=== PATIENT | female | born 1990 | race Caucasian/White ===

== ENCOUNTER → 2018-11-02 16:09 | Outpatient (CLI) | payer MEDICAID, SELFPAY ==
[2017-08-19 22:07] VITALS: BMI 33.6
[2018-11-08 10:35] LABS: HPV APTIMA, High Risk Negative (Negative)
== END ==
PROVIDERS: Visit Provider Obstetrics & Gynecology
DX: Z12.4 Encounter for screening for malignant neoplasm of cervix (principal)
CPT/HCPCS: 88175; G0145

== ENCOUNTER 2019-05-04 12:35 | Emergency (ER) | payer MEDICAID, SELFPAY ==
[2019-05-04 12:36] VITALS: BP 156/92; PULSE 104; RESP 17; TEMP 36.2; O2SAT 96; BMI 35.4
--- NOTE | 2019-05-04 13:01 | CT_ITS ---
STUDY: CT ABDOMEN AND PELVIS WITH CONTRAST REASON FOR EXAM: Female, 28 years old. Abdominal pain RADIATION DOSAGE (If Supplied By Facility): CTDIvol = ( 14.54 ) mGy, DLP = ( 951.73 ) mGycm TECHNIQUE: Transaxial images were obtained from the dome of the diaphragm to the symphysis pubis with oral contrast. 100 IV/Oral Isovue 300 was administered. Sagittal and coronal images were reconstructed. Individualized dose optimization techniques were used for this CT. COMPARISON: None. FINDINGS: The visualized lung bases are unremarkable. The visualized portions of the heart are within normal limits. Normal liver. Normal gallbladder and extrahepatic biliary system. Normal spleen. Normal pancreas. Normal bilateral adrenal glands. Normal right kidney. Normal left kidney. Normal visualized stomach. Normal small intestine. Normal colon. The appendix is visualized and appears normal. Normal abdominal aorta. Normal inferior vena cava. Normal retroperitoneum. Normal urinary bladder. There is a small umbilical hernia containing fat. Mild levoscoliosis of the thoracic lumbar spine. CT/Abdomen/Pelvis WITH Contrast IMPRESSION: Normal enhanced CT of the abdomen and pelvis. Electronically Signed: Mario Quintanilla MD at 15:22 EDT Tel , Service support ,
[2019-05-04 13:14] LABS: Bacteria 0 SEEN /hpf (None Seen); Mucous, Urine 0 SEEN /hpf (<or=2+); Red Blood Cells-Urine 0 SEEN /hpf (0-5)
[2019-05-04 13:15] LABS: Absolute Lymphocyte Count 3.85 X10^3/uL (0.83-4.51); Absolute Neutrophil Count 5.2 X10^3/uL (2.0-7.7); Basophil# 0.06 X10^3/uL; Basophil% 0.6 % (0-1); Eosinophil# 0.17 X10^3/uL; Eosinophils% 1.7 % (0-5); Hematocrit 44.4 % (37-47); Hemoglobin 14.7 g/dL (12.0-15.0); Lymphocyte # 3.85 X10^3/ul (4.0); Mean Corp Hgb Conc 33.1 g/dL (32-36); Mean Corpuscular Hgb 27.3 pg (27.0-32.0); Mean Corpuscular Volume 82.5 fL (81-99); Monocyte# 0.84 X10^3/uL; Monocyte% 8.3 % (0-10); NRBC Flagged by Analyzer 0 % (0-5); Neutrophil # 5.18 X10^3/uL (2.7-7.7); Neutrophil % 51.2 % (47-70); Platelet Count 258 K/mm3 (150-450); RBC Distribution Width CV 13.1 % (11.6-14.6); RBC Distribution Width SD 39.4 fl (35.1-43.9); Red Blood Count 5.38 M/mm3 (4.2-5.4); White Blood Count 10.1 K/mm3 (4.4-11.0)
[2019-05-04 13:16] LABS: Color, Urine Yellow (Yellow); Glucose, Dipstick Normal (Normal); Ketone-Dipstick Negative (Negative); Leukocyte Esterase-Dipstick 25 /ul (Negative); Nitrite-Dipstick Negative (Negative); Occult Blood-Urine Negative /ul (Negative); Protein-Dipstick 15 mg/dl (Negative); Specific Gravity, Urine 1.015 (1.002-1.030); Urine Bilirubin Dipstick Negative (Negative); Urine Clarity Clear (Clear); Urine Urobilinogen 1 mg/dl (Normal)
[2019-05-04 13:18] LABS: Internal QC Validated? YES +Cl - CLEAR BKGD; Pregnancy, Urine Negative Negative
[2019-05-04] MEDS: 0.9% Normal Saline 1,000 ML 125 ML IV (13:18)
[2019-05-04] MEDS: Ondansetron 4 MG/2 ML Vial IV (13:18)
[2019-05-04 13:22] LABS: Squamous Epithelial Cells - UA 0-5 SEEN /hpf (5-10); White Blood Cells 0-5 SEEN /hpf (0-5)
[2019-05-04 13:30] LABS: AST(SGOT) 21 U/L (15-37); Alanine Aminotransfer ALT/SGPT 37 U/L (13-56); Alkaline Phosphatase 69 U/L (45-117); Anion Gap 4 (5-15); BUN 13 mg/dL (7-18); BUN/Creat Ratio 17.5 RATIO (10-20); Bilirubin, Direct 0.12 mg/dL (0.00-0.30); Calcium,Total 8.8 mg/dL (8.5-10.1); Chloride 109 mmol/L (98-107); Creatinine, Serum 0.74 mg/dL (0.55-1.02); EST Glomerular Filtration Rate 100 mL/min (>60); Est Glom Filt Rate - Afr Amer 121 mL/min (>60); Globulin 3.4 g/dL (2.2-4.2); Glucose 139 mg/dL (74-106); Lipase 128 U/L (73-393); Potassium 3.9 mmol/L (3.5-5.1); Protein, Total 7.4 g/dL (6.4-8.2); Sodium Level 140 mmol/L (136-145)
--- NOTE | 2019-05-04 13:39 | ED.VISSUMM ---
- ER Visit Summary Date of Service: 05/04/19 Chief Complaint: Abdominal pain History of Present Illness: The patient is a 28 F who states for the past several days she has had intermittent periumbilical pain. Today it is more suprapubic right lower quadrant in nature and constant. She is crying states it is very painful. Is worse with movement. She was able to eat eggs waffle this morning. However she does note some nausea. No fevers. No urinary symptoms. No vaginal discharge. Unknown last menstrual. States that she has never had regular periods. Physical Examination: Afebrile vital signs stable Gen: Well-nourished well-developed Head: Normocephalic atraumatic Eyes: Perrl EOMI ENT: TMs clear no rhinorrhea moist mucous membranes Neck: Supple no lymphadenopathy no JVD nontender CVS: Regular rate rhythm no murmurs normal S1-S2 Respiratory: No distress clear to auscultation bilaterally chest nontender Abdomen: Soft tender to palpation in the right lower quadrant suprapubic region nondistended normal bowel sounds no masses Back: Nontender Extremity: Nontender no edema Skin: Normal color no rash Neuro: alert orientated ?3 CN II-XII intact normal strength sensation reflexes gait cerebellar Psych: She does crying Test Results: White count 10.1. CMP and lipase normal. Urinalysis normal. CT abdomen pelvis was obtained Emergency Department Course and Treatment: Patient refused morphine. She states that she has been here 3 hours and she cannot leave her family in a bind and needs to order picker her children. We will not have the results of the CT back to therefore I will have her sign out AGAINST MEDICAL ADVICE. She is advised to return if symptoms continue. At the time of leaving AMA she no longer has pain. Patient CT adults returned and was negative. Impression: 1. Abdominal pain This note was generated with Departing dictation software. It may contain incorrect words, spelling, and punctuation that were not noted in review of the chart prior to signing Capacity - Capacity Assessment Tool Can the patient make a choice & communicate that choice?: Yes Can the patient understand benefits, risks and alternatives?: Yes Can the patient make a logical, rational choice?: Yes Is the choice the patient makes consistent w/ their values?: Yes Is there an impending, emergent risk to the patient?: No Does the patient have an Advance Directive?: No Is there a Surrogate Available?: No i.e. HCPOA: No i.e. close relative (spouse, child, parent, sibling)?: No ED Disposition - Plan for ED Patient: Disposition: Against Medical Advice Instructions: ABDOMINAL PAIN, Unknown Cause, (Female) Referrals: Taina Clayton MD [STAFF PHYSICIAN] - (if symptoms continue ) Additional Instructions: If Symptoms worsen please department.
[2019-05-04 15:11] VITALS: BP 122/77; PULSE 76; RESP 16; O2SAT 97
--- NOTE | 2019-05-04 15:29 | ED.RN ---
spoke with MD and then called patient to inform of (-) CT.
== END 2019-05-04 15:21 | disposition left against medical advice (07) ==
PROVIDERS: Emergency Provider Emergency Medicine
DX: R10.33 Periumbilical pain (principal); R11.0 Nausea
CPT/HCPCS: 74177; 80048; 80076; 81001; 81025; 83690; 85025; 96361; 96374; 96375; 99285; Q9967; J2405

== ENCOUNTER 2019-10-27 22:00 | Emergency (ER) | payer MEDICAID, SELFPAY ==
[2019-10-27 22:00] VITALS: BP 133/75; PULSE 120; RESP 20; TEMP 37.2; O2SAT 120; BMI 34.3
--- NOTE | 2019-10-27 22:02 | RAD_ITS ---
HISTORY: FALL [place], LATERAL SWELLING AND PAIN COMPARISON: None FINDINGS: # of images incl. paperwork: 3 XR Ankle Min 3 Views : No fracture or osseous abnormality. The ankle mortise is intact. Soft tissue swelling is is present laterally. An ankle effusion is present.. RAD/Ankle min 3 Views IMPRESSION: Lateral soft tissue swelling with ankle effusion to be Right ankle. No perceived acute fracture at 2338 Reported and signed by: Jignesh Mcdaniel MD Electronically Signed: Jignesh Mcdaniel MD at 23:37 EST Tel , Service support ,
[2019-10-27 23:38] VITALS: RESP 16
--- NOTE | 2019-10-28 00:01 | ED.VIS.GEN ---
History of Present Illness Chief Complaint: Lower Extremity Injury Detail of Chief Complaint: Right ankle injury Informant: Patient Onset: Today Current Severity: Moderate Maximum Severity: Moderate Narrative: Patient presents for [facility] [place] after rolling her and injuring her right ankle. She denies any other injury. She had difficulty with weightbearing. She has not taken anything for pain. - Past Medical History (1) Depression Status: Chronic Past Medical History - Allergies and Home Meds Allergies/Adverse Reactions: Allergies bees Allergy (Uncoded 05/04/19 12:36) Swelling white chocolate Allergy (Uncoded 05/04/19 12:36) Hives Primary Care Physician: Jacquie Palomares DO [STAFF PHYSICIAN] - As Needed Prior records reviewed: Yes Smoking Status: Current every day smoker Review of Systems General: Denies: Chills, Fever Eyes: Denies: Visual changes - bilaterally ENT: Denies: Bilateral ear pain Cardiovascular: Denies: Chest pain Respiratory: Denies: Dyspnea, Cough Gastrointestinal: Denies: Abdominal pain, Nausea, Vomiting, Diarrhea Genitourinary: Denies: Dysuria Musculoskeletal: Reports: Swelling, Extremity Pain Skin: Denies: Rash Neurological: Denies: Headache, Parasthesia Allergy: Denies: Uticaria Physical Exam Vital Signs/Narrative: Vital Signs Temp Pulse Resp BP Pulse Ox 10/27/19 23:38 16 10/27/19 22:00 99.0 F 120 H 20 H 133/75 H 120 Inital Vital Signs reviewed: Yes General: Well nourished, Well developed Head: Normocephalic ENT: Moist mucous membranes Neck: Supple Cardiovascular: Regular rate, Regular rhythm Respiratory: No distress, CTA bilaterally Abdomen: Soft, Nontender Extremities: - - Tenderness palpation of the lateral malleolus with mild edema. No tender over the midfoot. Strong distal pulses with good cap refill. No tenderness of the proximal fibula or knee. Skin: Normal color Neurological: Alert, Oriented x3 Psychological: Normal affect Diagnostic/Tx/Re-eval Impressions Ankle X-Ray 10/27/19 22:02 IMPRESSION: Lateral soft tissue swelling with ankle effusion to be Right ankle. No perceived acute fracture at 2338 Reported and signed by: Jignesh Mcdaniel MD Electronically Signed: Jignesh Mcdaniel MD at 23:37 EST Tel , Service support , 10/27/19 22:02 Ankle min 3 Views [RAD] Stat - Medical Decision Making X-ray results discussed with the patient. She is given naproxen as well as ankle stirrup splint and crutches. She is referred to orthopedics if not improving. ED Disposition - Plan for ED Patient: Disposition: Home or Assisted Living Diagnosis: Ankle sprain Instructions: Sprain, Ankle, with X-Ray Prescriptions: Naproxen [Naprosyn] 500 mg PO BID PRN #20 tab Prescription Printed Referrals: Jacquie Palomares DO [STAFF PHYSICIAN] - As Needed
[2019-10-28 00:43] VITALS: RESP 16
[2019-10-28] MEDS: Naproxen 500 MG Tablet PO (00:43)
== END 2019-10-28 00:44 | disposition home or self-care (01) ==
PROVIDERS: Emergency Provider Emergency Medicine
DX: S93.401A Sprain of unspecified ligament of right ankle, initial encounter (principal); X58.XXXA Exposure to other specified factors, initial encounter; Y93.44 Activity, trampolining; Y92.838 Other recreation area as the place of occurrence of the external cause; Y99.9 Unspecified external cause status; F17.200 Nicotine dependence, unspecified, uncomplicated
CPT/HCPCS: 73610; 99284

== ENCOUNTER → 2019-11-05 13:30 | Outpatient (CLI) | payer MEDICAID, SELFPAY ==
[2019-11-05 13:21] VITALS: BMI 34.3
--- NOTE | 2019-11-05 13:30 | RAD_ITS ---
STUDY: X-RAY - RIGHT FOOT CLINICAL: Foot pain. TECHNIQUE: 3 view(s) of the foot. COMPARISON: Radiographs of the right ankle 10/27/2019. FINDINGS: Normal talus, calcaneus, and tarsal bones. Normal visualized subtalar, talonavicular, calcaneocuboid, tarsal and tarsometatarsal articulations. Normal metatarsi. Normal metatarsophalangeal joint of the great toe. Normal tibial and fibular sesamoid bones. Normal interphalangeal joint of the great toe. Normal phalanges of the great toe. Normal second through fifth metatarsophalangeal joints. Normal interphalangeal joints and phalanges of the lesser toes. The soft tissue structures are unremarkable. RAD/Foot min 3 Views IMPRESSION: Normal x-ray examination of the right foot. Electronically Signed: Riley Hale MD at 15:04 EST Tel , Service support ,
== END ==
PROVIDERS: Referring Provider Physician Assistant; Visit Provider Physician Assistant
DX: S99.911A Unspecified injury of right ankle, initial encounter (principal); X58.XXXA Exposure to other specified factors, initial encounter; Y93.9 Activity, unspecified; Y92.9 Unspecified place or not applicable; Y99.9 Unspecified external cause status
CPT/HCPCS: 73630

== ENCOUNTER → 2019-11-28 15:35 | Outpatient (CLI) | payer MEDICAID, SELFPAY ==
[2019-11-05 13:21] VITALS: BMI 34.3
--- NOTE | 2019-11-28 15:36 | MRI_ITS ---
STUDY: MRI RIGHT ANKLE WITHOUT CONTRAST REASON FOR EXAM: Female, 29 years old. rt ankle sprain of tibiofibular ligament -- injury 1 month ago, pain medial and lateral ankle since TECHNIQUE: Standardized fat and water weighted pulse sequences were obtained in all 3 orthogonal planes. COMPARISON: Right foot x-ray dated November 05, 2019. FINDINGS: Mild to moderate subcutaneous edema is present around the foot but most prominent on the lateral side. No focal fluid collections are present. A small ankle joint effusion is present. Mild patchy marrow edema is present in the medial malleolus and the far medial side of the talus as well as in the deltoid ligament. The deltoid ligament is not torn or retracted. The anterior talofibular ligament is completely torn. Mild sprain edema is also present in the syndesmosis. No widening or disruption is present. Normal posterior tibialis tendon. Normal flexor digitorum longus tendon. Normal flexor hallucis longus tendon. Normal peroneus longus and brevis tendons. Normal tibialis anterior tendon. Normal extensor hallucis longus tendon. Normal extensor digitorum longus tendons. Normal Achilles tendon and teno-osseous insertion. Normal plantar fascia. Normal plantar calcaneal tubercles. Normal intrinsic muscles of the rearfoot. Normal subtalar ligaments and sinus tarsi. Normal plantar calcaneonavicular (spring) ligament. Normal tibiotalar articulation. Normal talar dome. Normal subtalar articulations. Normal talonavicular articulation. Normal calcaneocuboid articulation. Normal navicular-cuneiform articulations. MRI/Lower Ext Joint Only (Routine) IMPRESSION: 1. Mild bony contusions of the medial malleolus and medial cortical region of the talus. 2. Sprain injury of the deltoid ligamentous complex. 3. Mild sprain injury of the syndesmosis 4. Complete tear of the anterior talofibular ligament 5. Mild to moderate subcutaneous edema 6. Small ankle joint effusion. Electronically Signed: Zurdo Mcdonnell MD at 18:33 EDT , Service support ,
== END ==
PROVIDERS: Referring Provider Physician Assistant; Visit Provider Physician Assistant
DX: S93.431A Sprain of tibiofibular ligament of right ankle, initial encounter (principal)
CPT/HCPCS: 73721

== ENCOUNTER 2019-12-03 15:10 | Outpatient (RCR) | payer MEDICAID, SELFPAY ==
[2019-11-05 13:21] VITALS: BMI 34.3
--- NOTE | 2019-12-04 08:30 | HP.PTEVAL ---
Patient's Visit Information ARTUR OWEN is a 29 year old F referred to Physical Therapy by Josué Orozco DO with a diagnosis of RIGHT ANKLE SPRAIN ATFL/HIGH ANKLE SPRAIN. Date of Evaluation: 12/03/19 Physical Therapist: Anuj Elias, PT, Cert MDT, OCS - Visit Plan Frequency: 2x /Week Duration: 6 Weeks Plan: PT INTERVENTIONS VASO,MODALTIES (US/EST/CP) ANKLE ROM ,STRENGTHENING ANKLE STABILIZERS,PROPRIOCEPTION PROGRAM ABLE - Subjective Subjective: This 29 y/o female presents to physical therapy with right ankle sprain -ATFL/high ankle sprain. Patient injuried right ankle 10/27/19 at [employer]. Patient has severe pain and edema.Patient went to ER [facility] at [facility] x-rays - fracture, air cast with crutches NWB RLE , Patient had MRI showed complete tear of ATLF right ankle . Dr River Orozco placed patient in CAM with crutches until 1 1/2 ago ,but conts with CAM boot. Patient conts to have pain and and edema worse by end of day. C/O parathesia/tingling. Patient ankle sprain impairs ADL'S ,houseworks tasks and taking care of kids. Patient has limitaions with walking,standing and stairs. Patient condition affects QOL. SOCIAL: 2 children. 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 EDEMA: METATARSEL EAD 24.5 CM,59.0 CM. GAIT: ambulates with antalgic gait with cam boot. PROPRIOCETION: absent. PALAPTION: tender ATLT,calcaneal ligamnet ,talocural ligament. AROM: -20 degrees from 0 ,inversion 5 degrees ,plantarflexion 35 degrres,eversion 0 degrees. MMT: ankle anteriortibials 3/5,peroneus/posterior tibials/G-S 2/5. SPECIAL TEST: + with ankle anterior drawer,inversion - Goals Goal 1:: Patient to be I with HEP. Goal Time Frame: 4-6 Weeks Goal 2:: Patient to improve ankle ROM WFL to improve gait Goal Time Frame: 4-6 Weeks Goal 3:: Patient increae strength ankle stabilizers to 4/5 except G-S 4-/5 to impove function with gait. Goal Time Frame: 4-6 Weeks Goal 4:: Patient to normilize gait Goal Time Frame: 4-6 Weeks Goal 5:: Patient to improve proprioception symmtrical right compared to left for gait. Goal Time Frame: 4-6 Weeks Goal 6:: Patient to improve LFES score by 10-15 points to improve function. Goal Time Frame: 4-6 Weeks - Rehabilitation Potential Physical Therapy Diagnosis: This patient sprained right ankle with complete tear of ATLF along with high ankle sprain with pain ,edema,poor ROM ,uses CAM boot ,poor strength and proprioception impairs gait and ADL's thus benifit from skilled PT Rehabilitation Potential: Good - Anticipated Interventions Thank you for the opportunity to evaluate your patient. For Medicare and Medicare HMO plans, please review the plan of care and approve it. It will need to be FAXED BACK to us at [phone] for Medicare purposes. For Medicare only, by signing this I certify the plan of care. Please let me know if there are questions or concerns regarding this plan of care. Physician Signature: Date:
--- NOTE | 2020-05-28 09:05 | HP.PT.NRP ---
ARTUR OWEN was seen in my office for initial evaluation on 12/03/19. The following Plan of Care was established for this patient: Initial Frequency: 2x /Week Initial Duration: 6 Weeks This patient was last seen in our office . Pertinent comments regarding their Physical therapy will appear below: Patient seen for PT for high ankle sprain for Intial PT eval for HEP At this point I will be discontinuing this patient from physical therapy. I would be happy to see this patient again in the future if found appropriate by the physician. Thank you! Anuj Elias, PT, Cert MDT, OCS
== END 2019-12-03 19:00 | disposition home or self-care (01) ==
LOC: PT 15:10
PROVIDERS: Referring Provider Orthopaedic Surgery; Visit Provider Orthopaedic Surgery
DX: S93.491D Sprain of other ligament of right ankle, subsequent encounter (principal)
CPT/HCPCS: 97014; 97110; 97162; G0283

== ENCOUNTER 2020-04-27 12:43 | Emergency (ER) | payer MEDICAID, SELFPAY ==
[2019-11-05 13:21] VITALS: BMI 34.3
[2020-04-27 12:44] VITALS: BP 133/90; PULSE 85; RESP 14; TEMP 36.7; O2SAT 97; BMI 35.1
--- NOTE | 2020-04-27 12:56 | ED.DCSUM_ITS ---
History of Present Illness Informant: Patient Onset: Yesterday Context: Gradual Onset Timing: Continuous Quality: aching Location: tonsils Current Severity: Severe Maximum Severity: Severe Worsened by: Eating and drinking Relieved by: Nothing Associated Symptoms: Fever Narrative: 29-year-old female presents to the emergency department with a sore throat and a fever that she started having the symptoms yesterday. Her was seen here a few days ago diagnosed with strep throat. She denies cough, headache, neck pain, lightheadedness, dizziness, dental pain, difficulty breathing or swallowing, rash, chest pain or shortness of breath. No contacts with anyone h aving a positive test for coronavirus. Prior similar symptoms: No Recent Illness/Hospitalization: No <Jim Wang - Last Filed: 04/27/20 12:56> <Aj Morgan - Last Filed: 04/27/20 13:14> Chief Complaint: Sore Throat Past Medical History Prior records reviewed: Yes Past Medical History: None Surgical History: no surgical history Lives: With Family Smoking Status: Current every day smoker Alcohol: Occasional Drugs: None <Jim Wang - Last Filed: 04/27/20 12:56> <Aj Morgan - Last Filed: 04/27/20 13:14> - Allergies and Home Meds Allergies/Adverse Reactions: Allergies bees Allergy (Uncoded 04/27/20 12:46) Swelling white chocolate Allergy (Uncoded 04/27/20 12:46) Hives Primary Care Physician: Davey Monte MD [STAFF PHYSICIAN] - Review of Systems All systems negative except as indicated General: Reports: Chills, Fever. Denies: Sweats Eyes: Denies: Visual changes - bilaterally, Diplopia ENT: Reports: Sore throat. Denies: Rhinorrhea Cardiovascular: Denies: Chest pain, Palpitations Respiratory: Denies: Dyspnea, Cough, Dyspnea on exertion Gastrointestinal: Denies: Abdominal pain, Nausea, Vomiting, Diarrhea, Melena, Hematochezia Genitourinary: Denies: Dysuria, Hematuria, Frequency Musculoskeletal: Denies: Myalgias, Arthralgias, Neck pain, Back pain, Swelling, Extremity Pain Skin: Denies: Rash, Wounds Neurological: Denies: Headache, Weakness, Numbness <Jim Wang - Last Filed: 04/27/20 12:56> Physical Exam Vital Signs/Narrative: Vital Signs Temp Pulse Resp BP Pulse Ox 04/27/20 12:44 98.0 F 85 14 133/90 H 97 Inital Vital Signs reviewed: Yes General: Well nourished, Well developed, No Acute Distress Head: Normocephalic, Atraumatic Eyes: Perrl, EOMI ENT: Moist mucous membranes, No rhinorrhea, - - Patient has 2+ tonsillar swelling symmetrical with tonsillar exudate. Uvula is midline. Voice is normal. Neck: Supple, Nontender, - - Tender anterior cervical lymphadenopathy. No meningismus Cardiovascular: Regular rate, Regular rhythm, No murmurs Respiratory: No distress, CTA bilaterally, Chest nontender Abdomen: Soft, Nontender, Nondistended, Normal bowel sounds Back: Nontender, Normal Inspection Extremities: Nontender, No edema Skin: Normal color, No rash. Negative for: Rash Neurological: Alert, Oriented x3, Cranial nerves II-XII grossly intact, Normal Strength, Normal Sensation Psychological: Normal affect, Normal Mood <Jim Wang - Last Filed: 04/27/20 12:56> Vital Signs/Narrative: Vital Signs Temp Pulse Resp BP Pulse Ox 04/27/20 12:44 98.0 F 85 14 133/90 H 97 <Aj Morgan - Last Filed: 04/27/20 13:14> Diagnostic/Tx/Re-eval - Medical Decision Making Patient had a fever today prior to taking Tylenol. She has 4/4 centor.. In addition, her had a positive test a few days ago for strep. I will treat her for strep with amoxicillin. I will prescribe her 10 days worth. She will use Motrin and Tylenol at home for pain and fever. She was given 1 dose of Decadron in the emergency department. 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 Patient presents with a sore throat. Her recently tested positive for streptococcal pharyngitis. The patient complains of fever. She does have tonsillar swelling with exudates bilaterally. She does have tender anterior cervical lymphadenopathy. She does not have trismus or sublingual edema. Patient prescribed amoxicillin. She was also given a dose of Decadron here. The patient was discharged. <Aj Morgan - Last Filed: 04/27/20 13:14> ED Disposition <Jim Wang - Last Filed: 04/27/20 12:56> <Aj Morgan - Last Filed: 04/27/20 13:14> - Plan for ED Patient: Disposition: Home or Assisted Living Diagnosis: Acute streptococcal pharyngitis Instructions: ED Strep Pharyngitis Poss Referrals: Davey Monte MD [STAFF PHYSICIAN] -
[2020-04-27] MEDS: dexAMETHasone 10 MG/ML Vial PO.IVFORM (13:00)
== END 2020-04-27 13:21 | disposition home or self-care (01) ==
LOC: ED 13:20
PROVIDERS: Emergency Provider Physician Assistant Medical
DX: J02.0 Streptococcal pharyngitis (principal)
CPT/HCPCS: 99283

== ENCOUNTER 2021-04-24 23:42 | Emergency (ER) | payer MEDICAID, SELFPAY ==
[2021-04-24 23:43] VITALS: BP 144/84; PULSE 81; RESP 16; TEMP 36.6; O2SAT 94; BMI 37.2
--- NOTE | 2021-04-25 00:30 | EKG12_ITS ---
Test Reason : CP Blood Pressure : / mmHG Vent. Rate : 067 BPM Atrial Rate : 067 BPM P-R Int : 180 ms QRS Dur : 096 ms QT Int : 410 ms P-R-T Axes : 032 071 070 degrees QTc Int : 433 ms Normal sinus rhythm Normal ECG Confirmed by YARA MINER, PAT ([id number]), subeditor FRANC ANAND ([id number]) on 04/27/2021 1:38:05 PM Referred By: SUMEET Confirmed By:ANDRÉS LIVINGSTON MD
[2021-04-25] MEDS: Mag Hydrox/Al Hydrox/Simeth 30 ML UDC PO (00:47)
--- NOTE | 2021-04-25 00:47 | RAD_ITS ---
STUDY: X-RAY CHEST REASON FOR EXAM: Female, 30 years old. chest pain TECHNIQUE: Single AP portable view of the chest. COMPARISON: None. FINDINGS: The lungs are clear and expanded. There is no demonstrated pleural abnormality. Normal size heart. Normal mediastinum and sami. Normal visualized pulmonary arteries. Normal visualized aortic arch and descending thoracic aorta. Normal visualized thoracic spine. Normal visualized ribs, clavicles, and shoulders. There is no demonstrated abnormality of the visualized soft tissue structures of the upper abdomen. RAD/Chest 1 View (Portable) IMPRESSION: Normal x-ray examination of the chest. Electronically Signed: Chas Carter DO at 1:33 EDT Tel , Service support ,
[2021-04-25 00:57] LABS: Absolute Lymphocyte Count 4.62 X10^3/uL (0.83-4.51); Absolute Neutrophil Count 4.5 X10^3/uL (2.0-7.7); Basophil# 0.04 X10^3/uL; Basophil% 0.4 % (0-1); Eosinophil# 0.19 X10^3/uL; Eosinophils% 1.8 % (0-5); Hematocrit 40.9 % (37-47); Hemoglobin 13.6 g/dL (12.0-15.0); Lymphocyte # 4.62 X10^3/ul (0.83-4.51); Lymphocyte % 44.8 % (19-41); Mean Corp Hgb Conc 33.3 g/dL (32-36); Mean Corpuscular Hgb 27.9 pg (27.0-32.0); Mean Platelet Vol. 10.4 fl (6.2-12.0); Monocyte# 0.93 X10^3/uL; NRBC Flagged by Analyzer 0 % (0-5); Neutrophil # 4.51 X10^3/uL (2.7-7.7); Neutrophil % 43.7 % (47-70); Platelet Count 275 K/mm3 (150-450); RBC Distribution Width SD 39.5 fl (35.1-43.9); Red Blood Count 4.87 M/mm3 (4.2-5.4); White Blood Count 10.3 K/mm3 (4.4-11.0)
--- NOTE | 2021-04-25 01:35 | EDS_ITS ---
HPI History of Present Illness Chief Complaint: Chest Pain Informant: patient Onset/Context/Timing Onset: Today and Hours (5-6) Activity at onset: gradual and activity on onset (driving) Timing: Continuous Quality: Positive for Heaviness and Sharp Location: Substernal (w/o radiation) Current Severity: Moderate Maximum Severity: Moderate Worsened By: - (lying supine); Not Worsened By Breathing Relieved By: - (sitting up) Associated Symptoms: Positive for Nausea and Acid Reflux (maybe); Negative for Vomiting, Diaphoresis, Dyspnea, Cough, Fever, Lightheadedness and Palpitations Narrative Narrative: Patient presents with nonpleuritic central chest discomfort more lower in the retrosternal area just after eating a double hamburger combo meal from [employer], started after that while she was driving to a show. Chest discomfort was there the entire time, so she came to the emergency department later since it was persistent especially when she lied down with her daughter at home. CVD Risk Factors: Positive for Smoking; Negative for Hypertension, Diabetes, Hypercholesterolemia and Family History 1' </=55 PE Risk Factors: Negative for Recent Travel/Surgery, Recent Immobilization, Prior DVT or PE, Cancer and OCP + Smoking + >/=35 PFSH PFSH Medical History Depression Home Medications NK 04/27/20 [History Last Taken Unknown] Allergy/AdvReac Type Severity Reaction Status Date / Time bees Allergy Swelling Uncoded 04/24/21 23:45 white chocolate Allergy Hives Uncoded 04/24/21 23:45 Social History Smoking Status: Current every day smoker tobacco type: cigarettes ROS ROS ED Constitutional Constitutional ED: Denies chills or fever(s) Eyes Eyes: Denies change in vision or diplopia ENT ENT ED: Denies rhinorrhea or sore throat Cardiovascular Cardiovascular: Reports chest pain; Denies flutter in chest, palpitations, pedal edema, pounding heartbeat, racing heartbeat or radiating jaw, neck or arm pain Respiratory/Chest Respiratory/Chest: Denies cough, dyspnea or hemoptysis Gastrointestinal Gastrointestinal: Reports nausea; Denies abdominal pain, diarrhea or vomiting Genitourinary Genitourinary ED: Denies dysuria or hematuria Musculoskeletal Musculoskeletal: Denies back pain, extremity pain or neck pain Integumentary Denies abscess or rash Neurologic Neurologic: Denies headache(s), paresthesias or weakness Psychiatric Psychiatric: Reports anxiety and other Details: Patient states she has had some increased anxiety lately since her daughter went back to school and she is not exactly sure why but without chest discomfort until tonight. ; Denies suicidal thoughts EXAM Physical Exam Const Vital Signs: 04/24/21 23:43 04/25/21 00:09 04/25/21 02:17 Temperature 97.9 F Temperature Source Temporal Pulse Rate 81 68 Respiratory Rate 16 16 Respiratory Effort Short of Breath Blood Pressure 144/84 H 115/82 H Blood Pressure Mean 104 93 Pulse Ox 94 93 Oxygen Delivery Method Room Air Room Air Positive well nourished and well developed General Appearance ED: well developed and NAD HEENT Reports moist mucous membranes normocephalic and atraumatic Eyes PERRL and EOMs intact bilaterally Neck full ROM and supple Resp normal respiratory effort and clear to auscultation bilaterally Cardio regular rate, regular rhythm and no murmurs Rate: Negative for tachycardic GI non-tender and non-distended Auscultation: normoactive bowel sounds Palpation: soft Back/Spine no CVA tenderness General Back: other FROM Extremity normal to inspection and no calf tenderness General Extremety ED: Negative for edema, pulses abnormal or tenderness General Extremity: Negative for edema or pulses abnormal Neuro oriented x3, CN's II-XII intact bilaterally and no sensory deficits noted Sensorium / Orientation: awake and alert Motor Exam: strength 5/5 throughout Skin no rashes or lesions noted and no wounds Heart Score History: Slightly/Non-Suspicious ECG: Normal Age: </= 45 years Risk Factors: 1 or 2 Risk Factors Troponin: </= Normal Limit Score: 1 MDM MDM MDM Narrative Medical decision making narrative: Patient's work-up is negative, her PERC score is 0 so no further work-up is needed in order to rule out pulmonary embolus here. I suspect this is esophageal in etiology, given the history. She was given a GI cocktail and did note improvement. She is reassured and advised to follow-up if symptoms persist throughout the weekend, advised to take daily twice daily Pepcid or once daily omeprazole if she still has symptoms tomorrow u ntil they are gone at least. She is comfortable with that plan and we discussed reasons to return. Lab Data Attestation: I reviewed the patient's lab results. Labs: Laboratory Results - last 24 hr 04/25/21 04/25/21 00:50 00:50 WBC 10.3 RBC 4.87 Hgb 13.6 Hct 40.9 MCV 84.0 MCH 27.9 MCHC 33.3 RDW Std Deviation 39.5 RDW Coeff of Jatinder 13.0 Plt Count 275 MPV 10.4 Immature Gran % (Auto) 0.300 Neut % (Auto) 43.7 L Lymph % (Auto) 44.8 H [place] % (Auto) 9.0 Eos % (Auto) 1.8 Baso % (Auto) 0.4 Absolute Neuts (auto) 4.5 Absolute Lymphs (auto) 4.62 H Nucleated RBC % 0 Sodium TNP Potassium TNP Chloride TNP Carbon Dioxide 26.0 BUN 11 Creatinine 0.68 Estim Creat Clear Calc 101.89 Est GFR (MDRD) Af Amer 132 Est GFR (MDRD) Non-Af 109 BUN/Creatinine Ratio 16.2 Glucose 128 H Calcium 8.9 Troponin I High Sens 5 Radiography Chest X-Ray - ED: 1 View, Read by ED Physician, Normal and No Acute Disease Diagnostic Testing: Radiology Impression Chest X-Ray 04/25/21 00:47 IMPRESSION: Normal x-ray examination of the chest. Electronically Signed: Chas Carter DO at 1:33 EDT Tel , Service support , EKG Initial EKG: Attestation: I personally reviewed and interpreted this EKG as follows: Interpretation: Sinus Rhythm and No Acute Injury Pattern Comments: normal EKG Discharge Plan Triage Chief Complaint: Chest Pain ED Provider: Daniel De Los Santos Dx/Rx/DC Orders Clinical Impression: Chest pain, unspecified Instructions: ED Chest Pain, Noncardiac Prescriptions: No Action NK RF: 0 Primary Care Provider: Care Physician,No Primary Referrals: Care Physician,No Primary [Primary Care Provider] - Activity Restrictions/Additional Instructions: If you still have symptoms tomorrow take Pepcid 40 mg once a day, or 20 mg twice a day, or omeprazole 40 mg once a day until the symptoms go away. Disposition Disposition: Home, Self Care
[2021-04-25 02:17] VITALS: BP 115/82; PULSE 68; RESP 16; O2SAT 93
[2021-04-25] MEDS: Pantoprazole Sodium 40 MG Tablet PO (02:18)
[2021-04-25 03:18] LABS: BUN 11 mg/dL (7-18); BUN/Creat Ratio 16.2 RATIO (10-20); Calcium,Total 8.9 mg/dL (8.5-10.1); Creatinine, Serum 0.68 mg/dL (0.55-1.02); EST Glomerular Filtration Rate 109 mL/min (>60); Est Glom Filt Rate - Afr Amer 132 mL/min (>60); Estimated Creatinine Clearance 101.89 ml/min; Glucose 128 mg/dL (74-106); Troponin-I HS 5 pg/mL (3.0-54.0)
[2021-04-25 03:30] VITALS: BP 128/79; PULSE 60; RESP 17; O2SAT 95
[2021-04-25 04:28] LABS: Anion Gap 7 (5-15); Chloride 109 mmol/L (98-107); Potassium 3.7 mmol/L (3.5-5.1); Sodium Level 142 mmol/L (136-145)
== END 2021-04-25 03:30 | disposition home or self-care (01) ==
PROVIDERS: Emergency Provider Emergency Medicine
DX: R07.89 Other chest pain (principal); K21.9 Gastro-esophageal reflux disease without esophagitis; F17.210 Nicotine dependence, cigarettes, uncomplicated
CPT/HCPCS: 71045; 80048; 84484; 85025; 93005; 99284; A4216

== ENCOUNTER 2022-07-31 04:33 | Emergency (ER) | payer MEDICAID, SELFPAY ==
[2022-07-31 04:34] VITALS: BP 136/88; PULSE 81; RESP 16; TEMP 35.8; O2SAT 98; BMI 36.1
[2022-07-31] MEDS: 0.9% Normal Saline 1,000 ML 999 ML IV (05:00)
--- NOTE | 2022-07-31 05:07 | CT_ITS ---
EXAM: CT HEAD WITHOUT INTRAVENOUS CONTRAST CLINICAL INDICATION: headache TECHNIQUE: Multiple axial images were obtained of the head without intravenous contrast. This CT exam was performed using one or more of the following dose reduction techniques: automated exposure control, adjustment of the mA and/or kV according to patient size, and/or use of iterative reconstruction technique. This report was created using [employer] report generation technology. RADIATION DOSE: CTDIvol = 44.99 mGy, DLP = 812.98 mGy-cm. COMPARISON: None. FINDINGS: BRAIN AND EXTRA-AXIAL SPACES: Unremarkable. No intra- or extra-axial hemorrhage. No evidence of acute infarct. No intracranial mass or mass effect. There is preservation of the kumar/white matter interface. Posterior fossa structures are unremarkable. Ventricles are appropriate for age. No hydrocephalus. Basal cisterns are patent. BONES/JOINTS: Unremarkable. No discrete lytic or blastic abnormalities. SINUSES: Extensive mucosal thickening right frontal, right ethmoid, and bilateral maxillary sinuses. MASTOID AIR CELLS: Unremarkable. Clear. ORBITS: Visualized globes, extraocular muscles, optic nerves and retrobulbar fat appear unremarkable. CT/Brain/Head without Contrast IMPRESSION: 1. No acute intracranial abnormality. 2. Extensive mucosal thickening right frontal, right ethmoid, and bilateral maxillary sinuses. Electronically Signed: Luis Eduardo Lindsey MD at 5:40 EST ,
[2022-07-31] MEDS: DiphenhydrAMINE 50 MG/ML Syringe IV (05:22)
[2022-07-31] MEDS: dexAMETHasone 10 MG/ML Vial IV (05:22)
[2022-07-31] MEDS: Ketorolac 30 MG/ML Syringe IV (05:24)
[2022-07-31] MEDS: Metoclopramide 10 MG/2 ML Vial IV (05:24)
--- NOTE | 2022-07-31 05:31 | EX.ED.DYSGE1 ---
HPI History of Present Illness Chief Complaint: Headache Narrative Narrative: Patient is a 31-year-old female with past medical history of depression. She states that approximately 2 to 3 days ago she began with a generalized headache. She states the headache came on slowly and then began to increase over the course of hours. She states she took [id number] medication but despite this the headache has persisted and worsened. She states it is sensitive to light and loud noises. She denies any fevers or chills but does report mild nasal congestion and sinus pain/pressure. She denies any trauma prior to the headache beginning. She states that she does not normally have headaches and this headache is not resolving with [id number] medications with seems to be worsening over time she is concerned and therefore presents for evaluation [facility] Medical History Depression Home Medications amoxicillin 875 mg-potassium clavulanate 125 mg tablet 1 tab PO BID 7 days #14 tabs 07/31/22 [Rx Last Taken Unknown] prednisone 20 mg tablet 40 mg PO DAILY 7 days #14 tabs 07/31/22 [Rx Last Taken Unknown] Allergy/AdvReac Type Severity Reaction Status Date / Time bee venom protein (honey bee) Allergy Swelling Verified 07/31/22 04:36 chocolate flavor Allergy Hives Verified 07/31/22 04:36 Social History Smoking Status: Current every day smoker tobacco type: cigarettes ROS ROS ED Constitutional Constitutional ED: Denies chills or fever(s) Eyes Eyes: Reports other Details: Positive photophobia ENT ENT ED: Reports rhinorrhea; Denies sore throat Cardiovascular Cardiovascular: Denies chest pain Respiratory/Chest Respiratory/Chest: Denies cough or dyspnea Gastrointestinal Gastrointestinal: Reports nausea; Denies abdominal pain, diarrhea or vomiting Genitourinary Genitourinary ED: Denies dysuria Musculoskeletal Musculoskeletal: Denies myalgias or neck pain Integumentary Denies rash Neurologic Neurologic: Reports headache(s) Hematologic/Lymphatic Hematologic/Lymphatic: Denies easy bleeding or easy bruising EXAM Physical Exam Const Vital Signs: 07/31/22 04:34 Temperature 96.5 F L Temperature Source Temporal Pulse Rate 81 Respiratory Rate 16 Blood Pressure 136/88 H Blood Pressure Mean 104 Pulse Ox 98 Oxygen Delivery Method Room Air Positive well nourished and well developed General Appearance ED: well developed HEENT Reports moist mucous membranes HEENT Narrative: Nasal mucosa is hyperemic and boggy there are enlarged inferior nasal turbinates noted. Patient does have pain on palpation of the maxillary, frontal, and ethmoid sinuses mainly on the right Eyes PERRL and EOMs intact bilaterally Neck supple Neck Narrative: No meningeal signs noted Resp normal respiratory effort and clear to auscultation bilaterally Cardio regular rate and regular rhythm GI normal to inspection, nondistended, normoactive bowel sounds, non-tender, non-distended and no masses Auscultation: normoactive bowel sounds Palpation: soft Extremity normal to inspection Neuro oriented x3 and CN's II-XII intact bilaterally Neuro Narrative: Cranial nerves II through XII are grossly intact there are no focal neurologic deficits. No pronator drift no dysmetria no truncal ataxia. NIH stroke scale score of 0. Sensorium / Orientation: alert Psych mental status grossly normal Skin no rashes or lesions noted MDM MDM MDM Narrative Medical decision making narrative: Patient presented to the ER with stable vitals and a normal neurologic exam. She reported headache came on gradually increased over the course of hours. With this she also had mild congestion and pain over top the sinuses concerning for sinus headache or viral syndrome. However as she states she does not typically have headaches like this I elected to perform a head CT. Head CT revealed inflammation along the maxillary ethmoid and frontal sinuses mainly on the right which is where her symptoms are located. Her COVID and influenza swabs are negative. At this time there is concern that the headache is secondary to bacterial sinusitis so she will be placed on Augmentin. However after treatment with Decadron Toradol Benadryl and Reglan she does have improvement of symptoms and her neuro exam remains normal. Therefore at this time as there are no signs of acute stroke she does not have meningeal signs and there are no signs of pneumocephalus from possible invasive sinusitis she can be given medication and discharged home Radiography Diagnostic Testing: Clinical Impression(s) from Imaging Studies Brain CT 07/31/22 05:07 IMPRESSION: 1. No acute intracranial abnormality. 2. Extensive mucosal thickening right frontal, right ethmoid, and bilateral maxillary sinuses. Electronically Signed: Luis Eduardo Lindsey MD at 5:40 EST , Discharge Plan Triage Chief Complaint: Headache ED Provider: Guru Franco Dx/Rx/DC Orders Clinical Impression: Sinusitis, Cephalgia Instructions: ED Sinus Headache, ED Sinusitis (Antibiotic Treatment) Prescriptions: New amoxicillin-pot clavulanate 875-125 mg tablet 1 tab PO BID 7 Days Qty: 14 0RF prednisone 20 mg tablet 40 mg PO DAILY 7 Days Qty: 14 0RF Primary Care Provider: Care Physician,No Primary Referrals: Amrita Rob DO [Med Staff - Correctional Officer] - Care Physician,No Primary [Primary Care Provider] - Activity Restrictions/Additional Instructions: Your CT scan today does not show any type of tumor mass bleed or abscess. It does show thickening and inflammation of the sinuses around your eye/forehead region. I feel your headache is secondary to this inflammation and thickening. Be placed on steroids to help reduce inflammation as well as antibiotics to cover for bacterial infection. He can continue with Tylenol Motrin as needed and please return to the ER should you have any further concerns Disposition Disposition: Home, Self Care
[2022-07-31] MEDS: Amox/Clavulanate 875 MG Tablet PO (06:06)
== END 2022-07-31 06:11 | disposition home or self-care (01) ==
PROVIDERS: Emergency Provider Emergency Medicine; Visit Provider Emergency Medicine
DX: J32.9 Chronic sinusitis, unspecified (principal); R51.9 Headache, unspecified; F17.210 Nicotine dependence, cigarettes, uncomplicated
CPT/HCPCS: 70450; 87428; 96361; 96374; 96375; 99282; J7030; A4216

== ENCOUNTER 2023-01-02 20:37 | Emergency (ER) | payer MEDICAID, SELFPAY ==
[2023-01-02 20:39] VITALS: BP 132/107; PULSE 81; RESP 18; TEMP 36.6; O2SAT 97; BMI 36.6
[2023-01-02 21:06] LABS: Bacteria 0 SEEN /hpf (None Seen); Mucous, Urine 0 SEEN /hpf (<or=2+); Red Blood Cells-Urine 0 SEEN /hpf (0-5); White Blood Cells 0 SEEN /hpf (0-5)
[2023-01-02 21:13] LABS: Absolute Lymphocyte Count 5.58 X10^3/uL (0.83-4.51); Absolute Neutrophil Count 9.6 X10^3/uL (2.0-7.7); Basophil# 0.08 X10^3/uL; Basophil% 0.5 % (0-1); Eosinophil# 0.11 X10^3/uL; Eosinophils% 0.7 % (0-5); Hematocrit 46.2 % (37-47); Hemoglobin 15.4 g/dL (12.0-15.0); Lymphocyte # 5.58 X10^3/ul (0.83-4.51); Lymphocyte % 33.4 % (19-41); Mean Corp Hgb Conc 33.3 g/dL (32-36); Mean Corpuscular Hgb 27.9 pg (27.0-32.0); Mean Corpuscular Volume 83.7 fL (81-99); Mean Platelet Vol. 9.5 fl (6.2-12.0); Monocyte# 1.28 X10^3/uL; Monocyte% 7.7 % (0-10); NRBC Flagged by Analyzer 0 % (0-5); Neutrophil # 9.59 X10^3/uL (2.7-7.7); Neutrophil % 57.3 % (47-70); POSITIVE DIFFERENTIAL YES; Platelet Count 321 K/mm3 (150-450); RBC Distribution Width CV 13.1 % (11.6-14.6); RBC Distribution Width SD 39.9 fl (35.1-43.9); Red Blood Count 5.52 M/mm3 (4.2-5.4); White Blood Count 16.7 K/mm3 (4.4-11.0)
[2023-01-02 21:15] LABS: Differential Indicated SCAN CRITERIA MET
[2023-01-02 21:33] LABS: Color, Urine Yellow (Yellow); Glucose, Dipstick Normal (Normal); Ketone-Dipstick Negative (Negative); Leukocyte Esterase-Dipstick Negative /ul (Negative); Nitrite-Dipstick Negative (Negative); Occult Blood-Urine Negative /ul (Negative); Protein-Dipstick Negative (Negative); Specific Gravity, Urine 1.005 (1.002-1.030); Urine Bilirubin Dipstick Negative (Negative); Urine Clarity Sl. Cloudy (Clear); Urine Urobilinogen Normal (Normal)
--- NOTE | 2023-01-02 21:37 | US_ITS ---
STUDY: FIRST TRIMESTER OBSTETRICAL ULTRASOUND REASON FOR EXAM: Female, 32 years old early , pelvic pain LMP: 09/29/2022 TECHNIQUE: Transvaginal TECHNICAL QUALITY: Adequate. PRIOR ULTRASOUND: None. FINDINGS: There is visualization of a single gestational sac in a normal intrauterine position. The mean sac diameter (MSD) measures 3 mm, indicating an estimated gestational age (EGA) of 5 weeks, 0 days. The gestational sac shape is within normal limits. There is no demonstrated yolk sac.. The placenta is non-visualized. There is no demonstrated embryo ( pole).. The estimated gestation age (EGA) by LMP is 13 weeks, 4 days. The estimated date of delivery (SERA) by LMP is 07/06/2023. The estimated gestation age (EGA) by US is 5 weeks, 0 days. The estimated date of delivery (SERA) by US is 09/04/2023. The uterus measures 9.4 x 6.3 x 4.5 cm. There is no demonstrated uterine fibroid. The cervix is closed. The right ovary measures 3.5 x 2.5 x 2.2 cm. There is no right ovarian cyst. There is no visualized right adnexal mass or complex lesion. The left ovary measures 4.8 x 3.4 x 2.4 cm. There is no left ovarian cyst. There is no visualized left adnexal mass or complex lesion. There is no fluid in the cul de sac. US/Transvaginal w/Preg US IMPRESSION: Intrauterine gestational sac of 5 weeks 0 days as described above. Electronically Signed: Mario Quintanilla MD at 23:17 EDT ,
[2023-01-02 21:38] LABS: Internal QC Validated? YES +Cl - CLEAR BKGD
[2023-01-02 21:42] LABS: Anion Gap 5 (5-15); BUN 9 mg/dL (7-18); BUN/Creat Ratio 12.4 RATIO (10-20); Calcium,Total 9.1 mg/dL (8.5-10.1); Chloride 109 mmol/L (98-107); Creatinine, Serum 0.73 mg/dL (0.55-1.02); Differential Comment SCANNED; EST Glomerular Filtration Rate 100 mL/min (>60); Est Glom Filt Rate - Afr Amer 121 mL/min (>60); Estimated Creatinine Clearance 93.22 ml/min; Glucose 97 mg/dL (74-106); Potassium 3.6 mmol/L (3.5-5.1); Sodium Level 137 mmol/L (136-145)
[2023-01-02 21:43] LABS: Squamous Epithelial Cells - UA 0-5 SEEN /hpf (5-10)
[2023-01-02 21:44] LABS: Amorphous Sediment 1+ PHOS; Pregnancy, Urine Positive Negative
--- NOTE | 2023-01-02 21:52 | EDS_ITS ---
HPI <BISI Sesay - Last Filed: 01/02/23 22:10> History of Present Illness Chief Complaint: Abd Pain Narrative Narrative: Patient is a 32-year-old female with no significant medical history who currently does not see a physician who presents to the emergency department with concern of a positive test. Patient is a 2 para 2. Patient and her do not use any control. They have not had any pregnancies or concern for in the last 7 years. Patient states that over the last 3 days she has been having lower abdominal pain, frequent urination, took a home test and was positive. Patient's last menstrual cycle was September 2022, she states that she is always been irregular and single multiple months without a menstrual cycle. Her cycles are usually 7 days and heavy. Patient denies any nausea or vomiting. Denies any back pain, fever or chills. PFSH <BISI Sesay - Last Filed: 01/02/23 22:10> PFSH Medical History Depression Home Medications amoxicillin 875 mg-potassium clavulanate 125 mg tablet 1 tab PO BID 7 days #14 tabs 07/31/22 [Rx Last Taken Unknown] prednisone 20 mg tablet 40 mg PO DAILY 7 days #14 tabs 07/31/22 [Rx Last Taken Unknown] vit,calcium no.40-iron fum 27 mg iron-folate no.1 1 mg tablet (PNV- Select) 1 tab PO DAILY #30 tabs 01/03/23 [Rx Last Taken Unknown] Allergy/AdvReac Type Severity Reaction Status Date / Time bee venom protein (honey bee) Allergy Swelling Verified 01/02/23 20:42 chocolate flavor Allergy Hives Verified 01/02/23 20:42 Social History Smoking Status: Current every day smoker tobacco type: cigarettes ROS <BISI Sesay - Last Filed: 01/02/23 22:10> ROS ED ROS Narrative Constitutional: Negative for fever, chills, weight loss, weakness Eyes: Negative for vision loss, vision change, double vision ENT: Negative for any sore throat, ear pain, congestion Cardiovascular: Negative for any chest pain, tightness, palpitations Respiratory: Negative for any cough, sputum production, hemoptysis, dyspnea, dyspnea on exertion, orthopnea Gastrointestinal: Negative for any nausea, vomiting, diarrhea, constipation, blood in stool, blood in vomit. Positive for lower abdominal pain : Negative for any dysuria, retention, blood in urine. Positive for urinary frequency Muscle skeletal: Negative for any muscle joint pain, stiffness, myalgias, arthralgias, neck pain, back pain Neurological: Negative for any headache, syncope, numbness or tingling, dizziness Skin: Negative for any rashes, lumps, itching, abrasions, lacerations Psychiatric: Negative for any depression, anxiety, stress, suicidal ideation, homicidal ideation Hematologic: Negative for any easy bruising, excessive bruising, easy bleeding Allergies: Negative for any eczema, hives, rash EXAM <BISI Sesay - Last Filed: 01/02/23 22:10> Physical Exam Narrative Exam Narrative: Vital signs reviewed. Patient does appear to be anxious, patient is tearful on examination. Patient states that she is scared secondary to her age, she is also not wanting another . HEET: Head normocephalic atraumatic, TMs clear bilaterally. Posterior pharynx is clear, moist mucous membranes. Nares clear bilaterally. Neck: Supple with no lymphadenopathy or tenderness. No signs of meningismus, negative jolt sign. Cardiac: Regular rate and rhythm no murmurs gallops or rubs, equal peripheral pulses bilaterally. Respiratory: Lungs clear to auscultation bilaterally. No chest tenderness. Abdomen: Soft, nontender, nondistended. No abdominal bruit or pulsatile masses. No hepatosplenomegaly Extremities: No peripheral edema, no signs of gross trauma or deformity. Active full range of motion of all extremities. Neuro: Cranial nerves II through XII intact, no focal neurological deficits. Skin: Clean dry and intact with no rash, purpura, petechiae, vesicles or pustules. Backs/flank: No CVA tenderness, no midline spinal tenderness, no deformity. Psych: Normal mood and affect. No SI, HI or acute psychosis. Const Vital Signs: 01/02/23 20:39 Temperature 97.9 F Temperature Source Temporal Pulse Rate 81 Respiratory Rate 18 Blood Pressure 132/107 H Blood Pressure Mean 115 Pulse Ox 97 Oxygen Delivery Method Room Air <Dr. Daniel De Los Santos MD - Last Filed: 01/03/23 00:15> Physical Exam Const Vital Signs: 01/02/23 20:39 Temperature 97.9 F Temperature Source Temporal Pulse Rate 81 Respiratory Rate 18 Blood Pressure 132/107 H Blood Pressure Mean 115 Pulse Ox 97 Oxygen Delivery Method Room Air MDM <Davey BISI Goldman - Last Filed: 01/02/23 22:10> [facility] Lab Data Attestation: I reviewed the patient's lab results. Labs: Laboratory Results - last 24 hr 01/02/23 01/02/23 01/02/23 21:00 21:07 21:07 WBC 16.7 H RBC 5.52 H Hgb 15.4 H Hct 46.2 MCV 83.7 MCH 27.9 MCHC 33.3 RDW Std Deviation 39.9 RDW Coeff of Jatinder 13.1 Plt Count 321 MPV 9.5 Immature Gran % (Auto) 0.400 Neut % (Auto) 57.3 Lymph % (Auto) 33.4 [place] % (Auto) 7.7 Eos % (Auto) 0.7 Baso % (Auto) 0.5 Absolute Neuts (auto) 9.6 H Absolute Lymphs (auto) 5.58 H Nucleated RBC % 0 Differential Comment SCANNED Sodium 137 Potassium 3.6 Chloride 109 H Carbon Dioxide 23.0 Anion Gap 5 BUN 9 Creatinine 0.73 Estim Creat Clear Calc 93.22 Est GFR (MDRD) Af Amer 121 Est GFR (MDRD) Non-Af 100 BUN/Creatinine Ratio 12.4 Glucose 97 Calcium 9.1 HCG, Quant Urine Color Yellow Urine Clarity Sl. Cloudy Urine pH 7.0 Ur Specific [place] 1.005 Urine Protein Negative Urine Glucose (UA) Normal Urine Ketones Negative Urine Occult Blood Negative Urine Nitrite Negative Urine Bilirubin Negative Urine Urobilinogen Normal Ur Leukocyte Esterase Negative Urine RBC 0 SEEN Urine WBC 0 SEEN Ur Squamous Epith Cells 0-5 SEEN Amorphous Sediment 1+ PHOS Urine Bacteria 0 SEEN Urine Mucus 0 SEEN Urine Test Positive H 01/02/23 21:07 WBC RBC Hgb Hct MCV MCH MCHC RDW Std Deviation RDW Coeff of Jatinder Plt Count MPV Immature Gran % (Auto) Neut % (Auto) Lymph % (Auto) [place] % (Auto) Eos % (Auto) Baso % (Auto) Absolute Neuts (auto) Absolute Lymphs (auto) Nucleated RBC % Differential Comment Sodium Potassium Chloride Carbon Dioxide Anion Gap BUN Creatinine Estim Creat Clear Calc Est GFR (MDRD) Af Amer Est GFR (MDRD) Non-Af BUN/Creatinine Ratio Glucose Calcium HCG, Quant 402 H Urine Color Urine Clarity Urine pH Ur Specific [place] Urine Protein Urine Glucose (UA) Urine Ketones Urine Occult Blood Urine Nitrite Urine Bilirubin Urine Urobilinogen Ur Leukocyte Esterase Urine RBC Urine WBC Ur Squamous Epith Cells Amorphous Sediment Urine Bacteria Urine Mucus Urine Test Radiography Diagnostic Testing: Clinical Impression(s) from Imaging Studies Obstetrics Ultrasound 01/02/23 21:37 IMPRESSION: Intrauterine gestational sac of 5 weeks 0 days as described above. Electronically Signed: Mario Quintanilla MD at 23:17 EDT , Treatment and Re-Evaluation :: Patient appears well, patient appears nontoxic, vital signs are stable.Patient presents to the emergency department for concerns of as well as abdominal pain. Patient's physical examination was grossly unremarkable. Patient had minimal pain on tenderness. Patient is mostly anxious. Patient did receive laboratory values, patient's CBC showed a leukocytosis with a blood count of 16.7, elevated H&H with a hemoglobin 5.52 and a hemoglobin of 15.4. Patient did have elevated white blood counts from [id number]. Patient's chemistries were unremarkable. Patient urinalysis negative for infection, and was positive for . We did attempt a bedside ultrasound however not muc h was seen. Patient's hCG quantitative was 402. The patient will still receive a transvaginal ultrasound to rule out any ectopic , other abnormality. <Dr. Daniel De Los Santos MD - Last Filed: 01/03/23 00:15> [facility] Lab Data Labs: Laboratory Results - last 24 hr 01/02/23 01/02/23 01/02/23 21:00 21:07 21:07 WBC 16.7 H RBC 5.52 H Hgb 15.4 H Hct 46.2 MCV 83.7 MCH 27.9 MCHC 33.3 RDW Std Deviation 39.9 RDW Coeff of Jatinder 13.1 Plt Count 321 MPV 9.5 Immature Gran % (Auto) 0.400 Neut % (Auto) 57.3 Lymph % (Auto) 33.4 [place] % (Auto) 7.7 Eos % (Auto) 0.7 Baso % (Auto) 0.5 Absolute Neuts (auto) 9.6 H Absolute Lymphs (auto) 5.58 H Nucleated RBC % 0 Differential Comment SCANNED Sodium 137 Potassium 3.6 Chloride 109 H Carbon Dioxide 23.0 Anion Gap 5 BUN 9 Creatinine 0.73 Estim Creat Clear Calc 93.22 Est GFR (MDRD) Af Amer 121 Est GFR (MDRD) Non-Af 100 BUN/Creatinine Ratio 12.4 Glucose 97 Calcium 9.1 HCG, Quant Urine Color Yellow Urine Clarity Sl. Cloudy Urine pH 7.0 Ur Specific [place] 1.005 Urine Protein Negative Urine Glucose (UA) Normal Urine Ketones Negative Urine Occult Blood Negative Urine Nitrite Negative Urine Bilirubin Negative Urine Urobilinogen Normal Ur Leukocyte Esterase Negative Urine RBC 0 SEEN Urine WBC 0 SEEN Ur Squamous Epith Cells 0-5 SEEN Amorphous Sediment 1+ PHOS Urine Bacteria 0 SEEN Urine Mucus 0 SEEN Urine Test Positive H 01/02/23 21:07 WBC RBC Hgb Hct MCV MCH MCHC RDW Std Deviation RDW Coeff of Jatinder Plt Count MPV Immature Gran % (Auto) Neut % (Auto) Lymph % (Auto) [place] % (Auto) Eos % (Auto) Baso % (Auto) Absolute Neuts (auto) Absolute Lymphs (auto) Nucleated RBC % Differential Comment Sodium Potassium Chloride Carbon Dioxide Anion Gap BUN Creatinine Estim Creat Clear Calc Est GFR (MDRD) Af Amer Est GFR (MDRD) Non-Af BUN/Creatinine Ratio Glucose Calcium HCG, Quant 402 H Urine Color Urine Clarity Urine pH Ur Specific [place] Urine Protein Urine Glucose (UA) Urine Ketones Urine Occult Blood Urine Nitrite Urine Bilirubin Urine Urobilinogen Ur Leukocyte Esterase Urine RBC Urine WBC Ur Squamous Epith Cells Amorphous Sediment Urine Bacteria Urine Mucus Urine Test Radiography Diagnostic Testing: Clinical Impression(s) from Imaging Studies Obstetrics Ultrasound 01/02/23 21:37 IMPRESSION: Intrauterine gestational sac of 5 weeks 0 days as described above. Electronically Signed: Mario Quintanilla MD at 23:17 EDT , Treatment and Re-Evaluation Comments:: Seen and evaluated independently and in conjunction with nurse practitioner. Agree with notes above unless documented otherwise. Irregular menstruation, last normal menstrual cycle was in September, positive home test x2. Pain in her pelvis nonlateralizing no bleeding. On exam, abdomen mildly tender suprapubic, no urinary symptoms, no guarding or rebound, no palpable enlarged organs. Quant is low, we obtained a stat emergent transvaginal ultrasound, it shows a gestational sac in the uterus consistent with 5-week 0-day , I reviewed the images and the radiologist's interpretation which I agree with. Patient reassured, consistent with early and the lack of an ectopic . Close outpatient follow-up advised with the ammunition and explosives handler on-call since patient does not have 1. Discharge Plan Triage Chief Complaint: Abd Pain ED Midlevel Provider: Davey Goldman ED Provider: Daniel De Los Santos Dx/Rx/DC Orders Clinical Impression: Early stage of , Pelvic pain affecting in first trimester, antepartum Instructions: ED Abdominal Pain, Early Prescriptions: New PNV-Select 27-1 mg tablet 1 tab PO DAILY Qty: 30 0RF Rx Instructions: or equivalent generic PNV No Action amoxicillin-pot clavulanate 875-125 mg tablet 1 tab PO BID 7 Days Qty: 14 0RF prednisone 20 mg tablet 40 mg PO DAILY 7 Days Qty: 14 0RF Primary Care Provider: Care Physician,No Primary Referrals: Haven Cross MD [Med Staff - Active Staff] - 5-7 Days Care Physician,No Primary [Primary Care Provider] - Disposition Disposition: Home, Self Care
[2023-01-02 22:07] LABS: hCG Titer Quant., Serum 402 mIU/mL (1-3)
[2023-01-03 00:16] VITALS: BP 128/74; PULSE 62; RESP 15; O2SAT 98
== END 2023-01-03 00:18 | disposition home or self-care (01) ==
PROVIDERS: Nurse Practitioner; Emergency Provider Emergency Medicine; Referring Provider Emergency Medicine; Visit Provider Emergency Medicine
DX: O26.891 Other specified pregnancy related conditions, first trimester (principal); R35.0 Frequency of micturition; R10.30 Lower abdominal pain, unspecified; O99.331 Smoking (tobacco) complicating pregnancy, first trimester; F17.210 Nicotine dependence, cigarettes, uncomplicated; Z3A.01 Less than 8 weeks gestation of pregnancy
CPT/HCPCS: 76817; 80048; 81001; 81025; 84702; 85025; 99282

== ENCOUNTER 2023-08-25 11:14 | Outpatient (CLI) | payer MEDICAID, SELFPAY ==
[2023-08-25 11:22] VITALS: BP 143/77; PULSE 85
[2023-08-25 11:49] VITALS: BMI 39.7
[2023-08-25 12:39] VITALS: BP 114/68; PULSE 85
--- NOTE | 2023-08-25 20:24 | OB.TRI.HP_ITS ---
HPI - General HPI Narrative ARTUR OWEN, is a 32 F G at 37.5 weeks who presents to triage with contractions since yesterday. Denies any loss of fluid or vaginal bleeding. Positive movement. Maternal Data Information SERA Calculator Estimated Delivery Date Method Current WG Current Estimate 09/10/23 Manual 37w 5d PFSH PFS Medical History Depression Home Medications vit,calcium no.40-iron fum 27 mg iron-folate no.1 1 mg tablet (PNV- Select) 1 tab PO DAILY #30 tabs 01/03/23 [Rx Last Taken 08/25/23] ferrous sulfate 325 mg (65 mg iron) tablet (Feosol) 325 mg PO QODAY anemia 08/25/23 [History Last Taken 08/24/23] Allergy/AdvReac Type Severity Reaction Status Date / Time bee venom protein (honey bee) Allergy Swelling Verified 01/02/23 20:42 chocolate flavor Allergy Hives Verified 01/02/23 20:42 Social History Smoking Status: Current every day smoker tobacco type: cigarettes History Elective abortions Hx Para 1 Spontaneous abortions Hx # Term Pregnancies Ectopic pregnancies Hx # Pregnancies Multiple births # of living children ROS Eyes Eyes: Denies blurry vision Cardiovascular Cardiovascular: Reports none; Denies chest pain at rest, chest pain with activity or dizziness Respiratory/Chest Respiratory/Chest: Denies cough or dyspnea Gastrointestinal Gastrointestinal: Reports none and other; Denies diarrhea or vomiting Genitourinary Genitourinary: Denies dysuria Musculoskeletal Musculoskeletal: Reports none Integumentary Integumentary: Reports none; Denies rash Neurologic Neurologic: Denies dizziness, headache(s) or other visual disturbances Psychiatric Psychiatric: Reports none Physical Exam Const alert and no apparent distress General Appearance: cooperative Orientation / Consciousness: awake Exam Limitations: no limitations HEENT normocephalic Eyes General Eye: normal appearance of both eyes Neck full ROM Chest inspection of chest normal Resp normal respiratory effort and normal air movement Effort and Inspection: symmetric chest movement Auscultation: clear to auscultation bilaterally Cardio regular rate GI soft to palpation, non-tender and non-distended Inspection: and other Back/Spine normal ROM Extremity full ROM, normal capillary refill and no calf tenderness Skin no rashes or lesions noted Neuro oriented x3 and CN's II-XII intact bilaterally Psych mental status grossly normal NST FHR Rate Baby A Baseline: 130 Variability:: Moderate Accelerations:: None Decelerations:: None NST Reactive:: Yes FHR Category:: Category I Uterine Activity:: Irregular Assessment & Plan (1) 37 weeks gestation of : (2) Obesity affecting : (3) Uterine contractions: PLAN: Plan CE /-4- unchanged NST reactive. Cat. 1 tracing Patient desires unmedicated labor and delivery Requesting discharge home Follow up in office
== END 2023-08-25 13:05 | disposition home or self-care (01) ==
LOC: WPOUT 11:16 → WP 11:17
PROVIDERS: Referring Provider Advanced Practice Midwife; Visit Provider Advanced Practice Midwife
DX: O62.2 Other uterine inertia (principal); O99.213 Obesity complicating pregnancy, third trimester; Z3A.37 37 weeks gestation of pregnancy
CPT/HCPCS: 59025; 59050; 99221; G0378

== ENCOUNTER 2023-08-31 18:10 | Inpatient (IN) | payer MEDICAID, SELFPAY ==
[2023-08-31] VITALS (24 sets, daily range): BP systolic 122–159; BP diastolic 58–89; PULSE 62–79; TEMP 36.6–37.1; O2SAT 91–99; BMI 39.8
[2023-08-31] MEDS: Lactated Ringers 1,000 ML 100 ML IV (16:00)
[2023-08-31] MEDS: Acetaminophen 500 MG Tablet 1000 MG PO (16:29)
[2023-08-31 16:34] LABS: AST(SGOT) 14 U/L (15-37); Alanine Aminotransfer ALT/SGPT 15 U/L (13-56); EST Glomerular Filtration Rate 105 mL/min (>60); Est Glom Filt Rate - Afr Amer 127 mL/min (>60); Uric Acid 4.8 mg/dL (2.6-6.0)
[2023-08-31 16:35] LABS: Protein, Urine (Random) 29.3 mg/dL (<11.9); Protein:Creat Ratio 266 mg/g CRE (0-200)
--- NOTE | 2023-08-31 17:14 | OB.TRI.HP_ITS ---
HPI - General HPI Narrative ARTUR OWEN, is a 32 F who presents Maternal Data Information SERA Calculator Estimated Delivery Date Method Current WG Current Estimate 09/10/23 Manual 38w 4d PFSH PFSH Medical History Depression Home Medications vit,calcium no.40-iron fum 27 mg iron-folate no.1 1 mg tablet (PNV- Select) 1 tab PO DAILY #30 tabs 01/03/23 [Rx Last Taken 08/25/23] ferrous sulfate 325 mg (65 mg iron) tablet (Feosol) 325 mg PO QODAY anemia 08/25/23 [History Last Taken 08/24/23] Allergy/AdvReac Type Severity Reaction Status Date / Time bee venom protein (honey bee) Allergy Swelling Verified 01/02/23 20:42 chocolate flavor Allergy Hives Verified 01/02/23 20:42 Social History Smoking Status: Current every day smoker tobacco type: cigarettes History Elective abortions Hx Para 1 Spontaneous abortions Hx # Term Pregnancies Ectopic pregnancies Hx # Pregnancies Multiple births # of living children
--- NOTE | 2023-08-31 18:32 | HP.PCM.OB_ITS ---
HPI - General General Date of Admission: 08/31/23 HPI Narrative ARTUR OWEN, is a 32 F at 38.4 weeks gestation who presents with increased blood pressures and headache today in while in office. Maternal Data Information SERA Calculator Estimated Delivery Date Method Current WG Current Estimate 09/10/23 Manual 38w 4d PFSH PFS Medical History Depression Home Medications vit,calcium no.40-iron fum 27 mg iron-folate no.1 1 mg tablet (PNV- Select) 1 tab PO DAILY #30 tabs 01/03/23 [Rx Last Taken 08/25/23] ferrous sulfate 325 mg (65 mg iron) tablet (Feosol) 325 mg PO QODAY anemia 08/25/23 [History Last Taken 08/24/23] Allergy/AdvReac Type Severity Reaction Status Date / Time bee venom protein (honey bee) Allergy Swelling Verified 01/02/23 20:42 chocolate flavor Allergy Hives Verified 01/02/23 20:42 Social History Smoking Status: Current every day smoker tobacco type: cigarettes History Elective abortions Hx Para 1 Spontaneous abortions Hx # Term Pregnancies Ectopic pregnancies Hx # Pregnancies Multiple births # of living children ROS Eyes Eyes: Denies blurry vision, change in vision or spots in vision ENT HEENT: Denies dizziness or headache(s) Cardiovascular Cardiovascular: Denies abdominal pain, chest pain or dyspnea Respiratory/Chest Respiratory/Chest: Denies cough, dyspnea, shortness of breath at rest or shortness of breath with exertion Gastrointestinal Gastrointestinal: Denies abdominal pain, diarrhea or vomiting Genitourinary Genitourinary: Denies change in urinary stream, difficulty urinating or dysuria Musculoskeletal Musculoskeletal: Reports none Integumentary Integumentary: Denies rash Neurologic Neurologic: Reports dizziness and headache(s); Denies memory loss or weakness Psychiatric Psychiatric: Reports none Vital Signs Vital Signs Vital Signs: 08/31/23 15:58 08/31/23 15:58 08/31/23 16:05 Pulse Rate 72 74 Blood Pressure 122/70 H BP Systolic 122 BP Diastolic 70 Pulse Ox 08/31/23 16:05 08/31/23 16:15 08/31/23 16:15 Pulse Rate 65 Blood Pressure 127/75 H BP Systolic 127 BP Diastolic 75 Pulse Ox 91 08/31/23 16:29 08/31/23 16:29 08/31/23 16:52 Pulse Rate 68 Blood Pressure 144/73 H 137/80 H BP Systolic 144 137 BP Diastolic 73 80 Pulse Ox 08/31/23 16:52 08/31/23 17:06 08/31/23 17:06 Pulse Rate 77 71 Blood Pressure 135/81 H BP Systolic 135 BP Diastolic 81 Pulse Ox 08/31/23 17:24 08/31/23 17:24 08/31/23 17:37 Pulse Rate 62 Blood Pressure 143/73 H 153/77 H BP Systolic 143 153 BP Diastolic 73 77 Pulse Ox 08/31/23 17:37 08/31/23 17:53 08/31/23 17:53 Pulse Rate 66 73 Blood Pressure 138/80 H BP Systolic 138 BP Diastolic 80 Pulse Ox 08/31/23 18:06 08/31/23 18:06 08/31/23 18:25 Pulse Rate 71 Blood Pressure 127/73 H 145/83 H BP Systolic 127 145 BP Diastolic 73 83 Pulse Ox 08/31/23 18:25 Pulse Rate 71 Blood Pressure BP Systolic BP Diastolic Pulse Ox Physical Exam Const alert, oriented x3 and no apparent distress General Appearance: cooperative Orientation / Consciousness: awake Exam Limitations: no limitations HEENT normocephalic Head and Scalp: normal to inspection Eyes General Eye: normal appearance of both eyes Neck full ROM and no lymphadenopathy Lymph Lymphatic: no lymphadenopathy noted Chest inspection of chest normal Resp normal respiratory effort, normal air movement and clear to auscultation bilaterally Effort and Inspection: able to speak in complete sentences and symmetric chest movement Cardio regular rate and regular rhythm GI normal to inspection, nondistended, normoactive bowel sounds Manual OB Exam: presentation cephalic Back/Spine normal ROM Extremity full ROM and no calf tenderness Skin no rashes or lesions noted General Skin Exam: no breakdown Neuro oriented x3 and CN's II-XII intact bilaterally Psych mental status grossly normal and thought process normal Labs Labs Labs: Blood Type B POSITIVE Antibody Screen NEGATIVE Hct 32.7 % (37-47) L Hgb 11.0 g/dL (12.0-15.0) L Obstetrics Ultrasound Rubella IgG Antibody 22.2 IU/mL Hep Bs Antigen Negative (Negative) Glucose 1 Hr 50 gm 119 mg/dL (70-140) Group B Strep DNA POSITIVE (Negative) H Rhogam given: No GBS negative Assessment & Plan (1) Obesity affecting : (2) Headache in : (3) Gestational hypertension: (4) 38 weeks gestation of : (5) LGA (large for gestational age) fetus: PLAN: Plan Blood pressures ranging from 130-150/ 80's meets criteria for GHTN EFW 97%, TANNA 13 GBS negative Admit to labor and delivery PIH labs - normal- p/c ratio 266 Start HTN protocol Start IV and run fluids per orders CE 1.5/60/-2 in office Anticipate placement of gates bulb Dr. Beaulieu notified of admission and plan of care- collaborating physician
[2023-08-31 20:26] LABS: Absolute Lymphocyte Count 3.16 X10^3/uL (0.83-4.51); Absolute Neutrophil Count 14.2 X10^3/uL (2.0-7.7); Basophil# 0.06 X10^3/uL; Basophil% 0.3 % (0-1); Eosinophil# 0.06 X10^3/uL; Eosinophils% 0.3 % (0-5); Hematocrit 32.2 % (37-47); Hemoglobin 11.2 g/dL (12.0-15.0); Lymphocyte # 3.16 X10^3/ul (0.83-4.51); Lymphocyte % 16.5 % (19-41); Mean Corp Hgb Conc 34.8 g/dL (32-36); Mean Corpuscular Hgb 29.2 pg (27.0-32.0); Mean Corpuscular Volume 83.9 fL (81-99); Mean Platelet Vol. 10.7 fl (6.2-12.0); Monocyte# 1.48 X10^3/uL; Monocyte% 7.7 % (0-10); NRBC Flagged by Analyzer 0 % (0-5); Neutrophil % 74.1 % (47-70); Platelet Count 342 K/mm3 (150-450); RBC Distribution Width CV 14.6 % (11.6-14.6); RBC Distribution Width SD 44.6 fl (35.1-43.9); Red Blood Count 3.84 M/mm3 (4.2-5.4); White Blood Count 19.2 K/mm3 (4.4-11.0)
[2023-08-31 20:40] LABS: Syphilis Antibodies Non-reactive
[2023-08-31] MEDS: 0.9% Normal Saline Single 100 ML IV.SOLN. INTRA-UTER (21:05)
--- NOTE | 2023-08-31 21:12 | PCM.PN.CNM ---
Subjective Subjective Patient seen at bedside. Denies any pain. Feeling occasional contractions. Objective Data Objective Data Vital Signs: Vital Signs Temp Pulse BP Pulse Ox 97.9 F 78 127/76 H 93 08/31/23 15:55 08/31/23 20:11 08/31/23 20:11 08/31/23 20:11 Weight: 225 lb Body Mass Index (BMI) 39.8 Lab / Micro Data 08/31/23 16:00 08/31/23 16:00 Labs: Laboratory Results - last 24 hr 08/31/23 16:00: WBC Cancelled 08/31/23 16:00: WBC 19.2 H, Corrected WBC Cancelled, RBC Cancelled 08/31/23 16:00: RBC 3.84 L, Hgb Cancelled 08/31/23 16:00: Hgb 11.2 L, Hct Cancelled 08/31/23 16:00: Hct 32.2 L, MCV Cancelled 08/31/23 16:00: MCV 83.9, MCH Cancelled 08/31/23 16:00: MCH 29.2, MCHC Cancelled 08/31/23 16:00: MCHC 34.8, RDW Std Deviation Cancelled 08/31/23 16:00: RDW Std Deviation 44.6 H, RDW Coeff of Jatinder Cancelled 08/31/23 16:00: RDW Coeff of Jatinder 14.6, Plt Count Cancelled 08/31/23 16:00: Plt Count 342, MPV Cancelled 08/31/23 16:00: MPV 10.7, Immature Gran % (Auto) 1.100 H, Neut % (Auto) 74.1 H, Lymph % (Auto) 16.5 L, [place] % (Auto) 7.7, Eos % (Auto) 0.3, Baso % (Auto) 0.3, Absolute Neuts (auto) 14.2 H, Absolute Lymphs (auto) 3.16, Nucleated RBC % 0, Diff Path Review Cancelled, Creatinine 0.70, Est GFR (MDRD) Af Amer 127, Est GFR (MDRD) Non-Af 105, Uric Acid 4.8, AST 14 L, ALT 15, U Random Total Protein 29.3 H, Urine Creatinine 110.00, Protein/Creatinin Ratio 266 H 08/31/23 19:50: Syphilis Total Ab Non-reactive, Blood Type B POSITIVE, Antibody Screen NEGATIVE Assessment & Plan (1) LGA (large for gestational age) fetus: (2) 38 weeks gestation of : (3) Gestational hypertension: (4) Headache in : (5) Obesity affecting : PLAN: Plan CE- 1.5/60/-2 Deluna bulb placed without difficulty and filled with 30 cc N/S Cytotec 25 mcg po x 1 dose now- reevaluate in 4 hours GBS is negative NST reactive Pain medication if indicated Dr. Beaulieu on unit and updated on plan of care
[2023-08-31] MEDS: miSOPROStol 25 MCG TABLET PO (21:27)
[2023-09-01] VITALS (66 sets, daily range): BP systolic 102–135; BP diastolic 58–78; PULSE 54–100; RESP 16; TEMP 35.8–37.4; O2SAT 93–100
[2023-09-01] MEDS: Lactated Ringers 1,000 ML 50 ML IV (02:33)
[2023-09-01] MEDS: Oxytocin 15 Units/NS 250ml 15 UNITS/250 ML IV.SOLN 2 UNITS IV (03:01)
[2023-09-01] MEDS: LACTATED RINGERS 500 ML 999 ML IV (04:56)
--- NOTE | 2023-09-01 07:05 | PCM.PN.CNM ---
Subjective Subjective Patient seen at bedside. Comfortable with epidural. Difficulty tracing FHT due to maternal size and position. Objective Data Objective Data Vital Signs: Vital Signs Temp Pulse BP Pulse Ox 97.8 F 70 113/65 97 09/01/23 05:04 09/01/23 06:14 09/01/23 06:14 09/01/23 06:12 Weight: 225 lb Body Mass Index (BMI) 39.8 Intake & Output: Intake and Output for Last 24 Hours 08/30/23 08/31/23 09/01/23 23:59 23:59 23:59 Intake Total 400 / 400 626.64 / 626.64 Output Total 1050 / 1050 Balance 400 / 400 -423.36 / -423.36 Lab / Micro Data 08/31/23 16:00 08/31/23 16:00 Labs: Laboratory Results - last 24 hr 08/31/23 16:00: WBC Cancelled 08/31/23 16:00: WBC 19.2 H, Corrected WBC Cancelled, RBC Cancelled 08/31/23 16:00: RBC 3.84 L, Hgb Cancelled 08/31/23 16:00: Hgb 11.2 L, Hct Cancelled 08/31/23 16:00: Hct 32.2 L, MCV Cancelled 08/31/23 16:00: MCV 83.9, MCH Cancelled 08/31/23 16:00: MCH 29.2, MCHC Cancelled 08/31/23 16:00: MCHC 34.8, RDW Std Deviation Cancelled 08/31/23 16:00: RDW Std Deviation 44.6 H, RDW Coeff of Jatinder Cancelled 08/31/23 16:00: RDW Coeff of Jatinder 14.6, Plt Count Cancelled 08/31/23 16:00: Plt Count 342, MPV Cancelled 08/31/23 16:00: MPV 10.7, Immature Gran % (Auto) 1.100 H, Neut % (Auto) 74.1 H, Lymph % (Auto) 16.5 L, [place] % (Auto) 7.7, Eos % (Auto) 0.3, Baso % (Auto) 0.3, Absolute Neuts (auto) 14.2 H, Absolute Lymphs (auto) 3.16, Nucleated RBC % 0, Diff Path Review Cancelled, Creatinine 0.70, Est GFR (MDRD) Af Amer 127, Est GFR (MDRD) Non-Af 105, Uric Acid 4.8, AST 14 L, ALT 15, U Random Total Protein 29.3 H, Urine Creatinine 110.00, Protein/Creatinin Ratio 266 H 08/31/23 19:50: Syphilis Total Ab Non-reactive, Blood Type B POSITIVE, Antibody Screen NEGATIVE Assessment & Plan (1) 38 weeks gestation of : (2) Gestational hypertension: (3) Obesity affecting : (4) Rubella non-immune status, antepartum: (5) LGA (large for gestational age) fetus: (6) Meconium in amniotic fluid: PLAN: Plan Deluna bulb out Cat. 1 tracing/ NST reactive Pitocin IV at 4 mu/min- continue to increase per policy CE /-2 AROM for light meconium fluid IUPC and FSE placed due to difficulty tracing Anticipate
[2023-09-01] MEDS: Lactated Ringers 1,000 ML 200 ML IV ×2 (07:30→12:29)
[2023-09-01] MEDS: fentaNYL-bupivacaine (epidural) 100 ML BAG EPIDURAL (10:26)
--- NOTE | 2023-09-01 12:44 | EX.PCM.OBRPT ---
Assessment & Plan (1) (spontaneous vaginal delivery): (2) Rubella non-immune status, antepartum: (3) Care and examination of lactating mother: Maternal Data Information SERA Calculator Estimated Delivery Date Method Current WG Current Estimate 09/10/23 Manual 38w 5d Vaginal Delivery Maternal Presentation Maternal Presentation: Medically Indicated Induction Maternal Presentation: for induction of labor for gestational hypertension Type of Induction: Pitocin, Deulna Bulb and Amniotomy Medical Reason for Induction: Gestational Hypertension Operative Information Date of Procedure: 09/01/23 Pre-Operative Diagnosis: Term gestation, induction of labor Post-Operative Diagnosis: , live female Surgery / Procedure Performed: Spontaneous Vaginal Delivery Type of Anesthesia: Epidural Estimated Blood Loss: 150 Time of Delivery: 12:33 Findings Description of Procedure: Patient progressed to complete dilation. With maternal effort, head delivered over intact perineum followed immediately by anterior shoulder and remainder of infant. Vigorous female placed on maternal abdomen and was attended to by nursing staff. Pitocin IV started for active management of the third stage of labor. 3 vessel cord clamped and cut by FOB after delay. Placenta delivered spontaneously and intact. Vagina and perineum intact. Vaginal sweep completed by me. Hemostasis obtained. EBL 150 cc. APGARS 8/9. Patient and bonding well at this time. Dr. Coon on unit and notified of delivery. Presentation: Vertex Amniotic Membrane Rupture Type: Artificial Time of Membrane Rupture: 37 Amniotic Fluid Description: Lightly stained meconium Placental Delivery Description: Spontaneous Placenta Disposition: [facility] Cord Vessel Description: 3 Vessels Cord Entanglement: None Infant A Gender: Female (1 minute): 8 (5 minute): 9 Delayed Cord Clamping: Yes Post Vaginal Delivery Medications Given After Delivery: IV Pitocin Episiotomy Description: None Laceration: None Complication Complications: None
[2023-09-01] MEDS: Oxytocin 15 Units/NS 250ml 15 UNITS/250 ML IV.SOLN 83 UNITS IV (13:04)
--- NOTE | 2023-09-01 17:28 | NURSING ---
1720 pt desires to go out and smoke- reviewed no smoking policy and offered cessation info and or nicotine patch- pt refused- pt signed against medical advice paper and went out on her own
[2023-09-02] VITALS: BP 123/58; PULSE 78; RESP 15; TEMP 36.6; O2SAT 97
[2023-09-02] MEDS: Acetaminophen 500 MG Tablet 1000 MG PO (00:34)
[2023-09-02] MEDS: Naproxen 500 MG Tablet PO (03:32)
[2023-09-02 03:36] VITALS: BP 129/71; PULSE 69; RESP 15; TEMP 36.4; O2SAT 96
--- NOTE | 2023-09-02 07:22 | PCM.PN.OB ---
Subjective Subjective Patient doing well this morning. Ambulating and voiding without difficulty. Lochia is normal. She is tolerating a regular diet without nausea or vomiting. No chest pain, shortness of breath, headaches. She desires discharge today. Objective Data Objective Data Vital Signs: Vital Signs Temp Pulse Resp BP Pulse Ox O2 Del Method 97.6 F L 69 15 129/71 H 96 Room Air 09/02/23 03:36 09/02/23 03:36 09/02/23 03:36 09/02/23 03:36 09/02/23 03:36 09/02/23 03:36 Oxygen Delivery Method Room Air Weight: 225 lb Body Mass Index (BMI) 39.8 Intake & Output: Intake and Output for Last 24 Hours 08/31/23 09/01/23 09/02/23 23:59 23:59 23:59 Intake Total 400 / 400 2977.50 / 2977.50 Output Total 2800 / 2800 Balance 400 / 400 177.50 / 177.50 Lab / Micro Data 08/31/23 16:00 08/31/23 16:00 Physical Exam Const no apparent distress Constitutional Narrative: Resting General Appearance: comfortable GI soft to palpation, non-tender and non-distended Extremity no calf tenderness Assessment & Plan (1) Vaginal delivery: PLAN: PPD#1 s/p . Doing well and desires discharge. Meeting milestones for discharge. (2) Gestational hypertension: PLAN: No symptoms of pre e and BP's normal.
--- NOTE | 2023-09-02 08:20 | DCINST_ITS ---
Discharge Instructions Diet Discharge Diet: No restrictions Activity Discharge Activity: May Drive and May Shower May resume sexual activity in: 6 weeks (nothing in the vagina and no soaking in water for 6 weeks) Ice area for (Minutes): 15 Weight Bearing Status: Weight bearing as tolerated Lifting Restrictions: nothing heavier than baby Dressing / Incision Call your doctor if you observe: Fever of 101 or Higher, Coldness, Increased Pain, Numbness or Tingling, Change in Color, Inability to urinate, Inability to have a bowel movement, Using more than 1 pad per hour, Shortness of breath, Dizziness, Fainting spells, Swelling in the ankles, Chest pain, Increased palpitations (irregular heartbeat), Calf discomfort and Uncontrolled pain Follow Up Care Please Follow Up With: Suri Schilling CNM When: 1 week for early and blood pressure check 6 weeks for exam Test Results: Test results from this visit will be discussed in further detail at your follow- up appointment, if applicable. Discharge Plan Admission Admit Date/Time: 08/31/23 18:10 Primary Reason for Your Visit: delivery Attending Provider: Suri Schilling Primary Care Provider: Care Physician,No Primary Instructions Patient Instructions: After a Vaginal Discharge Orders/Prescriptions Prescriptions: Continued PNV-Select 27-1 mg tablet 1 tab PO DAILY Qty: 30 0RF Rx Instructions: or equivalent generic PNV Discontinued ferrous sulfate [Feosol] 325 mg (65 mg iron) tablet 325 mg PO QODAY magnesium 200 mg tablet 200 mg PO DAILY PRN (Reason: cramps) Referrals / Follow Up: Care Physician,No Primary [Primary Care Provider] - Disposition Disposition (needs filled in before D/C Order can be placed): Home, Self Care
[2023-09-02 08:30] VITALS: BP 128/58; PULSE 85; RESP 20; TEMP 36.9; O2SAT 98
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
[2023-09-02 14:50] VITALS: BP 139/70; PULSE 68; RESP 16; TEMP 36.8; O2SAT 100
== END 2023-09-02 15:05 | disposition home or self-care (01) | DRG 560 ==
LOC: WPOUT 18:18 → WP 18:18
PROVIDERS: Admitting Provider Advanced Practice Midwife; Referring Provider Advanced Practice Midwife; Visit Provider Advanced Practice Midwife
DX: O13.4 Gestational [pregnancy-induced] hypertension without significant proteinuria, complicating childbirth (principal); Z37.0 Single live birth; F17.210 Nicotine dependence, cigarettes, uncomplicated; O99.214 Obesity complicating childbirth; O77.0 Labor and delivery complicated by meconium in amniotic fluid; O99.334 Smoking (tobacco) complicating childbirth; O36.63X0 Maternal care for excessive fetal growth, third trimester, not applicable or unspecified; Z3A.38 38 weeks gestation of pregnancy
CPT/HCPCS: 59025; 59050; 82565; 82570; 84156; 84450; 84460; 84550; 85025; 86780; 86850; 86900; 86901; 99221; J7120; G0378

== ENCOUNTER 2025-08-25 08:20 | Observation (INO) | payer OTHER, SELFPAY ==
[2025-08-25] VITALS (13 sets, daily range): BP systolic 106–146; BP diastolic 66–83; PULSE 73–92; RESP 15–18; TEMP 36.4–36.9; O2SAT 94–100; BMI 37.0
--- NOTE | 2025-08-25 08:36 | CT_ITS ---
PROCEDURE: ABDOMEN/PELVIS W IV CONT ONLY 08/25/2025 REASON FOR EXAM: ABDOMINAL PAIN, HERNIA TECHNIQUE: Procedure Code: [id number] Modality: CT Procedure: ABDOMEN/PELVIS W IV CONT ONLY Coronal and Sagittal reconstruction series were provided. CONTRAST: Isovue 370 VOLUME: 96 mL One or more dose reduction techniques were used (e.g., Automated exposure control, adjustment of the mA and/or kV according to patient size, use of iterative reconstruction technique. RADIATION DOSE SUMMARY: DLP: 1063.27 MGycm COMPARISON: CT abdomen/pelvis 05/04/2019 FINDINGS: Lower chest: Lung bases are clear. Liver: Top-normal in size. Hepatic steatosis. No enhancing lesion. Gallbladder and biliary ducts: Unremarkable gallbladder. Normal caliber intrahepatic and common bile ducts. Pancreas:Unremarkable. No ductal dilatation or mass. No peripancreatic fluid. Spleen: Unremarkable. Adrenal glands: Unremarkable. Kidneys and ureters: Normal renal size, morphology, and enhancement. No nephroureterolithiasis, hydronephrosis, or renal mass. Urinary bladder: Unremarkable. GI: Unremarkable stomach and duodenum. Normal caliber small bowel and large bowel.There are a few scattered colonic diverticuli. Appendix: Unremarkable. Retrocecal orientation of the appendix with the tip at a subhepatic position. Peritoneum: No ascites. Small fat containing umbilical hernia where there is fat stranding. Compared to CT of the abdomen 05/04/2019, slight interval increase in size of the hernia. No evidence of fluid collection. Lymph nodes: No lymphadenopathy. Vasculature: Portal, splenic, and superior mesenteric veins are patent. No abdominal aortic aneurysm. Reproductive organs: Uterus present. An intrauterine device extends to the uterine fundus and is appropriately positioned within the endometrial cavity. No adnexal mass. Musculoskeletal and soft tissues: No aggressive osseous lesions. Unremarkable soft tissues. CT/Abdomen/Pelvis W IV Cont ONLY IMPRESSION: 1. Small fat containing umbilical hernia with associated acute inflammatory pedro luis nges. 2. Hepatic steatosis. 3. Additional findings as discussed in the body of the report. Reading Location: [facility]
--- NOTE | 2025-08-25 08:37 | EDS_ITS ---
HPI History of Present Illness Chief Complaint: Abd Pain Narrative Narrative: Chief complaint and HPI: 34-year-old female with past medical history of depression, anxiety, HTN presents for evaluation periumbilical abdominal pain. Onset of symptoms yesterday and gradually worsening. Describes it as crampy. Associated symptom is bloating and nausea. Denies any fever, chills, shortness of breath, chest pain, constipation, diarrhea, dysuria. Patient states she was told previously that she has a hernia from one of her previous pregnancies however she does not know where it is located or if it currently still exists. Review of systems: See HPI Medications: As listed on the chart Allergies: As listed on the chart PFSH: Per chart Vital signs: As listed on the chart. Reviewed. Physical exam: Gen: A&O x3, anxious Head: Normocephalic, atraumatic Eyes: No sclera icterus, conjunctiva clear ENT: Moist mucous membranes CV: RRR, no murmurs Resp: Lungs CTA BL, no w/r/c GI: Abd soft, non-distended, small umbilical hernia without any overlying skin changes but tender to palpation, no rebound or rigidity Musc: Full ROM, no deformity Skin: Warm, dry Psych: Cooperative, appropriate mood and affect PFSH PFSH Medical History (Updated 08/25/25 @ 11:[address] Linh Ness MD) Former smoker Hypertension (spontaneous vaginal delivery) Obesity Smoker Bicornate uterus Anemia Rubella non-immune status, antepartum LGA (large for gestational age) fetus Gestational hypertension Obesity affecting Depression Home Medications ?Medication ?Instructions ?Recorded ?Last Taken ?Type vit,calcium no.40-iron 1 tab PO DAILY vitamin #30 tabs 01/03/23 08/25/23 Rx fum 27 mg iron-folate no.1 1 mg tablet (PNV-Select) Allergy/AdvReac Type Severity Reaction Status Date / Time bee venom protein (honey bee) Allergy Swelling Verified 08/25/25 08:24 chocolate flavor Allergy Hives Verified 08/25/25 08:24 Social History Smoking Status: Light Smoker (<10/day) EXAM Physical Exam Const Vital Signs: 08/25/25 08:22 08/25/25 10:21 Temperature 98.1 F Temperature Source Oral Pulse Rate 81 77 Respiratory Rate 15 18 Blood Pressure 146/83 H 144/80 H Blood Pressure Mean 104 101 Pulse Ox 99 99 Oxygen Delivery Method Room Air Room Air MDM MDM MDM Narrative Medical decision making narrative: 34-year-old female with past medical history of depression, anxiety, HTN presents for evaluation periumbilical abdominal pain. Onset of symptoms yesterday and gradually worsening. Describes it as crampy. Associated symptom is bloating and nausea. On presentation, patient has a tender umbilical hernia. Will attempt to reduce. There is no overlying skin changes. Differential diagnosis includes but is not limited to incarcerated hernia, strangulated hernia, obstruction, electrolyte abnormality, dehydration, UTI, other intra- abdominal pathology. NS bolus, Zofran, morphine ordered for symptoms. Patient requesting Ativan for anxiety this was ordered. Will apply ice and attempt reduction. I was able to partially reduce the patient's umbilical hernia however it was not completely reducible. No obvious bowel appreciated. CBC with mild leukocytosis of 13. Patient has hemoconcentration of 15.5. CMP unremarkable. Lactic acid unremarkable. UA negative for UTI. Urine negative. CT of the abdomen pelvis shows a small fat-containing umbilical hernia with associated acute inflammatory changes. Hepatic steatosis. I did try to reattempt reduction however was unsuccessful. General surgery consulted. I spoke with Dr. Ness. She will see the patient when she is done with surgery. General surgery came and evaluated the patient. She cannot reduce the hernia as well. Patient will warrant surgery. Patient will remain in the emergency department until transfer to the OR. Patient was updated on the results of her and understand the plan. Impression: 1. Incarcerated umbilical hernia Lab Data Labs: Laboratory Results - last 24 hr 08/25/25 08/25/25 08/25/25 08:30 08:40 08:50 WBC 13.0 H RBC 5.67 H Hgb 15.5 H Hct 46.5 MCV 82.0 MCH 27.3 MCHC 33.3 RDW Std Deviation 38.6 RDW Coeff of Jatinder 13.1 Plt Count 292 MPV 9.5 Immature Gran % (Auto) 0.300 Neut % (Auto) 60.7 Lymph % (Auto) 27.9 [place] % (Auto) 8.8 Eos % (Auto) 1.6 Baso % (Auto) 0.7 Absolute Neuts (auto) 7.9 H Absolute Lymphs (auto) 3.63 Nucleated RBC % 0 Sodium 140 Potassium 4.1 Chloride 104 Carbon Dioxide 22.2 Anion Gap 13 BUN 13 Creatinine 0.77 Estim Creat Clear Calc 114.85 Est GFR (MDRD) Non-Af 105 BUN/Creatinine Ratio 17.2 Glucose 127 H Lactic Acid 1.2 Calcium 8.9 Total Bilirubin 0.43 AST 18 ALT 24 Alkaline Phosphatase 60 Total Protein 7.0 Albumin 4.5 Globulin 2.5 Albumin/Globulin Ratio 1.8 Lipase 38 Urine Color Yellow Urine Clarity Sl. Cloudy Urine pH 7.0 Ur Specific [place] 1.015 Urine Protein 30 H Urine Glucose (UA) Normal Urine Ketones Negative Urine Occult Blood Negative Urine Nitrite Negative Urine Bilirubin Negative Urine Urobilinogen Normal Ur Leukocyte Esterase Negative Urine RBC 0 SEEN Urine WBC 0 SEEN Ur Squamous Epith Cells 10-25 SEEN Amorphous Sediment 1+ Urine Bacteria 2+ Urine Mucus 0 SEEN Urine Test Negative Radiography Diagnostic Testing: Clinical Impression(s) from Imaging Studies Abdomen/Pelvis CT 08/25/25 08:36 IMPRESSION: 1. Small fat containing umbilical hernia with associated acute inflammatory changes. 2. Hepatic steatosis. 3. Additional findings as discussed in the body of the report. Reading Location: [facility] Discharge Plan Triage Chief Complaint: Abd Pain ED Provider: Pierre Franco Dx/Rx/DC Orders Prescriptions: No Action PNV-Select 27-1 mg tablet 1 tab PO DAILY Qty: 30 0RF Rx Instructions: or equivalent generic PNV Primary Care Provider: Care Physician,No Primary Referrals: Care Physician,No Primary [Primary Care Provider, Medical] Print Language: Barb[place]
[2025-08-25 08:45] LABS: Mucous, Urine 0 SEEN /hpf (<or=2+); Red Blood Cells-Urine 0 SEEN /hpf (0-5)
[2025-08-25] MEDS: 0.9% Normal Saline (1000mL) 1,000 ML 999 ML IV (08:51)
[2025-08-25 08:53] LABS: Color, Urine Yellow (Yellow); Glucose, Dipstick Normal (Normal); Ketone-Dipstick Negative (Negative); Leukocyte Esterase-Dipstick Negative /ul (Negative); Nitrite-Dipstick Negative (Negative); Occult Blood-Urine Negative /ul (Negative); Protein-Dipstick 30 mg/dl (Negative); Specific Gravity, Urine 1.015 (1.002-1.030); Urine Bilirubin Dipstick Negative (Negative)
[2025-08-25 09:02] LABS: Hematocrit 46.5 % (37-47); Hemoglobin 15.5 g/dL (12.0-15.0); Immature Granulocytes Count 0.040 X10^3/uL (0.0-0.0); Mean Corp Hgb Conc 33.3 g/dL (32-36); Mean Corpuscular Volume 82.0 fL (81-99); Mean Platelet Vol. 9.5 fl (6.2-12.0); NRBC Flagged by Analyzer 0 % (0-5); Platelet Count 292 K/mm3 (150-450); RBC Distribution Width CV 13.1 % (11.6-14.6); RBC Distribution Width SD 38.6 fl (35.1-43.9); Red Blood Count 5.67 M/mm3 (4.2-5.4); White Blood Count 13.0 K/mm3 (4.4-11.0)
[2025-08-25 09:20] LABS: Squamous Epithelial Cells - UA 10-25 SEEN /hpf (5-10)
--- OUTSIDE RECORDS SUMMARY | 2025-08-25 09:21 | XMS RPT_ITS | CCD ---
Author Organization [facility] CliniSyla Care Team Providers Care Bin Packer Name Role Phone RIDER, ANUPAM Patton Unavailable Unavailable DISTEL, PEPE M Unavailable Unavailable Distel, Pepe Unavailable Unavailable Distel, Pepe Unavailable Unavailable Unavailable Primary Care Provider Unavailabl e Plotts, Suri Attending Unavailable Plotts, Suri Referring Unavailable Care Physician, No Primary Primary Care Unava ilable Plotts, Suri Admitting Unavailable Plotts, Suri Attending Unavailable Plotts, Suri Referring Unavailable Care Physician, No Primary Primary Care Unava ilable Daniel De Los Santos Attending Unavailable Mehnaz Nieto Referring Unavailable Care Physician, No Primary Primary Care Unava ilable Care Physician, No Primary Primary Care Unava ilable Care Physician, No Primary Referring Unava ilable Fortune EDUCATIONAL ADVISOR, Gi Attending Unavailable Fortune EDUCATIONAL ADVISOR, Gi Attending Unavailable Care Physician, No Primary Primary Care Unava ilable Care Physician, No Primary Referring Unava ilable PLOTTS, SURI Referring Unavailable PLOTTS, SURI Referring Unavailable PLOTTS, SURI Referring Unavailable PLOTTS, SURI Attending Unavailable PLOTTS, SURI Referring Unavailable PLOTTS, SURI Attending Unavailable PLOTTS, SURI Referring Unavailable PLOTTS, SURI Attending Unavailable PLOTTS, SURI Referring Unavailable PLOTTS, SURI Attending Unavailable PLOTTS, SURI Attending Unavailable PLOTTS, SURI Attending Unavailable PLOTTS, SURI Attending Unavailable PLOTTS, SURI Referring Unavailable PLOTTS, SURI Attending Unavailable PLOTTS, SURI Referring Unavailable PLOTTS, SURI Referring Unavailable PLOTTS, SUIR Attending Unavailable PLOTTS, SURI Referring Unavailable PLOTTS, SURI Attending Unavailable PLOTTS, SURI Referring Unavailable PLOTTS, SURI Referring Unavailable PLOTTS, SURI Attending Unavailable PLOTTS, SURI Referring Unavailable PLOTTS, SURI Referring Unavailable PLOTTS, SURI Referring Unavailable PLOTTS, SURI Attending Unavailable PLOTTS, SURI Attending Unavailable PLOTTS, SURI Referring Unavailable PLOTTS, SURI Attending Unavailable PLOTTSSURI Attending Unavailable PLOTTS, SURI Attending Unavailable PLOTTS, SURI Referring Unavailable PLOTTS, SURI Attending Unavailable Allergies Allergy Classification Reported Allergen(s) Allergy Type Date of Onset Reaction(s) Facility (4 sources) Chocolate; Translations: [chocolate flavor] Allergy to substance 2 Hives [facility] (3 sources) bee venom protein (honey bee) Allergy to substance 2 Swelling [facility] (20 sources) Bees; Translations: [BEES] Allergy to substance 2 Swelling [facility] Work Phone: (17 sources) white chocolate [Other] Propensity to adverse reactions 2 Shortness of Breath [facility] Work Phone: (1 source) bee venom protein (honey bee) Drug allergy (disorder) 3 [facility] (4 sources) Chocolate; Translations: [CHOCOLATE] Food Allergy 3 Shortness of Breath [facility] (1 source) OTHER; Translations: [OTHER] Propensity to adverse reactions (disorder) 2 [facility] Rep[facility] Medications Current Medications Medication Drug Class(es) Dates Sig (Normalized) Sig (Original) levonorgestrel 0.232147 mg/hr intrauterine system (3 sources) Progestin, Progestin-containi ng Intrauterine Device Start: 11-18-2023 End: 11-16-2031 levonorgestrel (MIRENA) 21 mcg/24 hours (8 yrs) 52 mg IUD 1 Each by INTRAUTERINE route as directed. 1 Each 0 11/18/2023 11/16/2031 Active 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: 1 Each by INTRAUTERI NE route as directed. ,Calc.40-Iro n-Folate 1 (Pnv-Select) 27-1 mg tablet (2 sources) Start: 01-03-2023 ,Calc.40-Ir on-Folate 1 (Pnv-Select) 27-1 mg tablet Active 1 TABLET PO DAILY January 02, 2023 11:00pm or equivalent generic PNV Start: 01-03-2023 ,Calc. 21-Bbgh-Laxncp 1 (Pnv-Select) 27-1 mg tablet Active 1 TABLET PO DAILY January 03, 2023 12:00am or equivalent generic PNV Completed/Discontinued Medications Medication Drug Class(es) Dates Sig (Normalized) Sig (Original) amoxicillin 875 mg / clavulanate 125 mg oral tablet (3 sources) Penicillin-class Antibacterial Start: 07-31-2022 End: 08-25-2023 take 1 tablet by mouth twice daily Amoxicillin-Pot Clavulanate Discontinued 1 TABLET PO TWICE A DAY 14 July 31, 2022 12:00am August 25, 2023 11:51am cholecalciferol, vitamin D3, (VITAMIN D3 ORAL) (3 sources) cholecalciferol, vitamin D3, (VITAMIN D3 ORAL) Take by mouth. 0 Active 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: Take by mouth. 168 hr ethinyl estradiol 0.94790 mg/hr / norelgestromin 0.10467 mg/hr transdermal system (1 source) Progestin, Estrogen Start: 03-19-2013 End: 02-02-2023 apply 1 dose transdermal route every week Ethinyl Estradiol-Norelges trom (ORTHO EVRA) 150-20 mcg/24 hr Apply 1 Patch as directed once each week. 3 Patch 11 03/19/2013 02/02/2023 Discontinued (Course of therapy completed) 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: Apply 1 Patch as dir ected once each week. ferrous sulfate 325 mg oral tablet (1 source) Start: 08-25-2023 End: 09-02-2023 take 1 tablet by mouth every other day Ferrous Sulfate (Feosol) 325 mg (65 mg iron) tablet Discontinued 325 MG PO EVERY OTHER DAY August 25, 2023 12:00am September 02, 2023 8:19am Magnesium (1 source) Start: 08-31-2023 End: 09-02-2023 take 200 mg by mouth once daily Magnesium Discontinued 200 MG PO DAILY August 31, 2023 12:00am September 02, 2023 8:19am ondansetron 4 mg oral tablet (20 sources) Serotonin-3 Receptor Antagonist Start: 02-02-2023 take 1 tablet by mouth every eight hours as needed ondansetron (ZOFRAN) 4 mg tablet Take 1 tablet by mouth every 8 hours as needed for nausea/vomiting. 60 tablet 0 02/02/2023 Active 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: Take 1 tablet by lucas th every 8 hours as needed for nausea/vomiting. pantoprazole 20 mg delayed release oral tablet (17 sources) Proton Pump Inhibitor Start: 03-02-2023 take 1 tablet by mouth once daily pantoprazole DR (PROTONIX) 20 mg tablet Take 1 tablet by mouth once daily. 30 tablet 2 03/02/2023 Active 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: Take 1 tablet by lucas th once daily. PNV no.95/ferrous fum/folic ac ( MULTIVITAMINS ORAL) (20 sources) PNV no.95/ferrou s fum/folic ac ( MULTIVITAMINS ORAL) Take by mouth. 0 Active 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: Take by mouth. predniSONE 20 mg oral tablet (3 sources) Start: 07-31-2022 End: 08-25-2023 take 40 mg by mouth once daily Prednisone Discontinued 40 MG PO DAILY 14 July 31, 2022 12:00am August 25, 2023 11:51am Vit,Bhrr45-Xfgd-Xybc c (Prenatabs Fa ) 1 TABLET tablet (3 sources) Start: 06-15-2014 End: 08-05-2014 take 1 tablet by mouth once daily Vit,Wbon19-Ykot-Xu lic (Prenatabs Fa ) 1 TABLET tablet Discontinued 1 TABLET PO DAILY June 15, 2014 12:00am August 05, 2014 3:34am Start: 06-15-2014 End: 08-05-2014 take 1 tablet by mouth once daily Vit,Yaig37-Pmzv-Dgfjd (Prenatab s Fa ) 1 TABLET tablet Discontinued 1 TABLET PO DAILY June 14, 2014 11:00pm August 05, 2014 2:34am pyridoxine HCl, vitamin B6, (VITAMIN B-6 ORAL) (20 sources) pyridoxine HCl, vitamin B6, (VITAMIN B-6 ORAL) Take by mouth. 0 Active 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: Take by mouth. Problems Active Problems Problem Classification Problem Date Documented Date Episodic/Chronic Contraceptive and procreative management (2 sources) Intrauterine contraceptive device in situ; Translations: [Encounter for routine checking of intrauterine contraceptive device] Onset: 12-21-2023 12-21-2023 Episodic Early or threatened labor (2 sources) Uterine contractions present; Translations: [False labor, unspecified] 08-25-2023 Episodic distress and abnormal forces of labor (1 source) Other uterine inertia; Translations: [Other uterine inertia] Onset: 08-26-2023 Episodic Headache; including migraine (4 sources) Headache; Translations: [Headache] 08-08-2022 Episodic Headache; including migraine (1 source) Headache; including migraine; Translations: [ headache in third trimester] Onset: 08-31-2023 Hypertension complicating ; childbirth and the puerperium (2 sources) -induced hypertension; Translations: [Gestational [-induced] hypertension without significant proteinuria, unspecified trimester] 08-31-2023 Episodic Mood disorders (3 sources) Depressive disorder; Translations: [Depression] 04-25-2021 Chronic Nonspecific chest pain (3 sources) Chest pain; Translations: [Chest pain, unspecified] 04-25-2021 Episodic Other complications of (20 sources) Obesity; Translations: [Obesity complicating , unspecified trimester] Onset: 01-27-2023 Chronic Other complications of (9 sources) Maternal obesity complicating , childbirth and the puerperium, antepartum; Translations: [Obesity complicating , second trimester] Onset: 01-27-2023 04-29-2023 Chronic Other complications of (13 sources) Anemia in mother complicating , childbirth AND/OR puerperium; Translations: [Anemia complicating , second trimester] Onset: 06-22-2023 06-22-2023 Chronic Other complications of (3 sources) Obesity complicating , unspecified trimester; Translations: [Obesity complicating , childbirth, or the puerperium, unspecified as to episode of care or not applicable] Onset: 08-12-2023 08-25-2023 Chronic Other complications of (1 source) Obesity complicating , third trimester; Translations: [Obesity affecting in third trimester, unspecified obesity type] Onset: 08-11-2023 Chronic Other complications of (1 source) Anemia complicating , third trimester; Translations: [Anemia complicating , third trimester] Onset: 08-03-2023 Chronic Other complications of (2 sources) Pain in female pelvis; Translations: [Other specified related conditions, first trimester] 01-03-2023 Episodic Other complications of (1 source) Other specified related conditions, unspecified trimester; Translations: [Other specified complications of , unspecified as to episode of care or not applicable] 09-02-2023 Episodic Other complications of (1 source) Supervision of other high risk pregnancies, unspecified trimester; Translations: [Other specified complications of , antepartum condition or complication] 09-02-2023 Episodic Other conditions (1 source) Amniotic fluid -meconium stain ; Translations: [Meconium staining] 09-01-2023 Episodic Other conditions (1 source) Meconium staining; Translations: [Meconium staining] 09-02-2023 Episodic Other screening for suspected conditions (not mental disorders or infectious disease) (5 sources) Patient encounter status; Translations: [Encounter for screening for nuchal translucency] Episodic Other upper respiratory infections (3 sources) Sinusitis; Translations: [Chronic sinusitis, unspecified] 08-08-2022 Chronic Other upper respiratory infections (3 sources) Streptococcal sore throat; Translations: [Streptococcal pharyngitis] 04-28-2020 Episodic Residual codes; unclassified (1 source) Gestation period, 8 weeks; Translations: [8 weeks gestation of ] Episodic Residual codes; unclassified (2 sources) Gestation period, 12 weeks; Translations: [12 weeks gestation of ] Episodic Residual codes; unclassified (1 source) Gestation period, 17 weeks; Translations: [17 weeks gestation of ] 04-06-2023 Episodic Residual codes; unclassified (2 sources) Gestation period, 20 weeks; Translations: [20 weeks gestation of ] 04-29-2023 Episodic Residual codes; unclassified (1 source) Gestation period, 26 weeks; Translations: [26 weeks gestation of ] 06-06-2023 Episodic Residual codes; unclassified (2 sources) Gestation period, 28 weeks; Translations: [28 weeks gestation of ] 06-22-2023 Episodic Residual codes; unclassified (1 source) Gestation period, 30 weeks; Translations: [30 weeks gestation of ] 07-06-2023 Episodic Residual codes; unclassified (1 source) Gestation period, 32 weeks; Translations: [32 weeks gestation of ] 07-20-2023 Episodic Residual codes; unclassified (2 sources) Gestation period, 35 weeks; Translations: [35 weeks gestation of ] 08-11-2023 Episodic Residual codes; unclassified (2 sources) Gestation period, 37 weeks; Translations: [37 weeks gestation of ] 08-24-2023 Episodic Residual codes; unclassified (1 source) Gestation period, 38 weeks; Translations: [38 weeks gestation of ] 08-31-2023 Episodic Residual codes; unclassified (1 source) 37 weeks gestation of ; Translations: [ state, incidental] 08-25-2023 Episodic Sprains and strains (3 sources) Sprain of ankle; Translations: [Sprain of unspecified ligament of unspecified ankle, initial encounter] 10-29-2019 Episodic Unclassified (2 sources) Large for gestation age fetus; Translations: [Large for gestational age fetus] 08-31-2023 Past or Other Problems Problem Classification Problem Date Documented Da te Episodic/Chronic Abdominal pain (1 source) Unspecified abdominal pain; Translations: [Unspecified abdominal pain] Onset: 01-06-2023 Episodic Diabetes mellitus without complication (11 sources) Increased glucose level; Translations: [Other abnormal glucose] Onset: 06-22-2023 06-22-2023 Episodic Other complications of (20 sources) Maternal tobacco use; Translations: [Smoking (tobacco) complicating , unspecified trimester] Onset: 01-27-2023 Episodic Other complications of (20 sources) Nausea and vomiting; Translations: [Vomiting of , unspecified] Onset: 02-02-2023 Episodic Other complications of (20 sources) Pain in pelvis; Translations: [Other specified related conditions, first trimester] Onset: 01-27-2023 01-27-2023 Episodic Other complications of (20 sources) Congenital uterine anomaly; Translations: [Maternal care for unspecified congenital malformation of uterus, unspecified trimester] Onset: 01-27-2023 01-27-2023 Episodic Other complications of (16 sources) Rubella non-immune; Translations: [Supervision of other high risk pregnancies, unspecified trimester] Onset: 03-04-2023 03-04-2023 Episodic Other complications of (16 sources) Uterine size for dates discrepancy; Translations: [Uterine size-date discrepancy, third trimester] Onset: 06-06-2023 06-06-2023 Episodic Other complications of (8 sources) High risk ; Translations: [Supervision of high risk , unspecified, unspecified trimester] Onset: 08-11-2023 08-11-2023 Episodic Other complications of (1 source) Uterine size-date discrepancy, third trimester; Translations: [Uterine size-date discrepancy, third trimester] Onset: 08-17-2023 Episodic Other complications of (1 source) Supervision of high risk , unspecified, third trimester; Translations: [Supervision of high risk in third trimester] Onset: 08-31-2023 Episodic Other complications of (1 source) Other specified related conditions, third trimester; Translations: [ headache in third trimester] Onset: 08-31-2023 Episodic Other complications of (1 source) Smoking (tobacco) complicating , unspecified trimester; Translations: [Tobacco smoking affecting , antepartum] Onset: 01-27-2023 Episodic Other complications of (1 source) Supervision of high risk , unspecified, unspecified trimester; Translations: [Supervision of high risk , antepartum] Onset: 08-11-2023 Episodic Other female genital disorders (20 sources) History of abnormal cervical Papanicolaou smear ; Translations: [Personal history of other diseases of the female genital tract] Onset: 01-27-2023 01-27-2023 Episodic Other and delivery including normal (20 sources) Early stage of ; Translations: [Encounter for supervision of normal , unspecified, unspecified trimester] Onset: 02-02-2023 01-03-2023 Episodic Residual codes; unclassified (2 sources) 38 weeks gestation of ; Translations: [ state, incidental] Onset: 08-31-2023 09-02-2023 Episodic Residual codes; unclassified (1 source) 17 weeks gestation of ; Translations: [17 weeks gestation of ] Onset: 08-12-2023 Episodic Residual codes; unclassified (1 source) 35 weeks gestation of ; Translations: [35 weeks gestation of ] Onset: 08-11-2023 Episodic Residual codes; unclassified (1 source) 32 weeks gestation of ; Translations: [32 weeks gestation of ] Onset: 08-03-2023 Episodic Residual codes; unclassified (1 source) 26 weeks gestation of ; Translations: [26 weeks gestation of ] Onset: 06-22-2023 Episodic Residual codes; unclassified (1 source) 12 weeks gestation of ; Translations: [12 weeks gestation of ] Onset: 04-29-2023 Episodic Screening and history of mental health and substance abuse codes (20 sources) H/O: depression; Translations: [Personal history of other mental and behavioral disorders] Onset: 01-27-2023 Episodic Results Test Name Value Interpretation Reference Range Facil ity CNOVon 12-21-2023 CNOV Office Visit (OBGYWM) ---- VENECIA HART I ([id number]) 1990 F [facility] Date Time Provider Department 12/21/23 10:45 AM SURI FORREST OBNATHAN During your visit today, we recorded the following information about you: Blood pressure Last Period 128/76 11/18/23 Suri Forrest APRN.CNM 12/21/2023 11:34 AM Signed Venecia Ceasar Hart presents today for IUD check. She had a Mirena placed on 11/18/2023. She has had heavy bleeding/ now spotting since placement. REVIEW OF SYSTEMS: PAIN ASSESSMENT: Negative for pain, history of chronic pain, or current treatment for a chronic pain condition. 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 IUD strings visible. UTERUS: normal size and non-tender ADNEXA: negative for tenderness or masses IMPRESSION/PLAN: IUD correctly positioned. Patient counseled regarding monthly string check. Follow up for annual exam or sooner if needed. Suri Plotts, CIRCUS HAND.CNM Allergies As of Date: 12/21/2023 Noted Allergy Reaction BEES 03/02/2012 7 - Swelling CHOCOLATE 08/31/2023 12 - Shortness of Breath Comments: White chocolate Date Reviewed: 12/21/2023 Reviewed by: Jonas Andrews MA - Fully Assessed Reason for Visit: IUD follow up [Other] Primary Visit Diagnosis:Surveilla nce of previously prescribed intrauterine contraceptive device [Z30.431] Prescriptions as of 12/21/2023 - levonorgestrel (MIRENA) 21 mcg/24 hours (8 yrs) 52 mg IUD 1 Each by INTRAUTERINE route as directed. - cholecalciferol, vitamin D3, (VITAMIN D3 ORAL) Take by mouth. - pantoprazole DR (PROTONIX) 20 mg tablet Take 1 tablet by mouth once daily. - pyridoxine HCl, vitamin B6, (VITAMIN B-6 ORAL) Take by mouth. - ondansetron (ZOFRAN) 4 mg tablet Take 1 tablet by mouth every 8 hours as needed for nausea/vomiting. - PNV no.95/ferrous fum/folic ac ( MULTIVITAMINS ORAL) Take by mouth. 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 Follow-up and Disposition History for Encounter Date Provider Department Center 12/21/2023 [id number] FORREST Encounter Status:Closed by SURI FORREST on 12/21/23 Normal [facility] CNOVon 11-18-2023 CN Office Visit (OBGYWM) ---- VENECIA HART I ([id number]) 1990 F [facility] Date Time Provider Department 11/18/23 10:30 AM SURI FORREST During your visit today, we recorded the following information about you: Blood pressure Weight 120/80 98.6 kg Suri Forrest APRN.CN 11/18/2023 12:02 PM Signed Lubricating Specialist offered: Patient declines. Cuadra presents today for IUD insertion for contraception. Patient's last menstrual period was 11/07/2023 (approximate). GC/chlamydia: Negative on 02/02/2023 test: negative Side effects including irregular bleeding were discussed with the patient. The patient understands that it should be removed in 8 years or sooner if the patient desires a . IUD source: office provided IUD lot #: [id number] Exp date: 09/[address] [facility]: [id number] UNIVERSAL PROTOCOL / SAFETY CHECKLIST Procedure to be Performed: Mirena IUD Insertion Sign In: A Moment of CARE was completed. Personnel directly involved with the procedure wore the appropriate PPE (Personal Protective Equipment). Patient/Surrogate Stated/Verified: PATIENT VERIFIED(optional for EMERGENT procedures): Patient name, Date of , Relevant allergies, and The intended procedure Time Out Communication: Intended patient and procedure match the source documents. Consent documented and matches the intended procedure. Sign Out: SIGN OUT (optional for EMERGENT procedures): No specimen collected. The cervix was prepped with betadine. The uterus sounded to 7 cm and the uterus is Midposition.. Using sterile technique, the Mirena IUD was inserted without difficulty and the string was cut to 2 cm from the external os of the cervix. Patient tolerated procedure well. PLAN: Patient was advised to observe for signs and symptoms of infection including but not limited to fever, malodorous vaginal discharge and/or pain. The patient was told to check the string monthly for accurate placement. Bleeding expectations were reviewed. Follow up after next menses for string check. Suri Forrest APRN.CACHORRO Banda CynthiaCONNIE simmons 11/18/2023 10:27 AM Signed POST IUD INSTRUCTIONS You may have irregular bleeding during the first 3 months of use. You may have mild-severe cramping for the next 48 hours. You may use over the counter medication (Motrin, Tylenol) as needed. Your IUD must be removed or replaced based on the following table: IUD Type Removed or replaced within: Jenny 3 years Kyleena 5 years Mirena 8 years Liletta 8 years Paragard 10 years Call the office for signs/symptoms of infection such as severe cramping, fever, or unusual bleeding. Check for string placement as instructed by your doctor. If you have any additional questions, please contact the office. Referring Provider: SURI FORREST [[id number]] Allergies As of Date: 11/18/2023 Noted Allergy Reaction BEES 03/02/2012 7 - Swelling CHOCOLATE 08/31/2023 12 - Shortness of Breath Comments: White chocolate Date Reviewed: 11/18/2023 Reviewed by: Isabella Baird, Student - Fully Assessed Reason for Visit: Insertion Of IUD [291] Primary Visit Diagnosis:Encounter for IUD insertion [Z30.430] Order(s):INSERT INTRAUTERINE DEVICE [8282200] Order #: [id number] [] levonorgestrel 21 mcg/24 hours (8 yrs) 52 mg 1 Each intrauterine device (MIRENA)Disp: Rfl: levonorgestrel (MIRENA) 21 mcg/24 hours (8 yrs) 52 mg IUD1 Each by INTRAUTERINE route as directed.Disp: 1 EachRfl: 0 UA DIP,URINE HCG (POC) [[id number]] Order #: [id number]. #:[id number] Prescriptions as of 11/18/2023 - levonorgestrel (MIRENA) 21 mcg/24 hours (8 yrs) 52 mg IUD 1 Each by INTRAUTERINE route as directed. - cholecalciferol, vitamin D3, (VITAMIN D3 ORAL) Take by mouth. - pantoprazole DR (PROTONIX) 20 mg tablet Take 1 tablet by mouth once daily. - pyridoxine HCl, vitamin B6, (VITAMIN B-6 ORAL) Take by mouth. - ondansetron (ZOFRAN) 4 mg tablet Take 1 tablet by mouth every 8 hours as needed for nausea/vomiting. - PNV no.95/ferrous fum/folic ac ( MULTIVITAMINS ORAL) Take by mouth. 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 Normal [facility] UA DIP,URINE HCG (POC)on Beta HCG ( test) Ql (U) Negative Negative [facility] Section Chief (POCT) Internal QC OK [facility] MR/BMS.BBJameson 09-08-2023 [facility] [address] [facility] [place] [address] OFFICE VISIT Date of Service: 09/06/23 MR#: [id number] Acct: [id number] Name: VENECIA HART Rep #: [id number] : 1990 Provider: Gi Hopkins NP Age/Sex: 32/F [place] [facility] [place] Status: Signed Intake Vital Signs 09/05/23 08:57 09/08/23 12:52 Height 5 ft 3 in 5 ft 3 in Intake Visit Reasons: assessment Chief Complaint: assessment Allergies bee venom protein (honey bee) Allergy (Verified 08/31/23 20:14) Swelling chocolate flavor Allergy (Verified 08/31/23 20:14) Hives : Yes PFSH PFSH Medical History Anemia Bicornate uterus Depression Obesity Smoker Social History Smoking Status: Light Smoker (<10/day) History Elective abortions Hx Para 2 Spontaneous abortions Hx # Term Pregnancies Ectopic pregnancies Hx # Pregnancies Multiple births # of living children HPI HPI HPI: VENECIA HART, is a 32 F who presents to the office today for assessment. History provided by the patient. ROS ROS Const Constitutional: Denies fever(s) or lethargy : Denies nipple discharge Skin Skin/Breast: Denies breast pain, breast skin changes or nipple discharge Details: difficulty latching baby at breast, only has latched about 2x in last 24 hours for about 5 minutes, has been using hand pump and getting about 2 oz, feeling full, nipple pain has been improving but patient unsure if that is because baby has not been latching well Exam Maternal Assessment Breast Assessment Bilateral Breasts: Full Nipple Assessment Bilateral Nipples: Everted Areolar Tissue Areolar Tissue: Pliable Assessment Baby Feeding History Is your baby latching onto the breast: Yes Number of Breast Feedings in 24 hours: 2 Minutes per breast: First Breast: 5 Supplements Supplement Type:: Expressed milk Frequency: q2-3 hours Amount: 1-2 oz Breast Pumping Type of Breast Pump: Hand Pump Frequency: q2-3 hours Amount: 2 oz Reason for supplements or pumping:: Difficulty latching Goals Breast Feeding Goals: Exclusive Exam Const General: comfortable and no acute distress Orientation: alert and oriented x3 Chest Breast inspection: normal inspection of the breasts Breast palpation: normal palpation of the breasts Other: bilateral nipples reddened Resp Effort Inspection: normal respiratory effort Skin General: no rashes or lesions noted Psych Appearance: grossly normal Mental Status: mental status grossly normal Affect: normal affect Assessment and Plan Assessment and Plan (1) nipple pain: Plan: Improving, latched baby during appointment and latch more comfortable. Fitted for correct flange size for pumping. Follow up PRN. (2) Care and examination of lactating mother: Status: Acute Plan: Latch Score L - Latch Latch: Grasps breast, tongue down, lips flanged, rhymic sucking (2) A - Audible Swallowing Audible Swallowing: Spontaneous intermittent <24 hrs, spontaneous frequent >24 hrs (2) T - Type of Nipple Type of Nipple: Everted (after stimulation) (2) C - Comfort (Breast/Nipple) Comfort (Breast/Nipple): Filling/reddened/sm all blisters/bruises/mi ld/moderate discomfort (1) H - Hold (Positioning) Hold (Positioning): Minimal assist, teach/hold one side and mother does other (1) Total Score Total Score:: 8 Observation Feeding Observed:: Yes Educated on feeding on demand, pumping, feeding plan when baby will and will not latch. Also educated on milk storage. Follow up PRN. Coding Level of Care Code Off vis,est,level 3 Diagnoses nipple pain O92.29 Care and examination of lactating mother Z39.1 09/08/23 1253 Date Gi Hopkins NP EDUCATIONAL ADVISOR-Mary Cosigner Signature: Date (if applicable) CC: Normal [facility] MR/LISETTE.Nabila 09-05-2023 MR/LISETTE.LAURIE [facility] [address] [place] [address] OFFICE VISIT Date of Service: 09/04/23 MR#: [id number] Acct: [id number] Name: VENECIA HART Rep #: [id number] : 1990 Provider: Gi Hopkins NP Age/Sex: 32/F Location[place] [facility] [place] Status: Signed Intake Vital Signs 08/31/23 20:11 09/05/23 08:57 Height 5 ft 3 in 5 ft 3 in Intake Visit Reasons: Assessment Chief Complaint: assessment, nipple pain Allergies bee venom protein (honey bee) Allergy (Verified 08/31/23 20:14) Swelling chocolate flavor Allergy (Verified 08/31/23 20:14) Hives : Yes PFSH PFSH Medical History Anemia Bicornate uterus Depression Obesity Smoker Social History Smoking Status: Light Smoker (<10/day) History Elective abortions Hx Para 2 Spontaneous abortions Hx # Term Pregnancies Ectopic pregnancies Hx # Pregnancies Multiple births # of living children HPI HPI HPI: VENECIA HART, is a 32 F who presents to the office today for assessment. History provided by the patient. ROS ROS Const Constitutional: Denies fever(s) or lethargy : Denies nipple discharge Skin Skin/Breast: Denies breast pain, breast skin changes or nipple discharge Details: q 3 hours, 10-15 minutes to first side and 0-10 minutes to second side, milk starting to come in, very full, having nipple pain with most feeds, sharp and worse with initial latch but then does improve slightly as the feed continues, using natural nipple cream with minimal relief Exam Maternal Assessment Breast Assessment Bilateral Breasts: Full Nipple Assessment Bilateral Nipples: Everted Areolar Tissue Areolar Tissue: Pliable Assessment Baby Feeding History Is your baby latching onto the breast: Yes Number of Breast Feedings in 24 hours: 8 Minutes per breast: First Breast: 10-15 Minutes per breast: Second Breast: 0-10 Supplements Supplement Type:: None Breast Pumping Type of Breast Pump: Hands Free, Haakaa Frequency: has not started pumping Goals Breast Feeding Goals: Exclusive Exam Const General: comfortable and no acute distress Orientation: alert and oriented x3 Chest Breast inspection: normal inspection of the breasts Breast palpation: normal palpation of the breasts (full, no warmth ) Other: bilateral nipples reddened Resp Effort Inspection: normal respiratory effort Skin General: no rashes or lesions noted Psych Appearance: grossly normal Mental Status: mental status grossly normal Affect: normal affect Assessment and Plan Assessment and Plan (1) nipple pain: Plan: Assisted patient to get deeper latch to prevent further nipple breakdown. Recommended breast shells, continue nipple cream and can use colostrum on nipples. If worsening can send in combination nipple cream. Follow up on 1 or sooner as needed. (2) Care and examination of lactating mother: Status: Acute Plan: Latch Score L - Latch Latch: Grasps breast, tongue down, lips flanged, rhymic sucking (2) A - Audible Swallowing Audible Swallowing: Spontaneous intermittent <24 hrs, spontaneous frequent >24 hrs (2) T - Type of Nipple Type of Nipple: Everted (after stimulation) (2) C - Comfort (Breast/Nipple) Comfort (Breast/Nipple): Filling/reddened/sm all blisters/bruises/mi ld/moderate discomfort (1) H - Hold (Positioning) Hold (Positioning): Minimal assist, teach/hold one side and mother does other (1) Total Score Total Score:: 8 Observation Feeding Observed:: Yes Educated on feeding on demand, offering both sides with each feed, haakaa use, pumping, engorgement and milk storage. Follow up on 1 or sooner as needed. Coding Level of Care Code Off vis,new,level 3 Diagnoses nipple pain O92.29 Care and examination of lactating mother Z39.1 09/05/23 0859 Date Gi Hopkins NP EDUCATIONAL ADVISOR-Mary Whittingtonigner Signature: Date (if applicable) CC: Normal [facility] Discharge Instructionon 08-06 Discharge Instruction [facility] Medical Records Department [address] [place] [address] Instructions for Home/Discharge Instructions 09/02/23 0820 MR#: [id number] Acct: [id number] Name: VENECIA HART Rep #: [id number] : 1990 32 From: Sabrina Coon DO PCP: Care Physician,Darlin Primary Status:DIS IN Discharge Instructions Diet Discharge Diet: No restrictions Activity Discharge Activity: May Drive and May Shower May resume sexual activity in: 6 weeks (nothing in the vagina and no soaking in water for 6 weeks) Ice area for (Minutes): 15 Weight Bearing Status: Weight bearing as tolerated Lifting Restrictions: nothing heavier than baby Dressing / Incision Call your doctor if you observe: Fever of 101 or Higher, Coldness, Increased Pain, Numbness or Tingling, Change in Color, Inability to urinate, Inability to have a bowel movement, Using more than 1 pad per hour, Shortness of breath, Dizziness, Fainting spells, Swelling in the ankles, Chest pain, Increased palpitations (irregular heartbeat), Calf discomfort and Uncontrolled pain Follow Up Care Please Follow Up With: Suri Forrest CNM When: 1 week for early and blood pressure check 6 weeks for exam Test Results: Test results from this visit will be discussed in further detail at your follow-up appointment, if applicable. Discharge Plan Admission Admit Date/Time: 08/31/23 18:10 Primary Reason for Your Visit: delivery Attending Provider: Suri Forrest Primary Care Provider: Care Physician,No Primary Instructions Patient Instructions: After a Vaginal Discharge Orders/Prescription s Prescriptions: Continued PNV-Select 27-1 mg tablet 1 tab PO DAILY Qty: 30 0RF Rx Instructions: or equivalent generic PNV Discontinued ferrous sulfate [Feosol] 325 mg (65 mg iron) tablet 325 mg PO QODAY magnesium 200 mg tablet 200 mg PO DAILY PRN (Reason: cramps) Referrals / Follow Up: Care Physician,No Primary [Primary Care Provider] - Disposition Disposition (needs filled in before D/C Order can be placed): Home, Self Care 09/02/23 0821 Sabrina Coon DO CC: No Primary Care Physician Signed ADDENDUM by Dr. Sabrina Coon DO on 10/24/23 at 2140 The time spent on discharging the patient was less than 30 minutes. 10/24/23 2140 Sabrina Coon DO cc: No Primary Care Physician * Signed Normal [facility] Operative Reporton 3 Operative Report [facility] Medical Records Department [address] [place] [address] Operative Report 09/01/23 1244 MR#: [id number] Acct: [id number] Name: VENECIA HART Rep #: [id number] : 1990 32 From: Suri Forrest CNM PCP: Care Physician,No Primary Status:ADM IN Location: [place] [address] Assessment Plan (1) (spontaneous vaginal delivery): (2) Rubella non-immune status, antepartum: (3) Care and examination of lactating mother: Maternal Data Information SERA Calculator Estimated Delivery Date Method Current WG Current Estimate 09/10/23 Manual 38w 5d Vaginal Delivery Maternal Presentation Maternal Presentation: Medically Indicated Induction Maternal Presentation: for induction of labor for gestational hypertension Type of Induction: Pitocin, Gates Bulb and Amniotomy Medical Reason for Induction: Gestational Hypertension Operative Information Date of Procedure: 09/01/23 Pre-Operative Diagnosis: Term gestation, induction of labor Post-Operative Diagnosis: , live female infant Surgery / Procedure Performed: Spontaneous Vaginal Delivery Type of Anesthesia: Epidural Estimated Blood Loss: 150 Time of Delivery: 12:33 Findings Description of Procedure: Patient progressed to complete dilation. With maternal effort, head delivered over intact perineum followed immediately by anterior shoulder and remainder of infant. Vigorous female placed on maternal abdomen and was attended to by nursing staff. Pitocin IV started for active management of the third stage of labor. 3 vessel cord clamped and cut by FOB after delay. Placenta delivered spontaneously and intact. Vagina and perineum intact. Vaginal sweep completed by me. Hemostasis obtained. EBL 150 cc. APGARS 8/9. Patient and infant bonding well at this time. Dr. Coon on unit and notified of delivery. Presentation: Vertex Amniotic Membrane Rupture Type: Artificial Time of Membrane Rupture: 0637 Amniotic Fluid Description: Lightly stained meconium Placental Delivery Description: Spontaneous Placenta Disposition: [facility] Cord Vessel Description: 3 Vessels Cord Entanglement: None A Gender: Female (1 minute): 8 (5 minute): 9 Delayed Cord Clamping: Yes Post Vaginal Delivery Medications Given After Delivery: IV Pitocin Episiotomy Description: None Laceration: None Complication Complications: None 09/01/23 1252 Cosigner Signature (if applicable): CC: CACHORRO Forrest; No Primary Care Physician Signed Normal [facility] AST(SGOT)on 08-31-2023 AST [Catalytic activity/Vol] 14 U/L Low 15-37 [facility] 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: Performed By: #### L 100.0500, L501.1105, L501.1400, L501.4100, L501.4405, L501.0900 #### [facility] [address] [place], [address] Absolute lymphocyte countOrd ered By: Suri Forrest on 08-31-2023 Lymphocytes Auto (Unsp spec) [#/Vol] 3.16 10*3/uL 0.83-4.51 [facility] Alanine Aminotransferas (SGP T)Ordered By: Suri Forrest on 08-31-2023 ALT [Catalytic activity/Vol] 15 U/L Normal 13-56 [facility] 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: Performed By: #### L 100.0500, L501.1105, L501.1400, L501.4100, L501.4405, L501.0900 #### [facility] [address] [place], [address] Automated blood hematocrit ( percentage)Ordered By: Suri Forrest on 08-31-2023 Hematocrit (Bld) [Volume fraction] 32.2 % Low 37-47 [facility] 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: Performed By: #### L 100.0100, L500.2500 #### [facility] [address] [place], [address] Basophil percentageOrdered B y: Suri Forrest on 08-31-2023 Basophils/100 WBC (Bld) 0.3 % Normal 0-1 [facility] 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: Performed By: #### L 100.0100, L500.2500 #### [facility] [address] [place], [address] Eosinophils/100 WBC (Bld) 0.3 % Normal 0-5 [facility] 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: Performed By: #### L 100.0100, L500.2500 #### [facility] [address] [place], [address] Neutrophils/100 WBC (Bld) 74.1 % High 47-70 [facility] 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: Performed By: #### L 100.0100, L500.2500 #### [facility] [address] [place], [address] WBC (Bld) [#/Vol] 19.2 10*3/uL High 4.4-11.0 [facility] 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: Performed By: #### L 100.0100, L500.2500 #### [facility] [address] [place], [address] Neutrophils (Bld) [#/Vol] 14.2 10*3/uL 2.0-7.7 [facility] Blood erythrocytes count (nu mber/volume)Ordered By: Suri Forrest on 08-31-2023 RBC (Bld) [#/Vol] 3.84 10*6/uL Low 4.2-5.4 [facility] 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: Performed By: #### L 100.0100, L500.2500 #### [facility] [address] [place], [address] Blood hemoglobin measurement (mass/volume)Ordered By: Suri Forrest on 08-31-2023 Hemoglobin (Bld) [Mass/Vol] 11.2 g/dL Low 12.0-15.0 [facility] 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: Performed By: #### L 100.0100, L500.2500 #### [facility] [address] [place], [address] Blood lymphocytes/100 leukoc ytesOrdered By: Suri Forrest on 08-31-2023 Lymphocytes/100 WBC (Bld) 16.5 % Low 19-41 [facility] 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: Performed By: #### L 100.0100, L500.2500 #### [facility] [address] [place], [address] Blood monocytes/100 leukocyt esOrdered By: Suri Forrest on 08-31-2023 Monocytes/100 WBC (Bld) 7.7 % Normal 0-10 [facility] 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: Performed By: #### L 100.0100, L500.2500 #### [facility] [address] [place], [address] Blood platelet mean volumeOr dered By: Suri Forrest on 08-31-2023 Platelet mean volume (Bld) [Entitic vol] 10.7 fL Normal 6.2-12.0 [facility] 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: Performed By: #### L 100.0100, L500.2500 #### [facility] [address] [place], [address] CBC W/Diff, Automatedon 12-2 Absolute Lymph 3.16 X10 3/uL Normal 0.83-4.51 [facility] 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: Performed By: #### L 100.0100, L500.2500 #### [facility] [address] [place], [address] Absolute Neut 14.2 X10 3/uL High 2.0-7.7 [facility] 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: Performed By: #### L 100.0100, L500.2500 #### [facility] [address] [place], [address] IG% 1.100 High 0.0-0.9 [facility] 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: Result Comment: IG% - Immature Granulocytes (promyelocytes, myelocytes and metamyelocytes) > 1% indicates that a LEFT SHIFT is Present. Performed By: #### L 100.0100, L500.2500 #### [facility] [address] [place], [address] Nucleated RBC (Bld) [#/Vol] 0 10*3/uL Normal 0-5 [facility] 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: Performed By: #### L 100.0100, L500.2500 #### [facility] [address] [place], [address] RDW SD 44.6 fl High 35.1-43.9 [facility] 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: Performed By: #### L 100.0100, L500.2500 #### [facility] [address] [place], [address] CBC W/Diff, AutomatedOrdered By: Suri Forrest on 08-31-2023 Erythrocyte distribution width (RBC) [Ratio] 14.6 % Normal 11.6-14.6 [facility] 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: Performed By: #### L 100.0100, L500.2500 #### [facility] [address] [place], [address] MCH (RBC) [Entitic mass] 29.2 pg Normal 27.0-32.0 [facility] 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: Performed By: #### L 100.0100, L500.2500 #### [facility] [address] [place], [address] CBC-Complete Blood Cnt No Di ffon 08-31-2023 Erythrocyte distribution width (RBC) [Ratio] 14.8 % High 11.6-14.6 [facility] 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: Result Comment: CBCD ORDERED INSTEAD Performed By: #### L 100.0500, L501.1105, L501.1400, L501.4100, L501.4405, L501.0900 #### [facility] [address] [place], [address] Hematocrit (Bld) [Volume fraction] 32.7 % Low 37-47 [facility] 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: Result Comment: CBCD ORDERED INSTEAD Performed By: #### L 100.0500, L501.1105, L501.1400, L501.4100, L501.4405, L501.0900 #### [facility] [address] [place], [address] Hemoglobin (Bld) [Mass/Vol] 11.0 g/dL Low 12.0-15.0 [facility] 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: Result Comment: CBCD ORDERED INSTEAD Performed By: #### L 100.0500, L501.1105, L501.1400, L501.4100, L501.4405, L501.0900 #### [facility] [address] [place], [address] MCH (RBC) [Entitic mass] 28.4 pg Normal 27.0-32.0 [facility] 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: Result Comment: CBCD ORDERED INSTEAD Performed By: #### L 100.0500, L501.1105, L501.1400, L501.4100, L501.4405, L501.0900 #### [facility] [address] [place], [address] MCHC (RBC) [Mass/Vol] 33.6 g/dL Normal 32-36 [facility] 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: Result Comment: CBCD ORDERED INSTEAD Performed By: #### L 100.0500, L501.1105, L501.1400, L501.4100, L501.4405, L501.0900 #### [facility] [address] [place], [address] MCV (RBC) [Entitic vol] 84.3 fL Normal 81-99 [facility] 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: Result Comment: CBCD ORDERED INSTEAD Performed By: #### L 100.0500, L501.1105, L501.1400, L501.4100, L501.4405, L501.0900 #### [facility] [address] [place], [address] Platelet mean volume (Bld) [Entitic vol] 10.1 fL Normal 6.2-12.0 [facility] 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: Result Comment: CBCD ORDERED INSTEAD Performed By: #### L 100.0500, L501.1105, L501.1400, L501.4100, L501.4405, L501.0900 #### [facility] [address] [place], [address] Platelets (Bld) [#/Vol] 337 10*3/uL Normal 150-450 [facility] 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: Result Comment: CBCD ORDERED INSTEAD Performed By: #### L 100.0500, L501.1105, L501.1400, L501.4100, L501.4405, L501.0900 #### [facility] [address] [place], [address] RBC (Bld) [#/Vol] 3.88 10*6/uL Low 4.2-5.4 [facility] 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: Result Comment: CBCD ORDERED INSTEAD Performed By: #### L 100.0500, L501.1105, L501.1400, L501.4100, L501.4405, L501.0900 #### [facility] [address] [place], [address] RDW SD 45.1 fl High 35.1-43.9 [facility] 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: Result Comment: CBCD ORDERED INSTEAD Performed By: #### L 100.0500, L501.1105, L501.1400, L501.4100, L501.4405, L501.0900 #### [facility] [address] [place], [address] WBC (Bld) [#/Vol] 19.1 10*3/uL High 4.4-11.0 [facility] 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: Result Comment: CBCD ORDERED INSTEAD Performed By: #### L 100.0500, L501.1105, L501.1400, L501.4100, L501.4405, L501.0900 #### [facility] [address] [place], [address] Determination of erythrocyte mean corpuscular volume (MCV)Ordered By: Suri Forrest on 08-31-2023 MCV (RBC) [Entitic vol] 83.9 fL Normal 81-99 [facility] 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: Performed By: #### L 100.0100, L500.2500 #### [facility] [address] [place], [address] H AND P Exam - OB/GYNon 08-06 H&P Exam - [employer] [facility] Medical Records Department [address] [place] [address] H P Exam - [employer] 08/31/23 1832 MR#: [id number] Acct: [id number] Name: VENECIA HART Rep #: [id number] : 1990 32 From: Suri Forrest CNM PCP: Care Physician,No Primary Status:ADM IN Location: [place] [id number] HPI - General General Date of Admission: 08/31/23 HPI Narrative VENECIA HART, is a 32 F at 38.4 weeks gestation who presents with increased blood pressures and headache today in while in office. Maternal Data Information SERA Calculator Estimated Delivery Date Method Current WG Current Estimate 09/10/23 Manual 38w 4d PFSH PFS Medical History Depression Home Medications vit,calcium no.40-iron fum 27 mg iron-folate no.1 1 mg tablet (PNV-Select) 1 tab PO DAILY #30 tabs 01/03/23 [Rx Last Taken 08/25/23] ferrous sulfate 325 mg (65 mg iron) tablet (Feosol) 325 mg PO QODAY anemia 08/25/23 [History Last Taken 08/24/23] Allergy/AdvReac Type Severity Reaction Status Date / Time bee venom protein (honey bee) Allergy Swelling Verified 01/02/23 20:42 chocolate flavor Allergy Hives Verified 01/02/23 20:42 Social History Smoking Status: Current every day smoker tobacco type: cigarettes History Elective abortions Hx Para 1 Spontaneous abortions Hx # Term Pregnancies Ectopic pregnancies Hx # Pregnancies Multiple births # of living children ROS Eyes Eyes: Denies blurry vision, change in vision or spots in vision ENT HEENT: Denies dizziness or headache(s) Cardiovascular Cardiovascular: Denies abdominal pain, chest pain or dyspnea Respiratory/Chest Respiratory/Chest: Denies cough, dyspnea, shortness of breath at rest or shortness of breath with exertion Gastrointestinal Gastrointestinal: Denies abdominal pain, diarrhea or vomiting Genitourinary Genitourinary: Denies change in urinary stream, difficulty urinating or dysuria Musculoskeletal Musculoskeletal: Reports none Integumentary Integumentary: Denies rash Neurologic Neurologic: Reports dizziness and headache(s); Denies memory loss or weakness Psychiatric Psychiatric: Reports none Vital Signs Vital Signs Vital Signs: 08/31/23 15:58 08/31/23 15:58 08/31/23 16:05 Pulse Rate 72 74 Blood Pressure 122/70 H BP Systolic 122 BP Diastolic 70 Pulse Ox 08/31/23 16:05 08/31/23 16:15 08/31/23 16:15 Pulse Rate 65 Blood Pressure 127/75 H BP Systolic 127 BP Diastolic 75 Pulse Ox 91 08/31/23 16:29 08/31/23 16:29 08/31/23 16:52 Pulse Rate 68 Blood Pressure 144/73 H 137/80 H BP Systolic 144 137 BP Diastolic 73 80 Pulse Ox 08/31/23 16:52 08/31/23 17:06 08/31/23 17:06 Pulse Rate 77 71 Blood Pressure 135/81 H BP Systolic 135 BP Diastolic 81 Pulse Ox 08/31/23 17:24 08/31/23 17:24 08/31/23 17:37 Pulse Rate 62 Blood Pressure 143/73 H 153/77 H BP Systolic 143 153 BP Diastolic 73 77 Pulse Ox 08/31/23 17:37 08/31/23 17:53 08/31/23 17:53 Pulse Rate 66 73 Blood Pressure 138/80 H BP Systolic 138 BP Diastolic 80 Pulse Ox 08/31/23 18:06 08/31/23 18:06 08/31/23 18:25 Pulse Rate 71 Blood Pressure 127/73 H 145/83 H BP Systolic 127 145 BP Diastolic 73 83 Pulse Ox 08/31/23 18:25 Pulse Rate 71 Blood Pressure BP Systolic BP Diastolic Pulse Ox Physical Exam Const alert, oriented x3 and no apparent distress General Appearance: cooperative Orientation / Consciousness: awake Exam Limitations: no limitations HEENT normocephalic Head and Scalp: normal to inspection Eyes General Eye: normal appearance of both eyes Neck full ROM and no lymphadenopathy Lymph Lymphatic: no lymphadenopathy noted Chest inspection of chest normal Resp normal respiratory effort, normal air movement and clear to auscultation bilaterally Effort and Inspection: able to speak in complete sentences and symmetric chest movement Cardio regular rate and regular rhythm GI normal to inspection, nondistended, normoactive bowel sounds Manual OB Exam: presentation cephalic Back/Spine normal ROM Extremity full ROM and no calf tenderness Skin no rashes or lesions noted General Skin Exam: no breakdown Neuro oriented x3 and CN's II-XII intact bilaterally Psych mental status grossly normal and thought process normal Labs Labs Labs: Blood Type B POSITIVE Antibody Screen NEGATIVE Hct 32.7 % (37-47) L Hgb 11.0 g/dL (12.0-15.0) L Obstetrics Ultrasound Rubella IgG Ant (more content not included)... Normal [facility] L509.8000on 08-31-2023 Syphilis Abs Non-Reactive Normal [facility] 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: Performed By: #### L 100.0100, L500.2500 #### [facility] [address] [place], [address] Laboratory - Hematology and Cell countsOrdered By: Suri Forrest on 08-31-2023 Erythrocyte distribution width (RBC) [Entitic vol] 44.6 fL 35.1-43.9 [facility] Immature granulocytes/100 WBC (Bld) 1.100 % 0.0-0.9 [facility] 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: IG% - Immature Granu locytes (promyelocytes, myelocytes and metamyelocytes) > 1% indicates that a LEFT SHIFT is Present. Nucleated RBC/100 WBC (Bld) [Ratio] 0 % 0-5 [facility] MCHC [Mass/volume] by Automa danyelle countOrdered By: Suri Forrest on 08-31-2023 MCHC (RBC) [Mass/Vol] 34.8 g/dL Normal 32-36 [facility] 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: Performed By: #### L 100.0100, L500.2500 #### [facility] [address] [place], [address] No Panel InformationOrdered By: Suri Forrest on 08-31-2023 Estimated GFR (MDRD) Amer 127 mL/min >60 [facility] 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: GFR Calc Estimated GFR (MDRD) Non-Af Amer 105 mL/min >60 [facility] 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: Non- GFR Calc Platelets bldOrdered By: Jl Forrest on 08-31-2023 Platelets (Bld) [#/Vol] 342 10*3/uL Normal 150-450 [facility] 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: Performed By: #### L 100.0100, L500.2500 #### [facility] [address] [place], [address] Protein+Creatinine Ratio,Uri neon 08-31-2023 PROT:CRE RATIO 266 mg/g CRE High 0-200 [facility] 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: Performed By: #### L 100.0500, L501.1105, L501.1400, L501.4100, L501.4405, L501.0900 #### [facility] [address] [place], [address] UR CREAT 110.00 mg/dL Normal NO RANGE EST. [facility] 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: Performed By: #### L 100.0500, L501.1105, L501.1400, L501.4100, L501.4405, L501.0900 #### [facility] [address] [place], [address] Serum Creatinine AND GFRon 1 11-01-2022 EST GFR - AA 127 mL/min Normal >60 [facility] 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: Result Comment: Afri can Swedish GFR Calc Performed By: #### L 100.0500, L501.1105, L501.1400, L501.4100, L501.4405, L501.0900 #### [facility] [address] [place], [place], [address] (736) GFR/1.73 sq M.predicted among non-blacks MDRD (S/P/Bld) [Vol rate/Area] 105 mL/min/{1.73_m2} Normal >60 [facility] 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: Result Comment: Non- GFR Calc Performed By: #### L 100.0500, L501.1105, L501.1400, L501.4100, L501.4405, L501.0900 #### [facility] [address] [place], [address] (728) Serum Treponema species anti body detectionOrdered By: Suri Forrest on 08-31-2023 Treponema sp Ab Ql (S) Non-Reactive [facility] Serum or plasma creatinine m easurement (mass/volume)Ordered By: Suri Forrest on 08-31-2023 Creatinine [Mass/Vol] 0.70 mg/dL Normal 0.55-1.02 [facility] 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: The validity of the calculated GFR & GFRAA in patients over 70 years has not been determined. Clinical correlation is essential. Result Comment: The validity of the calculated GFR GFRAA in patients over 70 years has not been determined. Clinical correlation is essential. Performed By: #### L 100.0500, L501.1105, L501.1400, L501.4100, L501.4405, L501.0900 #### [facility] [address] [place], [address] (508) Serum or plasma uric acid me asurement (mass/volume)Ordered By: Suri Forrest on 08-31-2023 Urate [Mass/Vol] 4.8 mg/dL 2.6-6.0 [facility] 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: The drugs N-Acetylcy steine and Metamizole may falsely depress this assay. Thin prep Papanicolaou smear with manual screeningOrdered By: Suri Forrest on 08-31-2023 Thin prep Papanicolaou smear with manual screening 14 U/L 15-37 [facility] Type AND Screenon 08-31-2023 ABO and Rh group Nom (Bld) Blood group B Rh(D) positive Normal [facility] 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: Order Comment: Labor Performed By: #### L 100.0100, L500.2500 #### [facility] [address] [place], [address] Uric Acidon 08-31-2023 URIC 4.8 mg/dL Normal 2.6-6.0 [facility] 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: Result Comment: The drugs N-Acetylcysteine and Metamizole may falsely depress this assay. Performed By: #### L 100.0500, L501.1105, L501.1400, L501.4100, L501.4405, L501.0900 #### [facility] [address] [place], [address] Urine creatinine measurement (mass/volume)Ordered By: Suri Forrest on 08-31-2023 Creatinine (U) [Mass/Vol] 110.00 mg/dL NO RANGE EST. [facility] Urine protein measurement (m ass/volume)Ordered By: Suri Forrest on 08-31-2023 Protein (U) [Mass/Vol] 29.3 mg/dL High <11.9 [facility] 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: Performed By: #### L 100.0500, L501.1105, L501.1400, L501.4100, L501.4405, L501.0900 #### [facility] [address] [place], [address] Urine protein/creatinine mas s ratioOrdered By: Suri Forrest on 08-31-2023 Protein/Creatinine (U) [Mass ratio] 266 mg/g CRE 0-200 [facility] OB Triage Physician Noteon 1 10-26-2022 OB Triage Physician Note [facility] Medical Records Department [address] [place] [address] OB Triage Physician Note 08/25/232023 MR#: [id number] Acct: [id number] Name: VENECIA HART Rep #: [id number] : 1990 32 From: Suri Forrest CNM PCP: Care Physician,No Primary Status:DEP CLI Y Location: [facility] HPI - General HPI Narrative VENECIA HART, is a 32 F G at 37.5 weeks who presents to triage with contractions since yesterday. Denies any loss of fluid or vaginal bleeding. Positive movement. Maternal Data Information SERA Calculator Estimated Delivery Date Method Current WG Current Estimate 09/10/23 Manual 37w 5d PFSH PFSH Medical History Depression Home Medications vit,calcium no.40-iron fum 27 mg iron-folate no.1 1 mg tablet (PNV-Select) 1 tab PO DAILY #30 tabs 01/03/23 [Rx Last Taken 08/25/23] ferrous sulfate 325 mg (65 mg iron) tablet (Feosol) 325 mg PO QODAY anemia 08/25/23 [History Last Taken 08/24/23] Allergy/AdvReac Type Severity Reaction Status Date / Time bee venom protein (honey bee) Allergy Swelling Verified 01/02/23 20:42 chocolate flavor Allergy Hives Verified 01/02/23 20:42 Social History Smoking Status: Current every day smoker tobacco type: cigarettes History Elective abortions Hx Para 1 Spontaneous abortions Hx # Term Pregnancies Ectopic pregnancies Hx # Pregnancies Multiple births # of living children ROS Eyes Eyes: Denies blurry vision Cardiovascular Cardiovascular: Reports none; Denies chest pain at rest, chest pain with activity or dizziness Respiratory/Chest Respiratory/Chest: Denies cough or dyspnea Gastrointestinal Gastrointestinal: Reports none and other; Denies diarrhea or vomiting Genitourinary Genitourinary: Denies dysuria Musculoskeletal Musculoskeletal: Reports none Integumentary Integumentary: Reports none; Denies rash Neurologic Neurologic: Denies dizziness, headache(s) or other visual disturbances Psychiatric Psychiatric: Reports none Physical Exam Const alert and no apparent distress General Appearance: cooperative Orientation / Consciousness: awake Exam Limitations: no limitations HEENT normocephalic Eyes General Eye: normal appearance of both eyes Neck full ROM Chest inspection of chest normal Resp normal respiratory effort and normal air movement Effort and Inspection: symmetric chest movement Auscultation: clear to auscultation bilaterally Cardio regular rate GI soft to palpation, non-tender and non-distended Inspection: and other Back/Spine normal ROM Extremity full ROM, normal capillary refill and no calf tenderness Skin no rashes or lesions noted Neuro oriented x3 and CN's II-XII intact bilaterally Psych mental status grossly normal NST FHR Rate Baby A Baseline: 130 Variability:: Moderate Accelerations:: None Decelerations:: None NST Reactive:: Yes FHR Category:: Category I Uterine Activity:: Irregular Assessment Plan (1) 37 weeks gestation of : (2) Obesity affecting : (3) Uterine contractions: PLAN: Plan CE /4- unchanged NST reactive. Cat. 1 tracing Patient desires unmedicated labor and delivery Requesting discharge home Follow up in office 08/25/232034 Date Suri Forrest CNM Cosigner Signature (if applicable): Date __ CC: CACHORRO Forrest; No Primary Care Physician Signed Normal [facility] URINE OB DIP B/Oon Glucose Ql (U) Negative Neg mg/dL [facility] Protein.monoclonal (U) [Mass/Vol] Negative Neg mg/dL [facility] OBSTETRIC ULTRASOUND WHIon 1 10-13-2022 [facility] ROUTINE, GROUP B ST REP PCRon 08-11-2023 ROUTINE, GROUP B STREP PCR GROUP B STREP PCR: Negative for Group B Streptococcus by PCR. Normal [facility] 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: Performed By: #### G BPCR ####[facility] [id number] [place] [address] [place] URINE OB DIP B/Oon 3 Glucose Ql (U) Negative Neg mg/dL [facility] Protein.monoclonal (U) [Mass/Vol] Negative Neg mg/dL [facility] CBC W Auto Differential pane l (Bld)on 08-03-2023 Basophils (Bld) [#/Vol] 0.00 10*3/uL Normal <0.11 [facility] 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: Order Comment: Speci men Type: BLOOD SPECIMEN Ordering Facility: [facility] Address: [address] [place] [address] Performed By: #### 2 276-4, 02991-1 #### [facility] CLIA [id number] [address] [place] [address] [place] Basophils/100 WBC (Bld) 0.0 % Normal [facility] 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: Order Comment: Speci men Type: BLOOD SPECIMEN Ordering Facility: [facility] Address: [address] [place] [address] Performed By: #### 2 276-4, 17340-3 #### [facility] CLIA [id number] [address] [place] [address] [place] Differential cell count method Nom (Bld) Manual Normal [facility] 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: Order Comment: Speci men Type: BLOOD SPECIMEN Ordering Facility: [facility] Address: [address] [place] [address] Performed By: #### 2 276-4, 86565-5 #### [facility] CLIA [id number] [address] [place] [address] [place] Eosinophils (Bld) [#/Vol] 0.20 10*3/uL Normal <0.46 [facility] 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: Order Comment: Speci men Type: BLOOD SPECIMEN Ordering Facility: [facility] Address: [address] [place] [address] Performed By: #### 2 276-4, 83834-1 #### [facility] CLIA [id number] [address] [id number] [address] [place] Eosinophils/100 WBC (Bld) 1.0 % Normal [facility] 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: Order Comment: Speci men Type: BLOOD SPECIMEN Ordering Facility: [facility] Address: [address] [place] [address] Performed By: #### 2 276-4, 86233-8 #### [facility] CLIA [id number] [address] [place] [address] [place] Lymphocytes (Bld) [#/Vol] 1.59 10*3/uL Normal 1.00-4.00 [facility] 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: Order Comment: Speci men Type: BLOOD SPECIMEN Ordering Facility: [facility] Address: [address] [place] [address] Performed By: #### 2 276-4, 12765-5 #### [facility] CLIA [id number] [address] [place] [address] [place] Lymphocytes/100 WBC (Bld) 8.0 % Normal [facility] 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: Order Comment: Speci men Type: BLOOD SPECIMEN Ordering Facility: [facility] Address: [address] [place] [address] Performed By: #### 2 276-4, 30887-8 #### [facility] CLIA [id number] [address] [place] [address] [place] Monocytes (Bld) [#/Vol] 1.39 10*3/uL High <0.87 [facility] 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: Order Comment: Speci men Type: BLOOD SPECIMEN Ordering Facility: [facility] Address: [address] [place] [address] Performed By: #### 2 276-4, 81237-4 #### [facility] CLIA [id number] [address] [place] [address] [place] Monocytes/100 WBC (Bld) 7.0 % Normal [facility] 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: Order Comment: Speci men Type: BLOOD SPECIMEN Ordering Facility: [facility] Address: [address] [place] [address] Performed By: #### 2 276-4, 04155-2 #### [facility] CLIA [id number] [address] [place] [address] [place] MYELO% 2.0 % Normal [facility] 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: Order Comment: Speci men Type: BLOOD SPECIMEN Ordering Facility: [facility] Address: [address] [place] [address] Performed By: #### 2 276-4, 70370-3 #### [facility] CLIA [id number] [address] [place] [address] [place] Neutrophils (Bld) [#/Vol] 16.29 10*3/uL High 1.45-7.50 [facility] 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: Order Comment: Speci men Type: BLOOD SPECIMEN Ordering Facility: [facility] Address: [address] [place] [address] Performed By: #### 2 276-4, 21295-0 #### [facility] CLIA [id number] [address] [place] [address] [place] Neutrophils/100 WBC (Bld) 82.0 % Normal [facility] 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: Order Comment: Speci men Type: BLOOD SPECIMEN Ordering Facility: [facility] Address: [address] [place] [address] Performed By: #### 2 276-4, 31723-1 #### [facility] CLIA [id number] [address] [place] [address] [place] Nucleated RBC (Bld) [#/Vol] 10*3/uL Normal <0.01 [facility] 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: Order Comment: Speci men Type: BLOOD SPECIMEN Ordering Facility: [facility] Address: [address] [place] [address] Performed By: #### 2 276-4, 66546-7 #### [facility] CLIA [id number] [address] [place] [address] [place] Nucleated RBC/100 WBC (Bld) [Ratio] 0.0 /100 WBC Normal [facility] 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: Order Comment: Speci men Type: BLOOD SPECIMEN Ordering Facility: [facility] Address: [address] [place] [address] Performed By: #### 2 276-4, 88870-8 #### [facility] CLIA [id number] [address] [place] [address] [place] Platelets Estimate (Bld) [#/Vol] Adequate Normal [facility] 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: Order Comment: Speci men Type: BLOOD SPECIMEN Ordering Facility: [facility] Address: [address] [place] [address] Performed By: #### 2 276-4, 70397-1 #### [facility] CLIA [id number] [address] [place] [address] [place] RED CELL MORPH Reviewed: unremarkable Normal [facility] 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: Order Comment: Speci men Type: BLOOD SPECIMEN Ordering Facility: [facility] Address: [address] [place] [address] Performed By: #### 2 276-4, 52777-9 #### [facility] CLIA [id number] [facility] [place] [address] [place] WBC Left Shift Ql (Bld) Present [facility] 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: Order Comment: Speci men Type: BLOOD SPECIMEN Ordering Facility: [facility] Address: [address] [place] [address] Performed By: #### 2 276-4, 59642-1 #### [facility] CLIA [id number] [address] [place] [address] [place] CBC panel Auto (Bld)on 08-03 Erythrocyte distribution width (RBC) [Ratio] 14.2 % Normal 11.5-15.0 [facility] 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: Order Comment: Speci men Type: BLOOD SPECIMEN Ordering Facility: [facility] Address: [address] [place] [address] Performed By: #### 2 276-4, 94866-0 #### [facility] CLIA [id number] [address] [place] [address] [place] Hematocrit (Bld) [Volume fraction] 33.6 % Low 36.0-46.0 [facility] 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: Order Comment: Speci men Type: BLOOD SPECIMEN Ordering Facility: [facility] Address: [address] [place] [address] Performed By: #### 2 276-4, 37982-0 #### [facility] CLIA [id number] [address] [place] [address] [place] Hemoglobin (Bld) [Mass/Vol] 11.3 g/dL Low 11.5-15.5 [facility] 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: Order Comment: Speci men Type: BLOOD SPECIMEN Ordering Facility: [facility] Address: [address] [place] [address] Performed By: #### 2 276-4, 40344-4 #### [facility] CLIA [id number] [address] [place] [address] [place] MCH (RBC) [Entitic mass] 27.8 pg Normal 26.0-34.0 [facility] 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: Order Comment: Speci men Type: BLOOD SPECIMEN Ordering Facility: [facility] Address: [address] [place] [address] Performed By: #### 2 276-4, 43829-8 #### [facility] CLIA [id number] [address] [place] [address] [place] MCHC (RBC) [Mass/Vol] 33.6 g/dL Normal 30.5-36.0 [facility] 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: Order Comment: Speci men Type: BLOOD SPECIMEN Ordering Facility: [facility] Address: [address] [place] [address] Performed By: #### 2 276-4, 41354-7 #### [facility] CLIA [id number] [address] [place] [address] [place] MCV (RBC) [Entitic vol] 82.8 fL Normal 80.0-100.0 [facility] 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: Order Comment: Speci men Type: BLOOD SPECIMEN Ordering Facility: [facility] Address: [address] [place] [address] Performed By: #### 2 276-4, 72120-9 #### [facility] CLIA [id number] [address] [place] [address] [place] Platelet mean volume (Bld) [Entitic vol] 9.9 fL Normal 9.0-12.7 [facility] 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: Order Comment: Speci men Type: BLOOD SPECIMEN Ordering Facility: [facility] Address: [address] [place] [address] Performed By: #### 2 276-4, 53435-2 #### [facility] CLIA [id number] [address] [place] [address] [place] Platelets (Bld) [#/Vol] 304 10*3/uL Normal 150-400 [facility] 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: Order Comment: Speci men Type: BLOOD SPECIMEN Ordering Facility: [facility] Address: [address] [place] [address] Performed By: #### 2 276-4, 63989-6 #### [facility] CLIA [id number] [address] [place] [address] [place] RBC (Bld) [#/Vol] 4.06 10*6/uL Normal 3.90-5.20 [facility] 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: Order Comment: Speci men Type: BLOOD SPECIMEN Ordering Facility: [facility] Address: [address] [place] [address] Performed By: #### 2 276-4, 42169-7 #### [facility] CLIA [id number] [address] [address] [place] WBC (Bld) [#/Vol] 19.87 10*3/uL High 3.70-11.00 [facility] 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: Order Comment: Speci men Type: BLOOD SPECIMEN Ordering Facility: [facility] Address: [address] [place] [address] Performed By: #### 2 276-4, 43485-7 #### [facility] CLIA [id number] [address] [place] [address] [place] [facility] Ferritin [Mass/Vol] 49.9 ng/mL Normal 14.7-205.1 [facility] 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: Order Comment: Speci men Type: BLOOD SPECIMEN Ordering Facility: [facility] Address: [address] [place] [address] Performed By: #### 2 276-4, 86419-8 #### [facility] CLIA [id number] [address] [place] [address] [place] Iron and Iron binding capaci panel 08-03-2023 Iron [Mass/Vol] 74 ug/dL Normal 41-186 [facility] 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: Order Comment: Speci men Type: BLOOD SPECIMEN Ordering Facility: [facility] Address: [address] [place] [address] Performed By: #### 2 276-4, 28548-8 #### [facility] CLIA [id number] [address] [place] [address] [place] Iron binding capacity [Mass/Vol] 469 ug/dL High 232-386 [facility] 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: Order Comment: Speci men Type: BLOOD SPECIMEN Ordering Facility: [facility] Address: [address] [place] [address] Performed By: #### 2 276-4, 40866-5 #### [facility] CLIA [id number] [address] [place] [address] [place] Iron/TIBC [Molar ratio] 15.8 % Normal 15.0-57.0 [facility] 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: Order Comment: Speci men Type: BLOOD SPECIMEN Ordering Facility: [facility] Address: [address] [place] [address] Performed By: #### 2 276-4, 33826-7 #### [facility] CLIA [id number] [address] [place] [address] [place] CBC W Auto Differential pane l (Bld)on 07-20-2023 Basophils (Bld) [#/Vol] 0.00 10*3/uL Normal <0.11 [facility] 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: Order Comment: Speci men Type: BLOOD SPECIMEN Ordering Facility: [facility] Address: [address] [place] [address] Performed By: #### 5 7021-8 #### [facility] CLIA [id number] [address] [place] [address] [place] [facility] CLIA [id number] [address] [place] [address] [place] Basophils/100 WBC (Bld) 0.0 % Normal [facility] 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: Order Comment: Speci men Type: BLOOD SPECIMEN Ordering Facility: [facility] Address: [address] [place] [address] Performed By: #### 5 7021-8 #### [facility] CLIA [id number] [address] [place] [address] [place] [facility] CLIA [id number] [facility] [address] [place] Differential cell count method Nom (Bld) Manual Normal [facility] 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: Order Comment: Speci men Type: BLOOD SPECIMEN Ordering Facility: [facility] Address: [address] [place] [address] Performed By: #### 5 7021-8 #### [facility] CLIA [id number] [address] [place], [place] [address] [place] [address] LABORATORY CLIA [id number] [address] [place] [address] [place] Eosinophils (Bld) [#/Vol] 0.23 10*3/uL Normal <0.46 [facility] 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: Order Comment: Speci men Type: BLOOD SPECIMEN Ordering Facility: [facility] Address: [address] [place] [address] Performed By: #### 5 7021-8 #### [facility] CLIA [id number] [address] [facility] CLIA [id number] [address] [place] [address] [place] Eosinophils/100 WBC (Bld) 1.0 % Normal [facility] 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: Order Comment: Speci men Type: BLOOD SPECIMEN Ordering Facility: [facility] Address: [address] [place] [address] Performed By: #### 5 7021-8 #### [facility] CLIA [id number] [address] [facility] CLIA [id number] [address] [place] [address] [place] Lymphocytes (Bld) [#/Vol] 3.22 10*3/uL Normal 1.00-4.00 [facility] 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: Order Comment: Speci men Type: BLOOD SPECIMEN Ordering Facility: [facility] Address: [address] [place] [address] Performed By: #### 5 7021-8 #### [facility] CLIA [id number] [address] OF [facility] CLIA [id number] [address] [place] [address] [place] Lymphocytes/100 WBC (Bld) 14.0 % Normal [facility] 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: Order Comment: Speci men Type: BLOOD SPECIMEN Ordering Facility: [facility] Address: [address] [place] [address] Performed By: #### 5 7021-8 #### [facility] CLIA [id number] [address] [facility] CLIA [id number] [facility] [place] [address] [place] Monocytes (Bld) [#/Vol] 1.38 10*3/uL High <0.87 [facility] [facility] 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: Order Comment: Speci men Type: BLOOD SPECIMEN Ordering Facility: [facility] Address: [address] [place] [address] Performed By: #### 5 7021-8 #### [facility] CLIA [id number] [address] [place] [address] LABORATORY CLIA [id number] [address] [place] [address] [place] Monocytes/100 WBC (Bld) 6.0 % Normal [facility] 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: Order Comment: Speci men Type: BLOOD SPECIMEN Ordering Facility: [facility] Address: [address] [place] [address] Performed By: #### 5 7021-8 #### [facility] CLIA [id number] [address] [place] [address] LABORATORY CLIA [id number] [address] [place] [address] [place] MYELO% 1.0 % Normal [facility] 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: Order Comment: Speci men Type: BLOOD SPECIMEN Ordering Facility: [facility] Address: [address] [place] [address] Performed By: #### 5 7021-8 #### [facility] CLIA [id number] [address] LABORATORY CLIA [id number] [address] [place] [address] [place] Neutrophils (Bld) [#/Vol] 17.92 10*3/uL High 1.45-7.50 [facility] 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: Order Comment: Speci men Type: BLOOD SPECIMEN Ordering Facility: [facility] Address: [address] [place] [address] Performed By: #### 5 7021-8 #### [facility] CLIA [id number] [address] LABORATORY CLIA [id number] [address] [place] [address] [place] Neutrophils/100 WBC (Bld) 78.0 % Normal [facility] 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: Order Comment: Speci men Type: BLOOD SPECIMEN Ordering Facility: [facility] Address: [address] [place] [address] Performed By: #### 5 7021-8 #### [facility] CLIA [id number] [address] [place] [address] OF [facility] LABORATORY CLIA [id number] [address] [place] [address] [place] Nucleated RBC (Bld) [#/Vol] 10*3/uL Normal <0.01 [facility] 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: Order Comment: Speci men Type: BLOOD SPECIMEN Ordering Facility: [facility] Address: [address] [place] [address] Performed By: #### 5 7021-8 #### [facility] CLIA [id number] [address] [place] [address] LABORATORY CLIA [id number] [address] [place] [address] [place] Nucleated RBC/100 WBC (Bld) [Ratio] 0.0 /100 WBC Normal [facility] 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: Order Comment: Speci men Type: BLOOD SPECIMEN Ordering Facility: [facility] Address: [address] [place] [address] Performed By: #### 5 7021-8 #### [facility] CLIA [id number] [address] LABORATORY CLIA [id number] [address] [place] [address] [place] Platelets Estimate (Bld) [#/Vol] Adequate Normal [facility] 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: Order Comment: Speci men Type: BLOOD SPECIMEN Ordering Facility: [facility] Address: [address] [place] [address] Performed By: #### 5 7021-8 #### [facility] CLIA [id number] [address] [place] [address] LABORATORY CLIA [id number] [address] [place] [address] STATES [facility] RED CELL MORPH Reviewed: unremarkable Normal [facility] 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: Order Comment: Speci men Type: BLOOD SPECIMEN Ordering Facility: [facility] Address: [address] [place] [address] Performed By: #### 5 7021-8 #### [facility] CLIA [id number] [address] LABORATORY CLIA [id number] [address] [place] [address] [place] WBC Left Shift Ql (Bld) Present [facility] 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: Order Comment: Speci men Type: BLOOD SPECIMEN Ordering Facility: [facility] Address: [address] [place] [address] Performed By: #### 5 7021-8 #### [facility] CLIA [id number] [address] [place] [address] [place] [facility] LABORATORY CLIA [id number] [address] [place] [address] [place] CBC panel Auto (Bld)on 07-20 Erythrocyte distribution width (RBC) [Ratio] 14.2 % Normal 11.5-15.0 [facility] 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: Order Comment: Speci men Type: BLOOD SPECIMEN Ordering Facility: [facility] Address: [address] [place] [address] Performed By: #### 2 276-4, 23771-0 #### [facility] CLIA [id number] [address] [place] [address] [place] Hematocrit (Bld) [Volume fraction] 31.2 % Low 36.0-46.0 [facility] 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: Order Comment: Speci men Type: BLOOD SPECIMEN Ordering Facility: [facility] Address: [address] [place] [address] Performed By: #### 2 276-4, 98849-4 #### [facility] CLIA [id number] [address] [place] [address] [place] Hemoglobin (Bld) [Mass/Vol] 10.5 g/dL Low 11.5-15.5 [facility] 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: Order Comment: Speci men Type: BLOOD SPECIMEN Ordering Facility: [facility] Address: [address] [place] [address] Performed By: #### 2 276-4, 62825-3 #### [facility] CLIA [id number] [address] [place] [address] [place] MCH (RBC) [Entitic mass] 28.1 pg Normal 26.0-34.0 [facility] 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: Order Comment: Speci men Type: BLOOD SPECIMEN Ordering Facility: [facility] Address: [address] [place] [address] Performed By: #### 2 276-4, 31980-6 #### [facility] CLIA [id number] [address] [place] [address] [place] MCHC (RBC) [Mass/Vol] 33.7 g/dL Normal 30.5-36.0 [facility] 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: Order Comment: Speci men Type: BLOOD SPECIMEN Ordering Facility: [facility] Address: [address] [place] [address] Performed By: #### 2 276-4, 05677-3 #### [facility] CLIA [id number] [address] [place] [address] [place] MCV (RBC) [Entitic vol] 83.4 fL Normal 80.0-100.0 [facility] 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: Order Comment: Speci men Type: BLOOD SPECIMEN Ordering Facility: [facility] Address: [address] [place] [address] Performed By: #### 2 276-4, 85500-3 #### [facility] CLIA [id number] [address] [place] [address] [place] Platelet mean volume (Bld) [Entitic vol] 9.4 fL Normal 9.0-12.7 [facility] 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: Order Comment: Speci men Type: BLOOD SPECIMEN Ordering Facility: [facility] Address: [address] [place] [address] Performed By: #### 2 276-4, 30338-6 #### [facility] CLIA [id number] [address] [place] [address] [place] Platelets (Bld) [#/Vol] 294 10*3/uL Normal 150-400 [facility] 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: Order Comment: Speci men Type: BLOOD SPECIMEN Ordering Facility: [facility] Address: [address] [place] [address] Performed By: #### 2 276-4, 36662-7 #### [facility] CLIA [id number] [address] [place] [address] [place] RBC (Bld) [#/Vol] 3.74 10*6/uL Low 3.90-5.20 [facility] 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: Order Comment: Speci men Type: BLOOD SPECIMEN Ordering Facility: [facility] Address: [address] [place] [address] Performed By: #### 2 276-4, 00043-6 #### [facility] CLIA [id number] [address] [place] [address] [place] WBC (Bld) [#/Vol] 22.97 10*3/uL High 3.70-11.00 [facility] 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: Order Comment: Speci men Type: BLOOD SPECIMEN Ordering Facility: [facility] Address: [address] [place] [address] Performed By: #### 2 276-4, 70430-9 #### [facility] CLIA [id number] [address] [place] [address] [place] URINE OB DIP B/Oon 3 Glucose Ql (U) Negative Neg mg/dL [facility] Protein.monoclonal (U) [Mass/Vol] Negative Neg mg/dL [facility] URINE OB DIP B/Oon 3 Glucose Ql (U) Negative Neg mg/dL [facility] Protein.monoclonal (U) [Mass/Vol] Negative Neg mg/dL [facility] CNPNon 06-28-2023 CNPN Telephone ([id number]) ---- VENECIA HART I ([id number]) 1990 F UPA Date Time 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 - pyridoxine HCl, vitamin B6, (VITAMIN B-6 ORAL) Take by mouth. - ondansetron (ZOFRAN) 4 mg tablet Take 1 tablet by mouth every 8 hours as needed for nausea/vomiting. - PNV no.95/ferrous fum/folic ac ( MULTIVITAMINS ORAL) Take by mouth. 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 History of depression [Z86.59] 01/27/2023 Obesity during [O99.210] 01/27/2023 Tobacco smoking affecting , antepartum*01/28/20 History of abnormal cervical Pap smear [Z87.42] 01/27/2023 Nausea and vomiting during [O21.9] 02/02/2023 Rubella non-immune status, antepartum [O09.899,* 3 Uterine size-date discrepancy, third trimester *06/06/2023 Anemia complicating , second trimester* 3 Elevated glucose [R73.09] 06/22/2023 Encounter Status:Closed by MEHNAZ MURGUIA on 06/28/23 Normal [facility] GLUCOSE GEST, 1 HOURon 06-28 Glucose 1 Hr post Unsp challenge [Mass/Vol] 173 mg/dL Normal 74-179 [facility] 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: Order Comment: Speci men Type: BLOOD SPECIMEN Ordering Facility: [facility] Address: [address], [place] [address] Result Comment: [facility] Congress of Obstetricians and Gynecologists (Ramon/Dianne) guidelines state gestational diabetes mellitus is present when 2 or more of the plasma glucose concentrations meet or exceed the following levels: fastin mg/dl, 1 hr: 180 mg/dl, 2 hr: 155 mg/dl, and 3 hr: 140 mg/dl. Performed By: Jaylyn### 2 276-4, 44696-1 #### [facility] CLIA [id number] [address] [facility] [id number] [address] [place] GLUCOSE GEST, 2 HOURon 06-28 Glucose 2 Hr post Unsp challenge [Mass/Vol] 164 mg/dL High 74-154 [facility] 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: Order Comment: Guero guido Type: BLOOD SPECIMENOrdering Facility: [facility] Address: [address] [place] [address] Result Comment: [facility] Congress of Obstetricians and Gynecologists (Ramon/Dianne) guidelines state gestational diabetes mellitus is present when 2 or more of the plasma glucose concentrations meet or exceed the following levels: fastin mg/dl, 1 hr: 180 mg/dl, 2 hr: 155 mg/dl, and 3 hr: 140 mg/dl. Performed By: #### G TGST2 ####[facility] [id number] [place] [address] [place] GLUCOSE GEST, 3 HOURon 06-28 Glucose 3 Hr post Unsp challenge [Mass/Vol] 103 mg/dL Normal 74-139 [facility] 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: Order Comment: Guero gudio Type: BLOOD SPECIMEN Ordering Facility: [facility] Address: [address] [place] [address] Result Comment: [facility] Congress of Obstetricians and Gynecologists (Navarro/Axelan) guidelines state gestational diabetes mellitus is present when 2 or more of the plasma glucose concentrations meet or exceed the following levels: fastin mg/dl, 1 hr: 180 mg/dl, 2 hr: 155 mg/dl, and 3 hr: 140 mg/dl. Performed By: #### 5 7021-8 #### [facility] CLIA [id number] [address] [place] [address] [place] [facility] LABORATORY CLIA [id number] [address] [place] [address] [place] GLUCOSE GEST, FASTINGon 06-06 Glucose post fast [Mass/Vol] 85 mg/dL Normal 74-94 [facility] 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: Order Comment: Speci men Type: BLOOD SPECIMEN Ordering Facility: [facility] Address: [place] [address] Result Comment: [facility] Congress of Obstetricians and Gynecologists (Ramon/Dianne) guidelines state gestational diabetes mellitus is present when 2 or more of the plasma glucose concentrations meet or exceed the following levels: fastin mg/dl, 1 hr: 180 mg/dl, 2 hr: 155 mg/dl, and 3 hr: 140 mg/dl. Performed By: #### 5 7021-8 #### [facility] CLIA [id number] [address] [place] [address] LABORATORY CLIA [id number] [address] [place] [address] CBC W Auto Differential pane l (Bld)on 06-22-2023 Basophils (Bld) [#/Vol] 0.00 10*3/uL Normal <0.11 [facility] 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: Order Comment: Speci men Type: BLOOD SPECIMEN Ordering Facility: [facility] Address: [place] [address] Performed By: #### 5 7021-8 #### [facility] CLIA [id number] [address] [place] [address] LABORATORY CLIA [id number] [address] [place] [address] Basophils/100 WBC (Bld) 0.0 % Normal [facility] 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: Order Comment: Speci men Type: BLOOD SPECIMEN Ordering Facility: [facility] Address: [place] [address] Performed By: #### 5 7021-8 #### [facility] CLIA [id number] [address] [place] [address] LABORATORY CLIA [id number] [address] OF [place] Differential cell count method Nom (Bld) Manual Normal [facility] 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: Order Comment: Speci men Type: BLOOD SPECIMEN Ordering Facility: [facility] Address: [address] [place] [address] Performed By: #### 5 7021-8 #### [facility] CLIA [id number] [address] LABORATORY CLIA [id number] [facility] [place] [address] [place] Eosinophils (Bld) [#/Vol] 0.00 10*3/uL Normal <0.46 [facility] 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: Order Comment: Speci men Type: BLOOD SPECIMEN Ordering Facility: [facility] Address: [address] [place] [address] Performed By: #### 5 7021-8 #### [facility] CLIA [id number] [address] [place] [address] LABORATORY CLIA [id number] [address] [place] [address] [place] Eosinophils/100 WBC (Bld) 0.0 % Normal [facility] 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: Order Comment: Speci men Type: BLOOD SPECIMEN Ordering Facility: [facility] Address: [address] [place] [address] Performed By: #### 5 7021-8 #### [facility] CLIA [id number] [address] [place] [address] LABORATORY CLIA [id number] [address] [place] [address] [place] Erythrocyte distribution width (RBC) [Ratio] 13.6 % Normal 11.5-15.0 [facility] 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: Order Comment: Speci men Type: BLOOD SPECIMEN Ordering Facility: [facility] Address: [address] [place] [address] Performed By: #### 5 7021-8 #### [facility] CLIA [id number] [address] LABORATORY CLIA [id number] [address] [place] [address] [place] Hematocrit (Bld) [Volume fraction] 30.2 % Low 36.0-46.0 [facility] 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: Order Comment: Speci men Type: BLOOD SPECIMEN Ordering Facility: [facility] Address: [address] [place] [address] Performed By: #### 5 7021-8 #### [facility] CLIA [id number] [address] [place] [address] LABORATORY CLIA [id number] [address] [place] [address] [place] Hemoglobin (Bld) [Mass/Vol] 10.4 g/dL Low 11.5-15.5 [facility] 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: Order Comment: Speci men Type: BLOOD SPECIMEN Ordering Facility: [facility] Address: [address] [place] [address] Performed By: #### 5 7021-8 #### [facility] CLIA [id number] [address] [place] [address] LABORATORY CLIA [id number] [address] [place] [address] [place] Lymphocytes (Bld) [#/Vol] 4.30 10*3/uL High 1.00-4.00 [facility] 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: Order Comment: Speci men Type: BLOOD SPECIMEN Ordering Facility: [facility] Address: [address] [place] [address] Performed By: #### 5 7021-8 #### [facility] CLIA [id number] [address] [place] [address] LABORATORY CLIA [id number] [address] [place] [address] [place] Lymphocytes/100 WBC (Bld) 21.0 % Normal [facility] 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: Order Comment: Speci men Type: BLOOD SPECIMEN Ordering Facility: [facility] Address: [place] [address] Performed By: #### 5 7021-8 #### [facility] CLIA [id number] [address] LABORATORY CLIA [id number] [address] [place] [address] MCH (RBC) [Entitic mass] 28.3 pg Normal 26.0-34.0 [facility] 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: Order Comment: Speci men Type: BLOOD SPECIMEN Ordering Facility: [facility] Address: [address] [place] [address] Performed By: #### 5 7021-8 #### [facility] CLIA [id number] [address] [place] [address] LABORATORY CLIA [id number] [address] [place] [address] MCHC (RBC) [Mass/Vol] 34.4 g/dL Normal 30.5-36.0 [facility] 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: Order Comment: Speci men Type: BLOOD SPECIMEN Ordering Facility: [facility] Address: [place] [address] Performed By: #### 5 7021-8 #### [facility] CLIA [id number] [address] [place] [address] LABORATORY CLIA [id number] [address] [place] [address] MCV (RBC) [Entitic vol] 82.1 fL Normal 80.0-100.0 [facility] 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: Order Comment: Speci men Type: BLOOD SPECIMEN Ordering Facility: [facility] Address: [address] [place] [address] Performed By: #### 5 7021-8 #### [facility] CLIA [id number] [address] LABORATORY CLIA [id number] [address] [place] [address] [place] Metamyelocytes/100 WBC (Bld) 1.0 % Normal [facility] 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: Order Comment: Speci men Type: BLOOD SPECIMEN Ordering Facility: [facility] Address: [address] [place] [address] Performed By: #### 5 7021-8 #### [facility] CLIA [id number] [address] LABORATORY CLIA [id number] [address] [place] [address] [place] Monocytes (Bld) [#/Vol] 0.82 10*3/uL Normal <0.87 [facility] 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: Order Comment: Speci men Type: BLOOD SPECIMEN Ordering Facility: [facility] Address: [address] [place] [address] Performed By: #### 5 7021-8 #### [facility] CLIA [id number] [address] LABORATORY CLIA [id number] [address] [place] [address] [facility] OF [place] Monocytes/100 WBC (Bld) 4.0 % Normal [facility] 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: Order Comment: Speci men Type: BLOOD SPECIMEN Ordering Facility: [facility] Address: [address] [place] [address] Performed By: #### 5 7021-8 #### [facility] CLIA [id number] [address] OF [facility] LABORATORY CLIA [id number] [address] [place] [address] [place] Neutrophils (Bld) [#/Vol] 15.14 10*3/uL High 1.45-7.50 [facility] 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: Order Comment: Speci men Type: BLOOD SPECIMEN Ordering Facility: [facility] Address: [address] [place] [address] Performed By: #### 5 7021-8 #### [facility] CLIA [id number] [address] LABORATORY CLIA [id number] [address] [place] [address] [facility] OF [place] Neutrophils/100 WBC (Bld) 74.0 % Normal [facility] 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: Order Comment: Speci men Type: BLOOD SPECIMEN Ordering Facility: [facility] Address: [address] [place] [address] Performed By: #### 5 7021-8 #### [facility] CLIA [id number] [address] [place] [address] LABORATORY CLIA [id number] [address] [place] [address] STATES OF [place] Nucleated RBC (Bld) [#/Vol] 10*3/uL Normal <0.01 [facility] 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: Order Comment: Speci men Type: BLOOD SPECIMEN Ordering Facility: [facility] Address: [address] [place] [address] Performed By: #### 5 7021-8 #### [facility] CLIA [id number] [address] [place] [address] LABORATORY CLIA [id number] [address] [place] [address] OF [place] Nucleated RBC/100 WBC (Bld) [Ratio] 0.0 /100 WBC Normal [facility] 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: Order Comment: Speci men Type: BLOOD SPECIMEN Ordering Facility: [facility] Address: [address] [place] [address] Performed By: #### 5 7021-8 #### [facility] CLIA [id number] [address] [place] [address] [place] [facility] CLIA [id number] [address] [place] [address] [place] Platelet mean volume (Bld) [Entitic vol] 9.5 fL Normal 9.0-12.7 [facility] 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: Order Comment: Speci men Type: BLOOD SPECIMEN Ordering Facility: [facility] Address: [address] [place] [address] Performed By: #### 5 7021-8 #### [facility] CLIA [id number] [address] OF [facility] CLIA [id number] [address] [place] [address] [place] Platelets (Bld) [#/Vol] 245 10*3/uL Normal 150-400 [facility] 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: Order Comment: Speci men Type: BLOOD SPECIMEN Ordering Facility: [facility] Address: [address] [place] [address] Performed By: #### 5 7021-8 #### [facility] CLIA [id number] [address] [place] [address] OF [facility] CLIA [id number] [address] [place] [address] [place] Platelets Estimate (Bld) [#/Vol] Adequate Normal [facility] 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: Order Comment: Speci men Type: BLOOD SPECIMEN Ordering Facility: [facility] Address: [address] [place] [address] Performed By: #### 5 7021-8 #### [facility] CLIA [id number] [address] [place] [address] [place] [facility] CLIA [id number] [address] [place] [address] [place] RBC (Bld) [#/Vol] 3.68 10*6/uL Low 3.90-5.20 [facility] 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: Order Comment: Speci men Type: BLOOD SPECIMEN Ordering Facility: [facility] Address: [address] [place] [address] Performed By: #### 5 7021-8 #### [facility] CLIA [id number] [address] LABORATORY CLIA [id number] [address] [place] [address] [place] CELL MORPH Reviewed: unremarkable Normal [facility] 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: Order Comment: Speci men Type: BLOOD SPECIMEN Ordering Facility: [facility] Address: [address] [place] [address] Performed By: #### 5 7021-8 #### [facility] CLIA [id number] [address] [place] [address] LABORATORY CLIA [id number] [address] [place] [address] [place] WBC (Bld) [#/Vol] 20.46 10*3/uL High 3.70-11.00 [facility] 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: Order Comment: Speci men Type: BLOOD SPECIMEN Ordering Facility: [facility] Address: [address] [place] [address] Performed By: #### 5 7021-8 #### [facility] CLIA [id number] [address] [place] [address] LABORATORY CLIA [id number] [address] [place] [address] [facility] GEST GLUC SCREEN, 1-HR, 50 G M, NON-FASTINGon 06-22-2023 Glucose [Mass/Vol] 159 mg/dL High 74-134 [facility] 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: Order Comment: Speci men Type: BLOOD SPECIMEN Ordering Facility: [facility] Address: [address] [place] [address] Result Comment: [facility] [employer] (Ramon/Dianne) guidelines state a gestational diabetes mellitus positive screen is made, in women not previously diagnosed with overt diabetes, when the 1 hr plasma glucose level is equal to or above 140 mg/dL. The [facility] [employer] [facility] recommends a 135 mg/dL cutoff. Performed By: #### 5 7021-8 #### [facility] CLIA [id number] [address] LABORATORY CLIA [id number] [facility] [address] [place] [facility] OBSTETRIC ULTRASOUND WHIon 1 [facility] Reagin and Treponema pallidu m IgG and IgM [Interp]on 06-22-2023 T. pallidum IgG+IgM IA Ql (S) Non-Reactive Normal Nonreactive [facility] 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: Order Comment: Speci men Type: BLOOD SPECIMEN Ordering Facility: [facility] Address: [address] [place] [address] Performed By: #### 5 7021-8 #### [facility] CLIA [id number] [address] [place] [address] LABORATORY CLIA [id number] [address] [place] [address] Reagin+T pallidum IgG+IgM Se rPl-Impon 06-22-2023 Reagin and Treponema pallidum IgG and IgM [Interp] Cannot exclude recent Treponemal infection if specimen collected within 7-10 days after appearance of suspect lesions or 2-3 weeks after an exposure. Clinical correlation is required. Normal [facility] 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: Order Comment: Speci men Type: BLOOD SPECIMEN Ordering Facility: [facility] Address: [address] [place] [address] Performed By: #### 5 7021-8 #### [facility] CLIA [id number] [address] [place] [id number] [place] [address] LABORATORY CLIA [id number] [address] [place] [address] [place] URINE OB DIP B/Oon 3 Glucose Ql (U) Negative Neg mg/dL [facility] Protein.monoclonal (U) [Mass/Vol] Negative Neg mg/dL [facility] URINE OB DIP B/Oon 3 Glucose Ql (U) Negative Neg mg/dL [facility] Protein.monoclonal (U) [Mass/Vol] Negative Neg mg/dL [facility] OBSTETRIC ULTRASOUND WHIon 0 04-29-2023 [facility] SEQUENTIAL SCRN SCND TRIMEST Alex 04-29-2023 AFP [MoM] 1.08 MoM Normal [facility] 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: Order Comment: Speci men Type: BLOOD SPECIMEN Ordering Facility: [facility] Address: [address] [place] [address] Result Comment: 72.0 3 ng/mL Performed By: #### 5 7021-8 #### [facility] CLIA [id number] [address] LABORATORY CLIA [id number] [address] [place] [address] COMMENT, SEQ SCREEN SECOND TRIMESTER See comments below Normal [facility] 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: Order Comment: Speci lata Type: BLOOD SPECIMEN Ordering Facility: [facility] Address: [address] [place] [address] Result Comment: INTE RPRETATION Screening result : Screen negative Risk of Down syndrome :1 in 1,100 [Risk cut-off 1 in 270] Risk of trisomy 18 : Less than 1 in 20,000 [Risk cut-off 1 in 100] Risk of trisomy 13 : 1 in 7,800 [Risk cut-off 1 in 100] Risk of NTD : 1 in 4,000 Comment : Down risk due to maternal age alone is 1 in 690 COMMENT FROM [facility] SHARON-A (RUO) is used per the rocket engine mechanic's instructions. Its performance characteristics were determined by [facility]'s lab per CLIA requirements. This test has not been approved by FDA Please check patient information and call for any corrections and risk recalculations A screen negative result does not exclude the possibility of Down syndrome, trisomy 18, trisomy 13 or a neural tube defect because screening does not detect all affected pregnancies Performed By: #### 5 7021-8 #### [facility] CLIA [id number] [address] LABORATORY CLIA [id number] [facility] [address] DATE 2ND SAMPLE RECEIVED 05/02/23 Normal [facility] 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: Order Comment: Speci men Type: BLOOD SPECIMEN Ordering Facility: [facility] Address: [address] [place] [address] Performed By: #### 5 7021-8 #### [facility] CLIA [id number] [address] [place] [address] LABORATORY CLIA [id number] [address] [place] [address] DATE OF COLLECTION #1 03/02/23 Normal [facility] 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: Order Comment: Speci men Type: BLOOD SPECIMEN Ordering Facility: [facility] Address: [address] [place] [address] Performed By: #### 5 7021-8 #### [facility] CLIA [id number] [address] [place] [address] LABORATORY CLIA [id number] [address] [place] [address] DATE OF COLLECTION #2 04/29/23 Normal [facility] 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: Order Comment: Speci men Type: BLOOD SPECIMEN Ordering Facility: [facility] Address: [address] [place] [address] Performed By: #### 5 7021-8 #### [facility] CLIA [id number] [address] LABORATORY CLIA [id number] [address] OF [place] DATE RECEIVED 03/03/23 Normal [facility] 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: Order Comment: Speci men Type: BLOOD SPECIMEN Ordering Facility: [facility] Address: [address] [id number] Performed By: #### 5 7021-8 #### [facility] CLIA [id number] [address] LABORATORY CLIA [id number] [address] OF [facility] E3.unconjugated [MoM] 0.73 MoM Normal [facility] 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: Order Comment: Speci men Type: BLOOD SPECIMEN Ordering Facility: [facility] Address: [address] [place] [address] Result Comment: 1.94 ng/mL Performed By: #### 5 7021-8 #### [facility] CLIA [id number] [address] LABORATORY CLIA [id number] [address] [place] [address] SERA 09/05/23 Normal [facility] 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: Order Comment: Speci men Type: BLOOD SPECIMEN Ordering Facility: [facility] Address: [address] [place] [id number] Performed By: #### 5 7021-8 #### [facility] CLIA [id number] [address] LABORATORY CLIA [id number] [address] [place] [address] GESTATION AT DATE OF 1ST SAMPLE 13 weeks 2 days (by CRL scan) Normal [facility] 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: Order Comment: Speci men Type: BLOOD SPECIMEN Ordering Facility: [facility] Address: [address] [place] [address] Performed By: #### 5 7021-8 #### [facility] CLIA [id number] [address] LABORATORY CLIA [id number] [address] [place] [address] GESTATION AT DATE OF 2ND SAMPLE 21 weeks 4 days (by CRL scan) Normal [facility] 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: Order Comment: Speci men Type: BLOOD SPECIMEN Ordering Facility: [facility] Address: [address] [place] [address] Performed By: #### 5 7021-8 #### [facility] CLIA [id number] [address] [place] [address] LABORATORY CLIA [id number] [address] [place] [address] HCG [MoM] 0.64 MoM Normal [facility] 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: Order Comment: Speci men Type: BLOOD SPECIMEN Ordering Facility: [facility] Address: [address] [place] [address] Result Comment: 47.6 0 IU/mL Performed By: #### 5 7021-8 #### [facility] CLIA [id number] [address] [place] [address] LABORATORY CLIA [id number] [address] [place] [address] [place] Inhibin A [MoM] 1.79 {M.o.M} Normal [facility] 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: Order Comment: Speci men Type: BLOOD SPECIMEN Ordering Facility: [facility] Address: [address] [place] [address] Result Comment: 314. 5 pg/mL Performed By: #### 5 7021-8 #### [facility] CLIA [id number] [address] LABORATORY CLIA [id number] [address] [place] [address] [place] INSULIN DEPENDENT DIABETES None Normal [facility] 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: Order Comment: Speci men Type: BLOOD SPECIMEN Ordering Facility: [facility] Address: [place] [id number] Performed By: #### 5 7021-8 #### [facility] CLIA [id number] [address] LABORATORY CLIA [id number] [address] IVF No Normal [facility] 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: Order Comment: Speci men Type: BLOOD SPECIMEN Ordering Facility: [facility] Address: [place] [address] Performed By: #### 5 7021-8 #### [facility] CLIA [id number] [address] LABORATORY CLIA [id number] [address] [place] [address] MATERNAL AGE AT SERA 32 years Normal [facility] 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: Order Comment: Speci men Type: BLOOD SPECIMEN Ordering Facility: [facility] Address: [place] [address] Performed By: #### 5 7021-8 #### [facility] CLIA [id number] [address] LABORATORY CLIA [id number] [address] [place] [address] NUCHAL MEASUREMENT 2.00 mm Normal [facility] 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: Order Comment: Speci men Type: BLOOD SPECIMEN Ordering Facility: [facility] Address: [place] [address] Performed By: #### 5 7021-8 #### [facility] CLIA [id number] [address] LABORATORY CLIA [id number] [address] NUCHAL MEASUREMENT MOM 1.16 MoM Normal [facility] 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: Order Comment: Speci men Type: BLOOD SPECIMEN Ordering Facility: [facility] Address: [address] [place] [address] Performed By: #### 5 7021-8 #### [facility] CLIA [id number] [address] LABORATORY CLIA [id number] [address] PATIENT'S WEIGHT DAY OF COLLECTION 212 lb. Normal [facility] 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: Order Comment: Speci men Type: BLOOD SPECIMEN Ordering Facility: [facility] Address: [address] [place] [address] Performed By: #### 5 7021-8 #### [facility] CLIA [id number] [address] LABORATORY CLIA [id number] [address] [place] [address] [place] associated plasma protein A [MoM] 1.34 MoM Normal [facility] 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: Order Comment: Speci men Type: BLOOD SPECIMEN Ordering Facility: [facility] Address: [address] [place] [address] Result Comment: 1018 .9 ng/mL Performed By: #### 5 7021-8 #### [facility] CLIA [id number] [address] LABORATORY CLIA [id number] [address] [place] [address] [place] PREVIOUS DOWN None Normal [facility] 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: Order Comment: Speci men Type: BLOOD SPECIMEN Ordering Facility: [facility] Address: [address] [place] [address] Performed By: #### 5 7021-8 #### [facility] CLIA [id number] [address] [place] [id number] [facility] LABORATORY CLIA [id number] [address] [place] [address] [place] PREVIOUS NTD None Normal [facility] 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: Order Comment: Speci men Type: BLOOD SPECIMEN Ordering Facility: [facility] Address: [address] [place] [address] Performed By: #### 5 7021-8 #### [facility] CLIA [id number] [address] OF [facility] LABORATORY CLIA [id number] [facility] [place] [address] [place] SAMPLE #1 [id number] Normal [facility] 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: Order Comment: Speci men Type: BLOOD SPECIMEN Ordering Facility: [facility] Address: [address] [place] [address] Performed By: #### 5 7021-8 #### [facility] CLIA [id number] [address] [place] [address] [place] [facility] LABORATORY CLIA [id number] [address] [place] [address] [place] SAMPLE #2 [id number] Normal [facility] 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: Order Comment: Speci men Type: BLOOD SPECIMEN Ordering Facility: [facility] Address: [address] [id number] Performed By: #### 5 7021-8 #### [facility] CLIA [id number] [address] [place] [address] [place] [facility] LABORATORY CLIA [id number] [address] [place] [address] [place] SCAN MEASURE 70.5 mm on 03/02/23 Normal [facility] 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: Order Comment: Speci men Type: BLOOD SPECIMEN Ordering Facility: [facility] Address: [address] [place] [address] Performed By: #### 5 7021-8 #### [facility] CLIA [id number] [address] LABORATORY CLIA [id number] [address] [place] [address] SEQ2 SCR RISK NTD 1 Normal [facility] 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: Order Comment: Speci men Type: BLOOD SPECIMEN Ordering Facility: [facility] Address: [address] [place] [address] Performed By: #### 5 7021-8 #### [facility] CLIA [id number] [address] LABORATORY CLIA [id number] [address] [place] [address] SEQ2 SCRN RISK TRISOMY 13 1 Normal [facility] 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: Order Comment: Speci men Type: BLOOD SPECIMEN Ordering Facility: [facility] Address: [address] [place] [address] Performed By: #### 5 7021-8 #### [facility] CLIA [id number] [address] [place] [address] LABORATORY CLIA [id number] [address] [place] [address] SEQUENTIAL 2 INTERPRETATION Negative Normal Screen Negative [facility] 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: Order Comment: Speci men Type: BLOOD SPECIMEN Ordering Facility: [facility] Address: [address] [place] [address] Performed By: #### 5 7021-8 #### [facility] CLIA [id number] [address] [place] [address] LABORATORY CLIA [id number] [address] [place] [address] STAFF REVIEW (MATERNAL SCREENS) Reviewed by Brent Srivastava MD, Ph.D ([id number]) Normal [facility] 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: Order Comment: Speci men Type: BLOOD SPECIMEN Ordering Facility: [facility] Address: [address] [place] [address] Performed By: #### 5 7021-8 #### [facility] CLIA [id number] [address] LABORATORY CLIA [id number] [address] Trisomy 18 risk Based on maternal age Qn (fetus) Normal [facility] 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: Order Comment: Speci men Type: BLOOD SPECIMEN Ordering Facility: [facility] Address: [address] [place] [address] Result Comment: Not Reported Performed By: #### 5 7021-8 #### [facility] CLIA [id number] [address] LABORATORY CLIA [id number] [address] [place] [address] Trisomy 18 risk Qn (fetus) <1 Normal [facility] 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: Order Comment: Speci men Type: BLOOD SPECIMEN Ordering Facility: [facility] Address: [address] [place] [address] Performed By: #### 5 7021-8 #### [facility] CLIA [id number] [address] LABORATORY CLIA [id number] [address] [place] [address] Trisomy 21 risk Based on maternal age Qn (fetus) 1 Normal [facility] 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: Order Comment: Speci men Type: BLOOD SPECIMEN Ordering Facility: [facility] Address: [address] [place] [address] Performed By: #### 5 7021-8 #### [facility] CLIA [id number] [address] LABORATORY CLIA [id number] [address] Trisomy 21 risk Qn (fetus) 1 Normal [facility] 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: Order Comment: Speci men Type: BLOOD SPECIMEN Ordering Facility: [facility] Address: [place] [address] Performed By: #### 5 7021-8 #### [facility] CLIA [id number] [address] LABORATORY CLIA [id number] [address] URINE OB DIP B/Oon 3 Glucose Ql (U) Negative Neg mg/dL [facility] Protein.monoclonal (U) [Mass/Vol] Negative Neg mg/dL [facility] CNPNon 04-26-2023 CNPN Telephone (SPMOBA) ---- VENECIA HART I ([id number]) 1990 F UPA Date Time Provider Department 04/26/23 IZA MOHAN During your visit today, we recorded the following information about you: Iza Mohan RN 04/26/2023 11:01 AM Signed 2nd risk assessment form submitted 04/26/23. 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 - pyridoxine HCl, vitamin B6, (VITAMIN B-6 ORAL) Take by mouth. - ondansetron (ZOFRAN) 4 mg tablet Take 1 tablet by mouth every 8 hours as needed for nausea/vomiting. - PNV no.95/ferrous fum/folic ac ( MULTIVITAMINS ORAL) Take by mouth. 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]01/27/2023 History of depression [Z86.59] 01/27/2023 Obesity during [O99.210] 01/27/2023 Tobacco smoking affecting , antepartum*01/28/20 History of abnormal cervical Pap smear [Z87.42] 01/27/2023 Nausea and vomiting during [O21.9] 02/02/2023 Rubella non-immune status, antepartum [O09.899,* 3 Encounter Status:Closed by IZA MOHAN on 04/26/23 Normal [facility] URINE OB DIP B/Oon 3 Glucose Ql (U) Negative Neg mg/dL [facility] Protein.monoclonal (U) [Mass/Vol] Negative Neg mg/dL [facility] CBC panel Auto (Bld)on 03-02 Erythrocyte distribution width (RBC) [Ratio] 13.4 % Normal 11.5-15.0 [facility] 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: Order Comment: Speci men Type: BLOOD SPECIMEN Ordering Facility: [facility] Address: [address] [place] [address] Performed By: #### 5 7021-8 #### [facility] CLIA [id number] [address] LABORATORY CLIA [id number] [facility] [address] Hematocrit (Bld) [Volume fraction] 40.8 % Normal 36.0-46.0 [facility] 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: Order Comment: Speci men Type: BLOOD SPECIMEN Ordering Facility: [facility] Address: [address] [place] [address] Performed By: #### 5 7021-8 #### [facility] CLIA [id number] [address] LABORATORY CLIA [id number] [facility] [address] [place] Hemoglobin (Bld) [Mass/Vol] 14.1 g/dL Normal 11.5-15.5 [facility] 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: Order Comment: Speci men Type: BLOOD SPECIMEN Ordering Facility: [facility] Address: [address] [place] [address] Performed By: #### 5 7021-8 #### [facility] CLIA [id number] [address] [place] [address] LABORATORY CLIA [id number] [address] [place] [address] [place] MCH (RBC) [Entitic mass] 27.8 pg Normal 26.0-34.0 [facility] 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: Order Comment: Speci men Type: BLOOD SPECIMEN Ordering Facility: [facility] Address: [address] [place] [address] Performed By: #### 5 7021-8 #### [facility] CLIA [id number] [address] [place] [address] LABORATORY CLIA [id number] [address] [place] [address] [place] MCHC (RBC) [Mass/Vol] 34.6 g/dL Normal 30.5-36.0 [facility] 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: Order Comment: Speci men Type: BLOOD SPECIMEN Ordering Facility: [facility] Address: [address] [place] [address] Performed By: #### 5 7021-8 #### [facility] CLIA [id number] [address] [place] [address] LABORATORY CLIA [id number] [address] OF [place] MCV (RBC) [Entitic vol] 80.5 fL Normal 80.0-100.0 [facility] 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: Order Comment: Speci men Type: BLOOD SPECIMEN Ordering Facility: [facility] Address: [address] [place] [address] Performed By: #### 5 7021-8 #### [facility] CLIA [id number] [address] LABORATORY CLIA [id number] [address] OF [place] Nucleated RBC (Bld) [#/Vol] 10*3/uL Normal <0.01 [facility] 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: Order Comment: Speci men Type: BLOOD SPECIMEN Ordering Facility: [facility] Address: [place] [address] Performed By: #### 5 7021-8 #### [facility] CLIA [id number] [address] LABORATORY CLIA [id number] [address] [place] [address] [place] Platelet mean volume (Bld) [Entitic vol] 9.4 fL Normal 9.0-12.7 [facility] 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: Order Comment: Speci men Type: BLOOD SPECIMEN Ordering Facility: [facility] Address: [place] [address] Performed By: #### 5 7021-8 #### [facility] CLIA [id number] [address] LABORATORY CLIA [id number] [address] [place] [address] [place] Platelets (Bld) [#/Vol] 253 10*3/uL Normal 150-400 [facility] 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: Order Comment: Speci men Type: BLOOD SPECIMEN Ordering Facility: [facility] Address: [address] [place] [address] Performed By: #### 5 7021-8 #### [facility] CLIA [id number] [address] LABORATORY CLIA [id number] [address] [place] [address] [place] RBC (Bld) [#/Vol] 5.07 10*6/uL Normal 3.90-5.20 [facility] 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: Order Comment: Speci men Type: BLOOD SPECIMEN Ordering Facility: [facility] Address: [address] [place] [address] Performed By: #### 5 7021-8 #### [facility] CLIA [id number] [address] [place] [address] LABORATORY CLIA [id number] [address] [place] [address] [place] WBC (Bld) [#/Vol] 15.42 10*3/uL High 3.70-11.00 [facility] 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: Order Comment: Speci men Type: BLOOD SPECIMEN Ordering Facility: [facility] Address: [address] [place] [address] Performed By: #### 5 7021-8 #### [facility] CLIA [id number] [address] [place] [address] LABORATORY CLIA [id number] [address] [place] [address] [facility] OF [place] HBV surface Ag Ser Qlon - HBV surface Ag Ql (S) Negative Normal Negative [facility] 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: Order Comment: Speci men Type: BLOOD SPECIMENOrdering Facility: [facility] Address: [address] [id number] Performed By: #### 7 3752-8, 89874-7, 5195-3 ####[facility] [id number] [address] [place] HCV Ab Ser Qlon 03-02-2023 HCV Ab Ql (S) Negative Normal Negative [facility] 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: Order Comment: Speci men Type: BLOOD SPECIMEN Ordering Facility: [facility] Address: [address] [place] [address] Result Comment: The result suggests no evidence of active infection with Hepatitis C virus. Should recent infection be suspected, repeat testing may be considered 4-6 weeks after this draw. Performed By: #### 2 276-4, 33046-5 #### [facility] CLIA [id number] [address] [place] [address] [place] HIV 1+2 Ab IA Qlon 3 HIV 1 and 2 Ab IA.rapid Nom Normal [facility] 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: Order Comment: Speci men Type: BLOOD SPECIMENOrdering Facility: [facility] Address: [address] [place] [address] Result Comment: Test not indicated. Performed By: #### 7 3752-8, 44569-9, 5195-3 ####[facility] [id number] [place] [address] [place] HIV 1+2 Ab+HIV1 p24 Ag IA Ql Non-Reactive Normal Nonreactive [facility] 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: Order Comment: Speci men Type: BLOOD SPECIMENOrdering Facility: [facility] Address: [address] [place] [address] Performed By: #### 7 3752-8, 11013-6, 5195-3 ####[facility] [id number] [place] [address] [place] HIVINT Normal [facility] 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: Order Comment: Speci men Type: BLOOD SPECIMENOrdering Facility: [facility] Address: [address] [place] [address] Result Comment: No e vidence of HIV-1 or HIV-2 infection. Should recent infection be suspected, repeat testing may be considered 2-3 weeks after this draw. [place] Rev. Code 3701.243(E): This information has been disclosed to you from confidential records protected from disclosure by state law. ???You shall make no further disclosure of this information without the specific, written, and informed release of the individual to whom it pertains or as otherwise permitted by state law. A general authorization for the release of medical or other information is not sufficient for the purpose of the release of HIV test results or diagnoses. Performed By: #### 7 3752-8, 13481-7, 5195-3 ####[facility] LABCLIA [id number] [address] [facility] HbA1c (Bld)on 03-02-2023 Average glucose Estimated from glycated hemoglobin (Bld) [Mass/Vol] 108 mg/dL Normal [facility] 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: Order Comment: Guero guido Type: BLOOD SPECIMEN Ordering Facility: [facility] Address: [address] [place] [address] Result Comment: eAG: (Estimated average glucose) is a calculated value from HgbA1c and is school admissions representative of the average blood glucose level in the last 2-3 month period. Performed By: #### 5 7021-8 #### [facility] CLIA [id number] [address] [place] [address] LABORATORY CLIA [id number] [address] [place] [address] HbA1c (Bld) [Mass fraction] 5.4 % Normal 4.3-5.6 [facility] 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: Order Comment: Guero guido Type: BLOOD SPECIMEN Ordering Facility: [facility] Address: [address] [place] [address] Result Comment: Amer ican Diabetes Association guidelines indicate that patients with HgbA1c in the range 5.7-6.4% are at increased risk for development of diabetes, and intervention by lifestyle modification may be beneficial. HgbA1c greater or equal to 6.5% is considered diagnostic of diabetes. Performed By: #### 5 7021-8 #### [facility] CLIA [id number] [address] LABORATORY CLIA [id number] [facility] [address] NUCHAL TRANSLUCENCY WHIon [facility] RUBELLA IGG ABon 03-02-2023 RUBELLA IGG AB, QUAL Equivocal Abnormal Positive [facility] 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: Order Comment: Speci men Type: BLOOD SPECIMEN Ordering Facility: [facility] Address: [address] [place] [address] Result Comment: Mandeep ot exclude non-specific reactivity or recent or past exposure to Rubella virus including vaccination. Equivocal result may also be seen due to waning immunity to Rubella virus or presence of passively-transferred antibodies. Please correlate with patient's history. Performed By: #### 5 7021-8 #### [facility] CLIA [id number] [address] LABORATORY CLIA [id number] [address] [place] [address] G[place]INI Reagin and Treponema pallidu m IgG and IgM [Interp]on 03-02-2023 SYPHILIS INTERPRETATION Cannot exclude recent Treponemal infection if specimen collected within 7-10 days after appearance of suspect lesions or 2-3 weeks after an exposure. Clinical correlation is required. Normal [facility] 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: Order Comment: Speci [facility] Type: BLOOD SPECIMENOrdering Facility: [facility] Address: [address] [place] [address] Performed By: #### 7 3752-8, 11784-7, 5194-3 ####[facility]CLIA [id number] [address] [facility] T. pallidum IgG+IgM IA Ql (S) Non-Reactive Normal Nonreactive [facility] 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: Order Comment: Speci men Type: BLOOD SPECIMENOrdering Facility: [facility] Address: [address] [place] [address] Performed By: #### 7 3752-8, 87552-1, 5194-3 ####[facility] LABCLIA [id number] [place] [address] [place] SEQUENTIAL SCRN WILY Johnson 03-02-2023 DATE OF COLLECTION #1 03/02/23 Normal [facility] 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: Order Comment: Speci men Type: BLOOD SPECIMENOrdering Facility: [facility] Address: [address] [place] [address] Performed By: #### S EQL1 ####[facility] LABCLIA [id number] [place] [address] [place] DATE RECEIVED 03/03/23 Normal [facility] 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: Order Comment: Speci men Type: BLOOD SPECIMENOrdering Facility: [facility] Address: [address] [place] [address] Performed By: #### S EQL1 ####[facility] LABCLIA [id number] [address] STATES OF [place] SERA 09/05/23 Normal [facility] Comment on above: Order Comment: Speci men Type: BLOOD SPECIMENOrdering Facility: [facility] Address: [address] [place], [place] [address] Performed By: #### S EQL1 ####[facility] LABCLIA [id number] [place] [address] [place] GESTATION AT DATE OF SAMPLE 13 weeks 2 days (by CRL scan) Normal [facility] Comment on above: Order Comment: Speci men Type: BLOOD SPECIMENOrdering Facility: [facility] Address: [address] Performed By: #### S EQL1 ####[facility] LABIA [id number] [address] STATES OF [place] HCG [MoM] 0.63 MoM Normal [facility] Comment on above: Order Comment: Speci men Type: BLOOD SPECIMENOrdering Facility: [facility] Address: [address] Result Comment: 47.6 0 IU/mL Performed By: #### S EQL1 ####[facility] LABCLIA [id number] [place] [address] [place] INSULIN DEPENDENT DIABETES None Normal [facility] Comment on above: Order Comment: Speci men Type: BLOOD SPECIMENOrdering Facility: [facility] Address: [address] [address] Performed By: #### S EQL1 ####[facility] LABCLIA [id number] [place] [address] [place] IVF No Normal [facility] Comment on above: Order Comment: Speci men Type: BLOOD SPECIMENOrdering Facility: [facility] Address: [address] [place] [address] Performed By: #### S EQL1 ####[facility] LABCLIA [id number] [place] [address] [place] [age]A 32.8 [age] Normal [facility] Comment on above: Order Comment: Speci men Type: BLOOD SPECIMENOrdering Facility: [facility] Address: [address] [place] [address] Performed By: #### S EQL1 ####[facility] LABCLIA [id number] [place] [address] [place] NUCHAL MEASUREMENT 2.00 mm Normal [facility] Comment on above: Order Comment: Speci men Type: BLOOD SPECIMENOrdering Facility: [facility] Address: [address] [address] Performed By: #### S EQL1 ####[facility] LABCLIA [id number] [place] [address] [place] NUCHAL MEASUREMENT MOM 1.16 MoM Normal [facility] Comment on above: Order Comment: Speci men Type: BLOOD SPECIMENOrdering Facility: [facility] Address: [address] [place] [address] Performed By: #### S EQL1 ####[facility] [id number] [address] STATES [place] OPTIMAL DRAW DATES FOR SAMPLE 2 03/21/2023 to 04/04/2023 Normal [facility] Comment on above: Order Comment: Speci men Type: BLOOD SPECIMENOrdering Facility: [facility] Address: [address] [place] [address] Performed By: #### S EQL1 ####[facility] [id number] [address] OF [place] PATIENT'S WEIGHT DAY OF COLLECTION 207 lb. Normal [facility] Comment on above: Order Comment: Speci men Type: BLOOD SPECIMENOrdering Facility: [facility] Address: [address] [place] [address] Performed By: #### S EQL1 ####[facility] [id number] [address] STATES OF [place] associated plasma protein A [MoM] 1.31 MoM Normal [facility] Comment on above: Order Comment: Speci men Type: BLOOD SPECIMENOrdering Facility: [facility] Address: [address] [place] [address] Result Comment: 1018 .9 ng/mL This test uses a reagent or kit labeled by the rocket engine mechanic as research use only. Its performance characteristics were determined by [facility] in a manner consistent with CLIA requirements. This test has not been cleared or approved by the U.S. Food and Drug Administration. Performed By: #### S EQL1 ####[facility] LABIA [id number] [place] [address] [place] PREVIOUS DOWN None Normal [facility] Comment on above: Order Comment: Speci men Type: BLOOD SPECIMENOrdering Facility: [facility] Address: [address] [place] [address] Performed By: #### S EQL1 ####[facility] LABCLIA [id number] [place] [address] [place] PREVIOUS NTD None Normal [facility] Comment on above: Order Comment: Speci men Type: BLOOD SPECIMENOrdering Facility: [facility] Address: [address] [place] [address] Performed By: #### S EQL1 ####[facility]CLIA [id number] [address] STATES [place] SAMPLE #1 [id number] Normal [facility] Comment on above: Order Comment: Speci men Type: BLOOD SPECIMENOrdering Facility: [facility] Address: [address] [place] [address] Performed By: #### S EQL1 ####[facility] LABCLIA [id number] [address] OF [place] SCAN MEASURE 70.5 mm on 03/02/23 Normal [facility] Comment on above: Order Comment: Speci men Type: BLOOD SPECIMENOrdering Facility: [facility] Address: [address] [place] [address] Performed By: #### S EQL1 ####[facility]CLIA [id number] [address] STATES OF [place] SEQ1 SCR RSK TRSMY 13 Normal [facility] Comment on above: Order Comment: Speci men Type: BLOOD SPECIMENOrdering Facility: [facility] Address: [address] [place] [address] Result Comment: Not Reported Performed By: #### S EQL1 ####[facility] LABCLIA [id number] [address] STATES [place] SEQUENTIAL 1 INTERPRETATION Final result pending second trimester sample Normal Screen Negative, Final result pending second trimester sample [facility] Comment on above: Order Comment: Speci men Type: BLOOD SPECIMENOrdering Facility: [facility] Address: [address] Performed By: #### S EQL1 ####[facility] LABCLIA [id number] [address] [facility] STAFF REVIEW (MATERNAL SCREENS) Reviewed by Lou Morin PhD Normal [facility] Comment on above: Order Comment: Speci men Type: BLOOD SPECIMENOrdering Facility: [facility] Address: [address] Performed By: #### S EQL1 ####[facility] LABCLIA [id number] [address] Trisomy 18 risk Based on maternal age Qn (fetus) 1 Normal [facility] Comment on above: Order Comment: Speci men Type: BLOOD SPECIMENOrdering Facility: [facility] Address: [address] [place], [place] [address] Performed By: #### S EQL1 ####[facility] LABCLIA [id number] [address] Trisomy 18 risk Qn (fetus) <1 Normal [facility] Comment on above: Order Comment: Speci men Type: BLOOD SPECIMENOrdering Facility: [facility] Address: [address] [place], [place] [address] Performed By: #### S EQL1 ####[facility] LABCLIA [id number] [address] Trisomy 21 risk Based on maternal age Qn (fetus) 1 Normal [facility] Comment on above: Order Comment: Speci men Type: BLOOD SPECIMENOrdering Facility: [facility] Address: [address] [place], [place] [address] Performed By: #### S EQL1 ####[facility] LABCLIA [id number] [address] OF [place] Trisomy 21 risk Qn (fetus) <1 Normal [facility] Comment on above: Order Comment: Speci men Type: BLOOD SPECIMENOrdering Facility: [facility] Address: [address] [place] [address] Performed By: #### S EQL1 ####[facility]CLIA [id number] [address] TYPE + SCREEN PRENATALon HISTORICAL AB SCR STATUS Negative Normal [facility] Comment on above: Order Comment: Speci men Type: BLOOD SPECIMENOrdering Facility: [facility] Address: [address] [place] [address] Performed By: #### T SPN ####[facility] [id number] [address] TYPE AND SCREEN EXPIRATION 03/05/2023 23:59 Normal [facility] Comment on above: Order Comment: Speci men Type: BLOOD SPECIMENOrdering Facility: [facility] Address: [address] [place] [address] Performed By: #### T SPN ####[facility]ANKCLIA [id number] [address] CNPNon 02-07-2023 CNPN Telephone (OBGYF2) ---- VENECIA HART I ([id number]) 1990 F UPA Date Time Provider Department 02/07/23 SURI FORRESTF2 During your visit today, we recorded the following information about you: Asad Barnard RN 02/07/2023 3:03 PM Signed Initial risk assessment form submitted 02/07/2023 Asad Barnard RN Allergies As of Date: 02/07/2023 Noted Allergy Reaction BEES 03/02/2012 7 - Swelling white chocolate [Other] 03/02/2012 12 - Shortness of Breath Date Reviewed: 02/02/2023 Reviewed by: Cynthia Banda MA - Fully Assessed 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 - ondansetron (ZOFRAN) 4 mg tablet Take 1 tablet by mouth every 8 hours as needed for nausea/vomiting. - PNV no.95/ferrous fum/folic ac ( MULTIVITAMINS ORAL) Take by mouth. 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/27/2023 History of depression [Z86.59] 01/27/2023 Obesity during [O99.210] 01/27/2023 Tobacco smoking affecting , antepartum*01/28/20 History of abnormal cervical Pap smear [Z87.42] 01/27/2023 Nausea and vomiting during [O21.9] 02/02/2023 Encounter Status:Closed by ASAD BARNARD on 02/07/23 Normal [facility] Bacteria Ur Culton 3 Bacteria identified Cx Nom (U) ORGANISM ID: 1 50,000-<100,000 CFU/ml Normal urogenital edgar Normal [facility] Comment on above: Performed By: #### 6 30-4 ####[facility] LABCLIA [id number] [place] [address] [place] C. trachomatis+N. gonorrhoea e DNA GO+probe Ql (Unsp spec)on 02-02-2023 C. trachomatis DNA GO+probe Ql (Unsp spec) Negative Normal Negative for Chlamydia trachomatis by amplificaton [facility] Comment on above: Order Comment: Speci men Type: BLOOD SPECIMEN [facility] Address: [address] [place] [address] Performed By: #### 2 276-4, 23737-6 #### [facility] CLIA [id number] [address] [place] [address] [place] N. gonorrhoeae DNA GO+probe Ql (Unsp spec) Negative Normal Negative for Neisseria gonorrhoeae by amplification [facility] Comment on above: Order Comment: Speci men Type: BLOOD SPECIMEN [facility] Address: [address] [place] [address] Performed By: #### 2 276-4, 91511-3 #### [facility] CLIA [id number] [address] [place] [address] [place] HPV W/GENOTYPE THIN PREPon 0 02-02-2023 HPV 16 Ag Ql (Unsp spec) Negative Normal Negative for HPV DNA high risk type 16 by PCR [facility] Comment on above: Order Comment: Speci men Type: BLOOD SPECIMEN [facility] Address: [address] [place] [address] Performed By: #### 2 276-4, 36410-3 #### [facility] CLIA [id number] [address] [place] [address] [place] HPV 18 Ag Ql (Unsp spec) Negative Normal Negative for HPV DNA high risk type 18 by PCR [facility] Comment on above: Order Comment: Speci men Type: BLOOD SPECIMEN [facility] Address: [address] [place] [address] Performed By: #### 2 276-4, 67741-1 #### [facility] CLIA [id number] [address] [place] [address] [place] HPV 31+33+35+39+45+51+52+56 +58+59+66+68 DNA GO+probe Ql (Cvx) Negative for HPV DNA high risk types: 31,33,35,39,45,51,5 2,56,58,59,66,68 by PCR. Normal Negative for HPV DNA high risk types: 31,33,35,39,45, 51,52,56,58,59, 66,68 by PCR. [facility] Comment on above: Order Comment: Speci men Type: BLOOD SPECIMEN [facility] Address: [address] [place] [address] Performed By: #### 2 276-4, 78119-7 #### [facility] CLIA [id number] [facility] [id number] [id number] [place] PAP TESTon 02-02-2023 CASE REPORT Normal [facility] Comment on above: Order Comment: Speci men Type: BLOOD SPECIMEN [facility] Address: [address] [place] [address] Result Comment: Gyne cologic Cytology Report Case: [id number] Authorizing Provider: Suri Forrest APRN.CNM Collected: 02/02/2023 01:52 PM Ordering Location: OB/Gynecology Received: 02/02/2023 04:54 PM First Screen: Donna Johns, [place], ASCP Rescreen: Lidia Garcia, ILIA, ASCP Specimen: Pap Test, ThinPrep, Cervix Performed By: #### 5 7021-8 #### [facility] CLIA [id number] [address] [place] [address] STATES OF [facility]ORY CLIA [id number] [address] [place] [address] STATES OF [facility] CLINICAL HISTORY, CYTOLOGY, STRAW HAT 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 [address] STATES OF [place] CYTOLOGY INTERPRETATION PAP Normal [facility] Comment on above: Order Comment: Speci men Type: BLOOD SPECIMEN [facility] Address: [address] [place] [address] Result Comment: Nega tive for Intraepithelial lesion or malignancy. Performed By: #### 5 7021-8 #### [facility] CLIA [id number] [address] LABORATORY CLIA [id number] [facility] [address] FINAL DIAGNOSIS A - Cervix Normal [facility] Comment on above: Order Comment: Speci men Type: BLOOD SPECIMEN [facility] Address: [address] [place] [address] Result Comment: Sati sfactory for interpretation Negative for Intraepithelial lesion or malignancy. Fungal organisms morphologically consistent with Lisa species Performed By: #### 5 7021-8 #### [facility] CLIA [id number] [address] [place] [address] LABORATORY CLIA [id number] [address] [place] [address] FINAL PERFORMING LAB Normal [facility] Comment on above: Order Comment: Speci men Type: BLOOD SPECIMEN [facility] Address: [address] [place] [address] Result Comment: Tech nical component, institution librarian screening performed at [facility], [address] [id number] CLIA# [id number] Diagnostic interpretation performed at [facility], [address] [address] CLIA# [id number] Chief Of Service: Yvon Kern M.D. Performed By: #### 5 7021-8 #### [facility] CLIA [id number] [address] [facility] LABORATORY CLIA [id number] [facility] [place] [address] [place] HPV REFLEX Auto HPV Normal [facility] Comment on above: Order Comment: Speci men Type: BLOOD SPECIMEN [facility] Address: [address] [place] [address] Performed By: #### 5 7021-8 #### [facility] CLIA [id number] [address] [place] [address] [place] LABORATORY CLIA [id number] [facility] [address] STATES OF [place] LMP 09/29/2022 Normal [facility] Comment on above: Order Comment: Speci men Type: BLOOD SPECIMEN [facility] Address: [address] [place] [address] Performed By: #### 5 7021-8 #### [facility] CLIA [id number] [address] [place] [address] LABORATORY CLIA [id number] [address] [place] [address] [place] PAP DISCLAIMER COMMENT The Pap Smear is a screening test for cervical cancer. False negative results occur with all screening tests, emphasizing the need for rescreening at recommended intervals, and clinical correlation. Normal [facility] Comment on above: Order Comment: Speci men Type: BLOOD SPECIMEN [facility] Address: [address] [place] [address] Performed By: #### 5 7021-8 #### [facility] CLIA [id number] [address] [place] [address] LABORATORY CLIA [id number] [address] [place] [address] [place] PAP AIR VALVE MECHANIC COMMENT This specimen has been analyzed by the ThinPrep Imaging System, an automated imaging and review system, which assists the laboratory in evaluating cells on ThinPrep Pap tests. Following automated imaging, selected brice from every slide are reviewed by a institution librarian. Normal [facility] Comment on above: Order Comment: Speci men Type: BLOOD SPECIMEN Order[facility] Facility[facility] Address: [place] [address] Performed By: #### 5 7021-8 #### [facility] CLIA [id number] [id number] [place] [address] LABORATORY CLIA [id number] [address] CNNURSEon 01-27-2023 CNNURSE Nurse Visit (OBGYWM) ---- VENECIA HART I ([id number]) 1990 F UPA Date Time Provider Department 01/27/23 9:00 AM NURSE [facility] OBGYWM During your visit today, we recorded the following information about you: Last Period 09/29/22 Fabrizio Campoverde RN 01/27/2023 3:02 PM Signed # 1 - Date: [birth year], Sex: Female, Weight: 7 lb 7.2 oz (3.379 kg), GA: 38w4d, Delivery: Vaginal, Spontaneous, Apgar1: None, Apgar5: None, Living: Living, Comments: AROM, episiotomy # 2 - Date: 08/07/15, Sex: Female, Weight: 7 lb 13 oz (3.544 kg), GA: 39w5d, Delivery: Vaginal, Spontaneous, Apgar1: None, Apgar5: None, Living: Living, Comments: 1st degree ML lac repaired # 3 - Date: None, Sex: None, Weight: None, GA: None, Delivery: None, Apgar1: None, Apgar5: None, Living: None, Comments: None Fabrizio Campoverde RN 01/27/2023 3:02 PM Signed DIST[facility] VISIT This Team Access Model visit is a phone encounter. It required patient-provider interaction for the medical decision making as documented below. I have communicated my name and active licensure. The patient's identity and physical location were verified at the time of this visit. Patient was seen at [facility] ER on January 02, 2023 for pelvic pain. She states the symptoms have resolved. She states she found out she was while at the emergency room. During her ED visit she had an ultrasound that revealed an intrauterine at 5 weeks. This is not consistent with her EDC by LMP but patient states she has irregular menses. 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 She has been off medication for a month. She states she was using the call marijuana for treatment but discontinued that about a month ago. She has not taking any prescribed medication for her her symptoms since age 18. She denies any history of depression. Discussed increased risks of depression during and and importance of reporting the development or worsening of symptoms should they occur. Patient denies any suicidal thoughts since age 18. Patient is obese. We will plan on early hemoglobin A1c.Pt smokes 2 cigarettes a day down from 1 and half packs a day. Discussed risks of smoking during . Advised pt to quit. Information on [place] tobacco quit line and [facility] smoking cessation program given to patient. Patient states she had an abnormal Pap in the past and had a procedure to burn it off. Will need to obtain more information at new OB visit.Fabrizio Campoverde RN Allergies As of Date: 01/27/2023 Noted Allergy Reaction BEES 03/02/2012 7 - Swelling white chocolate [Other] 03/02/2012 12 - Shortness of Breath Date Reviewed: 01/27/2023 Reviewed by: Fabrizio Campoverde RN - Fully Assessed Reason for Visit: Care [86] Primary Visit Diagnosis:Supervisi on of high risk , antepartum [O09.90] Other Visit Diagnoses:Pelvic pain in , antepartum, first trimester [O26.891, R10.2] History of depression [Z86.59] Obesity during [O99.210] Tobacco smoking affecting , antepartum [O99.330] History of abnormal cervical Pap smear [Z87.42] Prescriptions as of 01/27/2023 - PNV no.95/ferrous fum/folic ac ( MULTIVITAMINS ORAL) Take by mouth. - Ethinyl Estradiol-Norelgest rom (ORTHO EVRA) 150-20 mcg/24 hr Apply 1 Patch as directed once each week. 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 Follow-up and Disposition History for Encounter Date Provider Department Center 01/27/2023 [id number] PNOB [facility] OLIVIA [facility] Encounter Status:Closed by FABRIZIO CAMPOVERDE RN on 01/27/23 Normal [facility] hCG Titer Quant., Serumon HCG QUANT. 402 mIU/mL High 1-3 [facility] Comment on above: Result Comment: hCG levels with Gestational Age Gestational Age hCG mIU/mL (IU/L) 0.2 - 1 week 5 - 50 1-2 weeks 50 - 500 2-3 weeks 100 - 5000 3-4 weeks 500 - 38114 4-5 weeks 1000 - 05518 5-6 weeks 29224 - 100,000 6-8 weeks 79009 - 200,000 2-3 months 61330 - 100,000 Performed By: #### L 700.8000 #### [facility] [place] [address] [place], [address] Absolute lymphocyte countOrd ered By: Davey Goldman on 01-02-2023 Lymphocytes Auto (Unsp spec) [#/Vol] 5.58 10*3/uL 0.83-4.51 [facility] Amorphous sediment detection in urine sediment by light microscopyOrdered By: Davey Goldman on 01-02-2023 Amorphous sediment LM Ql (Urine sed) 1+ PHOS [facility] Basic Metabolic Profile (BMP )on 01-02-2023 BUN/CRE 12.4 RATIO Normal 10-20 [facility] Comment on above: Performed By: #### L 100.0100, L500.2500 #### [facility] [address] [place], [address] CA,Total 9.1 mg/dL Normal 8.5-10.1 [facility] Comment on above: Performed By: #### L 100.0100, L500.2500 #### [facility] [address] [place], [address] Chloride [Moles/Vol] 109 mmol/L High 98-107 [facility] Comment on above: Performed By: #### L 100.0100, L500.2500 #### [facility] [address] [place], [address] CO2 [Moles/Vol] 23.0 mmol/L Normal 21.0-32.0 [facility] Comment on above: Performed By: #### L 100.0100, L500.2500 #### [facility] [address] [place], [address] Creatinine [Mass/Vol] 0.73 mg/dL Normal 0.55-1.02 [facility] Comment on above: Result Comment: The validity of the calculated GFR GFRAA in patients over 70 years has not been determined. Clinical correlation is essential. Performed By: #### L 100.0100, L500.2500 #### [facility] [address] [place], [address] ECRCL 93.22 ml/min Normal [facility] Comment on above: Performed By: #### L 100.0100, L500.2500 #### [facility] [address] [place], [address] EST GFR - AA 121 mL/min Normal >60 [facility] Comment on above: Result Comment: Afri can Swedish GFR Calc Performed By: #### L 100.0100, L500.2500 #### [facility] [address] [place], [address] GAP 5 Normal 5-15 [facility] Comment on above: Performed By: #### L 100.0100, L500.2500 #### [facility] [address] [place], [address] GFR/1.73 sq M.predicted among non-blacks MDRD (S/P/Bld) [Vol rate/Area] 100 mL/min/{1.73_m2} Normal >60 [facility] Comment on above: Result Comment: Non- GFR Calc Performed By: #### L 100.0100, L500.2500 #### [facility] [address] [place], [address] Glucose [Mass/Vol] 97 mg/dL Normal 74-106 [facility] Comment on above: Performed By: #### L 100.0100, L500.2500 #### [facility] [address] [place], [address] Potassium [Moles/Vol] 3.6 mmol/L Normal 3.5-5.1 [facility] Comment on above: Performed By: #### L 100.0100, L500.2500 #### [facility] [address] [place], [address] Sodium [Moles/Vol] 137 mmol/L Normal 136-145 [facility] Comment on above: Performed By: #### L 100.0100, L500.2500 #### [facility] [address] [place], [address] Urea nitrogen [Mass/Vol] 9 mg/dL Normal 7-18 [facility] Comment on above: Performed By: #### L 100.0100, L500.2500 #### [facility] [address] [place], [address] Basophil percentageOrdered B y: Davey Goldman on 01-02-2023 Basophils/100 WBC (Bld) 0.5 % 0-1 [facility] Chloride [Moles/Vol] 109 mmol/L 98-107 [facility] Eosinophils/100 WBC (Bld) 0.7 % 0-5 [facility] Glucose [Mass/Vol] 97 mg/dL 74-106 [facility] Neutrophils (Bld) [#/Vol] 9.6 10*3/uL 2.0-7.7 [facility] Neutrophils/100 WBC (Bld) 57.3 % 47-70 [facility] Potassium [Moles/Vol] 3.6 mmol/L 3.5-5.1 [facility] Sodium [Moles/Vol] 137 mmol/L 136-145 [facility] WBC (Bld) [#/Vol] 16.7 10*3/uL 4.4-11.0 [facility] Basophil percentage 0 SEEN /hpf 0-5 [facility] Bilirubin Test strip Ql (U)O rdered By: Davey Goldman on 01-02-2023 Bilirubin Ql (U) Negative Negative [facility] Blood erythrocytes count (nu mber/volume)Ordered By: Davey Goldman on 01-02-2023 RBC (Bld) [#/Vol] 5.52 10*6/uL 4.2-5.4 [facility] Blood hemoglobin measurement (mass/volume)Ordered By: Davey Goldman on 01-02-2023 Hemoglobin (Bld) [Mass/Vol] 15.4 g/dL 12.0-15.0 [facility] Blood lymphocytes/100 leukoc ytesOrdered By: Davey Goldman on 01-02-2023 Lymphocytes/100 WBC (Bld) 33.4 % 19-41 [facility] Blood manual differential co mment interpretation (narrative result)Ordered By: Davey Goldamn on 01-02-2023 Manual differential comment Max (Bld) [Interp] SCANNED [facility] Blood monocytes/100 leukocyt esOrdered By: Davey Goldman on 01-02-2023 Monocytes/100 WBC (Bld) 7.7 % 0-10 [facility] Blood platelet mean volumeOr dered By: Davey Goldman on 01-02-2023 Platelet mean volume (Bld) [Entitic vol] 9.5 fL 6.2-12.0 [facility] CBC W/Diff, Automatedon 12-06 SMEAR COMMENT SCANNED Normal [facility] Comment on above: Performed By: #### L 100.0100, L500.2500 #### [facility] [address] [place], [address] Determination of erythrocyte mean corpuscular volume (MCV)Ordered By: Davey Goldman on 01-02-2023 MCV (RBC) [Entitic vol] 83.7 fL 81-99 [facility] Emergency Department Summary on 01-02-2023 Emergency Department Summary [facility] Medical Records Department [address] [place] [address] Emergency Department Summary 01/02/23 MR#: [id number] Acct: [id number] Name: VENECIA HART Rep #: [id number] : 1990 32 From: Davey Goldman EDUCATIONAL ADVISOR-C PCP: Care Physician,No Primary Status:REG ER Location: ED HPI History of Present Illness Chief Complaint: Abd Pain Narrative Narrative: Patient is a 32-year-old female with no significant medical history who currently does not see a physician who presents to the emergency department with concern of a positive test. Patient is a 2 para 2. Patient and her do not use any control. They have not had any pregnancies or concern for in the last 7 years. Patient states that over the last 3 days she has been having lower abdominal pain, frequent urination, took a home test and was positive. Patient's last menstrual cycle was September 2022, she states that she is always been irregular and single multiple months without a menstrual cycle. Her cycles are usually 7 days and heavy. Patient denies any nausea or vomiting. Denies any back pain, fever or chills. [facility] Medical History Depression Home Medications amoxicillin 875 mg-potassium clavulanate 125 mg tablet 1 tab PO BID 7 days #14 tabs 07/31/22 [Rx Last Taken Unknown] prednisone 20 mg tablet 40 mg PO DAILY 7 days #14 tabs 07/31/22 [Rx Last Taken Unknown] vit,calcium no.40-iron fum 27 mg iron-folate no.1 1 mg tablet (PNV-Select) 1 tab PO DAILY #30 tabs 01/03/23 [Rx Last Taken Unknown] Allergy/AdvReac Type Severity Reaction Status Date / Time bee venom protein (honey bee) Allergy Swelling Verified 01/02/23 20:42 chocolate flavor Allergy Hives Verified 01/02/23 20:42 Social History Smoking Status: Current every day smoker tobacco type: cigarettes ROS ROS ED ROS Narrative Constitutional: Negative for fever, chills, weight loss, weakness Eyes: Negative for vision loss, vision change, double vision ENT: Negative for any sore throat, ear pain, congestion Cardiovascular: Negative for any chest pain, tightness, palpitations Respiratory: Negative for any cough, sputum production, hemoptysis, dyspnea, dyspnea on exertion, orthopnea Gastrointestinal: Negative for any nausea, vomiting, diarrhea, constipation, blood in stool, blood in vomit. Positive for lower abdominal pain : Negative for any dysuria, retention, blood in urine. Positive for urinary frequency Muscle skeletal: Negative for any muscle joint pain, stiffness, myalgias, arthralgias, neck pain, back pain Neurological: Negative for any headache, syncope, numbness or tingling, dizziness Skin: Negative for any rashes, lumps, itching, abrasions, lacerations Psychiatric: Negative for any depression, anxiety, stress, suicidal ideation, homicidal ideation Hematologic: Negative for any easy bruising, excessive bruising, easy bleeding Allergies: Negative for any eczema, hives, rash EXAM Physical Exam Narrative Exam Narrative: Vital signs reviewed. Patient does appear to be anxious, patient is tearful on examination. Patient states that she is scared secondary to her age, she is also not wanting another . HEET: Head normocephalic atraumatic, TMs clear bilaterally. Posterior pharynx is clear, moist mucous membranes. Nares clear bilaterally. Neck: Supple with no lymphadenopathy or tenderness. No signs of meningismus, negative jolt sign. Cardiac: Regular rate and rhythm no murmurs gallops or rubs, equal peripheral pulses bilaterally. Respiratory: Lungs clear to auscultation bilaterally. No chest tenderness. Abdomen: Soft, nontender, nondistended. No abdominal bruit or pulsatile masses. No hepatosplenomegaly Extremities: No peripheral edema, no signs of gross trauma or deformity. Active full range of motion of all extremities. Neuro: Cranial nerves II through XII intact, no focal neurological deficits. Skin: Clean dry and intact with no rash, purpura, petechiae, vesicles or pustules. Backs/flank: No CVA tenderness, no midline spinal tenderness, no deformity. Psych: Normal mood and affect. No SI, HI or acute psychosis. Const Vital Signs: 01/02/23 20:39 Temperature 97.9 F Temperature Source Temporal Pulse Rate 81 Respiratory Rate 18 Blood Pressure 132/107 H Blood Pressure Mean 115 Pulse Ox 97 Oxygen Delivery Method Room Air Physical Exam Const Vital Signs: 01/02/23 20:39 Temperature 97.9 F Temperature Source Temporal Pulse Rate 81 Respiratory Rate 18 Blood Pressure 132/107 H Blood Pressure Mean 115 Pulse Ox 97 Oxygen Delivery Method Room Air MDM MDM Lab Data Attest (more content not included)... Normal [facility] Hematocrit Auto (Bld) [Volum e fraction]Ordered By: Davey Goldman on 01-02-2023 Hematocrit (Bld) [Volume fraction] 46.2 % 37-47 [facility] Ketones Test strip Ql (U)Ord ered By: Davey Goldman on 01-02-2023 Ketones Ql (U) Negative Negative [facility] - Chemistry and C hemistry - challengeOrdered By: Davey Goldman on 01-02-2023 CO2 [Moles/Vol] 23.0 mmol/L 21.0-32.0 [facility] Urea nitrogen/Creatinine [Mass ratio] 12.4 mg/mg 10- [facility] HCG ( test) Ql (U) Negative [facility] Comment on above: CRITICAL VALUE VERIF IED. CALLED TO TREY HOOPER RN ED01/02/232143 Luis Eduardo Elaine.RESULTS READ BACK BY SAME . TEST is *POSITIVE* Laboratory - Hematology and Cell countsOrdered By: Davey Goldman on 01-02-2023 Erythrocyte distribution width (RBC) [Entitic vol] 39.9 fL 35.1-43.9 [facility] Erythrocyte distribution width (RBC) [Ratio] 13.1 % 11.6-14.6 [facility] Immature granulocytes/100 WBC (Bld) 0.400 % 0.0-0.9 [facility] Comment on above: IG% - Immature Granu locytes (promyelocytes, myelocytes and metamyelocytes) > 1% indicates that a LEFT SHIFT is Present. MCH (RBC) [Entitic mass] 27.9 pg 27.0-32.0 [facility] Nucleated RBC/100 WBC (Bld) [Ratio] 0 % 0-5 [facility] MCHC Auto (RBC) [Mass/Vol]Or dered By: Davey Goldman on 01-02-2023 MCHC (RBC) [Mass/Vol] 33.3 g/dL 32-36 [facility] Mucus LM Ql (Urine sed)Order ed By: Davey Goldman on 01-02-2023 Mucus Ql (Urine sed) 0 SEEN /hpf [facility] Nitrite Test strip Ql (U)Ord ered By: Davey Goldman on 01-02-2023 Nitrite Ql (U) Negative Negative [facility] No Panel InformationOrdered By: Davey Goldman on 01-02-2023 Estimated Creatinine Clearance Calc 93.22 ml/min [facility] Estimated GFR (MDRD) Amer 121 mL/min >60 [facility] Comment on above: GFR Calc Estimated GFR (MDRD) Non-Af Amer 100 mL/min >60 [facility] Comment on above: Non- GFR Calc Platelets bldOrdered By: Cira Goldman on 01-02-2023 Platelets (Bld) [#/Vol] 321 10*3/uL 150-450 [facility] ,Urineon 01-02-2023 Beta HCG ( test) Ql (U) Positive Abnormal [facility] Comment on above: Order Comment: CLEAN CATCH Result Comment: CRIT ICAL VALUE VERIFIED. CALLED TO TREY HOOPER [employer]ELT HOUSE SUPERVISOR 01/02/232143 Luis Eduardo Elaine. RESULTS READ BACK BY SAME . TEST is *POSITIVE* Performed By: #### L 100.0100, L500.2500 #### [facility] [address] [place], [address] Protein Test strip Ql (U)Ord ered By: Davey Goldman on 01-02-2023 Protein Ql (U) Negative Negative [facility] Serum or plasma calcium ivana urement (mass/volume)Ordered By: Davey Goldman on 01-02-2023 Calcium [Mass/Vol] 9.1 mg/dL 8.5-10.1 [facility] Serum or plasma choriogonado tropin detectionOrdered By: Davey Goldman on 01-02-2023 HCG ( test) Ql 402 mIU/mL <4 [facility] Comment on above: hCG levels with Gest ational AgeGestational Age hCG mIU/mL (IU/L)0.2 - 1 week 5 - 501-2 weeks 50 - 5002-3 weeks 100 - 34569-4 weeks 500 - 424593-5 weeks 1000 - 853769-7 weeks 44199 - 100,0006-8 weeks 03739 - 200,0002-3 months 61421 - 100,000 Serum or plasma creatinine m easurement (mass/volume)Ordered By: Davey Goldman on 01-02-2023 Creatinine [Mass/Vol] 0.73 mg/dL 0.55-1.02 [facility] Comment on above: The validity of the calculated GFR & GFRAA in patients over 70 years has not been determined. Clinical correlation is essential. Serum or plasma urea nitroge n measurement (mass/volume)Ordered By: Davey Goldman on 01-02-2023 Urea nitrogen [Mass/Vol] 9 mg/dL 7-18 [facility] Squamous epithelial cells de tection in urine sediment by light microscopyOrdered By: Davey Goldman on 01-02-2023 Epithelial cells.squamous LM Ql (Urine sed) 0-5 SEEN /hpf 5-10 [facility] Thin prep Papanicolaou smear with manual screeningOrdered By: Davey Goldman on 01-02-2023 Thin prep Papanicolaou smear with manual screening 5 5-15 [facility] Transvaginal w/Preg USon Transvaginal w/Preg US [facility] [address] [place] [address] Transvaginal w/Preg US MR#: [id number] Acct: [id number] Name: VENECIA HART Rep #: [id number] : 1990 F 32 From: Mario Quintanilla MD PCP: Care Physician,No Primary Status: REG ER Study: Transvaginal w/Preg US Date of Exam: 01/02/23 Exam# [id number] Ordering Dr: Daniel De Los Santos MD STUDY: FIRST TRIMESTER OBSTETRICAL ULTRASOUND REASON FOR EXAM: Female, 32 years old early , pelvic pain LMP: 09/29/2022 TECHNIQUE: Transvaginal TECHNICAL QUALITY: Adequate. PRIOR ULTRASOUND: None. FINDINGS: There is visualization of a single gestational sac in a normal intrauterine position. The mean sac diameter (MSD) measures 3 mm, indicating an estimated gestational age (EGA) of 5 weeks, 0 days. The gestational sac shape is within normal limits. There is no demonstrated yolk sac.. The placenta is non-visualized. There is no demonstrated embryo ( pole).. The estimated gestation age (EGA) by LMP is 13 weeks, 4 days. The estimated date of delivery (SERA) by LMP is 07/06/2023. The estimated gestation age (EGA) by US is 5 weeks, 0 days. The estimated date of delivery (SERA) by US is 09/04/2023. The uterus measures 9.4 x 6.3 x 4.5 cm. There is no demonstrated uterine fibroid. The cervix is closed. The right ovary measures 3.5 x 2.5 x 2.2 cm. There is no right ovarian cyst. There is no visualized right adnexal mass or complex lesion. The left ovary measures 4.8 x 3.4 x 2.4 cm. There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 count CBC Lab Routine 32 weeks gestation of Anemia complicating , third trimester Expected: 07/20/2023, Expires: 10/19/2023 [facility] Work Phone: Comment on above: Expected: 07/20/2023 , Expires: 10/19/2023 Start: 07-20-2023 End: 10-19-2023 Ferritin [Mass/volume] in Serum or Plasma FERRITIN BLD Lab Routine 32 weeks gestation of Anemia complicating , third trimester Expected: 07/20/2023, Expires: 10/19/2023 [facility] Work Phone: Comment on above: Expected: 07/20/2023 , Expires: 10/19/2023 Start: 07-20-2023 End: 10-19-2023 Iron and Iron binding capacity panel - Serum or Plasma IRON + TIBC Lab Routine 32 weeks gestation of Anemia complicating , third trimester Expected: 07/20/2023, Expires: 10/19/2023 [facility] Work Phone: Comment on above: Expected: 07/20/2023 , Expires: 10/19/2023 Start: 07-06-2023 End: 10-05-2023 CBC panel - Blood by Automated count CBC Lab Routine Anemia complicating , third trimester Expected: 07/06/2023, Expires: 10/05/2023 [facility] Work Phone: Comment on above: Expected: 07/06/2023 , Expires: 10/05/2023 Start: 06-06-2023 End: 08-06-2023 CBC W Auto Differential panel - Blood CBC + DIFF Lab Routine Encounter for supervision of other normal in second trimester 26 weeks gestation of Expected: 06/06/2023, Expires: 08/06/2023 [facility] Work Phone: Comment on above: Expected: 06/06/2023 , Expires: 08/06/2023 Start: 06-06-2023 End: 08-06-2023 GEST GLUC SCREEN, 1-HR, 50 GM, NON-FASTING GEST GLUC SCREEN, 1-HR, 50 GM, NON-FASTING Lab Routine Encounter for supervision of other normal in second trimester 26 weeks gestation of Expected: 06/06/2023, Expires: 08/06/2023 [facility] Work Phone: Comment on above: Expected: 06/06/2023 , Expires: 08/06/2023 Start: 06-06-2023 End: 08-06-2023 SYPHILIS TOTAL W/REFLEX SYPHILIS TOTAL W/REFLEX Lab Routine Encounter for supervision of other normal in second trimester 26 weeks gestation of Expected: 06/06/2023, Expires: 08/06/2023 [facility] Work Phone: Comment on above: Expected: 06/06/2023 , Expires: 08/06/2023 Start: 05-06-2023 Covid-19 Vaccine () Covid-19 Vaccine () [facility] Start: 05-06-2023 Influenza vaccination [facility] Start: 04-06-2023 End: 04-06-2024 OBSTETRIC ULTRASOUND [facility] OBSTETRIC ULTRASOUND [facility] Anc Imaging Routine 17 weeks gestation of Expected: 04/06/2023, Expires: 04/06/2024 [facility] Work Phone: Comment on above: Expected: 04/06/2023 , Expires: 04/06/2024 Start: 03-16-2023 End: 05-11-2023 SEQUENTIAL SCRN SCND TRIMESTER SEQUENTIAL SCRN SCND TRIMESTER Lab Routine 12 weeks gestation of Expected: 03/16/2023 (Approximate), Expires: 05/11/2023 [facility] Work Phone: Comment on above: Expected: 03/16/2023 (Approximate), Expires: 05/11/2023 Start: 03-02-2023 End: 05-02-2023 SEQUENTIAL SCRN FRST TRIMESTER [facility] Work Phone: Comment on above: Expected: 03/02/2023 , Expires: 05/02/2023 Start: 02-02-2023 End: 04-04-2023 CBC panel - Blood by Automated count CBC Lab Routine Supervision of other normal , antepartum Expected: 02/02/2023, Expires: 04/04/2023 [facility] Work Phone: Comment on above: Expected: 02/02/2023 , Expires: 04/04/2023 Start: 02-02-2023 End: 04-04-2023 Hemoglobin A1c in Blood HGB A1C Lab Routine Supervision of other normal , antepartum Expected: 02/02/2023, Expires: 04/04/2023 [facility] Work Phone: Comment on above: Expected: 02/02/2023 , Expires: 04/04/2023 Start: 02-02-2023 End: 04-04-2023 Hepatitis B virus surface Ag [Presence] in Serum HEP B SURF AG SCRN Lab Routine Supervision of other normal , antepartum Expected: 02/02/2023, Expires: 04/04/2023 [facility] Work Phone: Comment on above: Expected: 02/02/2023 , Expires: 04/04/2023 Start: 02-02-2023 End: 04-04-2023 Hepatitis C virus Ab [Presence] in Serum HEP C AB IA W/CONF SCRN Lab Routine Supervision of other normal , antepartum Expected: 02/02/2023, Expires: 04/04/2023 [facility] Work Phone: Comment on above: Expected: 02/02/2023 , Expires: 04/04/2023 Start: 02-02-2023 End: 04-04-2023 HIV 1+2 Ab [Presence] in Serum or Plasma by Immunoassay HIV 1 2 COMBO(AG/AB),WITH REFLEX TO DIFFERENTIATION Lab Routine Supervision of other normal , antepartum Expected: 02/02/2023, Expires: 04/04/2023 [facility] Work Phone: Comment on above: Expected: 02/02/2023 , Expires: 04/04/2023 Start: 02-02-2023 End: 02-03-2024 NUCHAL TRANSLUCENCY WHI NUCHAL TRANSLUCENCY WHI Anc Imaging Routine Supervision of other normal , antepartum Expected: 02/02/2023, Expires: 02/03/2024 [facility] Work Phone: Comment on above: Expected: 02/02/2023 , Expires: 02/03/2024 Start: 02-02-2023 End: 02-03-2024 OBSTETRIC ULTRASOUND WHI OBSTETRIC ULTRASOUND WHI Anc Imaging Routine Supervision of other normal , antepartum Expected: 02/02/2023, Expires: 02/03/2024 [facility] Work Phone: Comment on above: Expected: 02/02/2023 , Expires: 02/03/2024 Start: 02-02-2023 End: 04-04-2023 RUBELLA IGG AB RUBELLA IGG AB Lab Routine Supervision of other normal , antepartum Expected: 02/02/2023, Expires: 04/04/2023 [facility] Work Phone: Comment on above: Expected: 02/02/2023 , Expires: 04/04/2023 Start: 02-02-2023 End: 04-04-2023 SYPHILIS TOTAL W/REFLEX SYPHILIS TOTAL W/REFLEX Lab Routine Supervision of other normal , antepartum Expected: 02/02/2023, Expires: 04/04/2023 [facility] Work Phone: Comment on above: Expected: 02/02/2023 , Expires: 04/04/2023 Start: 02-02-2023 End: 04-04-2023 TYPE + SCREEN TYPE + SCREEN Blood Bank Routine Supervision of other normal , antepartum Expected: 02/02/2023, Expires: 04/04/2023 [facility] Work Phone: Comment on above: Expected: 02/02/2023 , Expires: 04/04/2023 Start: 2022 HPV TESTING HPV TESTING [facility] Start: 09-05-2022 DEPRESSION ASSESSMENT DEPRESSION ASS ESSMENT [facility] Start: 2013 PAP TESTING PAP TESTING [facility] Start: 2011 Hepatitis B Vaccine (1 of 3 - 19+ 3-dose series) Hepatitis B Vaccine (1 of 3 - 19+ 3-dose series) [facility] Start: 2011 Urine microalbumin profile [facility] Start: 1998 PNEUMOCOCCAL (1 - PCV) PNEUMOCOCCAL (1 - PCV) [facility] Start: 1998 Pneumococcal vaccination [facility] Start: 04-29-1993 COVID-19 VACCINE (#1) COVID-19 VACCI NE (#1) [facility] Start: 1992 HEPATITIS B (1 of 3 - 3-dose series) HEPATITIS B (1 of 3 - 3-dose series) [facility] Start: 1992 Hepatitis B Vaccine (1 of 3 - 3-dose series) Hepatitis B Vaccine (1 of 3 - 3-dose series) [facility] Bacteria identified in Urine by Culture URINE CULTURE Microbiology Routine Supervision of other normal , antepartum 02/02/2023 1:52 PM EDT [facility] Work Phone: Chlamydia trachomatis+Neisseria gonorrhoeae DNA [Presence] in Unspecified specimen by GO with probe detection GC/CHLAMYDIA DNA DET Lab Routine Supervision of other normal , antepartum 02/02/2023 1:52 PM EDT [facility] Work Phone: Insertion intrauteri ne device iud INSERT INTRAUTERINE DEVICE Procedures Routine care and examination Encounter for IUD insertion Ordered: 11/09/2023 [facility] Work Phone: Comment on above: Ordered: 11/09/2023 Insertion intrauteri ne device iud INSERT INTRAUTERINE DEVICE Procedures Routine Encounter for IUD insertion Ordered: 11/18/2023 [facility] Work Phone: Comment on above: Ordered: 11/18/2023 End: 12-03-2023 OBSTETRIC ULTRASOUND WHI OBSTETRIC ULTRASOUND WHI Anc Imaging Routine Uterine size-date discrepancy, third trimester Once per month for 5 Occurrences starting 06/06/2023 until 12/03/2023 [facility] Work Phone: Comment on above: Once per month for 5 Occurrences starting 06/06/2023 until 12/03/2023 PAP TEST PAP TEST Lab Stormy mcdaniel Supervision of other normal , antepartum 02/02/2023 1:52 PM EDT [facility] Work Phone: Patient Education [facility] Work Phone: Patient referral [facility] Work Phone: POC ADJUNCT PHYSICAL EDUCATION INSTRUCTOR ULTRASOUND POC ADJUNCT PHYSICAL EDUCATION INSTRUCTOR ULTRASO UND Anc Imaging Routine Supervision of other normal , antepartum Ordered: 02/02/2023 [facility] Work Phone: Comment on above: Ordered: 02/02/2023 ROUTINE, GR OUP B STREP PCR ROUTINE, GROUP B STREP PCR Microbiology Routine Obesity affecting in third trimester, unspecified obesity type 35 weeks gestation of Ordered: 08/11/2023 [facility] Work Phone: Comment on above: Ordered: 08/11/2023 URINE OB DIP B/O URINE OB DIP B/ O Lab Routine 12 weeks gestation of Ordered: 03/02/2023 [facility] Work Phone: Comment on above: Ordered: 03/02/2023 [facility] Payers Date Payer Category Payer Self-pay [id number] 2022 Medicaid [place] [employer] [employer] [id number] 2022-Present [phone] [place] [address] Medicaid [id number] 2014 Unknown [id number] Unknown Unknown [id number] Unknown [id number] Unknown [id number] Unknown [id number] Unknown [id number] Social History Date Type Detail Facility Start: 07-31-2022 End: 09-01-2023 Tobacco smoking status HIIS Unknown if ever smoked [facility] Start: 04-27-2020 Occasional [place] [facility] Start: 04-27-2020 None [place] [facility] Start: 04-27-2020 With Family [place] [facility] Start: 1990 Sex Assigned At Female W [facility] Start: 12-18-2022 [facility] Start: 03-02-2012 Tobacco smoking status NHIS Smokes tobacco daily [facility] Work Phone: Start: 03-02-2012 Tobacco use and exposure Smokeless tobacco non-user [facility] Work Phone: Start: 02-02-2023 End: 12-21-2023 Alcohol intake Current non-drinker of alcohol (finding) [facility] Start: 01-27-2023 Education 15 [facility] Start: 1990 Sex Assigned At Not on file [facility] Start: 03-02-2023 End: 04-06-2023 History of Social function [facility] Start: 03-02-2023 End: 04-06-2023 Tobacco use panel [facility] National Score (1-100), lower number is lower risk 56 [facility] NEGATED: Highlighted row [facility] Work Phone: Goals Date Patient Goal Desired Activity /State Personal health goal Mental Status Date Assessment Result Facility 07-31-2022 Cognitive function Level Of Cons ciousness Awake;Alert;Appropriate;Follow s Commands [facility] Work Phone: Clinical Notes 01-02-2023 to 12-21-2023 Suri Forrest APRN.CNM - 12/21/2023 10:47 AM EDTPatient InstructionsSuri Forrest APRN.CNM - 11/18/2023 10:26 AM EDTPSuri concepcion APRN.CNM - 11/09/2023 1:20 PM EST Note Date & Type Note Facility 12-21-2023 Note HNO ID: [id number] Author: SURI FORREST APRN.CNM Service: ? Author Type: Racehorse Trainer Type: Progress Notes Filed: 12/21/2023 11:34 Note Text: Venecia Hart presents today for IUD check. She had a Mirena placed on 11/18/2023. She has had heavy bleeding/ now spotting since placement. REVIEW OF SYSTEMS: PAIN ASSESSMENT: Negative for pain, history of chronic pain, or current treatment for a chronic pain condition. 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 IUD strings visible. UTERUS: normal size and non-tender ADNEXA: negative for tenderness or masses IMPRESSION/PLAN: IUD correctly positioned. Patient counseled regarding monthly string check. Follow up for annual exam or sooner if needed. Suri Forrest APRN.CNM [facility] 12-21-2023 History of Presen t illness Narrative Venecia Hart presents today for IUD check. She had a Mirena placed on 11/18/2023. She has had heavy bleeding/ now spotting since placement. REVIEW OF SYSTEMS: PAIN ASSESSMENT: Negative for pain, history of chronic pain, or current treatment for a chronic pain condition. 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 IUD strings visible. UTERUS: normal size and non-tender ADNEXA: negative for tenderness or masses IMPRESSION/PLAN: IUD correctly positioned. Patient counseled regarding monthly string check. Follow up for annual exam or sooner if needed. Suri Forrest APRN.CNM documented in this encounter [facility] 11-18-2023 Note HNO ID: [id number] Author: SURI FORREST APRN.CNM Service: ? Author Type: Racehorse Trainer Type: Progress Notes Filed: 11/18/2023 12:02 Note Text: Lubricating Specialist offered: Patient declines. Venecia presents today for IUD insertion for contraception. Patient's last menstrual period was 11/07/2023 (approximate). GC/chlamydia: Negative on 02/02/2023 test: negative Side effects including irregular bleeding were discussed with the patient. The patient understands that it should be removed in 8 years or sooner if the patient desires a . IUD source: office provided IUD lot #: [id number] Exp date: 09/[address] [facility]: [id number] UNIVERSAL PROTOCOL / SAFETY CHECKLIST Procedure to be Performed: Mirena IUD Insertion Sign In: A Moment of CARE was completed. Personnel directly involved with the procedure wore the appropriate PPE (Personal Protective Equipment). Patient/Surrogate Stated/Verified: PATIENT VERIFIED(optional for EMERGENT procedures): Patient name, Date of , Relevant allergies, and The intended procedure Time Out Communication: Intended patient and procedure match the source documents. Consent documented and matches the intended procedure. Sign Out: SIGN OUT (optional for EMERGENT procedures): No specimen collected. The cervix was prepped with betadine. The uterus sounded to 7 cm and the uterus is Midposition.. Using sterile technique, the Mirena IUD was inserted without difficulty and the string was cut to 2 cm from the external os of the cervix. Patient tolerated procedure well. PLAN: Patient was advised to observe for signs and symptoms of infection including but not limited to fever, malodorous vaginal discharge and/or pain. The patient was told to check the string monthly for accurate placement. Bleeding expectations were reviewed. Follow up after next menses for string check. Suri Forrest APRN.CACHORRO [facility] 11-18-2023 Instructions yCnthia Banda MA - 11/18/2023 10:27 AM EDT POST IUD INSTRUCTIONS You may have irregular bleeding during the first 3 months of use. You may have mild-severe cramping for the next 48 hours. You may use over the counter medication (Motrin, Tylenol) as needed. Your IUD must be removed or replaced based on the following table: IUD Type Removed or replaced within: Jenny 3 years Kyleena 5 years Mirena 8 years Liletta 8 years Paragard 10 years Call the office for signs/symptoms of infection such as severe cramping, fever, or unusual bleeding. Check for string placement as instructed by your doctor. If you have any additional questions, please contact the office. documented in this encounter [facility] 11-18-2023 History of Presen t illness Narrative Lubricating Specialist offered: Patient declines. Venecia presents today for IUD insertion for contraception. Patient's last menstrual period was 11/07/2023 (approximate). GC/chlamydia: Negative on 02/02/2023 test: negative Side effects including irregular bleeding were discussed with the patient. The patient understands that it should be removed in 8 years or sooner if the patient desires a . IUD source: office provided IUD lot #: [id number] Exp date: 09/[address] [facility]: [id number] UNIVERSAL PROTOCOL / SAFETY CHECKLIST Procedure to be Performed: Mirena IUD Insertion Sign In: A Moment of CARE was completed. Personnel directly involved with the procedure wore the appropriate PPE (Personal Protective Equipment). Patient/Surrogate Stated/Verified: PATIENT VERIFIED(optional for EMERGENT procedures): Patient name, Date of , Relevant allergies, and The intended procedure Time Out Communication: Intended patient and procedure match the source documents. Consent documented and matches the intended procedure. Sign Out: SIGN OUT (optional for EMERGENT procedures): No specimen collected. The cervix was prepped with betadine. The uterus sounded to 7 cm and the uterus is Midposition.. Using sterile technique, the Mirena IUD was inserted without difficulty and the string was cut to 2 cm from the external os of the cervix. Patient tolerated procedure well. PLAN: Patient was advised to observe for signs and symptoms of infection including but not limited to fever, malodorous vaginal discharge and/or pain. The patient was told to check the string monthly for accurate placement. Bleeding expectations were reviewed. Follow up after next menses for string check. Suri Forrest APRN.CNM documented in this encounter [facility] 11-09-2023 Note HNO ID: [id number] Author: SURI FORREST APRN.CNM Service: ? Author Type: Racehorse Trainer Type: Progress Notes Filed: 11/09/2023 14:33 Note Text: VISIT Venecia Hart is a 33 year old year old here for visit. Delivery Summary: by FABBY on 09/01/2023 ROS/ Recovery: Feeding: Breast feeding problems: None Menses since delivery: started period 11/07/2023 Menstrual pattern prior to : Irregular periods [place] since delivery: Not resumed Depression: denies symptoms of depression. OB Depression and Anxiety Screening- This Encounter (since 11/08/2023) Over the past 2 weeks have you felt down, depressed, or hopeless? Negative Over the past two weeks, have you felt little interest or pleasure in doing things?? Negative Feeling nervous, anxious or on edge 0-Not at all Not being able to stop or control worrying 0-Not al all Anxiety Pre-Screening Total (If >/= 3 additional questions will be reviewed) 0 Emotional support: Yes Bowel symptoms: Negative for abdominal discomfort, blood in stools or black stools Abdomen: N/A Bladder symptoms: No dysuria, gross hematuria, urinary frequency, urinary urgency, or incontinence Other issues: None Last Pap: 2022 normal HPV: negative PAST MEDICAL HISTORY Diagnosis Date Abnormal Pap smear of cervix Anemia complicating , second trimester 06/22/2023 Bicornuate uterus Depression Diabetes, gestational PAST SURGICAL HISTORY Procedure Laterality Date PAST SURGICAL HISTORY OF left arm FAMILY HISTORY Problem Relation Age of Onset Hypertension Mother Heart Attack Father No Known Problems Sister No Known Problems Sister No Known Problems Brother No Known Problems Brother Hypertension Maternal Grandmother Hypertension Maternal Grandfather Diabetes Maternal Grandfather Hypertension Paternal Grandmother Hypertension Paternal Grandfather Heart Paternal Grandfather No Known Problems Daughter No Known Problems Daughter Social History Tobacco Use Smoking status: Every Day Smokeless tobacco: Never Vaping Use Vaping Use: Never used Substance Use Topics Alcohol use: No Drug use: Not Currently Types: Marijuana PHYSICAL EXAMINATION: BP 120/72 Wt 0 lb (0.0kg) LMP 11/07/2023 GENERAL: pleasant, female in no apparent distress HEENT: Normocephalic and atraumatic NECK: Supple and full range of motion DERMATOLOGY: Normal and without lesions BREAST: soft, non-tender, symmetric, no dominant mass, normal nipple-areolar complex, no lymphadenopathy, and no nipple discharge CHEST: Normal inspiratory effort ABDOMEN: soft, non-tender, and no masses. INCISION: N/A PELVIC: external genitalia normal, normal Bartholin's glands, urethra, Maynard's glands, no vulvar lesions, no cervical lesions, good vaginal support, physiologic discharge present, normal appearing perineal body and perianal region BIMANUAL: uterus normal size, shape and consistency, no adnexal masses, non-tender, no cervical motion tenderness, and perineal muscles intact NEURO: alert and oriented x3,exam grossly non-focal EXTREMITIES: normal ASSESSMENT AND PLAN: 33 year old status post with normal course. Contraception plan: none Follow up: RTC for insertion of IUD- Desires Mirena Order written Suri Forrest APRN.CNM [facility] 11-09-2023 History of Presen t illness Narrative VISIT Venecia Hart is a 33 year old year old here for visit. Delivery Summary: by CP on 09/01/2023 ROS/ Recovery: Feeding: Breast feeding problems: None Menses since delivery: started period 11/07/2023 Menstrual pattern prior to : Irregular periods [place] since delivery: Not resumed Depression: denies symptoms of depression. OB Depression and Anxiety Screening- This Encounter (since 11/08/2023) Over the past 2 weeks have you felt down, depressed, or hopeless? Negative Over the past two weeks, have you felt little interest or pleasure in doing things? Negative Feeling nervous, anxious or on edge 0-Not at all Not being able to stop or control worrying 0-Not al all Anxiety Pre-Screening Total (If >/= 3 additional questions will be reviewed) 0 Emotional support: Yes Bowel symptoms: Negative for abdominal discomfort, blood in stools or black stools Abdomen: N/A Bladder symptoms: No dysuria, gross hematuria, urinary frequency, urinary urgency, or incontinence Other issues: None Last Pap: 2022 normal HPV: negative PAST MEDICAL HISTORY Diagnosis Date Abnormal Pap smear of cervix Anemia complicating , second trimester 06/22/2023 Bicornuate uterus Depression Diabetes, gestational PAST SURGICAL HISTORY Procedure Laterality Date PAST SURGICAL HISTORY OF left arm FAMILY HISTORY Problem Relation Age of Onset Hypertension Mother Heart Attack Father No Known Problems Sister No Known Problems Sister No Known Problems Brother No Known Problems Brother Hypertension Maternal Grandmother Hypertension Maternal Grandfather Diabetes Maternal Grandfather Hypertension Paternal Grandmother Hypertension Paternal Grandfather Heart Paternal Grandfather No Known Problems Daughter No Known Problems Daughter Social History Tobacco Use Smoking status: Every Day Smokeless tobacco: Never Vaping Use Vaping Use: Never used Substance Use Topics Alcohol use: No Drug use: Not Currently Types: Marijuana PHYSICAL EXAMINATION: BP 120/72 Wt 0 lb (0.0kg) LMP 11/07/2023 GENERAL: pleasant, female in no apparent distress HEENT: Normocephalic and atraumatic NECK: Supple and full range of motion DERMATOLOGY: Normal and without lesions BREAST: soft, non-tender, symmetric, no dominant mass, normal nipple-areolar complex, no lymphadenopathy, and no nipple discharge CHEST: Normal inspiratory effort ABDOMEN: soft, non-tender, and no masses. INCISION: N/A PELVIC: external genitalia normal, normal Bartholin's glands, urethra, Maynard's glands, no vulvar lesions, no cervical lesions, good vaginal support, physiologic discharge present, normal appearing perineal body and perianal region BIMANUAL: uterus normal size, shape and consistency, no adnexal masses, non-tender, no cervical motion tenderness, and perineal muscles intact NEURO: alert and oriented x3,exam grossly non-focal EXTREMITIES: normal ASSESSMENT AND PLAN: 33 year old status post with normal course. Contraception plan: none Follow up: RTC for insertion of IUD- Desires Mirena Order written Suri Forrest APRN.CNM documented in this encounter [facility] 09-02-2023 Discharge summary Note Date/Time September 02, 2023 8:21am [facility] Medical Records Department [address] [place] [id number] Instructions for Home/Discharge Instructions 09/02/23 0820 MR#: [id number] Acct: [id number] Name: VENECIA HART Rep #:[id number] : 1990 32 From: Sabrina Coon DO PCP: Care Physician,No Primary Status :ADM IN Discharge Instructions Diet Discharge Diet: No restrictions Activity Discharge Activity: May Drive and May Shower May resume sexual activity in: 6 weeks (nothing in the vagina and no soaking in water for 6 weeks) Ice area for (Minutes): 15 Weight Bearing Status: Weight bearing as tolerated Lifting Restrictions: nothing heavier than baby Dressing / Incision Call your doctor if you observe: Fever of 101 or Higher, Coldness, Increased Pain, Numbness or Tingling, Change in Color, Inability to urinate, Inability to have a bowel movement, Using more than 1 pad per hour, Shortness of breath, Dizziness, Fainting spells, Swelling in the ankles, Chest pain, Increased palpitations (irregular heartbeat), Calf discomfort and Uncontrolled pain Follow Up Care Please Follow Up With: Suri Forrest CNM When: 1 week for early and blood pressure check 6 weeks for exam Test Results: Test results from this visit will be discussed in further detail at your follow-up appointment, if applicable. Discharge Plan Admission Admit Date/Time: 08/31/23 18:10 Primary Reason for Your Visit: delivery Attending Provider: Suri Forrest Primary Care Provider: Care Physician,No Primary Instructions Patient Instructions: After a Vaginal Discharge Orders/Prescriptions Prescriptions: Continued PNV-Select 27-1 mg tablet 1 tab PO DAILY Qty: 30 0RF Rx Instructions: or equivalent generic PNV Discontinued ferrous sulfate [Feosol] 325 mg (65 mg iron) tablet 325 mg PO QODAY magnesium 200 mg tablet 200 mg PO DAILY PRN (Reason: cramps) Referrals / Follow Up: Care Physician,No Primary [Primary Care Provider] - Disposition Disposition (needs filled in before D/C Order can be placed): Home, Self Care 09/02/23820<Electronically signed by Sabrina Coon DO>Sabrina Coon DO CC: No Primary Care Physician ~ Signed [facility] Work Phone: 1(814) 960-317112-29-2023 Progress note Author Sabrina Coon [facility] September 02, 2023 7:24am Note Date/Time September 02, 2023 7:24am [facility] Medical Records Department [address] [place] [address] Progress Note - OBGYN 09/02/23721 MR#: [id number] Acct: [id number] Name: VENECIA HART Rep #:[id number] : 1990 32 From: Sabrina Coon DO PCP: Care Physician,No Primary Status :ADM IN Location: [id number] Subjective Subjective Patient doing well this morning. Ambulating and voiding without difficulty. Lochia is normal. She is tolerating a regular diet without nausea or vomiting. No chest pain, shortness of breath, headaches. She desires discharge today. Objective Data Objective Data Vital Signs: Vital Signs Temp Pulse Resp BP Pulse Ox O2 Del Method 97.6 F L 69 15 129/71 H 96 Room Air 09/02/23 03:36 09/02/23 03:36 09/02/23 03:36 09/02/23 03:36 09/02/23 03:36 09/02/23 03:36 Oxygen Delivery Method Room Air Weight: 225 lb Body Mass Index (BMI) 39.8 Intake & Output: Intake and Output for Last 24 Hours 08/31/23 09/01/23 09/02/23 23:59 23:59 23:59 Intake Total 400 / 400 2977.50 / 2977.50 Output Total 2800 / 2800 Balance 400 / 400 177.50 / 177.50 Lab / Micro Data 08/31/23 16:00 08/31/23 16:00 Physical Exam Const no apparent distress Constitutional Narrative: Resting General Appearance: comfortable GI soft to palpation, non-tender and non-distended Extremity no calf tenderness Assessment & Plan (1) Vaginal delivery: PLAN: PPD#1 s/p . Doing well and desires discharge. Meeting milestones for discharge. (2) Gestational hypertension: PLAN: No symptoms of pre e and BP's normal. 09/02/23723 <Electronically signed by Sabrina Coon DO> Cosigner Signature (if applicable): CC: ~ Signed [facility] Work Phone: 1(215) 427-660212-28-2023 NoteHNO ID: [id number] Author: Mehnaz Yepez RN Service: ? Author Type: Registered Nurse Type: Progress Notes Filed: 09/01/2023 1:22 PM Note Text: Patient delivered via at [facility] on 09/01/23 per Suri Forrest CNM. See OB Outcome note. [facility]12-28-2023 Progress note Author Suri Forrest [facility] September 01, 2023 7:09am Note Date/Time September 01, 2023 7:09am [facility] Medical Records Department [address] [place] [address] Progress Note - OBGYN 09/01/23704 MR#: [id number] Acct: [id number] Name: VENECIA HART Rep #:[id number] : 1990 32 From: Suri Forrest CNM PCP: Care Physician,No Primary Status :ADM IN Location: [place] [address] Subjective Subjective Patient seen at bedside. Comfortable with epidural. Difficulty tracing FHT due to maternal size and position. Objective Data Objective Data Vital Signs: Vital Signs Temp Pulse BP Pulse Ox 97.8 F 70 113/65 97 09/01/23 05:04 09/01/23 06:14 09/01/23 06:14 09/01/23 06:12 Weight: 225 lb Body Mass Index (BMI) 39.8 Intake & Output: Intake and Output for Last 24 Hours 08/30/23 08/31/23 09/01/23 23:59 23:59 23:59 Intake Total 400 / 400 626.64 / 626.64 Output Total 1050 / 1050 Balance 400 / 400 -423.36 / -423.36 Lab / Micro Data 08/31/23 16:00 08/31/23 16:00 Labs: Laboratory Results - last 24 hr 08/31/23 16:00: WBC Cancelled 08/31/23 16:00: WBC 19.2 H, Corrected WBC Cancelled, RBC Cancelled 08/31/23 16:00: RBC 3.84 L, Hgb Cancelled 08/31/23 16:00: Hgb 11.2 L, Hct Cancelled 08/31/23 16:00: Hct 32.2 L, MCV Cancelled 08/31/23 16:00: MCV 83.9, MCH Cancelled 08/31/23 16:00: MCH 29.2, MCHC Cancelled 08/31/23 16:00: MCHC 34.8, RDW Std Deviation Cancelled 08/31/23 16:00: RDW Std Deviation 44.6 H, RDW Coeff of Jatinder Cancelled 08/31/23 16:00: RDW Coeff of Jatinder 14.6, Plt Count Cancelled 08/31/23 16:00: Plt Count 342, MPV Cancelled 08/31/23 16:00: MPV 10.7, Immature Gran % (Auto) 1.100 H, Neut % (Auto) 74.1 H, Lymph % (Auto) 16.5 L, Pine % (Auto) 7.7, Eos % (Auto) 0.3, Baso % (Auto) 0.3, Absolute Neuts (auto) 14.2 H, Absolute Lymphs (auto) 3.16, Nucleated RBC % 0, Diff Path Review Cancelled, Creatinine 0.70, Est GFR (MDRD) Af Amer 127, Est GFR(MDRD) Non-Af 105, Uric Acid 4.8, AST 14 L, ALT 15, U Random Total Protein 29.3 H, Urine Creatinine 110.00, Protein/Creatinin Ratio 266 H 08/31/23 19:50: Syphilis Total Ab Non-reactive, Blood Type B POSITIVE, Antibody Screen NEGATIVE Assessment & Plan (1) 38 weeks gestation of : (2) Gestational hypertension: (3) Obesity affecting : (4) Rubella non-immune status, antepartum: (5) LGA (large for gestational age) fetus: (6) Meconium in amniotic fluid: PLAN: Plan Gates bulb out Cat. 1 tracing/ NST reactive Pitocin IV at 4 mu/min- continue to increase per policy CE /-2 AROM for light meconium fluid IUPC and FSE placed due to difficulty tracing Anticipate 09/01/23 0709 <Electronically signed by Suri Forrest CNM> Cosigner Signature (if applicable): CC: ~ Signed [facility] Work Phone: 1(634) 754-838312-27-2023 Progress note Author Suri Forrest [facility] August 31, 2023 9:15pm Note Date/Time August 31, 2023 9:15pm [facility] Medical Records Department [address] [place], [place] [address] [place] [address] Progress Note - OBGYN 08/31/232111 MR#: [id number] Acct: [id number] Name: VENECIA HART Rep #:[id number] : 1990 32 From: Suri Plotts CNM PCP: Care Physician,No Primary Status :ADM IN Location: [id number] Subjective Subjective Patient seen at bedside. Denies any pain. Feeling occasional contractions. Objective Data Objective Data Vital Signs: Vital Signs Temp Pulse BP Pulse Ox 97.9 F 78 127/76 H 93 08/31/23 15:55 08/31/23 20:11 08/31/23 20:11 08/31/23 20:11 Weight: 225 lb Body Mass Index (BMI) 39.8 Lab / Micro Data 08/31/23 16:00 08/31/23 16:00 Labs: Laboratory Results - last 24 hr 08/31/23 16:00: WBC Cancelled 08/31/23 16:00: WBC 19.2 H, Corrected WBC Cancelled, RBC Cancelled 08/31/23 16:00: RBC 3.84 L, Hgb Cancelled 08/31/23 16:00: Hgb 11.2 L, Hct Cancelled 08/31/23 16:00: Hct 32.2 L, MCV Cancelled 08/31/23 16:00: MCV 83.9, MCH Cancelled 08/31/23 16:00: MCH 29.2, MCHC Cancelled 08/31/23 16:00: MCHC 34.8, RDW Std Deviation Cancelled 08/31/23 16:00: RDW Std Deviation 44.6 H, RDW Coeff of Jatinder Cancelled 08/31/23 16:00: RDW Coeff of Jatinder 14.6, Plt Count Cancelled 08/31/23 16:00: Plt Count 342, MPV Cancelled 08/31/23 16:00: MPV 10.7, Immature Gran % (Auto) 1.100 H, Neut % (Auto) 74.1 H, Lymph % (Auto) 16.5 L, Pine % (Auto) 7.7, Eos % (Auto) 0.3, Baso % (Auto) 0.3, Absolute Neuts (auto) 14.2 H, Absolute Lymphs (auto) 3.16, Nucleated RBC % 0, Diff Path Review Cancelled, Creatinine 0.70, Est GFR (MDRD) Af Amer 127, Est GFR(MDRD) Non-Af 105, Uric Acid 4.8, AST 14 L, ALT 15, U Random Total Protein 29.3 H, Urine Creatinine 110.00, Protein/Creatinin Ratio 266 H 08/31/23 19:50: Syphilis Total Ab Non-reactive, Blood Type B POSITIVE, Antibody Screen NEGATIVE Assessment & Plan (1) LGA (large for gestational age) fetus: (2) 38 weeks gestation of : (3) Gestational hypertension: (4) Headache in : (5) Obesity affecting : PLAN: Plan CE- 1.5/60/-2 Gates bulb placed without difficulty and filled with 30 cc N/S Cytotec 25 mcg po x 1 dose now- reevaluate in 4 hours GBS is negative NST reactive Pain medication if indicated Dr. 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 Maternal Data Information SERA Calculator Estimated Delivery Date Method Current WG Current Estimate 09/10/23 Manual 38w 4d PFSH PFSH Medical History Depression Home Medications vit,calcium no.40-iron fum 27 mg iron-folate no.1 1 mg tablet (PNV- Select) 1 tab PO DAILY #30 tabs 01/03/23 [Rx Last Taken 08/25/23] ferrous sulfate 325 mg (65 mg iron) tablet (Feosol) 325 mg PO QODAY anemia 08/25/23 [History Last Taken 08/24/23] Allergy/AdvReac Type Severity Reaction Status Date / Time bee venom protein (honey bee) Allergy Swelling Verified 01/02/23 20:42 chocolate flavor Allergy Hives Verified 01/02/23 20:42 Social History Smoking Status: Current every day smoker tobacco type: cigarettes History Elective abortions Hx Para 1 Spontaneous abortions Hx # Term Pregnancies Ectopic pregnancies Hx # Pregnancies Multiple births # of living children ROS Eyes Eyes: Denies blurry vision, change in vision or spots in vision ENT HEENT: Denies dizziness or headache(s) Cardiovascular Cardiovascular: Denies abdominal pain, chest pain or dyspnea Respiratory/Chest Respiratory/Chest: Denies cough, dyspnea, shortness of breath at rest or shortness of breath with exertion Gastrointestinal Gastrointestinal: Denies abdominal pain, diarrhea or vomiting Genitourinary Genitourinary: Denies change in urinary stream, difficulty urinating or dysuria Musculoskeletal Musculoskeletal: Reports none Integumentary Integumentary: Denies rash Neurologic Neurologic: Reports dizziness and headache(s); Denies memory loss or weakness Psychiatric Psychiatric: Reports none Vital Signs Vital Signs Vital Signs: 08/31/23 15:58 08/31/23 15:58 08/31/23 16:05 Pulse Rate 72 74 Blood Pressure 122/70 H BP Systolic 122 BP Diastolic 70 Pulse Ox 08/31/23 16:05 08/31/23 16:15 08/31/23 16:15 Pulse Rate 65 Blood Pressure 127/75 H BP Systolic 127 BP Diastolic 75 Pulse Ox 91 08/31/23 16:29 08/31/23 16:29 08/31/23 16:52 Pulse Rate 68 Blood Pressure 144/73 H 137/80 H BP Systolic 144 137 BP Diastolic 73 80 Pulse Ox 08/31/23 16:52 08/31/23 17:06 08/31/23 17:06 Pulse Rate 77 71 Blood Pressure 135/81 H BP Systolic 135 BP Diastolic 81 Pulse Ox 08/31/23 17:24 08/31/23 17:24 08/31/23 17:37 Pulse Rate 62 Blood Pressure 143/73 H 153/77 H BP Systolic 143 153 BP Diastolic 73 77 Pulse Ox 08/31/23 17:37 08/31/23 17:53 08/31/23 17:53 Pulse Rate 66 73 Blood Pressure 138/80 H BP Systolic 138 BP Diastolic 80 Pulse Ox 08/31/23 18:06 08/31/23 18:06 08/31/23 18:25 Pulse Rate 71 Blood Pressure 127/73 H 145/83 H BP Systolic 127 145 BP Diastolic 73 83 Pulse Ox 08/31/23 18:25 Pulse Rate 71 Blood Pressure BP Systolic BP Diastolic Pulse Ox Physical Exam Const alert, oriented x3 and no apparent distress General Appearance: cooperative Orientation / Consciousness: awake Exam Limitations: no limitations HEENT normocephalic Head and Scalp: normal to inspection Eyes General Eye: normal appearance of both eyes Neck full ROM and no lymphadenopathy Lymph Lymphatic: no lymphadenopathy noted Chest inspection of chest normal Resp normal respiratory effort, normal air movement and clear to auscultation bilaterally Effort and Inspection: able to speak in complete sentences and symmetric chest movement Cardio regular rate and regular rhythm GI normal to inspection, nondistended, normoactive bowel sounds Manual OB Exam: presentation cephalic Back/Spine normal ROM Extremity full ROM and no calf tenderness Skin no rashes or lesions noted General Skin Exam: no breakdown Neuro oriented x3 and CN's II-XII intact bilaterally Psych mental status grossly normal and thought process normal Labs Labs Labs: Blood Type B POSITIVE Antibody Screen NEGATIVE Hct 32.7 % (37-47) L Hgb 11.0 g/dL (12.0-15.0) L Obstetrics Ultrasound Rubella IgG Antibody 22.2 IU/mL Hep Bs Antigen Negative (Negative) Glucose 1 Hr 50 gm 119 mg/dL (70-140) Group B Strep DNA POSITIVE (Negative) H Rhogam given: No GBS negative Assessment & Plan (1) Obesity affecting : (2) Headache in : (3) Gestational hypertension: (4) 38 weeks gestation of : (5) LGA (large for gestational age) fetus: PLAN: Plan Blood pressures ranging from 130-150/ 80's meets criteria for GHTN EFW 97%, TANNA 13 GBS negative Admit to labor and delivery PI labs - normal- p/c ratio 266 Start HTN protocol Start IV and run fluids per orders CE 1.5/60/-2 in office Anticipate placement of gates bulb Dr. Beaulieu notified of admission and plan of care- collaborating physician 08/31/23 1844 <Electronically signed by Suri Forrest CNM> Cosigner Signature (if applicable): CC: CACHORRO Forrest; No Primary Care Physician~ Signed [facility] Work Phone: 1(279) 172-979912-20-2023 NoteHNO ID: [id number] Author: Suri Forrest APRN.CNM Service: ? Author Type: Racehorse Trainer Type: Progress Notes Filed: 08/24/2023 12:24 PM Note Text: NST SUMMARY PROVIDER ASSESSMENT AND INTERPRETATION Venecia Hart is a 32 year old female, , who is at 37w4d with an SERA of 09/10/2023, by Ultrasound dating method. Indications for NST: Obesity Baseline: 130 Variability: Moderate Accelerations: Present 15 X 15 Decelerations: None Contractions: TOCO: 1 contraction noted Interpretation: Category I and Reactive SIGNATURE: Suri Forrest APRN.[facility]NPrem[facility] History of Present illness Narrative* Suri Forrest APRN.CNM - 08/24/2023 12:23 PM EST NST SUMMARY PROVIDER ASSESSMENT AND INTERPRETATION Venecia Hart is a 32 year old female, , who is at 37w4d with an SERA of 09/10/2023, by Ultrasound dating method. Indications for NST: Obesity Baseline: 130 Variability: Moderate Accelerations: Present 15 X 15 Decelerations: None Contractions: TOCO: 1 contraction noted Interpretation: Category I and Reactive SIGNATURE: Suri Forrest APRN.CNM documented in [facility]Mer[facility]12-[facility]-2023 Miscellaneous Notes* Quick Notes - Suri Forrest APRN.CNM - 08/24/2023 12:05 PM EST Venecia Hart is a 32 year old female who presents at 37w4d for a routine visit and NST. NST reactive and category 1 tracing. Good movement. Continues to feel like baby has dropped lower. Denies any contractions or cramps. Having increased anxiety over delivery occurring on . Deniesheadache, visual changes, chest pain, shortness of breath, vaginal bleeding, leakage of fluid, or dysuria. Requesting CE with membrane stripping. R/B/A reviewed with patient and verbal consent obtained. Size greater than dates. 21 lbs TWG. CE- 1.5/60/-2 midposition ASSESSMENT/PLAN: 1. 37 weeks gestation of - ICD9: V22.2, ICD10: Z3A.37 (primary diagnosis) 2. Supervision of high risk in third trimester - ICD9: V23.9, ICD10: O09.93 3. Obesity during - ICD9: 649.10, ICD10: O99.210 4. Uterine size-date discrepancy, third trimester - ICD9: 649.63, ICD10: O26.843 S>D EFW 97% at 36 weeks gestation Labor precautions reviewed. RTC in 1 week for DI with NST Desires physiological onset of labor but may desire induction due to EFW. Suri Forrest APRN.CNM documented in this encounterMer[facility]12-20-2023 Instructions* Patient Instructions* Cynthia Banda MA - 08/24/2023 10:24 AM EST SEQUENTIAL SCREENINGS [facility] offers sequential screenings for women who are interested in screenings for chromosomal abnormalities and certain defects during a . The sequential screen combinesultrasound and blood tests to determine the risk of chromosomal abnormalities, including Down's Syndrome (Trisomy 21) and Trisomy 18, as well as open neural tube defects including spina bifida. Ultrasound examination is performed between 11 weeks and 13 weeks gestational age. Blood tests are drawn after the ultrasound and again later in the between 15 and 21 weeks gestational age. Please let your physician know if you are interested in this testing. It will require an appointment withour hyperbaric technician. This is not an ultrasound performed by a physician in our office during a routine visit. SIGNS AND SYMPTOMS OF LABOR 1. Contractions every 10 minutes or more often 2. Clear, pink, or brownish fluid (water) leaking from vagina 3. Feeling that baby is pushing down, pressure 4. Low, dull backache 5. Cramps that feel like a period 6. Cramps with or without diarrhea If you notice any of the above symptoms, contact our office at [phone] and ask to speak with anurse. After hours, you can call doctors registry at [phone] OR call [facility] at [phone] ask to have the doctor security installation sales technician paged. If you consider this an emergency, dial 9-1-0 or go to your nearest emergency department. NEED HELP? Are you dealing with a violent or abusive relationship? Are you a victim of rape or sexual assult? Call [facility] ([place]) 24 hour Crisis Hotline: 948.930.7942 or 559-238-8564. MANUAL Your Guide to a Healthy manual is now on-line. Visit [email or web address] to download your free copy documented in this encounterMercy [facility]12-13-2023 NoteHNO ID: [id number] Author: Shannan Cabrera APRN.CNP Service: ? Author Type: Nurse Practitioner Type: Procedures Filed: 08/17/2023 9:55 AM Note Text: NST SUMMARY PROVIDER ASSESSMENT AND INTERPRETATION Indications for NST: Obesity Baseline: 125 Variability: Moderate Accelerations: Present 15 X 15 Decelerations: None Interpretation: Reactive SIGNATURE: Shannan Cabrera APRN.AUDITOR APPRAISER NST reviewed by Demarcus Forrest [facility]12-07-2023 Miscellaneous Notes* Quick Notes - Suri Forrest APRN.REILLY - 08/11/2023 2:57 PM EST S: Venecia Hart is a 32 year old female who presents at 35.5 weeks gestation for a routine visit.Has growth US scheduled for tomorrow. Positive movement. Occasional contractions. Denies headache, visual changes, chest pain, shortness of breath, vaginal bleeding, leakage of fluid, or dysuria. Continues to feel pelvic pressure. Requesting CE today. O: See flow sheet Gen: No apparent distress Abd: Gravid, non tender TAUS- confirms vertex ASSESSMENT/PLAN: 1. Obesity affecting in third trimester, unspecified obesity type - ICD9: 649.13, ICD10: O99.213 (primary diagnosis) 2. 35 weeks gestation of - ICD9: V22.2, ICD10: Z3A.35 3. Tobacco smoking affecting , antepartum - ICD9: 649.03, ICD10: O99.330 4. Supervision of high risk , antepartum - ICD9: V23.9, ICD10: O09.90 5. Anemia complicating , third trimester - ICD9: 648.23, 285.9, ICD10: O99.013 - Growth US tomorrow - RTO- weekly for NST and DI - GBS today - Title 9 consent signed today - PTL precautions reviewed and when to contract provider - Desires physiological onset of labor- no induction unless excessive growth seen via US Suri Forrest APRN.CNM documented in this encounterMer[facility]12-07-2023 Instructions* Patient Instructions* Jonas Andrews Cma - 08/11/2023 2:22 PM EST SEQUENTIAL SCREENINGS [facility] offers sequential screenings for women who are interested in screenings for chromosomal abnormalities and certain defects during a . The sequential screen combinesultrasound and blood tests to determine the risk of chromosomal abnormalities, including Down's Syndrome (Trisomy 21) and Trisomy 18, as well as open neural tube defects including spina bifida. Ultrasound examination is performed between 11 weeks and 13 weeks gestational age. Blood tests are drawn after the ultrasound and again later in the between 15 and 21 weeks gestational age. Please let your physician know if you are interested in this testing. It will require an appointment withour hyperbaric technician. This is not an ultrasound performed by a physician in our office during a routine visit. SIGNS AND SYMPTOMS OF LABOR 1. Contractions every 10 minutes or more often 2. Clear, pink, or brownish fluid (water) leaking from vagina 3. Feeling that baby is pushing down, pressure 4. Low, dull backache 5. Cramps that feel like a period 6. Cramps with or without diarrhea If you notice any of the above symptoms, contact our office at [phone] and ask to speak with anurse. After hours, you can call doctors registry at [phone] OR call [facility] at [phone] ask to have the doctor security installation sales technician paged. If you consider this an emergency, dial 9-1-1 or go to your nearest emergency department. NEED HELP? Are you dealing with a violent or abusive relationship? Are you a victim of rape or sexual assult? Call [facility] ([place]) 24 hour Crisis Hotline: 853.675.5241 or 160-993-6649. MANUAL Your Guide to a Healthy manual is now on-line. Visit [email or web address] to download your free copy documented in this encounterMer[facility]11-15-2023 Miscellaneous Notes* Quick Notes - Suri Forrest APRN.CNM - 07/20/2023 11:15 AM EST S: Venecia Hart is a 32 year old female who presents at 32.4 weeks for a routine visit. Denies headache, visual changes, chest pain, shortness of breath, vaginal bleeding, leakage of fluid, or dysuria. Feeling well, no complaints. O: See flow sheet Gen: No apparent distress Abd: Gravid, non tender S>D ASSESSMENT/PLAN: 1. 32 weeks gestation of - ICD9: V22.2, ICD10: Z3A.32 (primary diagnosis) 2. Anemia complicating , third trimester - ICD9: 648.23, 285.9, ICD10: O99.013 3. Uterine size discrepancy - EFW 81%, TANNA 13 at 28 weeks- will repeat at 36 weeks gestation P: 1) PTL precautions reviewed and when to call 2) RTO 2 weeks for DI with repeat CBC/Iron studies Suri Forrest APRN.CNM documented in this encounterMer[facility]11-15-2023 Instructions* Patient Instructions* Ita Cook RN - 07/20/2023 10:47 AM EST SEQUENTIAL SCREENINGS [facility] offers sequential screenings for women who are interested in screenings for chromosomal abnormalities and certain defects during a . The sequential screen combinesultrasound and blood tests to determine the risk of chromosomal abnormalities, including Down's Syndrome (Trisomy 21) and Trisomy 18, as well as open neural tube defects including spina bifida. Ultrasound examination is performed between 11 weeks and 13 weeks gestational age. Blood tests are drawn after the ultrasound and again later in the between 15 and 21 weeks gestational age. Please let your physician know if you are interested in this testing. It will require an appointment withour hyperbaric technician. This is not an ultrasound performed by a physician in our office during a routine visit. SIGNS AND SYMPTOMS OF LABOR 1. Contractions every 10 minutes or more often 2. Clear, pink, or brownish fluid (water) leaking from vagina 3. Feeling that baby is pushing down, pressure 4. Low, dull backache 5. Cramps that feel like a period 6. Cramps with or without diarrhea If you notice any of the above symptoms, contact our office at [phone] and ask to speak with anurse. After hours, you can call doctors registry at [phone] OR call [facility] at [phone] ask to have the doctor security installation sales technician paged. If you consider this an emergency, dial 9-1-1 or go to your nearest emergency department. NEED HELP? Are you dealing with a violent or abusive relationship? Are you a victim of rape or sexual assult? Call [facility] ([place]) 24 hour Crisis Hotline: 432.249.6780 or 660-677-9915. MANUAL Your Guide to a Healthy manual is now on-line. Visit [email or web address] to download your free copy documented in this encounterMercy [facility]11-01-2023 Miscellaneous Notes* Quick Notes - Suri Forrest APRN.CNM - 07/06/2023 10:59 AM EDT S: Venecia Hart is a 32 year old female who presents at 30 weeks gestation for a routine visit. Denies headache, visual changes, chest pain, shortness of breath, vaginal bleeding, leakage of fluid,or dysuria. Feeling well, no complaints. Reviewed plan with patient and answered questions. O: See flow sheet Gen: No apparent distress Abd: Gravid, non tender S>D ASSESSMENT/PLAN: 1. Encounter for supervision of normal first in third trimester - ICD9: V22.0, ICD10: Z34.03 (primary diagnosis) 2. 30 weeks gestation of - ICD9: V22.2, ICD10: Z3A.30 3. Obesity during - ICD9: 649.10, ICD10: O99.210 4. Tobacco smoking affecting , antepartum - ICD9: 649.03, ICD10: O99.330 5. Uterine size-date discrepancy, third trimester - ICD9: 649.63, ICD10: O26.843 6. Anemia complicating , third trimester - ICD9: 648.23, 285.9, ICD10: O99.013 - Continue taking oral iron - Repeat CBC next visit - S>D, EFW 81%, TANNA 13 at 28 week growth US - NST to start at 36 weeks - Title 19? Patient may desire tubal ligation if C/S - PTL precautions and kick counts reviewed RTO 2 weeks Suri Forrest APRN.CNM documented in this encounterMer[facility]11-01-2023 Instructions* Patient Instructions* Jonas Andrews Cma - 07/06/2023 10:58 AM EDT SEQUENTIAL SCREENINGS The [facility] offers sequential screenings for women who are interested in screenings for chromosomal abnormalities and certain defects during a . The sequential screen combinesultrasound and blood tests to determine the risk of chromosomal abnormalities, including Down's Syndrome (Trisomy 21) and Trisomy 18, as well as open neural tube defects including spina bifida. Ultrasound examination is performed between 11 weeks and 13 weeks gestational age. Blood tests are drawn after the ultrasound and again later in the between 15 and 21 weeks gestational age. Please let your physician know if you are interested in this testing. It will require an appointment withour hyperbaric technician. This is not an ultrasound performed by a physician in our office during a routine visit. SIGNS AND SYMPTOMS OF LABOR 1. Contractions every 10 minutes or more often 2. Clear, pink, or brownish fluid (water) leaking from vagina 3. Feeling that baby is pushing down, pressure 4. Low, dull backache 5. Cramps that feel like a period 6. Cramps with or without diarrhea If you notice any of the above symptoms, contact our office at [phone] and ask to speak with anurse. After hours, you can call doctors registry at [phone] OR call [facility] at [phone] ask to have the doctor security installation sales technician paged. If you consider this an emergency, dial 9-1-6 or go to your nearest emergency department. NEED HELP? Are you dealing with a violent or abusive relationship? Are you a victim of rape or sexual assult? Call [facility] ([place]) 24 hour Crisis Hotline: 972.162.1387 or 839-326-3865. MANUAL Your Guide to a Healthy manual is now on-line. Visit [email or web address] to download your free copy documented in this encounterMercy [facility]10-18-2023 Miscellaneous Notes* Quick Notes - Suri Forrest APRN.CNM - 06/22/2023 10:02 AM EDT Venecia Hart is a 32 year old female who presents at 28w4d for a routine visit and growth US. Good movement. Denies headache, visual changes, chest pain, shortness of breath, vaginal bleeding, leakage of fluid, or dysuria. Feeling well, no complaints. Size greater than dates. 13 lbs. TWG. ASSESSMENT/PLAN: 1. 28 weeks gestation of - ICD9: V22.2, ICD10: Z3A.28 (primary diagnosis) 2. Encounter for supervision of normal first in third trimester - ICD9: V22.0, ICD10: Z34.03 3. Obesity during - ICD9: 649.10, ICD10: O99.210 4. Tobacco smoking affecting , antepartum - ICD9: 649.03, ICD10: O99.330 5. Uterine size-date discrepancy, third trimester - ICD9: 649.63, ICD10: O26.843 - Growth US today - NST starting at 36 weeks - If has C/S would like tubal ligation- will need title 19 signed - Desires unmedicated , - Declines LARC- consent signed PTL precautions reviewed. RTC in 2 weeks Suri Forrest APRN.CNM documented in this encounterMercy Health [facility]10-18-2023 Instructions* Patient Instructions* Jonas Andrews Cma - 06/22/2023 9:05 AM EDT SEQUENTIAL SCREENINGS The [facility] offers sequential screenings for women who are interested in screenings for chromosomal abnormalities and certain defects during a . The sequential screen combinesultrasound and blood tests to determine the risk of chromosomal abnormalities, including Down's Syndrome (Trisomy 21) and Trisomy 18, as well as open neural tube defects including spina bifida. Ultrasound examination is performed between 11 weeks and 13 weeks gestational age. Blood tests are drawn after the ultrasound and again later in the between 15 and 21 weeks gestational age. Please let your physician know if you are interested in this testing. It will require an appointment withour hyperbaric technician. This is not an ultrasound performed by a physician in our office during a routine visit. SIGNS AND SYMPTOMS OF LABOR 1. Contractions every 10 minutes or more often 2. Clear, pink, or brownish fluid (water) leaking from vagina 3. Feeling that baby is pushing down, pressure 4. Low, dull backache 5. Cramps that feel like a period 6. Cramps with or without diarrhea If you notice any of the above symptoms, contact our office at [phone] and ask to speak with anurse. After hours, you can call [facility] at [phone] OR call [facility] at [phone] ask to have the doctor security installation sales technician paged. If you consider this an emergency, dial 9--3 or go to your nearest emergency department. NEED HELP? Are you dealing with a violent or abusive relationship? Are you a victim of rape or sexual assult? Call [facility] ([place]) 24 hour Crisis Hotline: 810.768.6086 or 374-091-6359. MANUAL Your Guide to a Healthy manual is now on-line. Visit [email or web address] to download your free copy documented in this encounterMercy Health [facility] Hospital10-02-2023 Miscellaneous Notes* Quick Notes - Suri Forrest APRN.CNM - 06/06/2023 11:29 AM EDT S: Venecia Hart is a 32 year old female who presents at 26.2 weeks gestation for a routine visit.She has not been seen in office for 6 weeks. Stated she went on vacation and then didn't realize ithad been that long in between visits. Increased back pain. Pelvic pressure. Discussed wearing support belt. Reports feeling like she is huge. Positive movement. Denies headache, visual changes, chest pain, shortness of breath, vaginal bleeding, leakage of fluid, or dysuria. S>D, Measuring 32-33 weeks- difficult measurement due to panus O: See flow sheet Gen: No apparent distress Abd: Gravid, nontender ASSESSMENT/PLAN: 1. Encounter for supervision of other normal in second trimester - ICD9: V22.1, ICD10: Z34.82 (primary diagnosis) 2. 26 weeks gestation of - ICD9: V22.2, ICD10: Z3A.26 3. Uterine size-date discrepancy, third trimester - ICD9: 649.63, ICD10: O26.843 - S> D - Palpation feels like possible increased fluid - OBSTETRIC ULTRASOUND WHI- Growth US MINAL - Discussed measurements with patient and reasoning for ultrasound- Feels like she is much furtheralong - Anatomy US completed at last visit and was within normal range- was supposed to have follow up anatomy but did not complete - Encouraged keeping regularly scheduled visits - URINE OB DIP B/O - GEST GLUC SCREEN, 1-HR, 50 GM, NON-FASTING - SYPHILIS TOTAL W/REFLEX - CBC + DIFF P: 1) PTL precautions reviewed and when to call 2) RTO 2 weeks or sooner if needed Suri Forrest APRN.CNM documented in this encounterMercy Health [facility] Hospital10-02-2023 Instructions* Patient Instructions* Jonas Andrews Cma - 06/06/2023 11:14 AM EDT SEQUENTIAL SCREENINGS The [facility] offers sequential screenings for women who are interested in screenings for chromosomal abnormalities and certain defects during a . The sequential screen combinesultrasound and blood tests to determine the risk of chromosomal abnormalities, including Down's Syndrome (Trisomy 21) and Trisomy 18, as well as open neural tube defects including spina bifida. Ultrasound examination is performed between 11 weeks and 13 weeks gestational age. Blood tests are drawn after the ultrasound and again later in the between 15 and 21 weeks gestational age. Please let your physician know if you are interested in this testing. It will require an appointment withour hyperbaric technician. This is not an ultrasound performed by a physician in our office during a routine visit. SIGNS AND SYMPTOMS OF LABOR 1. Contractions every 10 minutes or more often 2. Clear, pink, or brownish fluid (water) leaking from vagina 3. Feeling that baby is pushing down, pressure 4. Low, dull backache 5. Cramps that feel like a period 6. Cramps with or without diarrhea If you notice any of the above symptoms, contact our office at [phone] and ask to speak with anurse. After hours, you can call doctors registry at [phone] OR call [facility] at [phone] ask to have the doctor security installation sales technician paged. If you consider this an emergency, dial 9-8 or go to your nearest emergency department. NEED HELP? Are you dealing with a violent or abusive relationship? Are you a victim of rape or sexual assult? Call [facility] ([facility] 24 hour Crisis Hotline: 381.116.6533 or 874-080-5020. MANUAL Your Guide to a Healthy manual is now on-line. Visit [email or web address] to download your free copy documented in this encounterMercy Health [facility]08-25-2023 Miscellaneous Notes* Quick Notes - Suri Forrest APRN.CNM - 04/29/2023 11:24 AM EDT S: Venecia Hart is a 32 year old female who presents at 20.6 weeks gestation for a routine visit.Positive movement. Just completed anatomy US. Denies headache, visual changes, chest pain, shortness of breath, vaginal bleeding, leakage of fluid, or dysuria. Feeling well, no complaints. O: See flow sheet Gen: No apparent distress Abd: Gravid, nontender ASSESSMENT/PLAN: 1. 20 weeks gestation of - ICD9: V22.2, ICD10: Z3A.20 (primary diagnosis) 2. Encounter for supervision of other normal in second trimester - ICD9: V22.1, ICD10: Z34.82 - URINE OB DIP B/O 3. Obesity during - ICD9: 649.10, ICD10: O99.210 P: 1) PTL precautions reviewed and when to call 2) RTO 4 weeks or sooner if needed Suri Forrest APRN.CNM documented in this encounterMercy Health [facility] Hospital08-25-2023 Instructions* Patient Instructions* Jonas Andrews Cma - 04/29/2023 10:29 AM EDT SEQUENTIAL SCREENINGS The [facility] offers sequential screenings for women who are interested in screenings for chromosomal abnormalities and certain defects during a . The sequential screen combinesultrasound and blood tests to determine the risk of chromosomal abnormalities, including Down's Syndrome (Trisomy 21) and Trisomy 18, as well as open neural tube defects including spina bifida. Ultrasound examination is performed between 11 weeks and 13 weeks gestational age. Blood tests are drawn after the ultrasound and again later in the between 15 and 21 weeks gestational age. Please let your physician know if you are interested in this testing. It will require an appointment withour hyperbaric technician. This is not an ultrasound performed by a physician in our office during a routine visit. SIGNS AND SYMPTOMS OF LABOR 1. Contractions every 10 minutes or more often 2. Clear, pink, or brownish fluid (water) leaking from vagina 3. Feeling that baby is pushing down, pressure 4. Low, dull backache 5. Cramps that feel like a period 6. Cramps with or without diarrhea If you notice any of the above symptoms, contact our office at [phone] and ask to speak with anurse. After hours, you can call doctors registry at [phone] OR call [facility] at [phone] ask to have the doctor security installation sales technician paged. If you consider this an emergency, dial 91-2 or go to your nearest emergency department. NEED HELP? Are you dealing with a violent or abusive relationship? Are you a victim of rape or sexual assult? Call [facility] ([place]) 24 hour Crisis Hotline: 416.896.7092 or 813-496-1844. MANUAL Your Guide to a Healthy manual is now on-line. Visit [email or web address] to download your free copy documented in this encounterMercy Health [facility]08-22-2023 Miscellaneous Notes* Telephone Encounter - Iza Mohan RN - 04/26/2023 10:59 AM EDT 2nd risk assessment form submitted 04/26/23. 20w3d today documented in this encounterMercy Health [facility] Hospital08-02-2023 Miscellaneous Notes* Quick Notes - Suri Forrest APRN.CNM - 04/06/2023 1:21 PM EDT S: Venecia Hart is a 32 year old female who presents at 17.4 weeks gestation for a routine visit.Feeling good. Acid reflux resolved. Denies headache, visual changes, chest pain, shortness of breath, vaginal bleeding, leakage of fluid, or dysuria. O: See flow sheet Gen: No apparent distress Abd: Gravid, nontender ASSESSMENT/PLAN: 1. 17 weeks gestation of - ICD9: V22.2, ICD10: Z3A.17 (primary diagnosis) - URINE OB DIP B/O - OBSTETRIC ULTRASOUND WHI 2. Encounter for supervision of other normal in second trimester - ICD9: V22.1, ICD10: Z34.82 3. Obesity during P: 1) PTL precautions reviewed and when to call 2) RTO 4 weeks Suri Forrest APRN.CNM documented in this encounterMercy Health [facility]08-02-2023 Instructions* Patient Instructions* Jonas Andrews Cma - 04/06/2023 1:03 PM EDT SEQUENTIAL SCREENINGS The [facility] offers sequential screenings for women who are interested in screenings for chromosomal abnormalities and certain defects during a . The sequential screen combinesultrasound and blood tests to determine the risk of chromosomal abnormalities, including Down's Syndrome (Trisomy 21) and Trisomy 18, as well as open neural tube defects including spina bifida. Ultrasound examination is performed between 11 weeks and 13 weeks gestational age. Blood tests are drawn after the ultrasound and again later in the between 15 and 21 weeks gestational age. Please let your physician know if you are interested in this testing. It will require an appointment withour hyperbaric technician. This is not an ultrasound performed by a physician in our office during a routine visit. SIGNS AND SYMPTOMS OF LABOR 1. Contractions every 10 minutes or more often 2. Clear, pink, or brownish fluid (water) leaking from vagina 3. Feeling that baby is pushing down, pressure 4. Low, dull backache 5. Cramps that feel like a period 6. Cramps with or without diarrhea If you notice any of the above symptoms, contact our office at [phone] and ask to speak with anurse. After hours, you can call [facility] at [phone] OR call [facility] at [phone] ask to have the doctor security installation sales technician paged. If you consider this an emergency, dial 9--2 or go to your nearest emergency department. NEED HELP? Are you dealing with a violent or abusive relationship? Are you a victim of rape or sexual assult? Call [facility] ([place]) 24 hour Crisis Hotline: 150.337.7606 or 359-223-8162. MANUAL Your Guide to a Healthy manual is now on-line. Visit [email or web address] to download your free copy documented in this encounterMercy Health [facility] Hospital06-28-2023 NoteHNO ID: [id number] Author: Leti Goins Ma Service: ? Author Type: ? Type: Progress Notes Filed: 03/02/2023 12:54 PM Note Text: Patient here for First Trimester Screening. See ultrasound report for details. Options for genetic screening and diagnosis discussed with the patient. Patient opts for first trimester screening and the sequential screening protocol. Limitations of screening tests discussed with the patient. Suri Forrest APRN.[facility]06-28-2023 Miscellaneous Notes* Quick Notes - Suri Forrest APRN.[facility] - 03/02/2023 11:13 AM EDT S: Venecia Hart is a 32 year old female who presents at 12.4 weeks gestation for a routine visit with NT US. Had labs drawn prior to US and didn't know she needed to complete these after US. Interested in sequential screening. Continues to have nausea with emesis daily. Increased acid reflux. Minimal relief with TUMS. Interested in medications. Denies headache, visual changes, chest pain, shortness of breath, vaginal bleeding, leakage of fluid, or dysuria. O: See flow sheet Gen: No apparent distress Abd: Gravid, non tender ASSESSMENT/PLAN: 1. 12 weeks gestation of - ICD9: V22.2, ICD10: Z3A.12 (primary diagnosis) 2. Tobacco smoking affecting , antepartum - ICD9: 649.03, ICD10: O99.330 3. Nausea and vomiting during - ICD9: 643.90, ICD10: O21.9 4. Obesity during - ICD9: 649.10, ICD10: O99.210 P: 1) PTL precautions reviewed and when to call 2) RTO 4 weeks Suri Forrest APRN.CNM documented in this encounterMercy Health [facility] Hospital06-28-2023 History of Present illness Narrative* Leti Goins Ma - 03/02/2023 10:52 AM EDT Patient here for First Trimester Screening. See ultrasound report for details. Options for genetic screening and diagnosis discussed with the patient. Patient opts for first trimester screening and the sequential screening protocol. Limitations of screening tests discussed withthe patient. Suri Forrest APRN.CNM documented in this encounterMercy Health [facility] Hospital06-28-2023 Instructions* Patient Instructions* Leti Goins Ma - 03/02/2023 9:51 AM EDT SEQUENTIAL SCREENINGS The [facility] offers sequential screenings for women who are interested in screenings for chromosomal abnormalities and certain defects during a . The sequential screen combinesultrasound and blood tests to determine the risk of chromosomal abnormalities, including Down's Syndrome (Trisomy 21) and Trisomy 18, as well as open neural tube defects including spina bifida. Ultrasound examination is performed between 11 weeks and 13 weeks gestational age. Blood tests are drawn after the ultrasound and again later in the between 15 and 21 weeks gestational age. Please let your physician know if you are interested in this testing. It will require an appointment withour hyperbaric technician. This is not an ultrasound performed by a physician in our office during a routine visit. SIGNS AND SYMPTOMS OF LABOR 1. Contractions every 10 minutes or more often 2. Clear, pink, or brownish fluid (water) leaking from vagina 3. Feeling that baby is pushing down, pressure 4. Low, dull backache 5. Cramps that feel like a period 6. Cramps with or without diarrhea If you notice any of the above symptoms, contact our office at [phone] and ask to speak with anurse. After hours, you can call doctors registry at [phone] OR call [facility] at [phone] ask to have the doctor security installation sales technician paged. If you consider this an emergency, dial 9-1- or go to your nearest emergency department. NEED HELP? Are you dealing with a violent or abusive relationship? Are you a victim of rape or sexual assult? Call [facility] ([place]) 24 hour Crisis Hotline: 504.556.6433 or 377-264-5713. MANUAL Your Guide to a Healthy manual is now on-line. Visit [email or web address] to download your free copy SEQUENTIAL TESTING PROCESS Sequential Screen First Trimester Today you are currently: 12w4d weeks 03/02/2023: Ultrasound and blood test. Sequential Screen Second Trimester (16-17 Weeks Gestation) When you are called with your results, the nurse will give the optimal draw dates for the Sequential screen second trimester. Blood testing can be done at any [facility] lab. Please report to the any carbon coater machine operator office hotel front desk clerk for the Sequential Part 2 requisition and order before reporting to the lab. Your weight will need to be documented for testing. Please note: -No appointment is need for your second blood draw. -Office hours are 8 am to 4:30 pm. -Please have testing done prior to 12 noon on Tuesday's -Once the sequential testing is started, in the first trimester the only follow- up will be for the sequential screen second trimester. Please don't have a Quad screen ordered by another provider. If you or your Provider have any questions please call your maternal medicine office, for east side please call [phone] or for the West side call [phone] and ask for the the nurse. Thank you. documented in this encounterMercy Health [facility] Hospital06-05-2023 Miscellaneous Notes* Telephone Encounter - Asad Barnard RN - 02/07/2023 3:02 PM EDT Initial risk assessment form submitted 02/07/2023 Asad Barnard RN documented in this encounterMercy Health [facility]sburg Hospital05-31-2023 NoteHNO ID: [id number] Author: Suri Forrest APRN.CNM Service: ? Author Type: Racehorse Trainer Type: Progress Notes Filed: 02/02/2023 4:33 PM Note Text: OB point of care ultrasound was performed. See imaging tab for details. Suri Forrest APRN.[facility]NPrem[facility]05-31-2023 History of Present illness Narrative* Suri Forrest APRN.CNM - 02/02/2023 4:32 PM EDT OB point of care ultrasound was performed. See imaging tab for details. Suri Forrest APRN.CNM documented in this encounterMercy Health [facility] Hospital05-31-2023 NoteHNO ID: [id number] Author: Suri Forrset APRN.CNM Service: ? Author Type: Racehorse Trainer Type: Progress Notes Filed: 02/02/2023 2:45 PM Note Text: Lubricating Specialist offered: Patient declines. INITIAL OB ASSESSMENT OB Provider: Suri Forrest CNM HPI: Venecia is a 32 year old White here to establish Obstetrical Care. Patient's last menstrual period was 09/29/2022 (approximate). from OB Dating Form. Cycles irregular was unplanned but accepted Complaints: nausea and vomiting. Emesis daily OB History T2 L2 SAB0 IAB0 Ectopic0 Multiple0 Live Births2 Previous history: Prior : never History of 4th degree laceration: Yes History of shoulder dystocia: No History of Hypertensive disorders including pre-eclampsia, chronic hypertension or gestational hypertension: No History of gestational diabetes: No Patient's Risk Screening for delivery: MEDICAL/PSYCHOSOCIAL HISTORY: History of hemorrhage or bleeding concerns: No Thyroid Disease: No History of chronic hypertension: No History of pre-existing diabetes: No No results found for: ABORHD BMI 36.24 kg/(m2) History of abnormal pap: Yes Prior treatment for cervical dysplasia: LEEP. 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 I don't have enough money to pay my bills: Never Within the past 12 months, have you worried that your food would run out before you had money to buy more: Never In the past 12 months, has lack of reliable transportation kept you from going to medical appointments or work, or from keeping things needed for daily living: Never In the past 12 months, have you had any concerns about having a place to live, or about the condition or quality of your housing: Never Are there any cultural or spiritual needs we should be aware of: No Over the past two weeks have you felt down, depressed, or hopeless: Negative Over the past two weeks have you felt little interest or pleasure in doing things: Negative GENETIC SCREENING: Partner present: Yes Patient verbalized knowledge of partner family health history: Yes Do you or your partner have any personal or family history of defects not previously discussed: No Do you have history of a complicated by anomaly, genetic condition, or demise: No Marital Status: Partner: Name: Galindo Age: 36 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 PNV no.95/ferrous fum/folic ac ( MULTIVITAMINS ORAL) Take by mouth. Ethinyl Estradiol-Norelgestrom (ORTHO EVRA) 150-20 mcg/24 hr Apply 1 Patch as directed once each week. 3 Patch 11 No current facility-administered medications for this visit. Allergies As of Date: 02/02/2023 Allergen Noted Reaction BEES 03/02/2012 Swelling WHITE CHOCOLATE [OTHER] 03/02/2012 Shortness of Breath Fully Assessed 02/02/2023 Does patient have penicillin allergy: No REVIEW OF SYSTEMS: GENERAL: Negative for: Fever or Chills and Positive for: Fatigue HEENT: Negative for: Headache, Impaired Vision, Ringing in Ears, Nosebleeds NECK: Negative for: Swelling, Pain, Stiffness RESPIRATORY: Negative for: Cough, Shortness of breath, Wheezing GASTROINTESTINAL: Negative for: Heartburn, Constipation, Diarrhea, Blood in stool, Vomiting, Positive for: Nausea and Vomiting, and Positive for: Heartburn MUSCULOSKELETAL: Negative for: Muscle or joint pain, stiffness, Joint swelling NEUROLOGIC/PSYCHIATRIC: Negative for: Weakness, Paralysis, Numbness, Tingling, Tremor, Anxiety, Depression, Memory loss SKIN: Negative for: Rash, Itching GENITOURINARY: Negative for: vaginal itching, vaginal discharge, hematuria or dysuria PHYSICAL EXAM: BP 120/78 Ht 5' 3 (1.60m) Wt 204 lb 9.6 oz (92.8kg) LMP 09/29/2022 BMI 36.25 kg/(m2). GENERAL: pleasant in no apparent distress DERMATOLOGY: Normal and without lesions NECK: Supple and full range of motion CHEST: Normal i (more content not included)...[facility] 02-02-2023 Miscellaneous Notes* Quick Notes - Suri Forrest APRN.CNM - 02/02/2023 2:43 PM EDT Patient seen for NOB. See progress note. Suri Forrest APRN.CNM [facility] History of Present illness Narrative* Suri Forrest APRN.CNM - 02/02/2023 12:49 PM EDT Images from the original note were not included. Lubricating Specialist offered: Patient declines. INITIAL OB ASSESSMENT OB Provider: Suri Forrest CNM HPI: Venecia is a 32 year old White here to establish Obstetrical Care. Patient's last menstrual period was 09/29/2022 (approximate). from OB Dating Form. Cycles irregular was unplanned but accepted Complaints: nausea and vomiting. Emesis daily OB History T2 L2 SAB0 IAB0 Ectopic0 Multiple0 Live Births2 Previous history: Prior : never History of 4th degree laceration: Yes History of shoulder dystocia: No History of Hypertensive disorders including pre-eclampsia, chronic hypertension or gestational hypertension: No History of gestational diabetes: No Patient's Risk Screening for delivery: MEDICAL/PSYCHOSOCIAL HISTORY: History of hemorrhage or bleeding concerns: No Thyroid Disease: No History of chronic hypertension: No History of pre-existing diabetes: No No results found for: ABORHD BMI 36.24 kg/(m^2) History of abnormal pap: Yes Prior treatment for cervical dysplasia: LEEP. 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 I don't have enough money to pay my bills: Never Within the past 12 months, have you worried that your food would run out before you had money to buy more: Never In the past 12 months, has lack of reliable transportation kept you from going to medical appointments or work, or from keeping things needed for daily living: Never In the past 12 months, have you had any concerns about having a place to live, or about the condition or quality of your housing: Never Are there any cultural or spiritual needs we should be aware of: No Over the past two weeks have you felt down, depressed, or hopeless: Negative Over the past two weeks have you felt little interest or pleasure in doing things: Negative GENETIC SCREENING: Partner present: Yes Patient verbalized knowledge of partner family health history: Yes Do you or your partner have any personal or family history of defects not previously discussed: No Do you have history of a complicated by anomaly, genetic condition, or demise: No Marital Status: Partner: Name: Galindo Age: 36 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 PNV no.95/ferrous fum/folic ac ( MULTIVITAMINS ORAL) Take by mouth. Ethinyl Estradiol-Norelgestrom (ORTHO EVRA) 150-20 mcg/24 hr Apply 1 Patch as directed once each week. 3 Patch 11 No current facility-administered medications for this visit. Allergies As of Date: 02/02/2023 Allergen Noted Reaction BEES 03/02/2012 Swelling WHITE CHOCOLATE [OTHER] 03/02/2012 Shortness of Breath Fully Assessed 02/02/2023 Does patient have penicillin allergy: No REVIEW OF SYSTEMS: GENERAL: Negative for: Fever or Chills and Positive for: Fatigue HEENT: Negative for: Headache, Impaired Vision, Ringing in Ears, Nosebleeds NECK: Negative for: Swelling, Pain, Stiffness RESPIRATORY: Negative for: Cough, Shortness of breath, Wheezing GASTROINTESTINAL: Negative for: Heartburn, Constipation, Diarrhea, Blood in stool, Vomiting, Positive for: Nausea and Vomiting, and Positive for: Heartburn MUSCULOSKELETAL: Negative for: Muscle or joint pain, stiffness, Joint swelling NEUROLOGIC/PSYCHIATRIC: Negative for: Weakness, Paralysis, Numbness, Tingling, Tremor, Anxiety, Depression, Memory loss SKIN: Negative for: Rash, Itching GENITOURINARY: Negative for: vaginal itching, vaginal discharge, hematuria or dysuria PHYSICAL EXAM: BP 120/78 Ht 5' 3 (1.60m) Wt 204 lb 9.6 oz (92.8kg) LMP 09/29/2022 BMI 36.25 kg/(m^2). GENERAL: pleasant in no apparent distress DERMATOLOGY: Normal and without lesions NECK: Supple and full range of motion CHEST: Normal inspiratory effort BREAST: deferred ABDOMEN: soft, non-tender, and no masses NEURO: alert and oriented x3,exam grossly non-focal PELVIS: External genitalia normal without lesions. Perineal body intact. No vaginal or cervical lesions. Scant bleeding with exam. Cervix closed. Uterus 8 week size. No adnexal masses or tenderness. Clinical Pelvimetry: Pelvimetry clinically assessed as adequate Limited OB ultrasound exam: single intrauterine , positive cardiac activity, and crown-rump length 8.4 OB Risk Screening: Completed, positive findings include: Patient answered 'Yes' to other abnormalities of the uterus not otherwise mentioned. See comments in OB Risk Screening. SBIRT Veneciamedardo Hart was given the 4P's screening tool. Venecia answered as follows: OB Opioid Screening - Last Recorded (since 05/08/2022) Did any of your parents have a problem with alcohol or other drug use? No Does your partner have a problem with alcohol or other drug use? No In the past, have you had difficulties in your life because of alcohol or other drugs, including prescription medications? No In the past month have you drunk any alcohol or used other drugs? No Are you taking medication for pain during the either prescribed or not? Yes medical marijuana Based on the screen and further questions, she is considered at Low risk due to:Low level of use stopped prior to or immediately upon known . Positive reinforcement of current behavior. Suri Forrest APRN.CACHORRO ASSESSMENT: 32 year old at 8.4 wks gestational age PLAN: 1) Patient oriented to practice. Discussed nutrition, folic acid supplementation, dietary guidelines, exercise, smoking, alcohol, caffeine, and drug use. Discussed gestational weight gain guidelines. Discussed routine OB labs including STD/HIV. Discussed aneuploidy and carrier screening. Regarding aneuploidy screening, nuchal translucency/first trimester early anatomy ultrasound and NIPT were discussed. Regarding carrier screening, the myriad screen was discussed. The risks/benefits and limitations of NIPT/aneuploidy screening were reviewed including the potential for false negative and false positive results. We discussed the availability of professional-society guided carrier screening and reviewed the conditions screened and limitations of screening. The availability of genetic counseling was reviewed. Information on aneuploidy/carrier screening was provided. The patient chooses: Aneuploidy screening: chooses to proceed with NIPT (10 weeks) and Carrier screening: Declines Discussed hemoglobin electrophoresis. Patient: Accepts 2) Patient with Obesity (BMI >30), will order early glucose screen or Hemoglobin A1C. Follow up in 4 weeks for NT US, labs and DI or sooner prn. Suri Forrest APRN.CNM [facility] Instructions* Patient Instructions* Cynthia Banda MA - 02/02/2023 12:49 PM EDT Please select the following link to access the [facility] Your Guide to a Healthy . [email or web address] documented in this [facility]23 NoteHNO ID: [id number] Author: Fabrizio Campoverde RN Service: ? Author Type: ? Type: Progress Notes Filed: 01/27/2023 3:02 PM Note Text: # 1 - Date: 08/05/14, Sex: Female, Weight: 7 lb 7.2 oz (3.379 kg), GA: 38w4d, Delivery: Vaginal, Spontaneous, Apgar1: None, Apgar5: None, Living: Living, Comments: AROM, episiotomy # 2 - Date: 08/07/15, Sex: Female, Weight: 7 lb 13 oz (3.544 kg), GA: 39w5d, Delivery: Vaginal, Spontaneous, Apgar1: None, Apgar5: None, Living: Living, Comments: 1st degree ML lac repaired # 3 - Date: None, Sex: None, Weight: None, GA: None, Delivery: None, Apgar1: None, Apgar5: None, Living: None, Comments[facility] De Los Santos [facility] January 03, 2023 12:15am Note Date/Time January 02, 2023 9:5 5pm [facility] Medical Records Department [address] [place] [address] Emergency Department Summary 01/02/23 MR#: [id number] Acct: [id number] Name: VENECIA HART Rep #:[id number] : 1990 32 From: Davey MATHEWS PCP: Care Physician,No Primary Status :REG ER Location: ED HPI <BISI Sesay - Last Filed: 01/02/23 22:10> History of Present Illness Chief Complaint: Abd Pain Narrative Narrative: Patient is a 32-year-old female with no significant medical history who currently does not see a physician who presents to the emergency department withconcern of a positive test. Patient is a 2 para 2. Patient and her do not use any control. They have not had any pregnanciesor concern for in the last 7 years. Patient states that over the last3 days she has been having lower abdominal pain, frequent urination, took a homepregnancy test and was positive. Patient's last menstrual cycle was September 2022, she states that she is always been irregular and single multiple months without a menstrual cycle. Her cycles are usually 7 days and heavy. Patient denies any nausea or vomiting. Denies any back pain, fever or chills. PFSH <BISI Sesay - Last Filed: 01/02/23 22:10> PFSH Medical History Depression Home Medications amoxicillin 875 mg-potassium clavulanate 125 mg tablet 1 tab PO BID 7 days #14 tabs 07/31/22 [Rx Last Taken Unknown] prednisone 20 mg tablet 40 mg PO DAILY 7 days #14 tabs 07/31/22 [Rx Last Taken Unknown] vit,calcium no.40-iron fum 27 mg iron-folate no.1 1 mg tablet (PNV- Select) 1 tab PO DAILY #30 tabs 01/03/23 [Rx Last Taken Unknown] Allergy/AdvReac Type Severity Reaction Status Date / Time bee venom protein (honey bee) Allergy Swelling Verified 01/02/23 20:42 chocolate flavor Allergy Hives Verified 01/02/23 20:42 Social History Smoking Status: Current every day smoker tobacco type: cigarettes ROS <BISI Sesay - Last Filed: 01/02/23 22:10> ROS ED ROS Narrative Constitutional: Negative for fever, chills, weight loss, weakness Eyes: Negative for vision loss, vision change, double vision ENT: Negative for any sore throat, ear pain, congestion Cardiovascular: Negative for any chest pain, tightness, palpitations Respiratory: Negative for any cough, sputum production, hemoptysis, dyspnea, dyspnea on exertion, orthopnea Gastrointestinal: Negative for any nausea, vomiting, diarrhea, constipation, blood in stool, blood in vomit. Positive for lower abdominal pain : Negative for any dysuria, retention, blood in urine. Positive for urinary frequency Muscle skeletal: Negative for any muscle joint pain, stiffness, myalgias, arthralgias, neck pain, back pain Neurological: Negative for any headache, syncope, numbness or tingling, dizziness Skin: Negative for any rashes, lumps, itching, abrasions, lacerations Psychiatric: Negative for any depression, anxiety, stress, suicidal ideation, homicidal ideation Hematologic: Negative for any easy bruising, excessive bruising, easy bleeding Allergies: Negative for any eczema, hives, rash EXAM <BISI Sesay - Last Filed: 01/02/23 22:10> Physical Exam Narrative Exam Narrative: Vital signs reviewed. Patient does appear to be anxious, patient is tearful on examination. Patient states that she is scared secondary to her age, she is also not wanting another . HEET: Head normocephalic atraumatic, TMs clear bilaterally. Posterior pharynx is clear, moist mucous membranes. Nares clear bilaterally. Neck: Supple with no lymphadenopathy or tenderness. No signs of meningismus, negative jolt sign. Cardiac: Regular rate and rhythm no murmurs gallops or rubs, equal peripheral pulses bilaterally. Respiratory: Lungs clear to auscultation bilaterally. No chest tenderness. Abdomen: Soft, nontender, nondistended. No abdominal bruit or pulsatile masses. No hepatosplenomegaly Extremities: No peripheral edema, no signs of gross trauma or deformity. Activefull range of motion of all extremities. Neuro: Cranial nerves II through XII intact, no focal neurological deficits. Skin: Clean dry and intact with no rash, purpura, petechiae, vesicles or pustules. Backs/flank: No CVA tenderness, no midline spinal tenderness, no deformity. Psych: Normal mood and affect. No SI, HI or acute psychosis. Const Vital Signs: 01/02/23 20:39 Temperature 97.9 F Temperature Source Temporal Pulse Rate 81 Respiratory Rate 18 Blood Pressure 132/107 H Blood Pressure Mean 115 Pulse Ox 97 Oxygen Delivery Method Room Air <Dr. Daniel De Los Santos MD - Last Filed: 01/03/23 00:15> Physical Exam Const Vital Signs: 01/02/23 20:39 Temperature 97.9 F Temperature Source Temporal Pulse Rate 81 Respiratory Rate 18 Blood Pressure 132/107 H Blood Pressure Mean 115 Pulse Ox 97 Oxygen Delivery Method Room Air MDM <BISI Sesay - Last Filed: 01/02/23 22:10> [facility] Lab Data Attestation: I reviewed the patient's lab results. Labs: Laboratory Results - last 24 hr 01/02/23 01/02/23 01/02/23 21:00 21:07 21:07 WBC 16.7 H RBC 5.52 H Hgb 15.4 H Hct 46.2 MCV 83.7 MCH 27.9 MCHC 33.3 RDW Std Deviation 39.9 RDW Coeff of Jatinder 13.1 Plt Count 321 MPV 9.5 Immature Gran % (Auto) 0.400 Neut % (Auto) 57.3 Lymph % (Auto) 33.4 Pine % (Auto) 7.7 Eos % (Auto) 0.7 Baso % (Auto) 0.5 Absolute Neuts (auto) 9.6 H Absolute Lymphs (auto) 5.58 H Nucleated RBC % 0 Differential Comment SCANNED Sodium 137 Potassium 3.6 Chloride 109 H Carbon Dioxide 23.0 Anion Gap 5 BUN 9 Creatinine 0.73 Estim Creat Clear Calc 93.22 Est GFR (MDRD) Af Amer 121 Est GFR (MDRD) Non-Af 100 BUN/Creatinine Ratio 12.4 Glucose 97 Calcium 9.1 HCG, Quant Urine Color Yellow Urine Clarity Sl. Cloudy Urine pH 7.0 Ur Specific [place] 1.005 Urine Protein Negative Urine Glucose (UA) Normal Urine Ketones Negative Urine Occult Blood Negative Urine Nitrite Negative Urine Bilirubin Negative Urine Urobilinogen Normal Ur Leukocyte Esterase Negative Urine RBC 0 SEEN Urine WBC 0 SEEN Ur Squamous Epith Cells 0-5 SEEN Amorphous Sediment 1+ PHOS Urine Bacteria 0 SEEN Urine Mucus 0 SEEN Urine Test Positive H 01/02/23 21:07 WBC RBC Hgb Hct MCV MCH MCHC RDW Std Deviation RDW Coeff of Jatinder Plt Count MPV Immature Gran % (Auto) Neut % (Auto) Lymph % (Auto) Pine % (Auto) Eos % (Auto) Baso % (Auto) Absolute Neuts (auto) Absolute Lymphs (auto) Nucleated RBC % Differential Comment Sodium Potassium Chloride Carbon Dioxide Anion Gap BUN Creatinine Estim Creat Clear Calc Est GFR (MDRD) Af Amer Est GFR (MDRD) Non-Af BUN/Creatinine Ratio Glucose Calcium HCG, Quant 402 H Urine Color Urine Clarity Urine pH Ur Specific [place] Urine Protein Urine Glucose (UA) Urine Ketones Urine Occult Blood Urine Nitrite Urine Bilirubin Urine Urobilinogen Ur Leukocyte Esterase Urine RBC Urine WBC Ur Squamous Epith Cells Amorphous Sediment Urine Bacteria Urine Mucus Urine Test Radiography Diagnostic Testing: Clinical Impression(s) from Imaging Studies Obstetrics Ultrasound 01/02/23 21:37 IMPRESSION: Intrauterine gestational sac of 5 weeks 0 days as described above. Electronically Signed: Mario Quintanilla MD at 23:17 EDT , Treatment and Re-Evaluation :: Patient appears well, patient appears nontoxic, vital signs are stable.Patient presents to the emergency department for concerns of as well as abdominal pain. Patient's physical examination was grossly unremarkable. Patient had minimal pain on tenderness. Patient is mostly anxious. Patient didreceive laboratory values, patient's CBC showed a leukocytosis with a blood count of 16.7, elevated H&H with a hemoglobin 5.52 and a hemoglobin of 15.4. Patient did have elevated white blood counts from 4512-4362. Patient's chemistries were unremarkable. Patient urinalysis negative for infection, and was positive for . We did attempt a bedside ultrasound however not much was seen. Patient's hCG quantitative was 402. The patient will still receivea transvaginal ultrasound to rule out any ectopic , other abnormality. <Dr. Daniel De Los Santos MD - Last Filed: 01/03/23 00:15> [facility] Lab Data Labs: Laboratory Results - last 24 hr 01/02/23 01/02/23 01/02/23 21:00 21:07 21:07 WBC 16.7 H RBC 5.52 H Hgb 15.4 H Hct 46.2 MCV 83.7 MCH 27.9 MCHC 33.3 RDW Std Deviation 39.9 RDW Coeff of Jatinder 13.1 Plt Count 321 MPV 9.5 Immature Gran % (Auto) 0.400 Neut % (Auto) 57.3 Lymph % (Auto) 33.4 Pine % (Auto) 7.7 Eos % (Auto) 0.7 Baso % (Auto) 0.5 Absolute Neuts (auto) 9.6 H Absolute Lymphs (auto) 5.58 H Nucleated RBC % 0 Differential Comment SCANNED Sodium 137 Potassium 3.6 Chloride 109 H Carbon Dioxide 23.0 Anion Gap 5 BUN 9 Creatinine 0.73 Estim Creat Clear Calc 93.22 Est GFR (MDRD) Af Amer 121 Est GFR (MDRD) Non-Af 100 BUN/Creatinine Ratio 12.4 Glucose 97 Calcium 9.1 HCG, Quant Urine Color Yellow Urine Clarity Sl. Cloudy Urine pH 7.0 Ur Specific [place] 1.005 Urine Protein Negative Urine Glucose (UA) Normal Urine Ketones Negative Urine Occult Blood Negative Urine Nitrite Negative Urine Bilirubin Negative Urine Urobilinogen Normal Ur Leukocyte Esterase Negative Urine RBC 0 SEEN Urine WBC 0 SEEN Ur Squamous Epith Cells 0-5 SEEN Amorphous Sediment 1+ PHOS Urine Bacteria 0 SEEN Urine Mucus 0 SEEN Urine Test Positive H 01/02/23 21:07 WBC RBC Hgb Hct MCV MCH MCHC RDW Std Deviation RDW Coeff of Jatinder Plt Count MPV Immature Gran % (Auto) Neut % (Auto) Lymph % (Auto) Pine % (Auto) Eos % (Auto) Baso % (Auto) Absolute Neuts (auto) Absolute Lymphs (auto) Nucleated RBC % Differential Comment Sodium Potassium Chloride Carbon Dioxide Anion Gap BUN Creatinine Estim Creat Clear Calc Est GFR (MDRD) Af Amer Est GFR (MDRD) Non-Af BUN/Creatinine Ratio Glucose Calcium HCG, Quant 402 H Urine Color Urine Clarity Urine pH Ur Specific [place] Urine Protein Urine Glucose (UA) Urine Ketones Urine Occult Blood Urine Nitrite Urine Bilirubin Urine Urobilinogen Ur Leukocyte Esterase Urine RBC Urine WBC Ur Squamous Epith Cells Amorphous Sediment Urine Bacteria Urine Mucus Urine Test Radiography Diagnostic Testing: Clinical Impression(s) from Imaging Studies Obstetrics Ultrasound 01/02/23 21:37 IMPRESSION: Intrauterine gestational sac of 5 weeks 0 days as described above. Electronically Signed: Mario Quintanilla MD at 23:17 EDT , Treatment and Re-Evaluation Comments:: Seen and evaluated independently and in conjunction with nurse practitioner. Agree with notes above unless documented otherwise. Irregular menstruation, last normal menstrual cycle was in September, positive home test x2. Pain in her pelvis nonlateralizing no bleeding. On exam, abdomen mildly tender suprapubic, no urinary symptoms, no guarding or rebound, no palpable enlarged organs. Quant is low, we obtained a stat emergent transvaginal ultrasound, it shows a gestational sac in the uterus consistent with 5-week 0-day , I reviewedthe images and the radiologist's interpretation which I agree with. Patient reassured, consistent with early and the lack of an ectopic . Close outpatient follow-up advised with the hearing health technician on-call since patient does not have 1. Discharge Plan Triage Chief Complaint: Abd Pain ED Midlevel Provider: Davey Goldman ED Provider: Daniel De Los Santos Dx/Rx/DC Orders Clinical Impression: Early stage of , Pelvic pain affecting in first trimester, antepartum Instructions: ED Abdominal Pain, Early Prescriptions: New PNV-Select 27-1 mg tablet 1 tab PO DAILY Qty: 30 0RF Rx Instructions: or equivalent generic PNV No Action amoxicillin-pot clavulanate 875-125 mg tablet 1 tab PO BID 7 Days Qty: 14 0RF prednisone 20 mg tablet 40 mg PO DAILY 7 Days Qty: 14 0RF Primary Care Provider: Care Physician,No Primary Referrals: Haven Cross MD [Med Staff - Active Staff] - 5-7 Days Care Physician,No Primary [Primary Care Provider] - Disposition Disposition: Home, Self Care What to do if you have Problems For any increased pain, shortness of breath, bleeding, nausea or vomiting, chestpain, or any unexpected problems, contact your Primary Care Provider. Call [facility] ([phone]) or report to the closest Emergency Room. Call 911 if necessary. 01/02/23 2211 <Electronically signed by Davey GRIFFITHSC> Cosigner Signature (if applicable): 01/03/23 0015 <Electronically signed by Daniel De Los Santos MD> CC: Dr. Haven Cross MD; No Primary Care Physician ~ Signed [facility] Work Phone: [employer] noteNo assessment information available [facility] Work Phone: Evaluation note* Diagnosis Supervision of other normal , antepartum- Primary 8 weeks gestation of state, incidental History of depression Personal history of other mental disorder Tobacco smoking affecting , antepartum Obesity during Nausea and vomiting during [facility] Diagnosis with uncertain dates in first trimester- Primary [facility]* Diagnosis 12 weeks gestation of - Primary state, incidental Tobacco smoking affecting , antepartum Nausea and vomiting during Obesity during [facility] Diagnosis Encounter for (NT) nuchal translucency scan- Primary Other specified screening Supervision of other normal , antepartum 12 weeks gestation of state, incidental [facility] Diagnosis 17 weeks gestation of - Primary state, incidental Encounter for supervision of other normal in second trimester Obesity during [facility] Diagnosis 20 weeks gestation of - Primary state, incidental Encounter for supervision of other normal in second trimester Obesity during [facility] Diagnosis Encounter for anatomic survey- Primary Obesity affecting in second trimester, unspecified obesity type 20 weeks gestation of state, incidental [facility] Diagnosis Encounter for supervision of other normal in second trimester- Primary 26 weeks gestation of state, incidental Uterine size-date discrepancy, third trimester Obesity during Tobacco smoking affecting , antepartum [facility] Diagnosis 28 weeks gestation of - Primary state, incidental Encounter for supervision of normal first in third trimester Supervision of normal first Obesity during Tobacco smoking affecting , antepartum Uterine size-date discrepancy, third trimester [facility] Diagnosis Uterine size-date discrepancy, third trimester- Primary 28 weeks gestation of state, incidental [facility] Diagnosis Encounter for supervision of normal first in third trimester- Primary Supervision of normal first 30 weeks gestation of state, incidental Obesity during Tobacco smoking affecting , antepartum Uterine size-date discrepancy, third trimester Anemia complicating , third trimester [facility] Diagnosis 32 weeks gestation of - Primary state, incidental Anemia complicating , third trimester [facility] Diagnosis Obesity affecting in third trimester, unspecified obesity type- Primary 35 weeks gestation of state, incidental Tobacco smoking affecting , antepartum Supervision of high risk , antepartum Anemia complicating , third trimester [facility] Diagnosis Encounter for ultrasound to check growth- Primary Encounter for routine screening for malformation using ultrasonics Obesity during 35 weeks gestation of state, incidental [facility] Diagnosis 37 weeks gestation of - Primary state, incidental Supervision of high risk in third trimester Unspecified high-risk Obesity during Uterine size-date discrepancy, third trimester [facility]* Diagnosis Onset Date Resolution Status 37 weeks gestation of acute Obesity affecting acute Uterine contractions acute 38 weeks gestation of acute Care and examination of lactating mother acute Gestational hypertension acu te Headache in acute LGA (large for gestational age) fetus acute Meconium in amniotic fluid a cute Obesity affecting acute Rubella non-immune status, antepartum acute (spontaneous vaginal delivery) acute Vaginal delivery acute [facility] Work Phone: Evaluation note* Diagnosis care and examination- Primary Routine follow-up Encounter for IUD insertion Encounter for insertion of intrauterine contraceptive device care and examination of lactating mother [facility] Diagnosis Encounter for IUD insertion- Primary Encounter for insertion of intrauterine contraceptive device [facility]* Diagnosis Surveillance of previously prescribed intrauterine contraceptive device- [facility] Additional Instructions Your CT scan today does not show any type of tumor mass bleed or abscess. It does show thickening and inflammation of the sinuses around your eye/forehead region. I feel your headache is secondary to this inflammation and thickening. Be placed on steroids to help reduce inflammation as well as antibiotics to cover for bacterial infection. He can continue with Tylenol Motrin as needed and please return to the ER should you have any further concernsW[facility]: Reason for referral (narrative)* Diagnostic Procedure Only (Routine) - Authorized Specialty Diagnoses / Procedures Referred By Nevin t Referred To Contact [facility] Diagnoses Supervision of other normal , antepartum Procedures NUCHAL TRANSLUCENCY WHI US NUCHAL TRANSLUCENCY 1ST GESTATION Suri Forrest APRN.CNM [address] [place] [address] [place] [id number] Referral ID Status Reason Start Date Expiration Date Visits Requested Visits Authorized [id number] Authorized Auto-Generat ed Referral 02/02/2023 02/02/2024 1 1 * Diagnostic Procedure Only (Routine) - Pending Review Specialty Diagnoses / Procedures Referred By Nevin t Referred To Contact [facility] Diagnoses Supervision of other normal , antepartum Procedures OBSTETRIC ULTRASOUND WHI US PREG UTERUS AFTER 1ST TRIMEST GESTATION Suri Forrest APRN.CNM [address] [place] [address] [address] Referral ID Status Reason Start Date Expiration Date Visits Requested Visits Authorized [id number] Pending Review Auto-Generat ed Referral 02/02/2023 02/02/2024 1 1 [facility] for referral (narrative)* Diagnostic Procedure Only (Routine) - Authorized Specialty Diagnoses / Procedures Referred By Contac t Referred To Contact [facility] Diagnoses 17 weeks gestation of Procedures OBSTETRIC ULTRASOUND WHI US PREG UTERUS AFTER 1ST TRIMEST GESTATION Suri Forrest APRN.CNM [address] [place] [address] [address] Referral ID Status Reason Start Date Expiration Date Visits Requested Visits Authorized [id number] Authorized Auto-Generat ed Referral 04/06/2023 04/05/2024 1 1 [facility] for referral (narrative)* Diagnostic Procedure Only (Routine) - Authorized Specialty Diagnoses / Procedures Referred By Contac t Referred To Contact [facility] Diagnoses Uterine size-date discrepancy, third trimester Procedures OBSTETRIC ULTRASOUND WHI US PREG UTERUS AFTER 1ST TRIMEST GESTATION Suri Forrest APRN.CNM [address] [place] [address] [address] Referral ID Status Reason Start Date Expiration Date Visits Requested Visits Authorized [id number] Authorized Auto-Generat ed Referral 06/06/2023 06/05/2024 5 1 [facility] for referral (narrative)* Outpatient Procedure (Routine) - Pending Review Specialty Diagnoses / Procedures Referred By Contac t Referred To Contact [facility] Diagnoses care and examination Encounter for IUD insertion Procedures INSERT INTRAUTERINE DEVICE INSERT INTRAUTERINE DEVICE Suri Forrest APRN.CNM [address] [place] [address] [address] Referral ID Status Reason Start Date Expiration Date Visits Requested Visits Authorized [id number] Pending Review Auto-Generat ed Referral 11/09/2023 11/08/2024 1 1 [facility] for referral (narrative)* Outpatient Procedure (Routine) - Pending Review Specialty Diagnoses / Procedures Referred By Contac t Referred To Contact [facility] Diagnoses Encounter for IUD insertion Procedures INSERT INTRAUTERINE DEVICE LEVONORGESTREL IU 52MG 5 YR INSERT INTRAUTERINE DEVICE Suri Forrest APRN.CNM [address] [place] [address] [facility] [address] [place] [address] Referral ID Status Reason Start Date Expiration Date Visits Requested Visits Authorized [id number] Pending Review Auto-Generat ed Referral 11/18/2023 11/17/2024 1 1 [facility] Summary Purpose Family History No Family History Records FoundNo Family History Records FoundNo Family History Records FoundNo Family History Records Found Advance Directives No Advanced Directives Records Found Advance Directive Response Recorded Date/ Time Living Will No July 31, 2 022 4:37am Power of Head 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 No July 31, 2022 4:37am Advance Directive Response Recorded Date/ Time Living Will No January 03, 2023 12 :17am Power of Head School Custodian No January 03, 2023 12:17am Advance Directive Response Recorded Date/ Time Living Will No August 31, 2 023 8:40pm Power of Head School Custodian No August 31, 2023 8:40pm Chief Complaint and Reason for Visit Chief Complaint head ache Chief Complaint Abd Pain, Chief Complaint R/O VAGINAL DELIVERY Reason for Visit 37 weeks gestation o f Obesity affecting Uterine contractions 38 weeks gestation of Care and examination of lactating mother Gestational hypertension Headache in LGA (large for gestational age) fetus Meconium in amniotic fluid Obesity affecting Rubella non-immune status, antepartum (spontaneous vaginal delivery) Vaginal delivery Health Concerns Problem Noted Date [facility] - [facility] 01/05 [place] - [place] 02/02/2023 Problem Noted Date [facility] - [facility] 01/05 Education - [place] 02/02/2023 Problem Noted Date [facility] - [facility] 01/05 Education - [place] 02/02/2023 Problem Noted Date [facility] - [facility] 01/05 Education - [place] 02/02/2023 Problem Noted Date [facility] - [facility] 01/05 Education - [place] 02/02/2023 Problem Noted Date Diagnosed Date [facility] - [facility] 02/02/2023 Education - [place] 02/02/2023 Problem Noted Date Diagnosed Date [facility] - [facility] 02/02/2023 Education - [place] 02/02/2023 Problem Noted Date Diagnosed Date [facility] - [facility] 02/02/2023 Education - [place] 02/02/2023 Problem Noted Date Diagnosed Date [facility] - [facility] 02/02/2023 Education - [place] 02/02/2023 Problem Noted Date Diagnosed Date [facility] - [facility] 02/02/2023 Education - [place] 02/02/2023 Problem Noted Date Diagnosed Date [facility] - [facility] 02/02/2023 Education - [place] 02/02/2023 Problem Noted Date Diagnosed Date [facility] - [facility] 02/02/2023 Education - [place] 02/02/2023 Problem Noted Date Diagnosed Date [facility] - [facility] 02/02/2023 Education - [place] 02/02/2023 Problem Noted Date Diagnosed Date [facility] - [facility] 02/02/2023 Education - [place] 02/02/2023 Problem Noted Date Diagnosed Date [facility] - [facility] 02/02/2023 Education - [place] 02/02/2023 Problem Noted Date Diagnosed Date [facility] - [facility] 02/02/2023 Education - [place] 02/02/2023 Additional Source Comments INFORMATION SOURCE (unrecogn ized section and content) DATE CREATED AUTHOR 02/27/2018 [facility] DATE CREATED AUTHOR AUTHOR'S ORGANIZ ATION 03/01/2018 [facility] DATE CREATED AUTHOR AUTHOR'S ORGANIZ ATION 10/25/2023 [facility] DATE CREATED AUTHOR AUTHOR'S ORGANIZ ATION 12/25/2023 [facility] Goals (unrecognized section and content) Goals may be documented in a n alternate sectionGoals may be documented in an alternate section Care Teams (unrecognized sec tion and content) Team Status: Active Member Role Status Dates No Primary Care Physician Family Provider Active No Primary Care Physician Primary Care Provider Active Team Status: Inactive Member Role Status Dates No Primary Care Physician Primary Care Provider Active Dr. Mehnaz Nieto MD Referring Provider Active Dr. Daniel De Los Santos MD Emergency Provider Active Team Status: Inactive Member Role Status Dates No Primary Care Physician Primary Care Provider Active Suri Forrest CNM Attending Provider, Referring Pr ovidpia Active Team Status: Inactive Member Role Status Dates No Primary Care Physician Primary Care Provider Active Suri Forrest CNM Admit Provider, At tending Provider, Referring Provider Active Source Comments (unrecognize d section and content) In the event this informatio n is protected by the Federal Confidentiality of Alcohol and Drug Abuse Patient Records regulations: The Federal rules restrict any use of the information to criminally investigate or prosecute any alcohol or drug abuse patient.[facility] the event this information is protected by the Federal Confidentiality of Alcohol and Drug Abuse Patient Records regulations: The Federal rules restrict any use of the information to criminally investigate or prosecute any alcohol or drug abuse patient.[facility] the event this information is protected by the Federal Confidentiality of Alcohol and Drug Abuse Patient Records regulations: The Federal rules restrict any use of the information to criminally investigate or prosecute any alcohol or drug abuse patient.[facility] the event this information is protected by the Federal Confidentiality of Alcohol and Drug Abuse Patient Records regulations: The Federal rules restrict any use of the information to criminally investigate or prosecute any alcohol or drug abuse patient.[facility] the event this information is protected by the Federal Confidentiality of Alcohol and Drug Abuse Patient Records regulations: The Federal rules restrict any use of the information to criminally investigate or prosecute any alcohol or drug abuse patient.[facility] the event this information is protected by the Federal Confidentiality of Alcohol and Drug Abuse Patient Records regulations: The Federal rules restrict any use of the information to criminally investigate or prosecute any alcohol or drug abuse patient.[facility] the event this information is protected by the Federal Confidentiality of Alcohol and Drug Abuse Patient Records regulations: The Federal rules restrict any use of the information to criminally investigate or prosecute any alcohol or drug abuse patient.[facility] the event this information is protected by the Federal Confidentiality of Alcohol and Drug Abuse Patient Records regulations: The Federal rules restrict any use of the information to criminally investigate or prosecute any alcohol or drug abuse patient.[facility] the event this information is protected by the Federal Confidentiality of Alcohol and Drug Abuse Patient Records regulations: The Federal rules restrict any use of the information to criminally investigate or prosecute any alcohol or drug abuse patient.[facility] the event this information is protected by the Federal Confidentiality of Alcohol and Drug Abuse Patient Records regulations: The Federal rules restrict any use of the information to criminally investigate or prosecute any alcohol or drug abuse patient.[facility] the event this information is protected by the Federal Confidentiality of Alcohol and Drug Abuse Patient Records regulations: The Federal rules restrict any use of the information to criminally investigate or prosecute any alcohol or drug abuse patient.[facility] Hospital[facility] the event this information is protected by the Federal Confidentiality of Alcohol and Drug Abuse Patient Records regulations: The Federal rules restrict any use of the information to criminally investigate or prosecute any alcohol or drug abuse patient.[facility] Hospital[facility] the event this information is protected by the Federal Confidentiality of Alcohol and Drug Abuse Patient Records regulations: The Federal rules restrict any use of the information to criminally investigate or prosecute any alcohol or drug abuse patient.[facility] the event this information is protected by the Federal Confidentiality of Alcohol and Drug Abuse Patient Records regulations: The Federal rules restrict any use of the information to criminally investigate or prosecute any alcohol or drug abuse patient.[facility] the event this information is protected by the Federal Confidentiality of Alcohol and Drug Abuse Patient Records regulations: The Federal rules restrict any use of the information to criminally investigate or prosecute any alcohol or drug abuse patient.[facility] the event this information is protected by the Federal Confidentiality of Alcohol and Drug Abuse Patient Records regulations: The Federal rules restrict any use of the information to criminally investigate or prosecute any alcohol or drug abuse patient.[facility] Hospital[facility] the event this information is protected by the Federal Confidentiality of Alcohol and Drug Abuse Patient Records regulations: The Federal rules restrict any use of the information to criminally investigate or prosecute any alcohol or drug abuse patient.[facility] Hospital[facility] the event this information is protected by the Federal Confidentiality of Alcohol and Drug Abuse Patient Records regulations: The Federal rules restrict any use of the information to criminally investigate or prosecute any alcohol or drug abuse patient.[facility] Hospital[facility] the event this information is protected by the Federal Confidentiality of Alcohol and Drug Abuse Patient Records regulations: The Federal rules restrict any use of the information to criminally investigate or prosecute any alcohol or drug abuse patient.[facility] Hospital[facility] the event this information is protected by the Federal Confidentiality of Alcohol and Drug Abuse Patient Records regulations: The Federal rules restrict any use of the information to criminally investigate or prosecute any alcohol or drug abuse patient.[facility] Reason for Visit (unrecogniz ed section and content) Reason Comments 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 [address] [place] [address] Referral ID Status Reason Start Date Expiration Date V isits Requested Visits Authorized [id number] Closed Auto-Generate d Referral 04/06/2023 04/05/2024 1 1 Reason Onset Date Comments Care 06/06/2023 Reason Onset Date Comments Care 06/22/2023 Specialty Diagnoses / Procedures Referred By Contac t Referred To Contact [facility] Diagnoses Uterine size-date discrepancy, third trimester Procedures OBSTETRIC ULTRASOUND WHI US PREG UTERUS AFTER 1ST TRIMEST GESTATION Suri Forrest APRN.CNM [address] [place] [address] [address] Referral ID Status Reason Start Date Expiration Date V isits Requested Visits Authorized [id number] Closed Auto-Generate d Referral 06/06/2023 06/05/2024 5 1 Reason Onset Date Comments Care 07/06/2023 Reason Onset Date Comments Care 07/20/2023 Reason Onset Date Comments Care 08/11/2023 Specialty Diagnoses / Procedures Referred By Contac t Referred To Contact [facility] Diagnoses 17 weeks gestation of Encounter for supervision of other normal in second trimester Obesity during Procedures OBSTETRIC ULTRASOUND WHI US PREG UTERUS AFTER 1ST TRIMEST GESTATION Suri Forrest APRN.CNM [address] [place] [address] [facility] [address] [place] [id number] Referral ID Status Reason Start Date Expiration Date V isits Requested Visits Authorized [id number] Closed Auto-Generate d Referral 04/29/2023 04/28/2024 1 1 Reason Onset Date Comments Care 08/24/2023 Reason Comments Routine Reason Onset Date Comments Insertion Of IUD 11/18/2023 Specialty Diagnoses / Procedures Referred By Contac t Referred To Contact [facility] Diagnoses care and examination Encounter for IUD insertion Procedures INSERT INTRAUTERINE DEVICE INSERT INTRAUTERINE DEVICE LEVONORGESTREL IU 52MG 5 YR REMOVE INTRAUTERINE DEVICE Suri Forrest APRN.CNM [address] [place] [address] [facility] [address] [place] [address] Referral ID Status Reason Start Date Expiration Date Visits Requested Visits Authorized [id number] Authorized Auto-Generat ed Referral 11/10/2023 09/04/2024 2 2 Reason Comments IUD follow up Inactive Administered Medications - up to 3 most recent administrations Administered Medications (un recognized section and content) Medication Order MAR Action Action Date Dose Rate Site levonorgestrel 21 mcg/24 hours (8 yrs) 52 mg 1 Each intrauterine device (MIRENA) 1 Each, INTRAUTERINE, ONCE (UP TO 30 DAYS AMB), 1 dose, On Tue11/18/23 at 1100, Hazardous Potential Reproductive Risk Drug: Use appropriate PPE. Given 11/18/2023 10:52 AM EDT 1 Each Other FOR RECORDS PERTAINING TO PATIENTS WHO ARE OR HAVE BEEN ENROLLED IN A CHEMICAL DEPENDENCY/SUBSTANCEABUSE PROGRAM, SOME INFORMATION MAY BE OMITTED. This clinical summary was aggregated from multiple sources. Caution should be exercised in using it in the provision of clinical care. This summary normalizes information from multiple sources, and as a consequence, information in this document may materially change the coding, format and clinical context of patient data. In addition, data may be omitted in some cases. CLINICAL DECISIONS SHOULD BE BASED ON THE PRIMARY CLINICAL RECORDS. [employer] provides no warranty or guarantee of the accuracy or completeness of information in this document.
[2025-08-25 09:25] LABS: AST(SGOT) 18 U/L (<=31); Alanine Aminotransfer ALT/SGPT 24 U/L (<=34); Albumin, Serum 4.5 g/dL (3.5-5.0); Alkaline Phosphatase 60 U/L (35-104); Anion Gap 13 (5-15); BUN 13 mg/dL (4-19); BUN/Creat Ratio 17.2 RATIO (10-20); Calcium,Total 8.9 mg/dL (7.6-11.0); Carbon Dioxide 22.2 mmol/L (21.0-32.0); Chloride 104 mmol/L (98-108); Estimated Creatinine Clearance 114.85 ml/min (50-250); Globulin 2.5 g/dL (2.2-4.2); Glucose 127 mg/dL (70-99); Lipase 38 U/L (13-75); Potassium 4.1 mmol/L (3.3-5.1)
[2025-08-25 09:43] LABS: Internal QC Validated? YES +Cl - CLEAR BKGD
[2025-08-25 09:44] LABS: Pregnancy, Urine Negative Negative
--- NOTE | 2025-08-25 11:24 | PCM.HP.STD ---
HPI - General General Date of Service: 08/25/25 HPI Narrative ARTUR OWEN, is a 34 F who presents for abdominal pain. Patient was found to have an incarcerated umbilical hernia which is partially reducible ER physician. However CT on pelvis showed adipose tissue in the hernia patient has required 8 mg of morphine in the ER. Patient states he had pain starting yesterday morning but had a business [place] constitution party so she dealt with it. Patient states pain was worse this morning and came to the ER. Patient did have nausea and vomiting due to the pain. Patient never had previous abdominal surgery. [facility] Medical History (Updated 08/25/25 @ 11:[address] Linh Ness MD) Former smoker Hypertension (spontaneous vaginal delivery) Obesity Smoker Bicornate uterus Anemia Rubella non-immune status, antepartum LGA (large for gestational age) fetus Gestational hypertension Obesity affecting Depression Home Medications ?Medication ?Instructions ?Recorded ?Last Taken ?Type vit,calcium no.40-iron 1 tab PO DAILY vitamin #30 tabs 01/03/23 08/25/23 Rx fum 27 mg iron-folate no.1 1 mg tablet (PNV-Select) Allergy/AdvReac Type Severity Reaction Status Date / Time bee venom protein (honey bee) Allergy Swelling Verified 08/25/25 08:24 chocolate flavor Allergy Hives Verified 08/25/25 08:24 Social History Smoking Status: Light Smoker (<10/day) Patient's Goals Of Care . What would you like to achieve or improve as a result of your hospital stay?: resolve hernia Vital Signs Vital Signs Vital Signs: 08/25/25 08:22 08/25/25 10:21 Temperature 98.1 F Temperature Source Oral Pulse Rate 81 77 Respiratory Rate 15 18 Blood Pressure 146/83 H 144/80 H Blood Pressure Mean 104 101 Pulse Ox 99 99 Oxygen Delivery Method Room Air Room Air Weight Weight: 209 lb Body Mass Index (BMI) 37.0 Physical Exam Const alert, oriented x3 and no apparent distress HEENT normocephalic and head/scalp atraumatic Resp normal respiratory effort Cardio regular rate GI soft to palpation; Negative for non-distended Palpation: tender Positive for periumbilical (At incarcerated umbilical hernia unable to reduce.); Negative for guarding Extremity no clubbing, cyanosis or edema Neuro CN's II-XII intact bilaterally Psych mental status grossly normal Results Lab / Micro Data 08/25/25 08:50 08/25/25 08:50 Labs: Laboratory Results - last 24 hr 08/25/25 08:30: Urine Test Negative 08/25/25 08:40: Urine Color Yellow, Urine Clarity Sl. Cloudy, Urine pH 7.0, Ur Specific [place] 1.015, Urine Protein 30 H, Urine Glucose (UA) Normal, Urine Ketones Negative, Urine Occult Blood Negative, Urine Nitrite Negative, Urine Bilirubin Negative, Urine Urobilinogen Normal, Ur Leukocyte Esterase Negative, Urine RBC 0 SEEN, Urine WBC 0 SEEN, Ur Squamous Epith Cells 10-25 SEEN, Amorphous Sediment 1+, Urine Bacteria 2+, Urine Mucus 0 SEEN 08/25/25 08:50: WBC 13.0 H, RBC 5.67 H, Hgb 15.5 H, Hct 46.5, MCV 82.0, MCH 27.3, MCHC 33.3, RDW Std Deviation 38.6, RDW Coeff of Jatnider 13.1, Plt Count 292, MPV 9.5, Immature Gran % (Auto) 0.300, Neut % (Auto) 60.7, Lymph % (Auto) 27.9, Schleicher % (Auto) 8.8, Eos % (Auto) 1.6, Baso % (Auto) 0.7, Absolute Neuts (auto) 7.9 H, Absolute Lymphs (auto) 3.63, Nucleated RBC % 0, Sodium 140, Potassium 4.1, Chloride 104, Carbon Dioxide 22.2, Anion Gap 13, BUN 13, Creatinine 0.77, Estim Creat Clear Calc 114.85, Est GFR (MDRD) Non-Af 105, BUN/Creatinine Ratio 17.2, Glucose 127 H, Lactic Acid 1.2, Calcium 8.9, Total Bilirubin 0.43, AST 18, ALT 24, Alkaline Phosphatase 60, Total Protein 7.0, Albumin 4.5, Globulin 2.5, Albumin/Globulin Ratio 1.8, Lipase 38 Imaging Radiology Impression Abdomen/Pelvis CT 08/25/25 08:36 IMPRESSION: 1. Small fat containing umbilical hernia with associated acute inflammatory changes. 2. Hepatic steatosis. 3. Additional findings as discussed in the body of the report. Reading Location: [id number] Assessment & Plan Assessment/Plan (1) Incarcerated umbilical hernia: PLAN: Plan Plan to do an umbilical herniorrhaphy with possible mesh. Reviewed the procedure with the patient including the risks, including but not limited to infection, bleeding, injury to the small bowel, and recurrence. Likely will not be using mesh due to inflamed tissue. Patient had no further questions at this time. Linh Ness M.D. Pager: [phone] [facility] [address] [place] [address] [place] [address] Office: [phone]
--- OUTSIDE RECORDS SUMMARY | 2025-08-25 11:34 | XMS RPT_ITS | CCD ---
Author Organization [facility] CliniSymt Care Team Providers Care Engineer Systems Name Role Phone RIDER, ANUPAM Patton Unavailable [...] Physician, No Primary Referring Unava ilable Fortune PATTERNMAKER PLAST[employer], Gi Attending Unavailable [employer] PATTERNMAKER [employer], Gi Attending Unavailable Care Physician, No Primary Primary Care Unava ilable Care Physician, No Primary Referring Unava ilable PLOTTS, SURI Referring Unavailable PLOTTS, SURI Referring Unavailable PLOTTS, SURI Referring Unavailable PLOTTS, SURI Attending Unavailable PLOTTS, SURI Referring Unavailable PLOTTS, SUIR [...] [chocolate flavor] Allergy to substance 2 Hives [facility] (3 sources) bee venom protein (honey bee) Allergy to substance 2 Swelling [facility] (20 sources) Bees; Translations: [BEES] Allergy to substance 2 Swelling [facility] Work Phone: (17 sources) white chocolate [Other] Propensity to adverse reactions 2 Shortness of Breath [facility] Work Phone: (1 source) bee venom protein (honey bee) Drug allergy (disorder) 3 [facility] Repository (4 sources) Chocolate; Translations: [CHOCOLATE] Food Allergy 3 Shortness of Breath [facility] (1 source) OTHER; Translations: [OTHER] Propensity to adverse reactions (disorder) 2 [facility] Repository Medications Current Medications Medication Drug Class(es) Dates Sig (Normalized) Sig (Original) levonorgestrel 0.498698 mg/hr intrauterine system (3 sources) Progestin, Progestin-containi [...] or equivalent generic PNV Start: 01-03-2023 ,Calc. 68-Klpi-Veixyz 1 (Pnv-Select) 27-1 mg tablet Active 1 [...] Take by mouth. 168 hr ethinyl estradiol 0.55931 mg/hr / norelgestromin 0.33637 mg/hr transdermal system (1 source) Progestin, Estrogen [...] 31, 2022 12:00am August 25, 2023 11:51am Vit,Iter78-Vmak-Spgi c (Prenatabs Fa ) 1 TABLET tablet (3 sources) Start: 06-15-2014 End: 08-05-2014 take 1 tablet by mouth once daily Vit,Zwpe87-Trht-Pg lic (Prenatabs Fa ) 1 TABLET tablet Discontinued 1 TABLET PO DAILY June 15, 2014 12:00am August 05, 2014 3:34am Start: 06-15-2014 End: 08-05-2014 take 1 tablet by mouth once daily Vit,Ttiw63-Dpth-Kmdqf (Prenatab s Fa ) 1 TABLET tablet [...] Office Visit (OBGYWM) ---- VENECIA HART I ([id number]) 1990 F [place] Date Time Provider Department [...] GENERAL: No weight loss, malaise or fevers SUPERVISOR REACTOR FUELING: Negative for abnormal vaginal bleeding, abnormal vaginal [...] exam or sooner if needed. Suri Plotts, LANDSCAPE SUPERVISOR.CNM Allergies As of Date: 12/21/2023 Noted Allergy [...] for Encounter Date Provider Department Center 12/21/2023 [id number] FORREST Encounter Status:Closed by SURI FORREST on 12/21/23 Normal [facility] CNOVon 11-18-2023 CN Office Visit (OBGYWM) ---- VENECIA HART I ([id number]) 1990 F [place] Date Time Provider Department 11/18/23 10:30 AM SURI FORREST During your visit today, we recorded the following information about you: Blood pressure Weight 120/80 98.6 kg Suri Forrest APRN.CN 11/18/2023 12:02 PM Signed Skiver Blockers offered: Patient declines. Cuadra presents today for IUD insertion for contraception. Patient's last menstrual period was 11/07/2023 (approximate). GC/chlamydia: Negative on 02/02/2023 test: negative Side effects including irregular bleeding were discussed with the patient. The patient understands that it should be removed in 8 years or sooner if the patient desires a . IUD source: office provided IUD lot #: [id number] Exp date: 09/2025 [facility]: [id number] UNIVERSAL PROTOCOL / SAFETY CHECKLIST Procedure to [...] contact the office. Referring Provider: SURI FORREST [[id number]] Allergies As of Date: 11/18/2023 Noted Allergy Reaction BEES 03/02/2012 7 - Swelling CHOCOLATE 08/31/2023 12 - Shortness of Breath Comments: White chocolate Date Reviewed: 11/18/2023 Reviewed by: Isabella Baird, Student - Fully Assessed Reason for Visit: Insertion Of IUD [291] Primary Visit Diagnosis:Encounter for IUD insertion [Z30.430] Order(s):INSERT INTRAUTERINE DEVICE [3714436] Order #: [id number] [] levonorgestrel 21 mcg/24 hours (8 yrs) 52 mg 1 Each intrauterine device (MIRENA)Disp: Rfl: levonorgestrel (MIRENA) 21 mcg/24 hours (8 yrs) 52 mg IUD1 Each by INTRAUTERINE route as directed.Disp: 1 EachRfl: 0 UA DIP,URINE HCG (POC) [0785717] Order #: [id number]. #:[id number] Prescriptions as of 11/18/2023 - levonorgestrel (MIRENA) [...] POST IU (more content not included)... Normal [facility] UA DIP,URINE HCG (POC)on Beta HCG ( test) Ql (U) Negative Negative [facility] Instrument Room Technician (POCT) Internal QC OK [facility] MR/BMS.BBJameson 09-08-2023 [facility] [address] [facility] [place] [address] OFFICE VISIT Date of Service: 09/06/23 MR#: [id number] Acct: [id number] Name: VENECIA HART Rep #: [id number] : 1990 Provider: Gi Hopkins NP Age/Sex: 32/F [place] [facility] [place]: Signed Intake Vital Signs 09/05/23 08:57 [...] Z39.1 09/08/23 1253 Date Gi Hopkins NP PATTERNMAKER PLASTICS-Mary Cosigner Signature: Date (if applicable) CC: Normal [facility] MR/LISETTE.Nabila 09-05-2023 MR/LISETTE.LAURIE [facility] [address] [address] OFFICE VISIT Date of Service: 09/04/23 MR#: [id number] Acct: [id number] Name: VENECIA HART Rep #: [id number] : 1990 Provider: Gi Hopkins NP Age/Sex: 32/F [place] [facility] [place]: Signed Intake Vital Signs 08/31/23 20:11 [...] Z39.1 09/05/23 0859 Date Gi Hopkins NP PATTERNMAKER PLASTICS-Mary Whittingtonigner Signature: Date (if applicable) CC: Normal [facility] Discharge Instructionon 08-06 Discharge Instruction [facility] Medical Records Department [address] [place] [address] Instructions for Home/Discharge Instructions 09/02/23 0820 MR#: [id number] Acct: [id number] Name: VENECIA HART Rep #: [id number] : 1990 32 From: Sabrina Coon DO [...] No Primary Care Physician * Signed Normal [facility] Operative Reporton 3 Operative Report [facility] Medical Records Department [address] [place] [address] Operative Report 09/01/23 1244 MR#: [id number] Acct: [id number] Name: VENECIA HART Rep #: [id number] : 1990 32 From: Suri Forrest CNM PCP: Care Physician,No Primary Status:ADM IN Location: [place] [address] Assessment Plan (1) (spontaneous vaginal delivery): (2) [...] Forrest; No Primary Care Physician Signed Normal [facility] AST(SGOT)on 08-31-2023 AST [Catalytic activity/Vol] 14 U/L Low 15-37 [facility] Comment on above: Performed By: #### L 100.0500, L501.1105, L501.1400, L501.4100, L501.4405, L501.0900 #### [facility] [address] [place], [address] Absolute lymphocyte countOrd ered By: Suri Forrest on 08-31-2023 Lymphocytes Auto (Unsp spec) [#/Vol] 3.16 10*3/uL 0.83-4.51 [facility] Alanine Aminotransferas (SGP T)Ordered By: Suri Forrest on 08-31-2023 ALT [Catalytic activity/Vol] 15 U/L Normal 13-56 [facility] Comment on above: Performed By: #### L 100.0500, L501.1105, L501.1400, L501.4100, L501.4405, L501.0900 #### [facility] [address] [place], [address] Automated blood hematocrit ( percentage)Ordered By: Suri Forrest on 08-31-2023 Hematocrit (Bld) [Volume fraction] 32.2 % Low 37-47 [facility] Comment on above: Performed By: #### L 100.0100, L500.2500 #### [facility] [address] [place], [address] Basophil percentageOrdered B y: Suri Forrest on 08-31-2023 Basophils/100 WBC (Bld) 0.3 % Normal 0-1 [facility] Comment on above: Performed By: #### L 100.0100, L500.2500 #### [facility] [address] [place], [address] Eosinophils/100 WBC (Bld) 0.3 % Normal 0-5 [facility] Comment on above: Performed By: #### L 100.0100, L500.2500 #### [facility] [address] [place], [address] Neutrophils/100 WBC (Bld) 74.1 % High 47-70 [facility] Comment on above: Performed By: #### L 100.0100, L500.2500 #### [facility] [address] [place], [address] WBC (Bld) [#/Vol] 19.2 10*3/uL High 4.4-11.0 [facility] Comment on above: Performed By: #### L 100.0100, L500.2500 #### [facility] [address] [place], [address] Neutrophils (Bld) [#/Vol] 14.2 10*3/uL 2.0-7.7 [facility] Blood erythrocytes count (nu mber/volume)Ordered By: Suri Forrest on 08-31-2023 RBC (Bld) [#/Vol] 3.84 10*6/uL Low 4.2-5.4 [facility] Comment on above: Performed By: #### L 100.0100, L500.2500 #### [facility] [address] [place], [address] Blood hemoglobin measurement (mass/volume)Ordered By: Suri Forrest on 08-31-2023 Hemoglobin (Bld) [Mass/Vol] 11.2 g/dL Low 12.0-15.0 [facility] Comment on above: Performed By: #### L 100.0100, L500.2500 #### [facility] [address] [place], [address] Blood lymphocytes/100 leukoc ytesOrdered By: Suri Forrest on 08-31-2023 Lymphocytes/100 WBC (Bld) 16.5 % Low 19-41 [facility] Comment on above: Performed By: #### L 100.0100, L500.2500 #### [facility] [address] [place], [address] Blood monocytes/100 leukocyt esOrdered By: Suri Forrest on 08-31-2023 Monocytes/100 WBC (Bld) 7.7 % Normal 0-10 [facility] Comment on above: Performed By: #### L 100.0100, L500.2500 #### [facility] [address] [place], [address] Blood platelet mean volumeOr dered By: Suri Forrest on 08-31-2023 Platelet mean volume (Bld) [Entitic vol] 10.7 fL Normal 6.2-12.0 [facility] Comment on above: Performed By: #### L 100.0100, L500.2500 #### [facility] [address] [place], [address] CBC W/Diff, Automatedon 12-2 Absolute Lymph 3.16 X10 3/uL Normal 0.83-4.51 [facility] Comment on above: Performed By: #### L 100.0100, L500.2500 #### [facility] [address] [place], [address] Absolute Neut 14.2 X10 3/uL High 2.0-7.7 [facility] Comment on above: Performed By: #### L 100.0100, L500.2500 #### [facility] [address] [place], [address] IG% 1.100 High 0.0-0.9 [facility] Comment on above: Result Comment: IG% - Immature Granulocytes (promyelocytes, myelocytes and metamyelocytes) > 1% indicates that a LEFT SHIFT is Present. Performed By: #### L 100.0100, L500.2500 #### [facility] [address] [place], [address] Nucleated RBC (Bld) [#/Vol] 0 10*3/uL Normal 0-5 [facility] Comment on above: Performed By: #### L 100.0100, L500.2500 #### [facility] [address] [place], [address] RDW SD 44.6 fl High 35.1-43.9 [facility] Comment on above: Performed By: #### L 100.0100, L500.2500 #### [facility] [address] [place], [address] CBC W/Diff, AutomatedOrdered By: Suri Forrest on 08-31-2023 Erythrocyte distribution width (RBC) [Ratio] 14.6 % Normal 11.6-14.6 [facility] Comment on above: Performed By: #### L 100.0100, L500.2500 #### [facility] [address] [place], [address] MCH (RBC) [Entitic mass] 29.2 pg Normal 27.0-32.0 [facility] Comment on above: Performed By: #### L 100.0100, L500.2500 #### [facility] [address] [place], [address] CBC-Complete Blood Cnt No Di ffon 08-31-2023 Erythrocyte distribution width (RBC) [Ratio] 14.8 % High 11.6-14.6 [facility] Comment on above: Result Comment: CBCD ORDERED INSTEAD Performed By: #### L 100.0500, L501.1105, L501.1400, L501.4100, L501.4405, L501.0900 #### [facility] [address] [place], [address] Hematocrit (Bld) [Volume fraction] 32.7 % Low 37-47 [facility] Comment on above: Result Comment: CBCD ORDERED INSTEAD Performed By: #### L 100.0500, L501.1105, L501.1400, L501.4100, L501.4405, L501.0900 #### [facility] [address] [place], [address] Hemoglobin (Bld) [Mass/Vol] 11.0 g/dL Low 12.0-15.0 [facility] Comment on above: Result Comment: CBCD ORDERED INSTEAD Performed By: #### L 100.0500, L501.1105, L501.1400, L501.4100, L501.4405, L501.0900 #### [facility] [address] [place], [address] MCH (RBC) [Entitic mass] 28.4 pg Normal 27.0-32.0 [facility] Comment on above: Result Comment: CBCD ORDERED INSTEAD Performed By: #### L 100.0500, L501.1105, L501.1400, L501.4100, L501.4405, L501.0900 #### [facility] [address] [place], [address] MCHC (RBC) [Mass/Vol] 33.6 g/dL Normal 32-36 [facility] Comment on above: Result Comment: CBCD ORDERED INSTEAD Performed By: #### L 100.0500, L501.1105, L501.1400, L501.4100, L501.4405, L501.0900 #### [facility] [address] [place], [address] MCV (RBC) [Entitic vol] 84.3 fL Normal 81-99 [facility] Comment on above: Result Comment: CBCD ORDERED INSTEAD Performed By: #### L 100.0500, L501.1105, L501.1400, L501.4100, L501.4405, L501.0900 #### [facility] [address] [place], [address] Platelet mean volume (Bld) [Entitic vol] 10.1 fL Normal 6.2-12.0 [facility] Comment on above: Result Comment: CBCD ORDERED INSTEAD Performed By: #### L 100.0500, L501.1105, L501.1400, L501.4100, L501.4405, L501.0900 #### [facility] [address] [place], [address] Platelets (Bld) [#/Vol] 337 10*3/uL Normal 150-450 [facility] Comment on above: Result Comment: CBCD ORDERED INSTEAD Performed By: #### L 100.0500, L501.1105, L501.1400, L501.4100, L501.4405, L501.0900 #### [facility] [address] [place], [address] RBC (Bld) [#/Vol] 3.88 10*6/uL Low 4.2-5.4 [facility] Comment on above: Result Comment: CBCD ORDERED INSTEAD Performed By: #### L 100.0500, L501.1105, L501.1400, L501.4100, L501.4405, L501.0900 #### [facility] [address] [place], [address] RDW SD 45.1 fl High 35.1-43.9 [facility] Comment on above: Result Comment: CBCD ORDERED INSTEAD Performed By: #### L 100.0500, L501.1105, L501.1400, L501.4100, L501.4405, L501.0900 #### [facility] [address] [place], [address] WBC (Bld) [#/Vol] 19.1 10*3/uL High 4.4-11.0 [facility] Comment on above: Result Comment: CBCD ORDERED INSTEAD Performed By: #### L 100.0500, L501.1105, L501.1400, L501.4100, L501.4405, L501.0900 #### [facility] [address] [place], [address] Determination of erythrocyte mean corpuscular volume (MCV)Ordered By: Suri Forrest on 08-31-2023 MCV (RBC) [Entitic vol] 83.9 fL Normal 81-99 [facility] Comment on above: Performed By: #### L 100.0100, L500.2500 #### [facility] [address] [place], [address] H AND P Exam - OB/GYNon 08-06 H&P Exam - 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 Normal [facility] L509.8000on 08-31-2023 Syphilis Abs Non-Reactive Normal [facility] Comment on above: Performed By: #### L 100.0100, L500.2500 #### [facility] [address] [place], [address] Laboratory - Hematology and Cell countsOrdered By: Suri Forrest on 08-31-2023 Erythrocyte distribution width (RBC) [Entitic vol] 44.6 fL 35.1-43.9 [facility] Immature granulocytes/100 WBC (Bld) 1.100 % 0.0-0.9 [facility] Comment on above: IG% - Immature Granu locytes (promyelocytes, myelocytes and metamyelocytes) > 1% indicates that a LEFT SHIFT is Present. Nucleated RBC/100 WBC (Bld) [Ratio] 0 % 0-5 [facility] MCHC [Mass/volume] by Automa danyelle countOrdered By: Suri Forrest on 08-31-2023 MCHC (RBC) [Mass/Vol] 34.8 g/dL Normal 32-36 [facility] Comment on above: Performed By: #### L 100.0100, L500.2500 #### [facility] [address] [place], [address] No Panel InformationOrdered By: Suri Forrest on 08-31-2023 Estimated GFR (MDRD) Amer 127 mL/min >60 [facility] Comment on above: GFR Calc Estimated GFR (MDRD) Non-Af Amer 105 mL/min >60 [facility] Comment on above: Non- GFR Calc Platelets bldOrdered By: Jl Forrest on 08-31-2023 Platelets (Bld) [#/Vol] 342 10*3/uL Normal 150-450 [facility] Comment on above: Performed By: #### L 100.0100, L500.2500 #### [facility] [address] [place], [address] Protein+Creatinine Ratio,Uri neon 08-31-2023 PROT:CRE RATIO 266 mg/g CRE High 0-200 [facility] Comment on above: Performed By: #### L 100.0500, L501.1105, L501.1400, L501.4100, L501.4405, L501.0900 #### [facility] [address] [place], [address] UR CREAT 110.00 mg/dL Normal NO RANGE EST. [facility] Comment on above: Performed By: #### L 100.0500, L501.1105, L501.1400, L501.4100, L501.4405, L501.0900 #### [facility] [address] [place], [address] Serum Creatinine AND GFRon 1 11-01-2022 EST GFR - AA 127 mL/min Normal >60 [facility] Comment on above: Result Comment: Afri can [place] Islander GFR Calc Performed By: #### L 100.0500, L501.1105, L501.1400, L501.4100, L501.4405, L501.0900 #### [facility] [address] [place], [place], [address] (578) GFR/1.73 sq M.predicted among non-blacks MDRD (S/P/Bld) [Vol rate/Area] 105 mL/min/{1.73_m2} Normal >60 [facility] Comment on above: Result Comment: Non- GFR Calc Performed By: #### L 100.0500, L501.1105, L501.1400, L501.4100, L501.4405, L501.0900 #### [facility] [address] [place], [address] (652) Serum Treponema species anti body detectionOrdered By: Suri Forrest on 08-31-2023 Treponema sp Ab Ql (S) Non-Reactive [facility] Serum or plasma creatinine m easurement (mass/volume)Ordered By: Suri Forrest on 08-31-2023 Creatinine [Mass/Vol] 0.70 mg/dL Normal 0.55-1.02 [facility] Comment on above: The validity of the calculated GFR & GFRAA in patients over 70 years has not been determined. Clinical correlation is essential. Result Comment: The validity of the calculated GFR GFRAA in patients over 70 years has not been determined. Clinical correlation is essential. Performed By: #### L 100.0500, L501.1105, L501.1400, L501.4100, L501.4405, L501.0900 #### [facility] [address] [place], [address] (535) Serum or plasma uric acid me asurement (mass/volume)Ordered By: Suri Forrest on 08-31-2023 Urate [Mass/Vol] 4.8 mg/dL 2.6-6.0 [facility] Comment on above: The drugs N-Acetylcy steine and Metamizole may falsely depress this assay. Thin prep Papanicolaou smear with manual screeningOrdered By: Suri Forrest on 08-31-2023 Thin prep Papanicolaou smear with manual screening 14 U/L 15-37 [facility] Type AND Screenon 08-31-2023 ABO and Rh group Nom (Bld) Blood group B Rh(D) positive Normal [facility] Comment on above: Order Comment: Labor Performed By: #### L 100.0100, L500.2500 #### [facility] [address] [place], [address] Uric Acidon 08-31-2023 URIC 4.8 mg/dL Normal 2.6-6.0 [facility] Comment on above: Result Comment: The drugs N-Acetylcysteine and Metamizole may falsely depress this assay. Performed By: #### L 100.0500, L501.1105, L501.1400, L501.4100, L501.4405, L501.0900 #### [facility] [address] [place], [address] Urine creatinine measurement (mass/volume)Ordered By: Suri Forrest on 08-31-2023 Creatinine (U) [Mass/Vol] 110.00 mg/dL NO RANGE EST. [facility] Urine protein measurement (m ass/volume)Ordered By: Suri Forrest on 08-31-2023 Protein (U) [Mass/Vol] 29.3 mg/dL High <11.9 [facility] Comment on above: Performed By: #### L 100.0500, L501.1105, L501.1400, L501.4100, L501.4405, L501.0900 #### [facility] [address] [place], [address] Urine protein/creatinine mas s ratioOrdered By: Suri Forrest on 08-31-2023 Protein/Creatinine (U) [Mass ratio] 266 mg/g CRE 0-200 [facility] OB Triage Physician Noteon 1 10-26-2022 OB Triage Physician Note [facility] Medical Records Department [address] [place] [address] OB Triage Physician Note 08/25/232023 MR#: [id number] Acct: [id number] Name: VENECIA HART Rep #: [id number] : 1990 32 From: Suri Forrest CNM PCP: Care Physician,No Primary Status:DEP CLI Y Location: [facility] HPI - General HPI Narrative VENECIA HART, [...] Forrest; No Primary Care Physician Signed Normal [facility] URINE OB DIP B/Oon Glucose Ql (U) Negative Neg mg/dL [facility] Protein.monoclonal (U) [Mass/Vol] Negative Neg mg/dL [facility] OBSTETRIC ULTRASOUND WHIon 1 10-13-2022 [facility] ROUTINE, GROUP B ST REP PCRon 08-11-2023 ROUTINE, GROUP B STREP PCR GROUP B STREP PCR: Negative for Group B Streptococcus by PCR. Normal [facility] Comment on above: Performed By: #### G BPCR ####[facility] [id number] [place] [address] [place] URINE OB DIP B/Oon 3 Glucose Ql (U) Negative Neg mg/dL [facility] Protein.monoclonal (U) [Mass/Vol] Negative Neg mg/dL [facility] CBC W Auto Differential pane l (Bld)on 08-03-2023 Basophils (Bld) [#/Vol] 0.00 10*3/uL Normal <0.11 [facility] Comment on above: Order Comment: Speci men Type: BLOOD SPECIMEN Ordering Facility: [facility] Address: [address] [place] [address] Performed By: #### 2 276-4, 92916-2 #### [facility] CLIA [id number] [address] [place] [address] [place] Basophils/100 WBC (Bld) 0.0 % Normal C [facility] Comment on above: Order Comment: Speci men Type: BLOOD SPECIMEN Ordering Facility: [facility] Address: [address] [place] [address] Performed By: #### 2 276-4, 11130-6 #### [facility] CLIA [id number] [address] [place] [address] [place] Differential cell count method Nom (Bld) Manual Normal [facility] Comment on above: Order Comment: Speci men Type: BLOOD SPECIMEN Ordering Facility: [facility] Address: [address] [place] [address] Performed By: #### 2 276-4, 45325-0 #### [facility] CLIA [id number] [address] [place] [address] [place] Eosinophils (Bld) [#/Vol] 0.20 10*3/uL Normal <0.46 [facility] Comment on above: Order Comment: Speci men Type: BLOOD SPECIMEN Ordering Facility: [facility] Address: [address] [place] [address] Performed By: #### 2 276-4, 41924-1 #### [facility] CLIA [id number] [address] [id number] [address] [place] Eosinophils/100 WBC (Bld) 1.0 % Normal [facility] Comment on above: Order Comment: Speci men Type: BLOOD SPECIMEN Ordering Facility: [facility] Address: [address] [place] [address] Performed By: #### 2 276-4, 09414-5 #### [facility] CLIA [id number] [address] [place] [address] [place] Lymphocytes (Bld) [#/Vol] 1.59 10*3/uL Normal 1.00-4.00 [facility] Comment on above: Order Comment: Speci men Type: BLOOD SPECIMEN Ordering Facility: [facility] Address: [address] [place] [address] Performed By: #### 2 276-4, 19990-8 #### [facility] CLIA [id number] [address] [place] [address] [place] Lymphocytes/100 WBC (Bld) 8.0 % Normal [facility] Comment on above: Order Comment: Speci men Type: BLOOD SPECIMEN Ordering Facility: [facility] Address: [address] [place] [address] Performed By: #### 2 276-4, 44435-2 #### [facility] CLIA [id number] [address] [place] [address] [place] Monocytes (Bld) [#/Vol] 1.39 10*3/uL High <0.87 [facility] Comment on above: Order Comment: Speci men Type: BLOOD SPECIMEN Ordering Facility: [facility] Address: [address] [place] [address] Performed By: #### 2 276-4, 57782-6 #### [facility] CLIA [id number] [address] [place] [address] [place] Monocytes/100 WBC (Bld) 7.0 % Normal [facility] Comment on above: Order Comment: Speci men Type: BLOOD SPECIMEN Ordering Facility: [facility] Address: [address] [place] [address] Performed By: #### 2 276-4, 21903-0 #### [facility] CLIA [id number] [address] [place] [address] [place] MYELO% 2.0 % Normal [facility] Comment on above: Order Comment: Speci men Type: BLOOD SPECIMEN Ordering Facility: [facility] Address: [address] [place] [address] Performed By: #### 2 276-4, 24475-7 #### [facility] CLIA [id number] [address] [place] [address] [place] Neutrophils (Bld) [#/Vol] 16.29 10*3/uL High 1.45-7.50 [facility] Comment on above: Order Comment: Speci men Type: BLOOD SPECIMEN Ordering Facility: [facility] Address: [address] [place] [address] Performed By: #### 2 276-4, 20391-9 #### [facility] CLIA [id number] [address] [place] [address] [place] Neutrophils/100 WBC (Bld) 82.0 % Normal [facility] Comment on above: Order Comment: Speci men Type: BLOOD SPECIMEN Ordering Facility: [facility] Address: [address] [place] [address] Performed By: #### 2 276-4, 68522-1 #### [facility] CLIA [id number] [address] [place] [address] [place] Nucleated RBC (Bld) [#/Vol] 10*3/uL Normal <0.01 [facility] Comment on above: Order Comment: Speci men Type: BLOOD SPECIMEN Ordering Facility: [facility] Address: [address] [place] [address] Performed By: #### 2 276-4, 78568-4 #### [facility] CLIA [id number] [address] [place] [address] [place] Nucleated RBC/100 WBC (Bld) [Ratio] 0.0 /100 WBC Normal [facility] Comment on above: Order Comment: Speci men Type: BLOOD SPECIMEN Ordering Facility: [facility] Address: [address] [place] [address] Performed By: #### 2 276-4, 18758-5 #### [facility] CLIA [id number] [address] [place] [address] [place] Platelets Estimate (Bld) [#/Vol] Adequate Normal [facility] Comment on above: Order Comment: Speci men Type: BLOOD SPECIMEN Ordering Facility: [facility] Address: [address] [place] [address] Performed By: #### 2 276-4, 43453-8 #### [facility] CLIA [id number] [address] [place] [address] [place] RED CELL MORPH Reviewed: unremarkable Normal [facility] Comment on above: Order Comment: Speci men Type: BLOOD SPECIMEN Ordering Facility: [facility] Address: [address] [place] [address] Performed By: #### 2 276-4, 34639-5 #### [facility] CLIA [id number] [facility] [place] [address] [place] WBC Left Shift Ql (Bld) Present Normal [facility] Comment on above: Order Comment: Speci men Type: BLOOD SPECIMEN Ordering Facility: [facility] Address: [address] [place] [address] Performed By: #### 2 276-4, 48825-5 #### [facility] CLIA [id number] [address] [place] [address] [place] CBC panel Auto (Bld)on 08-03 Erythrocyte distribution width (RBC) [Ratio] 14.2 % Normal 11.5-15.0 [facility] Comment on above: Order Comment: Speci men Type: BLOOD SPECIMEN Ordering Facility: [facility] Address: [address] [place] [address] Performed By: #### 2 276-4, 75182-7 #### [facility] CLIA [id number] [address] [place] [address] [place] Hematocrit (Bld) [Volume fraction] 33.6 % Low 36.0-46.0 [facility] Comment on above: Order Comment: Speci men Type: BLOOD SPECIMEN Ordering Facility: [facility] Address: [address] [place] [address] Performed By: #### 2 276-4, 35354-9 #### [facility] CLIA [id number] [address] [place] [address] [place] Hemoglobin (Bld) [Mass/Vol] 11.3 g/dL Low 11.5-15.5 [facility] Comment on above: Order Comment: Speci men Type: BLOOD SPECIMEN Ordering Facility: [facility] Address: [address] [place] [address] Performed By: #### 2 276-4, 96342-8 #### [facility] CLIA [id number] [address] [place] [address] [place] MCH (RBC) [Entitic mass] 27.8 pg Normal 26.0-34.0 [facility] Comment on above: Order Comment: Speci men Type: BLOOD SPECIMEN Ordering Facility: [facility] Address: [address] [place] [address] Performed By: #### 2 276-4, 94750-0 #### [facility] CLIA [id number] [address] [place] [address] [place] MCHC (RBC) [Mass/Vol] 33.6 g/dL Normal 30.5-36.0 [facility] Comment on above: Order Comment: Speci men Type: BLOOD SPECIMEN Ordering Facility: [facility] Address: [address] [place] [address] Performed By: #### 2 276-4, 49108-1 #### [facility] CLIA [id number] [address] [place] [address] [place] MCV (RBC) [Entitic vol] 82.8 fL Normal 80.0-100.0 C [facility] Comment on above: Order Comment: Speci men Type: BLOOD SPECIMEN Ordering Facility: [facility] Address: [address] [place] [address] Performed By: #### 2 276-4, 42439-9 #### [facility] CLIA [id number] [address] [place] [address] [place] Platelet mean volume (Bld) [Entitic vol] 9.9 fL Normal 9.0-12.7 [facility] Comment on above: Order Comment: Speci men Type: BLOOD SPECIMEN Ordering Facility: [facility] Address: [address] [place] [address] Performed By: #### 2 276-4, 43745-6 #### [facility] CLIA [id number] [address] [place] [address] [place] Platelets (Bld) [#/Vol] 304 10*3/uL Normal 150-400 [facility] Comment on above: Order Comment: Speci men Type: BLOOD SPECIMEN Ordering Facility: [facility] Address: [address] [place] [address] Performed By: #### 2 276-4, 37121-5 #### [facility] CLIA [id number] [address] [place] [address] [place] RBC (Bld) [#/Vol] 4.06 10*6/uL Normal 3.90-5.20 [facility] Comment on above: Order Comment: Speci men Type: BLOOD SPECIMEN Ordering Facility: [facility] Address: [address] [place] [address] Performed By: #### 2 276-4, 96968-4 #### [facility] CLIA [id number] [address] [address] [place] WBC (Bld) [#/Vol] 19.87 10*3/uL High 3.70-11.00 [facility] Comment on above: Order Comment: Speci men Type: BLOOD SPECIMEN Ordering Facility: [facility] Address: [address] [place] [address] Performed By: #### 2 276-4, 27243-6 #### [facility] CLIA [id number] [address] [place] [address] [place] [facility] Ferritin [Mass/Vol] 49.9 ng/mL Normal 14.7-205.1 [facility] Comment on above: Order Comment: Speci men Type: BLOOD SPECIMEN Ordering Facility: [facility] Address: [address] [place] [address] Performed By: #### 2 276-4, 70404-2 #### [facility] CLIA [id number] [address] [place] [address] [place] Iron and Iron binding capaci panel 08-03-2023 Iron [Mass/Vol] 74 ug/dL Normal 41-186 [facility] Comment on above: Order Comment: Speci men Type: BLOOD SPECIMEN Ordering Facility: [facility] Address: [address] [place] [address] Performed By: #### 2 276-4, 73482-8 #### [facility] CLIA [id number] [address] [place] [address] [place] Iron binding capacity [Mass/Vol] 469 ug/dL High 232-386 [facility] Comment on above: Order Comment: Speci men Type: BLOOD SPECIMEN Ordering Facility: [facility] Address: [address] [place] [address] Performed By: #### 2 276-4, 74486-2 #### [facility] CLIA [id number] [address] [place] [address] [place] Iron/TIBC [Molar ratio] 15.8 % Normal 15.0-57.0 [facility] Comment on above: Order Comment: Speci men Type: BLOOD SPECIMEN Ordering Facility: [facility] Address: [address] [place] [address] Performed By: #### 2 276-4, 52938-4 #### [facility] CLIA [id number] [address] [place] [address] [place] CBC W Auto Differential pane l (Bld)on 07-20-2023 Basophils (Bld) [#/Vol] 0.00 10*3/uL Normal <0.11 [facility] Comment on above: Order Comment: Speci men Type: BLOOD SPECIMEN Ordering Facility: [facility] Address: [address] [place] [address] Performed By: #### 5 7021-8 #### [facility] CLIA [id number] [address] [place] [address] [place] [facility] CLIA [id number] [address] [place] [address] [place] Basophils/100 WBC (Bld) 0.0 % Normal C [facility] Comment on above: Order Comment: Speci men Type: BLOOD SPECIMEN Ordering Facility: [facility] Address: [address] [place] [address] Performed By: #### 5 7021-8 #### [facility] CLIA [id number] [address] [place] [address] [place] [facility] CLIA [id number] [facility] [address] [place] Differential cell count method Nom (Bld) Manual Normal [facility] Comment on above: Order Comment: Speci men Type: BLOOD SPECIMEN Ordering Facility: [facility] Address: [address] [place] [address] Performed By: #### 5 7021-8 #### [facility] CLIA [id number] [address] [place], [place] [address] [place] [address] LABORATORY CLIA [id number] [address] [place] [address] [place] Eosinophils (Bld) [#/Vol] 0.23 10*3/uL Normal <0.46 [facility] Comment on above: Order Comment: Speci men Type: BLOOD SPECIMEN Ordering Facility: [facility] Address: [address] [place] [address] Performed By: #### 5 7021-8 #### [facility] CLIA [id number] [address] LAB[facility] CLIA [id number] [address] [place] [address] [place] Eosinophils/100 WBC (Bld) 1.0 % Normal [facility] Comment on above: Order Comment: Speci men Type: BLOOD SPECIMEN Ordering Facility: [facility] Address: [address] [place] [address] Performed By: #### 5 7021-8 #### [facility] CLIA [id number] [address] [facility] CLIA [id number] [address] [place] [address] [place] Lymphocytes (Bld) [#/Vol] 3.22 10*3/uL Normal 1.00-4.00 [facility] Comment on above: Order Comment: Speci men Type: BLOOD SPECIMEN Ordering Facility: [facility] Address: [address] [place] [address] Performed By: #### 5 7021-8 #### [facility] CLIA [id number] [address] OF [facility] CLIA [id number] [address] [place] [address] [place] Lymphocytes/100 WBC (Bld) 14.0 % Normal [facility] Comment on above: Order Comment: Speci men Type: BLOOD SPECIMEN Ordering Facility: [facility] Address: [address] [place] [address] Performed By: #### 5 7021-8 #### [facility] CLIA [id number] [address] [facility] CLIA [id number] [facility] [place] [address] [place] Monocytes (Bld) [#/Vol] 1.38 10*3/uL High <0.87 [facility] Comment on above: Order Comment: Speci men Type: BLOOD SPECIMEN Ordering Facility: [facility] Address: [address] [place] [address] Performed By: #### 5 7021-8 #### [facility] CLIA [id number] [address] [place] [address] LABORATORY CLIA [id number] [address] [place] [address] [place] Monocytes/100 WBC (Bld) 6.0 % Normal [facility] Comment on above: Order Comment: Speci men Type: BLOOD SPECIMEN Ordering Facility: [facility] Address: [address] [place] [address] Performed By: #### 5 7021-8 #### [facility] CLIA [id number] [address] [place] [address] LABORATORY CLIA [id number] [address] [place] [address] [place] MYELO% 1.0 % Normal [facility] Comment on above: Order Comment: Speci men Type: BLOOD SPECIMEN Ordering Facility: [facility] Address: [address] [place] [address] Performed By: #### 5 7021-8 #### [facility] CLIA [id number] [address] [facility] CLIA [id number] [address] [place] [address] [place] Neutrophils (Bld) [#/Vol] 17.92 10*3/uL High 1.45-7.50 [facility] Comment on above: Order Comment: Speci men Type: BLOOD SPECIMEN Ordering Facility: [facility] Address: [address] [place] [address] Performed By: #### 5 7021-8 #### [facility] CLIA [id number] [address] [facility] CLIA [id number] [address] [place] [address] [place] Neutrophils/100 WBC (Bld) 78.0 % Normal [facility] Comment on above: Order Comment: Speci men Type: BLOOD SPECIMEN Ordering Facility: [facility] Address: [address] [place] [address] Performed By: #### 5 7021-8 #### [facility] CLIA [id number] [address] [place] [address] OF [facility] CLIA [id number] [address] [place] [address] [place] Nucleated RBC (Bld) [#/Vol] 10*3/uL Normal <0.01 [facility] Comment on above: Order Comment: Speci men Type: BLOOD SPECIMEN Ordering Facility: [facility] Address: [address] [place] [address] Performed By: #### 5 7021-8 #### [facility] CLIA [id number] [address] [place] [address] LABORATORY CLIA [id number] [address] [place] [address] [place] Nucleated RBC/100 WBC (Bld) [Ratio] 0.0 /100 WBC Normal [facility] Comment on above: Order Comment: Speci men Type: BLOOD SPECIMEN Ordering Facility: [facility] Address: [address] [place] [address] Performed By: #### 5 7021-8 #### [facility] CLIA [id number] [address] LABORATORY CLIA [id number] [address] [place] [address] [place] Platelets Estimate (Bld) [#/Vol] Adequate Normal [facility] Comment on above: Order Comment: Speci men Type: BLOOD SPECIMEN Ordering Facility: [facility] Address: [address] [place] [address] Performed By: #### 5 7021-8 #### [facility] CLIA [id number] [address] [place] [address] LABORATORY CLIA [id number] [address] [place] [address] STATES [facility] RED CELL MORPH Reviewed: unremarkable Normal [facility] Comment on above: Order Comment: Speci men Type: BLOOD SPECIMEN Ordering Facility: [facility] Address: [address] [place] [address] Performed By: #### 5 7021-8 #### [facility] CLIA [id number] [address] [facility] CLIA [id number] [address] [place] [address] [place] WBC Left Shift Ql (Bld) Present Normal [facility] Comment on above: Order Comment: Speci men Type: BLOOD SPECIMEN Ordering Facility: [facility] Address: [address] [place] [address] Performed By: #### 5 7021-8 #### [facility] CLIA [id number] [address] [place] [address] [place] [facility] CLIA [id number] [address] [place] [address] [place] CBC panel Auto (Bld)on 07-20 Erythrocyte distribution width (RBC) [Ratio] 14.2 % Normal 11.5-15.0 [facility] Comment on above: Order Comment: Speci men Type: BLOOD SPECIMEN Ordering Facility: [facility] Address: [address] [place] [address] Performed By: #### 2 276-4, 32661-6 #### [facility] CLIA [id number] [address] [place] [address] [place] Hematocrit (Bld) [Volume fraction] 31.2 % Low 36.0-46.0 [facility] Comment on above: Order Comment: Speci men Type: BLOOD SPECIMEN Ordering Facility: [facility] Address: [address] [place] [address] Performed By: #### 2 276-4, 56880-9 #### [facility] CLIA [id number] [address] [place] [address] [place] Hemoglobin (Bld) [Mass/Vol] 10.5 g/dL Low 11.5-15.5 [facility] Comment on above: Order Comment: Speci men Type: BLOOD SPECIMEN Ordering Facility: [facility] Address: [address] [place] [address] Performed By: #### 2 276-4, 14562-0 #### [facility] CLIA [id number] [address] [place] [address] [place] MCH (RBC) [Entitic mass] 28.1 pg Normal 26.0-34.0 [facility] Comment on above: Order Comment: Speci men Type: BLOOD SPECIMEN Ordering Facility: [facility] Address: [address] [place] [address] Performed By: #### 2 276-4, 05615-2 #### [facility] CLIA [id number] [address] [place] [address] [place] MCHC (RBC) [Mass/Vol] 33.7 g/dL Normal 30.5-36.0 [facility] Comment on above: Order Comment: Speci men Type: BLOOD SPECIMEN Ordering Facility: [facility] Address: [address] [place] [address] Performed By: #### 2 276-4, 78941-9 #### [facility] CLIA [id number] [address] [place] [address] [place] MCV (RBC) [Entitic vol] 83.4 fL Normal 80.0-100.0 C [facility] Comment on above: Order Comment: Speci men Type: BLOOD SPECIMEN Ordering Facility: [facility] Address: [address] [place] [address] Performed By: #### 2 276-4, 62010-9 #### [facility] CLIA [id number] [address] [place] [address] [place] Platelet mean volume (Bld) [Entitic vol] 9.4 fL Normal 9.0-12.7 [facility] Comment on above: Order Comment: Speci men Type: BLOOD SPECIMEN Ordering Facility: [facility] Address: [address] [place] [address] Performed By: #### 2 276-4, 55333-7 #### [facility] CLIA [id number] [address] [place] [address] [place] Platelets (Bld) [#/Vol] 294 10*3/uL Normal 150-400 [facility] Comment on above: Order Comment: Speci men Type: BLOOD SPECIMEN Ordering Facility: [facility] Address: [address] [place] [address] Performed By: #### 2 276-4, 15124-0 #### [facility] CLIA [id number] [address] [place] [address] [place] RBC (Bld) [#/Vol] 3.74 10*6/uL Low 3.90-5.20 [facility] Comment on above: Order Comment: Speci men Type: BLOOD SPECIMEN Ordering Facility: [facility] Address: [address] [place] [address] Performed By: #### 2 276-4, 27099-1 #### [facility] CLIA [id number] [address] [place] [address] [place] WBC (Bld) [#/Vol] 22.97 10*3/uL High 3.70-11.00 [facility] Comment on above: Order Comment: Speci men Type: BLOOD SPECIMEN Ordering Facility: [facility] Address: [address] [place] [address] Performed By: #### 2 276-4, 84939-2 #### [facility] CLIA [id number] [address] [place] [address] [place] URINE OB DIP B/Oon 3 Glucose Ql (U) Negative Neg mg/dL [facility] Protein.monoclonal (U) [Mass/Vol] Negative Neg mg/dL [facility] URINE OB DIP B/Oon 3 Glucose Ql (U) Negative Neg mg/dL [facility] Protein.monoclonal (U) [Mass/Vol] Negative Neg mg/dL [facility] CNPNon 06-28-2023 CNPN Telephone ([id number]) ---- VENECIA HART I ([id number]) 1990 F UPA Date Time Provider Department 06/28/23 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 [3602] Cmt: PRAF Prescriptions as [...] Status:Closed by MEHNAZ MURGUIA on 06/28/23 Normal [facility] GLUCOSE GEST, 1 HOURon 06-28 Glucose 1 Hr post Unsp challenge [Mass/Vol] 173 mg/dL Normal 74-179 [facility] Comment on above: Order Comment: Speci men Type: BLOOD SPECIMEN Ordering Facility: [facility] Address: [address], [place] [address] Result Comment: [facility] Congress of Obstetricians and Gynecologists (Ramon/Dianne) guidelines state gestational diabetes mellitus is present when 2 or more of the plasma glucose concentrations meet or exceed the following levels: fastin mg/dl, 1 hr: 180 mg/dl, 2 hr: 155 mg/dl, and 3 hr: 140 mg/dl. Performed By: Jaylyn### 2 276-4, 61593-8 #### [facility] CLIA [id number] [address] [facility] [id number] [address] [place] GLUCOSE GEST, 2 HOURon 06-28 Glucose 2 Hr post Unsp challenge [Mass/Vol] 164 mg/dL High 74-154 [facility] Comment on above: Order Comment: Guero guido Type: BLOOD SPECIMENOrdering Facility: [facility] Address: [address] [place] [address] Result Comment: [facility] Congress of Obstetricians and Gynecologists (Ramon/Dianne) guidelines state gestational diabetes mellitus is present when 2 or more of the plasma glucose concentrations meet or exceed the following levels: fastin mg/dl, 1 hr: 180 mg/dl, 2 hr: 155 mg/dl, and 3 hr: 140 mg/dl. Performed By: #### G TGST2 ####[facility] [id number] [place] [address] [place] GLUCOSE GEST, 3 HOURon 06-28 Glucose 3 Hr post Unsp challenge [Mass/Vol] 103 mg/dL Normal 74-139 [facility] Comment on above: Order Comment: Guero guido Type: BLOOD SPECIMEN Ordering Facility: [facility] Address: [address] [place] [address] Result Comment: [facility] Congress of Obstetricians and Gynecologists (Navarro/Axelan) guidelines state gestational diabetes mellitus is present when 2 or more of the plasma glucose concentrations meet or exceed the following levels: fastin mg/dl, 1 hr: 180 mg/dl, 2 hr: 155 mg/dl, and 3 hr: 140 mg/dl. Performed By: #### 5 7021-8 #### [facility] CLIA [id number] [address] [place] [address] [place] [facility] LAB[facility]ATORY CLIA [id number] [address] [place] [address] [place] GLUCOSE GEST, FASTINGon 06-06 Glucose post fast [Mass/Vol] 85 mg/dL Normal 74-94 [facility] Comment on above: Order Comment: Speci men Type: BLOOD SPECIMEN Ordering Facility: [facility] Address: [place] [address] Result Comment: [facility] Congress of Obstetricians and Gynecologists (Ramon/Dianne) guidelines state gestational diabetes mellitus is present when 2 or more of the plasma glucose concentrations meet or exceed the following levels: fastin mg/dl, 1 hr: 180 mg/dl, 2 hr: 155 mg/dl, and 3 hr: 140 mg/dl. Performed By: #### 5 7021-8 #### [facility] CLIA [id number] [address] [place] [address] LABORATORY CLIA [id number] [address] [place] [address] CBC W Auto Differential pane l (Bld)on 06-22-2023 Basophils (Bld) [#/Vol] 0.00 10*3/uL Normal <0.11 [facility] Comment on above: Order Comment: Speci men Type: BLOOD SPECIMEN Ordering Facility: [facility] Address: [place] [address] Performed By: #### 5 7021-8 #### [facility] CLIA [id number] [address] [place] [address] LABORATORY CLIA [id number] [address] [place] [address] Basophils/100 WBC (Bld) 0.0 % Normal C [facility] Comment on above: Order Comment: Speci men Type: BLOOD SPECIMEN Ordering Facility: [facility] Address: [place] [address] Performed By: #### 5 7021-8 #### [facility] CLIA [id number] [address] [place] [address] LABORATORY CLIA [id number] [address] OF [place] Differential cell count method Nom (Bld) Manual Normal [facility] Comment on above: Order Comment: Speci men Type: BLOOD SPECIMEN Ordering Facility: [facility] Address: [address] [place] [address] Performed By: #### 5 7021-8 #### [facility] CLIA [id number] [address] LABORATORY CLIA [id number] [facility] [place] [address] [place] Eosinophils (Bld) [#/Vol] 0.00 10*3/uL Normal <0.46 [facility] Comment on above: Order Comment: Speci men Type: BLOOD SPECIMEN Ordering Facility: [facility] Address: [address] [place] [address] Performed By: #### 5 7021-8 #### [facility] CLIA [id number] [address] [place] [address] LABORATORY CLIA [id number] [address] [place] [address] [place] Eosinophils/100 WBC (Bld) 0.0 % Normal [facility] Comment on above: Order Comment: Speci men Type: BLOOD SPECIMEN Ordering Facility: [facility] Address: [address] [place] [address] Performed By: #### 5 7021-8 #### [facility] CLIA [id number] [address] [place] [address] LABORATORY CLIA [id number] [address] [place] [address] [place] Erythrocyte distribution width (RBC) [Ratio] 13.6 % Normal 11.5-15.0 [facility] Comment on above: Order Comment: Speci men Type: BLOOD SPECIMEN Ordering Facility: [facility] Address: [address] [place] [address] Performed By: #### 5 7021-8 #### [facility] CLIA [id number] [address] LABORATORY CLIA [id number] [address] [place] [address] [place] Hematocrit (Bld) [Volume fraction] 30.2 % Low 36.0-46.0 [facility] Comment on above: Order Comment: Speci men Type: BLOOD SPECIMEN Ordering Facility: [facility] Address: [address] [place] [address] Performed By: #### 5 7021-8 #### [facility] CLIA [id number] [address] [place] [address] LABORATORY CLIA [id number] [address] [place] [address] [place] Hemoglobin (Bld) [Mass/Vol] 10.4 g/dL Low 11.5-15.5 [facility] Comment on above: Order Comment: Speci men Type: BLOOD SPECIMEN Ordering Facility: [facility] Address: [address] [place] [address] Performed By: #### 5 7021-8 #### [facility] CLIA [id number] [address] [place] [address] LABORATORY CLIA [id number] [address] [place] [address] [place] Lymphocytes (Bld) [#/Vol] 4.30 10*3/uL High 1.00-4.00 [facility] Comment on above: Order Comment: Speci men Type: BLOOD SPECIMEN Ordering Facility: [facility] Address: [address] [place] [address] Performed By: #### 5 7021-8 #### [facility] CLIA [id number] [address] [place] [address] LABORATORY CLIA [id number] [address] [place] [address] [place] Lymphocytes/100 WBC (Bld) 21.0 % Normal [facility] Comment on above: Order Comment: Speci men Type: BLOOD SPECIMEN Ordering Facility: [facility] Address: [place] [address] Performed By: #### 5 7021-8 #### [facility] CLIA [id number] [address] LABORATORY CLIA [id number] [address] [place] [address] MCH (RBC) [Entitic mass] 28.3 pg Normal 26.0-34.0 [facility] Comment on above: Order Comment: Speci men Type: BLOOD SPECIMEN Ordering Facility: [facility] Address: [address] [place] [address] Performed By: #### 5 7021-8 #### [facility] CLIA [id number] [address] [place] [address] LABORATORY CLIA [id number] [address] [place] [address] MCHC (RBC) [Mass/Vol] 34.4 g/dL Normal 30.5-36.0 [facility] Comment on above: Order Comment: Speci men Type: BLOOD SPECIMEN Ordering Facility: [facility] Address: [place] [address] Performed By: #### 5 7021-8 #### [facility] CLIA [id number] [address] [place] [address] LABORATORY CLIA [id number] [address] [place] [address] MCV (RBC) [Entitic vol] 82.1 fL Normal 80.0-100.0 C [facility] Comment on above: Order Comment: Speci men Type: BLOOD SPECIMEN Ordering Facility: [facility] Address: [address] [place] [address] Performed By: #### 5 7021-8 #### [facility] CLIA [id number] [address] LABORATORY CLIA [id number] [address] [place] [address] [place] Metamyelocytes/100 WBC (Bld) 1.0 % Normal [facility] Comment on above: Order Comment: Speci men Type: BLOOD SPECIMEN Ordering Facility: [facility] Address: [address] [place] [address] Performed By: #### 5 7021-8 #### [facility] CLIA [id number] [address] LABORATORY CLIA [id number] [address] [place] [address] [place] Monocytes (Bld) [#/Vol] 0.82 10*3/uL Normal <0.87 [facility] Comment on above: Order Comment: Speci men Type: BLOOD SPECIMEN Ordering Facility: [facility] Address: [address] [place] [address] Performed By: #### 5 7021-8 #### [facility] CLIA [id number] [address] LABORATORY CLIA [id number] [address] [place] [address] [facility] OF [place] Monocytes/100 WBC (Bld) 4.0 % Normal [facility] Comment on above: Order Comment: Speci men Type: BLOOD SPECIMEN Ordering Facility: [facility] Address: [address] [place] [address] Performed By: #### 5 7021-8 #### [facility] CLIA [id number] [address] OF [facility] LABORATORY CLIA [id number] [address] [place] [address] [place] Neutrophils (Bld) [#/Vol] 15.14 10*3/uL High 1.45-7.50 [facility] Comment on above: Order Comment: Speci men Type: BLOOD SPECIMEN Ordering Facility: [facility] Address: [address] [place] [address] Performed By: #### 5 7021-8 #### [facility] CLIA [id number] [address] LABORATORY CLIA [id number] [address] [place] [address] [facility] OF [place] Neutrophils/100 WBC (Bld) 74.0 % Normal [facility] Comment on above: Order Comment: Speci men Type: BLOOD SPECIMEN Ordering Facility: [facility] Address: [address] [place] [address] Performed By: #### 5 7021-8 #### [facility] CLIA [id number] [address] [place] [address] LABORATORY CLIA [id number] [address] [place] [address] STATES [place] Nucleated RBC (Bld) [#/Vol] 10*3/uL Normal <0.01 [facility] Comment on above: Order Comment: Speci men Type: BLOOD SPECIMEN Ordering Facility: [facility] Address: [address] [place] [address] Performed By: #### 5 7021-8 #### [facility] CLIA [id number] [address] [place] [address] LABORATORY CLIA [id number] [address] [place] [address] OF [place] Nucleated RBC/100 WBC (Bld) [Ratio] 0.0 /100 WBC Normal [facility] Comment on above: Order Comment: Speci men Type: BLOOD SPECIMEN Ordering Facility: [facility] Address: [address] [place] [address] Performed By: #### 5 7021-8 #### [facility] CLIA [id number] [address] [place] [address] [place] [facility]ORY CLIA [id number] [address] [place] [address] [place] Platelet mean volume (Bld) [Entitic vol] 9.5 fL Normal 9.0-12.7 [facility] Comment on above: Order Comment: Speci men Type: BLOOD SPECIMEN Ordering Facility: [facility] Address: [address] [place] [address] Performed By: #### 5 7021-8 #### [facility] CLIA [id number] [address] OF [facility] LABORATORY CLIA [id number] [address] [place] [address] [place] Platelets (Bld) [#/Vol] 245 10*3/uL Normal 150-400 [facility] Comment on above: Order Comment: Speci men Type: BLOOD SPECIMEN Ordering Facility: [facility] Address: [address] [place] [address] Performed By: #### 5 7021-8 #### [facility] CLIA [id number] [address] [place] [address] OF [facility] LAB[facility]ORY CLIA [id number] [address] [place] [address] [place] Platelets Estimate (Bld) [#/Vol] Adequate Normal [facility] Comment on above: Order Comment: Speci men Type: BLOOD SPECIMEN Ordering Facility: [facility] Address: [address] [place] [address] Performed By: #### 5 7021-8 #### [facility] CLIA [id number] [address] [place] [address] [place] [facility] CLIA [id number] [address] [place] [address] [place] RBC (Bld) [#/Vol] 3.68 10*6/uL Low 3.90-5.20 [facility] Comment on above: Order Comment: Speci men Type: BLOOD SPECIMEN Ordering Facility: [facility] Address: [address] [place] [address] Performed By: #### 5 7021-8 #### [facility] CLIA [id number] [address] LABORATORY CLIA [id number] [address] [place] [address] RED CELL MORPH Reviewed: unremarkable Normal [facility] Comment on above: Order Comment: Speci men Type: BLOOD SPECIMEN Ordering Facility: [facility] Address: [address] [place] [address] Performed By: #### 5 7021-8 #### [facility] CLIA [id number] [address] [place] [address] LABORATORY CLIA [id number] [address] [place] [address] [place] WBC (Bld) [#/Vol] 20.46 10*3/uL High 3.70-11.00 [facility] Comment on above: Order Comment: Speci men Type: BLOOD SPECIMEN Ordering Facility: [facility] Address: [address] [place] [address] Performed By: #### 5 7021-8 #### [facility] CLIA [id number] [address] [place] [address] LABORATORY CLIA [id number] [address] [place] [address] OF [facility] GEST GLUC SCREEN, 1-HR, 50 G M, NON-FASTINGon 06-22-2023 Glucose [Mass/Vol] 159 mg/dL High 74-134 [facility] Comment on above: Order Comment: Speci men Type: BLOOD SPECIMEN Ordering Facility: [facility] Address: [address] [place] [address] Result Comment: [facility] Congress of Obstetricians and Gynecologists (Ramon/Dianne) guidelines state a gestational diabetes mellitus positive screen is made, in women not previously diagnosed with overt diabetes, when the 1 hr plasma glucose level is equal to or above 140 mg/dL. The [facility] [employer]st and [facility] [place] recommends a 135 mg/dL cutoff. Performed By: #### 5 7021-8 #### [facility] CLIA [id number] [address] LABORATORY CLIA [id number] [facility] STATES OF [facility] OBSTETRIC ULTRASOUND WHIon 1 [facility] Reagin and Treponema pallidu m IgG and IgM [Interp]on 06-22-2023 T. pallidum IgG+IgM IA Ql (S) Non-Reactive Normal Nonreactive [facility] Comment on above: Order Comment: Speci men Type: BLOOD SPECIMEN Ordering Facility: [facility] Address: [address] [place] [address] Performed By: #### 5 7021-8 #### [facility] CLIA [id number] [address] [place] [address] LABORATORY CLIA [id number] [address] [place] [address] Reagin+T pallidum IgG+IgM Se rPl-Impon 06-22-2023 Reagin and Treponema pallidum IgG and IgM [Interp] Cannot exclude recent Treponemal infection if specimen collected within 7-10 days after appearance of suspect lesions or 2-3 weeks after an exposure. Clinical correlation is required. Normal [facility] Comment on above: Order Comment: Speci men Type: BLOOD SPECIMEN Ordering Facility: [facility] Address: [address] [place] [address] Performed By: #### 5 7021-8 #### [facility] CLIA [id number] [address] [place] [id number] [place] [address] LABORATORY CLIA [id number] [address] [place] [address] [place] URINE OB DIP B/Oon 3 Glucose Ql (U) Negative Neg mg/dL [facility] Protein.monoclonal (U) [Mass/Vol] Negative Neg mg/dL [facility] URINE OB DIP B/Oon 3 Glucose Ql (U) Negative Neg mg/dL [facility] Protein.monoclonal (U) [Mass/Vol] Negative Neg mg/dL [facility] OBSTETRIC ULTRASOUND WHIon 0 04-29-2023 [facility] SEQUENTIAL SCRN SCND TRIMEST Alex 04-29-2023 AFP [MoM] 1.08 MoM Normal [facility] Comment on above: Order Comment: Speci men Type: BLOOD SPECIMEN Ordering Facility: [facility] Address: [address] [place] [address] Result Comment: 72.0 3 ng/mL Performed By: #### 5 7021-8 #### [facility] CLIA [id number] [address] LABORATORY CLIA [id number] [address] [place] [address] COMMENT, SEQ SCREEN SECOND TRIMESTER See comments below Normal [facility] Comment on above: Order Comment: Speci lata Type: BLOOD SPECIMEN Ordering Facility: [facility] Address: [address] [place] [address] Result Comment: INTE RPRETATION Screening result : [...] alone is 1 in 690 COMMENT FROM [facility] SHARON-A (RUO) is used per the shredded filler machine wrapper layer's instructions. Its performance characteristics were determined by [facility]'s lab per CLIA requirements. This test has not been approved by FDA Please check patient information and call for any corrections and risk recalculations A screen negative result does not exclude the possibility of Down syndrome, trisomy 18, trisomy 13 or a neural tube defect because screening does not detect all affected pregnancies Performed By: #### 5 7021-8 #### [facility] CLIA [id number] [address] LABORATORY CLIA [id number] [facility] [address] DATE 2ND SAMPLE RECEIVED 05/02/23 Normal [facility] Comment on above: Order Comment: Speci men Type: BLOOD SPECIMEN Ordering Facility: [facility] Address: [address] [place] [address] Performed By: #### 5 7021-8 #### [facility] CLIA [id number] [address] [place] [address] LABORATORY CLIA [id number] [address] [place] [address] DATE OF COLLECTION #1 03/02/23 Normal [facility] Comment on above: Order Comment: Speci men Type: BLOOD SPECIMEN Ordering Facility: [facility] Address: [address] [place] [address] Performed By: #### 5 7021-8 #### [facility] CLIA [id number] [address] [place] [address] LABORATORY CLIA [id number] [address] [place] [address] DATE OF COLLECTION #2 04/29/23 Normal [facility] Comment on above: Order Comment: Speci men Type: BLOOD SPECIMEN Ordering Facility: [facility] Address: [address] [place] [address] Performed By: #### 5 7021-8 #### [facility] CLIA [id number] [address] LABORATORY CLIA [id number] [address] OF [place] DATE RECEIVED 03/03/23 Normal [facility] Comment on above: Order Comment: Speci men Type: BLOOD SPECIMEN Ordering Facility: [facility] Address: [address] [place] [id number] Performed By: #### 5 7021-8 #### [facility] CLIA [id number] [address] LABORATORY CLIA [id number] [address] OF [facility] E3.unconjugated [MoM] 0.73 MoM Normal [facility] Comment on above: Order Comment: Speci men Type: BLOOD SPECIMEN Ordering Facility: [facility] Address: [address] [place] [address] Result Comment: 1.94 ng/mL Performed By: #### 5 7021-8 #### [facility] CLIA [id number] [address] LABORATORY CLIA [id number] [address] [place] [address] SERA 09/05/23 Normal [facility] Comment on above: Order Comment: Speci men Type: BLOOD SPECIMEN Ordering Facility: [facility] Address: [address] [place] [id number] Performed By: #### 5 7021-8 #### [facility] CLIA [id number] [address] LABORATORY CLIA [id number] [address] [place] [address] GESTATION AT DATE OF 1ST SAMPLE 13 weeks 2 days (by CRL scan) Normal [facility] Comment on above: Order Comment: Speci men Type: BLOOD SPECIMEN Ordering Facility: [facility] Address: [address] [place] [address] Performed By: #### 5 7021-8 #### [facility] CLIA [id number] [address] LABORATORY CLIA [id number] [address] [place] [address] GESTATION AT DATE OF 2ND SAMPLE 21 weeks 4 days (by CRL scan) Normal [facility] Comment on above: Order Comment: Speci men Type: BLOOD SPECIMEN Ordering Facility: [facility] Address: [address] [place] [address] Performed By: #### 5 7021-8 #### [facility] CLIA [id number] [address] [place] [address] LABORATORY CLIA [id number] [address] [place] [address] HCG [MoM] 0.64 MoM Normal [facility] Comment on above: Order Comment: Speci men Type: BLOOD SPECIMEN Ordering Facility: [facility] Address: [address] [place] [address] Result Comment: 47.6 0 IU/mL Performed By: #### 5 7021-8 #### [facility] CLIA [id number] [address] [place] [address] LABORATORY CLIA [id number] [address] [place] [address] [place] Inhibin A [MoM] 1.79 {M.o.M} Normal [facility] Comment on above: Order Comment: Speci men Type: BLOOD SPECIMEN Ordering Facility: [facility] Address: [address] [place] [address] Result Comment: 314. 5 pg/mL Performed By: #### 5 7021-8 #### [facility] CLIA [id number] [address] LABORATORY CLIA [id number] [address] [place] [address] [place] INSULIN DEPENDENT DIABETES None Normal [facility] Comment on above: Order Comment: Speci men Type: BLOOD SPECIMEN Ordering Facility: [facility] Address: [place] [id number] Performed By: #### 5 7021-8 #### [facility] CLIA [id number] [address] LABORATORY CLIA [id number] [address] IVF No Normal [facility] Comment on above: Order Comment: Speci men Type: BLOOD SPECIMEN Ordering Facility: [facility] Address: [place] [address] Performed By: #### 5 7021-8 #### [facility] CLIA [id number] [address] LABORATORY CLIA [id number] [address] [place] [address] MATERNAL AGE AT SERA 32 years Normal [facility] Comment on above: Order Comment: Speci men Type: BLOOD SPECIMEN Ordering Facility: [facility] Address: [place] [address] Performed By: #### 5 7021-8 #### [facility] CLIA [id number] [address] LABORATORY CLIA [id number] [address] [place] [address] NUCHAL MEASUREMENT 2.00 mm Normal [facility] Comment on above: Order Comment: Speci men Type: BLOOD SPECIMEN Ordering Facility: [facility] Address: [place] [address] Performed By: #### 5 7021-8 #### [facility] CLIA [id number] [address] LABORATORY CLIA [id number] [address] NUCHAL MEASUREMENT MOM 1.16 MoM Normal [facility] Comment on above: Order Comment: Speci men Type: BLOOD SPECIMEN Ordering Facility: [facility] Address: [address] [place] [address] Performed By: #### 5 7021-8 #### [facility] CLIA [id number] [address] LABORATORY CLIA [id number] [address] PATIENT'S WEIGHT DAY OF COLLECTION 212 lb. Normal [facility] Comment on above: Order Comment: Speci men Type: BLOOD SPECIMEN Ordering Facility: [facility] Address: [address] [place] [address] Performed By: #### 5 7021-8 #### [facility] CLIA [id number] [address] LABORATORY CLIA [id number] [address] [place] [address] [place] associated plasma protein A [MoM] 1.34 MoM Normal [facility] Comment on above: Order Comment: Speci men Type: BLOOD SPECIMEN Ordering Facility: [facility] Address: [address] [place] [address] Result Comment: 1018 .9 ng/mL Performed By: #### 5 7021-8 #### [facility] CLIA [id number] [address] LABORATORY CLIA [id number] [address] [place] [address] [place] PREVIOUS DOWN None Normal [facility] Comment on above: Order Comment: Speci men Type: BLOOD SPECIMEN Ordering Facility: [facility] Address: [address] [place] [address] Performed By: #### 5 7021-8 #### [facility] CLIA [id number] [address] [place] [id number] [facility] LABORATORY CLIA [id number] [address] [place] [address] [place] PREVIOUS NTD None Normal [facility] Comment on above: Order Comment: Speci men Type: BLOOD SPECIMEN Ordering Facility: [facility] Address: [address] [place] [address] Performed By: #### 5 7021-8 #### [facility] CLIA [id number] [address] OF [facility] CLIA [id number] [facility] [place] [address] [place] SAMPLE #1 [id number] Normal [facility] Comment on above: Order Comment: Speci men Type: BLOOD SPECIMEN Ordering Facility: [facility] Address: [address] [place] [address] Performed By: #### 5 7021-8 #### [facility] CLIA [id number] 721 [place] [address] [place] [facility] CLIA [id number] [address] [place] [address] [place] SAMPLE #2 [id number] Normal [facility] Comment on above: Order Comment: Speci men Type: BLOOD SPECIMEN Ordering Facility: [facility] Address: [address] [id number] Performed By: #### 5 7021-8 #### [facility] CLIA [id number] 721 [place] [address] [place] [facility] CLIA [id number] [address] [place] [address] [place] SCAN MEASURE 70.5 mm on 03/02/23 Normal [facility] Comment on above: Order Comment: Speci men Type: BLOOD SPECIMEN Ordering Facility: [facility] Address: [address] [place] [address] Performed By: #### 5 7021-8 #### [facility] CLIA [id number] [address] LABORATORY CLIA [id number] [address] [place] [address] SEQ2 SCR RISK NTD 1 Normal [facility] Comment on above: Order Comment: Speci men Type: BLOOD SPECIMEN Ordering Facility: [facility] Address: [address] [place] [address] Performed By: #### 5 7021-8 #### [facility] CLIA [id number] [address] LABORATORY CLIA [id number] [address] [place] [address] SEQ2 SCRN RISK TRISOMY 13 1 Normal [facility] Comment on above: Order Comment: Speci men Type: BLOOD SPECIMEN Ordering Facility: [facility] Address: [address] [place] [address] Performed By: #### 5 7021-8 #### [facility] CLIA [id number] [address] [place] [address] LABORATORY CLIA [id number] [address] [place] [address] SEQUENTIAL 2 INTERPRETATION Negative Normal Screen Negative [facility] Comment on above: Order Comment: Speci men Type: BLOOD SPECIMEN Ordering Facility: [facility] Address: [address] [place] [address] Performed By: #### 5 7021-8 #### [facility] CLIA [id number] [address] [place] [address] LABORATORY CLIA [id number] [address] [place] [address] STAFF REVIEW (MATERNAL SCREENS) Reviewed by Brent Srivastava MD, Ph.D ([id number]) Normal [facility] Comment on above: Order Comment: Speci men Type: BLOOD SPECIMEN Ordering Facility: [facility] Address: [address] [place] [address] Performed By: #### 5 7021-8 #### [facility] CLIA [id number] [address] LABORATORY CLIA [id number] [address] Trisomy 18 risk Based on maternal age Qn (fetus) Normal [facility] Comment on above: Order Comment: Speci men Type: BLOOD SPECIMEN Ordering Facility: [facility] Address: [address] [place] [address] Result Comment: Not Reported Performed By: #### 5 7021-8 #### [facility] CLIA [id number] [address] LABORATORY CLIA [id number] [address] [place] [address] Trisomy 18 risk Qn (fetus) <1 Normal [facility] Comment on above: Order Comment: Speci men Type: BLOOD SPECIMEN Ordering Facility: [facility] Address: [address] [place] [address] Performed By: #### 5 7021-8 #### [facility] CLIA [id number] [address] LABORATORY CLIA [id number] [address] [place] [address] Trisomy 21 risk Based on maternal age Qn (fetus) 1 Normal [facility] Comment on above: Order Comment: Speci men Type: BLOOD SPECIMEN Ordering Facility: [facility] Address: [address] [place] [address] Performed By: #### 5 7021-8 #### [facility] CLIA [id number] [address] LABORATORY CLIA [id number] [address] Trisomy 21 risk Qn (fetus) 1 Normal [facility] Comment on above: Order Comment: Speci men Type: BLOOD SPECIMEN Ordering Facility: [facility] Address: [place] [address] Performed By: #### 5 7021-8 #### [facility] CLIA [id number] [address] LABORATORY CLIA [id number] [address] URINE OB DIP B/Oon 3 Glucose Ql (U) Negative Neg mg/dL [facility] Protein.monoclonal (U) [Mass/Vol] Negative Neg mg/dL [facility] CNPNon 04-26-2023 CNPN Telephone (SPMOBA) ---- VENECIA HART I ([id number]) 1990 F U[facility] Date Time Provider Department [...] APRN.CNM - Fully Assessed 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 - Other [3602] Cmt: Praf Prescriptions as [...] Status:Closed by IZA MOHAN on 04/26/23 Normal [facility] URINE OB DIP B/Oon 3 Glucose Ql (U) Negative Neg mg/dL [facility] Protein.monoclonal (U) [Mass/Vol] Negative Neg mg/dL [facility] CBC panel Auto (Bld)on 03-02 Erythrocyte distribution width (RBC) [Ratio] 13.4 % Normal 11.5-15.0 [facility] Comment on above: Order Comment: Speci men Type: BLOOD SPECIMEN Ordering Facility: [facility] Address: [address] [place] [address] Performed By: #### 5 7021-8 #### [facility] CLIA [id number] [address] LABORATORY CLIA [id number] [facility] [address] Hematocrit (Bld) [Volume fraction] 40.8 % Normal 36.0-46.0 [facility] Comment on above: Order Comment: Speci men Type: BLOOD SPECIMEN Ordering Facility: [facility] Address: [address] [place] [address] Performed By: #### 5 7021-8 #### [facility] CLIA [id number] [address] LABORATORY CLIA [id number] [facility] [address] [place] Hemoglobin (Bld) [Mass/Vol] 14.1 g/dL Normal 11.5-15.5 [facility] Comment on above: Order Comment: Speci men Type: BLOOD SPECIMEN Ordering Facility: [facility] Address: [address] [place] [address] Performed By: #### 5 7021-8 #### [facility] CLIA [id number] [address] [place] [address] LABORATORY CLIA [id number] [address] [place] [address] [place] MCH (RBC) [Entitic mass] 27.8 pg Normal 26.0-34.0 [facility] Comment on above: Order Comment: Speci men Type: BLOOD SPECIMEN Ordering Facility: [facility] Address: [address] [place] [address] Performed By: #### 5 7021-8 #### [facility] CLIA [id number] [address] [place] [address] LABORATORY CLIA [id number] [address] [place] [address] [place] MCHC (RBC) [Mass/Vol] 34.6 g/dL Normal 30.5-36.0 [facility] Comment on above: Order Comment: Speci men Type: BLOOD SPECIMEN Ordering Facility: [facility] Address: [address] [place] [address] Performed By: #### 5 7021-8 #### [facility] CLIA [id number] [address] [place] [address] LABORATORY CLIA [id number] [address] OF [place] MCV (RBC) [Entitic vol] 80.5 fL Normal 80.0-100.0 C [facility] Comment on above: Order Comment: Speci men Type: BLOOD SPECIMEN Ordering Facility: [facility] Address: [address] [place] [address] Performed By: #### 5 7021-8 #### [facility] CLIA [id number] [address] LABORATORY CLIA [id number] [address] OF [place] Nucleated RBC (Bld) [#/Vol] 10*3/uL Normal <0.01 [facility] Comment on above: Order Comment: Speci men Type: BLOOD SPECIMEN Ordering Facility: [facility] Address: [place] [address] Performed By: #### 5 7021-8 #### [facility] CLIA [id number] [address] LABORATORY CLIA [id number] [address] [place] [address] [place] Platelet mean volume (Bld) [Entitic vol] 9.4 fL Normal 9.0-12.7 [facility] Comment on above: Order Comment: Speci men Type: BLOOD SPECIMEN Ordering Facility: [facility] Address: [place] [address] Performed By: #### 5 7021-8 #### [facility] CLIA [id number] [address] LABORATORY CLIA [id number] [address] [place] [address] [place] Platelets (Bld) [#/Vol] 253 10*3/uL Normal 150-400 [facility] Comment on above: Order Comment: Speci men Type: BLOOD SPECIMEN Ordering Facility: [facility] Address: [address] [place] [address] Performed By: #### 5 7021-8 #### [facility] CLIA [id number] [address] LABORATORY CLIA [id number] [address] [place] [address] [place] RBC (Bld) [#/Vol] 5.07 10*6/uL Normal 3.90-5.20 [facility] Comment on above: Order Comment: Speci men Type: BLOOD SPECIMEN Ordering Facility: [facility] Address: [address] [place] [address] Performed By: #### 5 7021-8 #### [facility] CLIA [id number] [address] [place] [address] LABORATORY CLIA [id number] [address] [place] [address] [place] WBC (Bld) [#/Vol] 15.42 10*3/uL High 3.70-11.00 [facility] Comment on above: Order Comment: Speci men Type: BLOOD SPECIMEN Ordering Facility: [facility] Address: [address] [place] [address] Performed By: #### 5 7021-8 #### [facility] CLIA [id number] [address] [place] [address] LABORATORY CLIA [id number] [address] [place] [address] [facility] OF [place] HBV surface Ag Ser Qlon - HBV surface Ag Ql (S) Negative Normal Negative [facility] Comment on above: Order Comment: Speci men Type: BLOOD SPECIMENOrdering Facility: [facility] Address: [address] [id number] Performed By: #### 7 3752-8, 21928-7, 5195-3 ####[facility] LABCLIA [id number] [address] [place] HCV Ab Ser Qlon 03-02-2023 HCV Ab Ql (S) Negative Normal Negative [facility] Comment on above: Order Comment: Speci men Type: BLOOD SPECIMEN Ordering Facility: [facility] Address: [address] [place] [address] Result Comment: The result suggests no evidence of active infection with Hepatitis C virus. Should recent infection be suspected, repeat testing may be considered 4-6 weeks after this draw. Performed By: #### 2 276-4, 57843-4 #### [facility] CLIA [id number] [address] [place] [address] [place] HIV 1+2 Ab IA Qlon 3 HIV 1 and 2 Ab IA.rapid Nom Normal [facility] Comment on above: Order Comment: Speci men Type: BLOOD SPECIMENOrdering Facility: [facility] Address: [address] [place] [address] Result Comment: Test not indicated. Performed By: #### 7 3752-8, 52537-2, 5195-3 ####[facility] LABCLIA [id number] [place] [address] [place] HIV 1+2 Ab+HIV1 p24 Ag IA Ql Non-Reactive Normal Nonreactive [facility] Comment on above: Order Comment: Speci men Type: BLOOD SPECIMENOrdering Facility: [facility] Address: [address] [place] [address] Performed By: #### 7 3752-8, 56214-4, 5195-3 ####[facility] LABCLIA [id number] [place] [address] [place] HIVINT Normal [facility] Comment on above: Order Comment: Speci men Type: BLOOD SPECIMENOrdering Facility: [facility] Address: [address] [place] [address] Result Comment: No e vidence of HIV-1 or HIV-2 infection. Should recent infection be suspected, repeat testing may be considered 2-3 weeks after this draw. [place] Rev. Code 3701.243(E): This information has been [...] or diagnoses. Performed By: #### 7 3752-8, 18745-1, 5195-3 ####[facility] LABCLIA [id number] [address] [facility] HbA1c (Bld)on 03-02-2023 Average glucose Estimated from glycated hemoglobin (Bld) [Mass/Vol] 108 mg/dL Normal [facility] Comment on above: Order Comment: Guero guido Type: BLOOD SPECIMEN Ordering Facility: [facility] Address: [address] [place] [address] Result Comment: eAG: (Estimated average glucose) is a calculated value from HgbA1c and is patient financial representative of the average blood glucose level in the last 2-3 month period. Performed By: #### 5 7021-8 #### [facility] CLIA [id number] [address] [place] [address] LABORATORY CLIA [id number] [address] [place] [address] HbA1c (Bld) [Mass fraction] 5.4 % Normal 4.3-5.6 [facility] Comment on above: Order Comment: Guero guido Type: BLOOD SPECIMEN Ordering Facility: [facility] Address: [address] [place] [address] Result Comment: [place] Diabetes Association guidelines indicate that patients with HgbA1c in the range 5.7-6.4% are at increased risk for development of diabetes, and intervention by lifestyle modification may be beneficial. HgbA1c greater or equal to 6.5% is considered diagnostic of diabetes. Performed By: #### 5 7021-8 #### [facility] CLIA [id number] [address] LABORATORY CLIA [id number] [facility] [address] NUCHAL TRANSLUCENCY WHIon [facility] RUBELLA IGG ABon 03-02-2023 RUBELLA IGG AB, QUAL Equivocal Abnormal Positive [facility] Comment on above: Order Comment: Speci men Type: BLOOD SPECIMEN Ordering Facility: [facility] Address: [address] [place] [address] Result Comment: Mandeep ot exclude non-specific reactivity or recent or past exposure to Rubella virus including vaccination. Equivocal result may also be seen due to waning immunity to Rubella virus or presence of passively-transferred antibodies. Please correlate with patient's history. Performed By: #### 5 7021-8 #### [facility] CLIA [id number] [address] LABORATORY CLIA [id number] [address] [place] [address] [place] Reagin and Treponema pallidu m IgG and IgM [Interp]on 03-02-2023 SYPHILIS INTERPRETATION Cannot exclude recent Treponemal infection if specimen collected within 7-10 days after appearance of suspect lesions or 2-3 weeks after an exposure. Clinical correlation is required. Normal [facility] Comment on above: Order Comment: Speci [facility] Type: BLOOD SPECIMENOrdering Facility: [facility] Address: [address] [place] [address] Performed By: #### 7 3752-8, 46104-0, 5194-3 ####[facility] LABCLIA [id number] [address] [facility] T. pallidum IgG+IgM IA Ql (S) Non-Reactive Normal Nonreactive [facility] Comment on above: Order Comment: Speci men Type: BLOOD SPECIMENOrdering Facility: [facility] Address: [address] [place] [address] Performed By: #### 7 3752-8, 43856-6, 5194-3 ####[facility] LABCLIA [id number] [place] [address] [place] SEQUENTIAL SCRN WILY Johnson 03-02-2023 DATE OF COLLECTION #1 03/02/23 Normal [facility] Comment on above: Order Comment: Speci men Type: BLOOD SPECIMENOrdering Facility: [facility] Address: [address] [place] [address] Performed By: #### S EQL1 ####[facility] LABCLIA [id number] [place] [address] [place] DATE RECEIVED 03/03/23 Normal [facility] Comment on above: Order Comment: Speci men Type: BLOOD SPECIMENOrdering Facility: [facility] Address: [address] [place] [address] Performed By: #### S EQL1 ####[facility] LABCLIA [id number] [address] [place] SERA 09/05/23 Normal [facility] Comment on above: Order Comment: Speci men Type: BLOOD SPECIMENOrdering Facility: [facility] Address: [address] [place], [place] [address] Performed By: #### S EQL1 ####[facility] LABCLIA [id number] [place] [address] [place] GESTATION AT DATE OF SAMPLE 13 weeks 2 days (by CRL scan) Normal [facility] Comment on above: Order Comment: Speci men Type: BLOOD SPECIMENOrdering Facility: [facility] Address: [address] Performed By: #### S EQL1 ####[facility] LABIA [id number] [address] [place] HCG [MoM] 0.63 MoM Normal [facility] Comment on above: Order Comment: Speci men Type: BLOOD SPECIMENOrdering Facility: [facility] Address: [address] Result Comment: 47.6 0 IU/mL Performed By: #### S EQL1 ####[facility] LABCLIA [id number] [place] [address] [place] INSULIN DEPENDENT DIABETES None Normal [facility] Comment on above: Order Comment: Speci men Type: BLOOD SPECIMENOrdering Facility: [facility] Address: [address] [address] Performed By: #### S EQL1 ####[facility] LABCLIA [id number] [place] [address] [place] IVF No Normal [facility] Comment on above: Order Comment: Speci men Type: BLOOD SPECIMENOrdering Facility: [facility] Address: [address] [place] [address] Performed By: #### S EQL1 ####[facility] LABCLIA [id number] [place] [address] [place] [age]A 32.8 [age] Normal [facility] Comment on above: Order Comment: Speci men Type: BLOOD SPECIMENOrdering Facility: [facility] Address: [address] [place] [address] Performed By: #### S EQL1 ####[facility] LABCLIA [id number] [place] [address] [place] NUCHAL MEASUREMENT 2.00 mm Normal [facility] Comment on above: Order Comment: Speci men Type: BLOOD SPECIMENOrdering Facility: [facility] Address: [address] [address] Performed By: #### S EQL1 ####[facility] LABCLIA [id number] [place] [address] [place] NUCHAL MEASUREMENT MOM 1.16 MoM Normal [facility] Comment on above: Order Comment: Speci men Type: BLOOD SPECIMENOrdering Facility: [facility] Address: [address] [place] [address] Performed By: #### S EQL1 ####[facility] [id number] [address] [place] OPTIMAL DRAW DATES FOR SAMPLE 2 03/21/2023 to 04/04/2023 Normal [facility] Comment on above: Order Comment: Speci men Type: BLOOD SPECIMENOrdering Facility: [facility] Address: [address] [place] [address] Performed By: #### S EQL1 ####[facility] [id number] [address] OF [place] PATIENT'S WEIGHT DAY OF COLLECTION 207 lb. Normal [facility] Comment on above: Order Comment: Speci men Type: BLOOD SPECIMENOrdering Facility: [facility] Address: [address] [place] [address] Performed By: #### S EQL1 ####[facility] [id number] [address] [place] associated plasma protein A [MoM] 1.31 MoM Normal [facility] Comment on above: Order Comment: Speci men Type: BLOOD SPECIMENOrdering Facility: [facility] Address: [address] [place] [address] Result Comment: 1018 .9 ng/mL This test uses a reagent or kit labeled by the shredded filler machine wrapper layer as research use only. Its performance characteristics were determined by [facility] in a manner consistent with CLIA requirements. This test has not been cleared or approved by the U.S. Food and Drug Administration. Performed By: #### S EQL1 ####[facility] LABIA [id number] [place] [address] [place] PREVIOUS DOWN None Normal [facility] Comment on above: Order Comment: Speci men Type: BLOOD SPECIMENOrdering Facility: [facility] Address: [address] [place] [address] Performed By: #### S EQL1 ####[facility] LABCLIA [id number] [place] [address] [place] PREVIOUS NTD None Normal [facility] Comment on above: Order Comment: Speci men Type: BLOOD SPECIMENOrdering Facility: [facility] Address: [address] [place] [address] Performed By: #### S EQL1 ####[facility] LABCLIA [id number] [address] [place] SAMPLE #1 [id number] Normal [facility] Comment on above: Order Comment: Speci men Type: BLOOD SPECIMENOrdering Facility: [facility] Address: [address] [place] [address] Performed By: #### S EQL1 ####[facility] LABCLIA [id number] [address] OF [place] SCAN MEASURE 70.5 mm on 03/02/23 Normal [facility] Comment on above: Order Comment: Speci men Type: BLOOD SPECIMENOrdering Facility: [facility] Address: [address] [place] [address] Performed By: #### S EQL1 ####[facility] LABCLIA [id number] [address] [place] SEQ1 SCR RSK TRSMY 13 Normal [facility] Comment on above: Order Comment: Speci men Type: BLOOD SPECIMENOrdering Facility: [facility] Address: [address] [place] [address] Result Comment: Not Reported Performed By: #### S EQL1 ####[facility]CLIA [id number] [address] [place] SEQUENTIAL 1 INTERPRETATION Final result pending second trimester sample Normal Screen Negative, Final result pending second trimester sample [facility] Comment on above: Order Comment: Speci men Type: BLOOD SPECIMENOrdering Facility: [facility] Address: [address] Performed By: #### S EQL1 ####[facility] LABCLIA [id number] [address] [facility] STAFF REVIEW (MATERNAL SCREENS) Reviewed by Lou Morin PhD Normal [facility] Comment on above: Order Comment: Speci men Type: BLOOD SPECIMENOrdering Facility: [facility] Address: [address] Performed By: #### S EQL1 ####[facility] LABCLIA [id number] [address] Trisomy 18 risk Based on maternal age Qn (fetus) 1 Normal [facility] Comment on above: Order Comment: Speci men Type: BLOOD SPECIMENOrdering Facility: [facility] Address: [address] [place], [place] [address] Performed By: #### S EQL1 ####[facility]CLIA [id number] [address] Trisomy 18 risk Qn (fetus) <1 Normal [facility] Comment on above: Order Comment: Speci men Type: BLOOD SPECIMENOrdering Facility: [facility] Address: [address] [place], [place] [address] Performed By: #### S EQL1 ####[facility]CLIA [id number] [address] Trisomy 21 risk Based on maternal age Qn (fetus) 1 Normal [facility] Comment on above: Order Comment: Speci men Type: BLOOD SPECIMENOrdering Facility: [facility] Address: [address] [place], [place] [address] Performed By: #### S EQL1 ####[facility] [id number] [address] OF [place] Trisomy 21 risk Qn (fetus) <1 Normal [facility] Comment on above: Order Comment: Speci men Type: BLOOD SPECIMENOrdering Facility: [facility] Address: [address] [place] [address] Performed By: #### S EQL1 ####[facility] [id number] [address] TYPE + SCREEN PRENATALon HISTORICAL AB SCR STATUS Negative Normal [facility] Comment on above: Order Comment: Speci men Type: BLOOD SPECIMENOrdering Facility: [facility] Address: [address] [place] [address] Performed By: #### T SPN ####CC [facility] BLOOD BANKIA [id number] [address] TYPE AND SCREEN EXPIRATION 03/05/2023 23:59 Normal [facility] Comment on above: Order Comment: Speci men Type: BLOOD SPECIMENOrdering Facility: [facility] Address: [address] [place] [address] Performed By: #### T SPN ####CC [facility] BLOOD BANKCLIA [id number] [address] CNPNon 02-07-2023 CNPN Telephone (OBGYF2) ---- VENECIA HART I ([id number]) 1990 F UPA Date Time Provider Department [...] MA - Fully Assessed 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 trachomatis+N. gonorrhoea e DNA GO+probe Ql (Unsp spec)on 02-02-2023 C. trachomatis DNA GO+probe Ql (Unsp spec) Negative Normal Negative for Chlamydia trachomatis by amplificaton [facility] Comment on above: Order Comment: Speci men Type: BLOOD SPECIMEN [facility] Address: [address] [place] [address] Performed By: #### 2 276-4, 99431-7 #### [facility] CLIA [id number] [address] [place] [address] [place] N. gonorrhoeae DNA GO+probe Ql (Unsp spec) Negative Normal Negative for Neisseria gonorrhoeae by amplification [facility] Comment on above: Order Comment: Speci men Type: BLOOD SPECIMEN [facility] Address: [address] [place] [address] Performed By: #### 2 276-4, 31054-2 #### [facility] CLIA [id number] [address] [place] [address] [place] HPV W/GENOTYPE THIN PREPon 0 02-02-2023 HPV 16 Ag Ql (Unsp spec) Negative Normal Negative for HPV DNA high risk type 16 by PCR [facility] Comment on above: Order Comment: Speci men Type: BLOOD SPECIMEN [facility] Address: [address] [place] [address] Performed By: #### 2 276-4, 48250-6 #### [facility] CLIA [id number] [address] [place] [address] [place] HPV 18 Ag Ql (Unsp spec) Negative Normal Negative for HPV DNA high risk type 18 by PCR [facility] Comment on above: Order Comment: Speci men Type: BLOOD SPECIMEN [facility] Address: [address] [place] [address] Performed By: #### 2 276-4, 03190-3 #### [facility] CLIA [id number] [address] [place] [address] [place] HPV 31+33+35+39+45+51+52+56 +58+59+66+68 DNA GO+probe Ql (Cvx) Negative for HPV DNA high risk types: 31,33,35,39,45,51,5 2,56,58,59,66,68 by PCR. Normal Negative for HPV DNA high risk types: 31,33,35,39,45, 51,52,56,58,59, 66,68 by PCR. [facility] Comment on above: Order Comment: Speci men Type: BLOOD SPECIMEN [facility] Address: [address] [place] [address] Performed By: #### 2 276-4, 31920-1 #### [facility] CLIA [id number] [address] [facility] [address] [id number] [place] PAP TESTon 02-02-2023 CASE REPORT Normal [facility] Comment on above: Order Comment: Speci men Type: BLOOD SPECIMEN [facility] Address: [address] [place] [address] Result Comment: Gyne cologic Cytology Report Case: [id number] Authorizing Provider: Suri Forrest APRN.CNM Collected: 02/02/2023 01:52 PM Ordering Location: OB/Gynecology Received: 02/02/2023 04:54 PM First Screen: Donna Johns, [place], ASCP Rescreen: Lidia Garcia, ILIA, ASCP Specimen: Pap Test, ThinPrep, Cervix Performed By: #### 5 7021-8 #### [facility] CLIA [id number] [address] [place] [address] STATES OF [facility]ORATORY CLIA [id number] [address] [place] [address] STATES OF [facility] CLINICAL HISTORY, CYTOLOGY, SUPERVISOR REACTOR FUELING (Indicate Weeks) Normal [facility] Comment on above: Order Comment: Speci men Type: BLOOD SPECIMEN [facility] Address: [address] [place] [address] Result Comment: Abno rmal pap w/ LEEP per [facility] notes Performed By: #### 5 7021-8 #### [facility] CLIA [id number] [address] [place] [address] [place] [facility] CLIA [id number] [facility] STATES OF [place] CYTOLOGY INTERPRETATION PAP Normal [facility] Comment on above: Order Comment: Speci men Type: BLOOD SPECIMEN [facility] Address: [address] [place] [address] Result Comment: Nega tive for Intraepithelial lesion or malignancy. Performed By: #### 5 7021-8 #### [facility] CLIA [id number] [address] LABORATORY CLIA [id number] [facility] [address] FINAL DIAGNOSIS A - Cervix Normal [facility] Comment on above: Order Comment: Speci men Type: BLOOD SPECIMEN [facility] Address: [address] [place] [address] Result Comment: Sati sfactory for interpretation Negative for Intraepithelial lesion or malignancy. Fungal organisms morphologically consistent with Lisa species Performed By: #### 5 7021-8 #### [facility] CLIA [id number] [address] [place] [address] LABORATORY CLIA [id number] [address] [place] [address] FINAL PERFORMING LAB Normal [facility] Comment on above: Order Comment: Speci men Type: BLOOD SPECIMEN [facility] Address: [address] [place] [address] Result Comment: Tech nical component, vacuum forming machine operator screening performed at [facility], [address] [id number] CLIA# [id number] Diagnostic interpretation performed at [facility], [address] [id number] CLIA# [id number] Living Manager: Yvon Kern M.D. Performed By: #### 5 7021-8 #### [facility] CLIA [id number] [address] [facility] CLIA [id number] [facility] [place] [address] [place] HPV REFLEX Auto HPV Normal [facility] Comment on above: Order Comment: Speci men Type: BLOOD SPECIMEN [facility] Address: [address] [place] [address] Performed By: #### 5 7021-8 #### [facility] CLIA [id number] [address] [place] [address] [place] [facility] CLIA [id number] [facility] STATES OF [place] LMP 09/29/2022 Normal [facility] Comment on above: Order Comment: Speci men Type: BLOOD SPECIMEN [facility] Address: [address] [place] [address] Performed By: #### 5 7021-8 #### [facility] CLIA [id number] [address] [place] [address] LABORATORY CLIA [id number] [address] [place] [address] [place] PAP DISCLAIMER COMMENT The Pap Smear is a screening test for cervical cancer. False negative results occur with all screening tests, emphasizing the need for rescreening at recommended intervals, and clinical correlation. Normal [facility] Comment on above: Order Comment: Speci men Type: BLOOD SPECIMEN [facility] Address: [address] [place] [address] Performed By: #### 5 7021-8 #### [facility] CLIA [id number] [address] [place] [address] LABORATORY CLIA [id number] [address] [place] [address] [place] OF [place] PAP COMMANDING OFFICER [employer] COMMENT This specimen has been analyzed by the ThinPrep Imaging System, an automated imaging and review system, which assists the laboratory in evaluating cells on ThinPrep Pap tests. Following automated imaging, selected brice from every slide are reviewed by a vacuum forming machine operator. Normal [facility] Comment on above: Order Comment: Speci men Type: BLOOD SPECIMEN [facility] Address: [place] [address] Performed By: #### 5 7021-8 #### [facility] CLIA [id number] [id number] [place] [address] LABORATORY CLIA [id number] [address] CNNURSEon 01-27-2023 CNNURSE Nurse Visit (OBGYWM) ---- VENECIA HART I ([id number]) 1990 F UPA Date Time Provider Department 01/27/23 9:00 AM NURSE PNO[facility] OBGYWM During your visit today, we [...] of this visit. Patient was seen at [facility] ER on January 02, 2023 for [...] . Advised pt to quit. Information on [place] tobacco quit line and [facility] smoking cessation program given to patient. [...] for Encounter Date Provider Department Center 01/27/2023 [id number] PNOB [facility] OLIVIA Marcial [facility] Encounter Status:Closed by FABRIZIO CAMPOVERDE RN on 01/27/23 Normal [facility] hCG Titer Quant., Serumon HCG QUANT. 402 mIU/mL High 1-3 [facility] Comment on above: Result Comment: hCG levels with Gestational Age Gestational Age hCG mIU/mL (IU/L) 0.2 - 1 week 5 - 50 1-2 weeks 50 - 500 2-3 weeks 100 - 5000 3-4 weeks 500 - 23137 4-5 weeks 1000 - 67649 5-6 weeks 39342 - 100,000 6-8 weeks 93029 - 200,000 2-3 months 48744 - 100,000 Performed By: #### L 700.8000 #### [facility] [place] [address] [place], [address] Absolute lymphocyte countOrd ered By: Davey Goldman on 01-02-2023 Lymphocytes Auto (Unsp spec) [#/Vol] 5.58 10*3/uL 0.83-4.51 [facility] Amorphous sediment detection in urine sediment by light microscopyOrdered By: Davey Goldman on 01-02-2023 Amorphous sediment LM Ql (Urine sed) 1+ PHOS [facility] Basic Metabolic Profile (BMP )on 01-02-2023 BUN/CRE 12.4 RATIO Normal 10-20 [facility] Comment on above: Performed By: #### L 100.0100, L500.2500 #### [facility] [address] [place], [address] CA,Total 9.1 mg/dL Normal 8.5-10.1 [facility] Comment on above: Performed By: #### L 100.0100, L500.2500 #### [facility] [address] [place], [address] Chloride [Moles/Vol] 109 mmol/L High 98-107 [facility] Comment on above: Performed By: #### L 100.0100, L500.2500 #### [facility] [address] [place], [address] CO2 [Moles/Vol] 23.0 mmol/L Normal 21.0-32.0 [facility] Comment on above: Performed By: #### L 100.0100, L500.2500 #### [facility] [address] [place], [address] Creatinine [Mass/Vol] 0.73 mg/dL Normal 0.55-1.02 [facility] Comment on above: Result Comment: The validity of the calculated GFR GFRAA in patients over 70 years has not been determined. Clinical correlation is essential. Performed By: #### L 100.0100, L500.2500 #### [facility] [address] [place], [address] ECRCL 93.22 ml/min Normal [facility] Comment on above: Performed By: #### L 100.0100, L500.2500 #### [facility] [address] [place], [address] EST GFR - AA 121 mL/min Normal >60 [facility] Comment on above: Result Comment: Afri can [place] GFR Calc Performed By: #### L 100.0100, L500.2500 #### [facility] [address] [place], [address] GAP 5 Normal 5-15 [facility] Comment on above: Performed By: #### L 100.0100, L500.2500 #### [facility] [address] [place], [address] GFR/1.73 sq M.predicted among non-blacks MDRD (S/P/Bld) [Vol rate/Area] 100 mL/min/{1.73_m2} Normal >60 [facility] Comment on above: Result Comment: Non- GFR Calc Performed By: #### L 100.0100, L500.2500 #### [facility] [address] [place], [address] Glucose [Mass/Vol] 97 mg/dL Normal 74-106 [facility] Comment on above: Performed By: #### L 100.0100, L500.2500 #### [facility] [address] [place], [address] Potassium [Moles/Vol] 3.6 mmol/L Normal 3.5-5.1 [facility] Comment on above: Performed By: #### L 100.0100, L500.2500 #### [facility] [address] [place], [address] Sodium [Moles/Vol] 137 mmol/L Normal 136-145 [facility] Comment on above: Performed By: #### L 100.0100, L500.2500 #### [facility] [address] [place], [address] Urea nitrogen [Mass/Vol] 9 mg/dL Normal 7-18 [facility] Comment on above: Performed By: #### L 100.0100, L500.2500 #### [facility] [address] [place], [address] Basophil percentageOrdered B y: Davey Goldman on 01-02-2023 Basophils/100 WBC (Bld) 0.5 % 0-1 [facility] Chloride [Moles/Vol] 109 mmol/L 98-107 [facility] Eosinophils/100 WBC (Bld) 0.7 % 0-5 [facility] Glucose [Mass/Vol] 97 mg/dL 74-106 [facility] Neutrophils (Bld) [#/Vol] 9.6 10*3/uL 2.0-7.7 [facility] Neutrophils/100 WBC (Bld) 57.3 % 47-70 [facility] Potassium [Moles/Vol] 3.6 mmol/L 3.5-5.1 [facility] Sodium [Moles/Vol] 137 mmol/L 136-145 [facility] WBC (Bld) [#/Vol] 16.7 10*3/uL 4.4-11.0 [facility] Basophil percentage 0 SEEN /hpf 0-5 [facility] Bilirubin Test strip Ql (U)O rdered By: Davey Goldman on 01-02-2023 Bilirubin Ql (U) Negative Negative [facility] Blood erythrocytes count (nu mber/volume)Ordered By: Davey Goldman on 01-02-2023 RBC (Bld) [#/Vol] 5.52 10*6/uL 4.2-5.4 [facility] Blood hemoglobin measurement (mass/volume)Ordered By: Davey Goldman on 01-02-2023 Hemoglobin (Bld) [Mass/Vol] 15.4 g/dL 12.0-15.0 [facility] Blood lymphocytes/100 leukoc ytesOrdered By: Davey Goldman on 01-02-2023 Lymphocytes/100 WBC (Bld) 33.4 % 19-41 [facility] Blood manual differential co mment interpretation (narrative result)Ordered By: Davey Goldman on 01-02-2023 Manual differential comment Max (Bld) [Interp] SCANNED [facility] Blood monocytes/100 leukocyt esOrdered By: Davey Goldman on 01-02-2023 Monocytes/100 WBC (Bld) 7.7 % 0-10 [facility] Blood platelet mean volumeOr dered By: Davey Goldman on 01-02-2023 Platelet mean volume (Bld) [Entitic vol] 9.5 fL 6.2-12.0 [facility] CBC W/Diff, Automatedon 12-06 SMEAR COMMENT SCANNED Normal [facility] Comment on above: Performed By: #### L 100.0100, L500.2500 #### [facility] [address] [place], [address] Determination of erythrocyte mean corpuscular volume (MCV)Ordered By: Davey Goldman on 01-02-2023 MCV (RBC) [Entitic vol] 83.7 fL 81-99 [facility] Emergency Department Summary on 01-02-2023 Emergency Department Summary [facility] Medical Records Department [address] [place] [address] Emergency Department Summary 01/02/23 MR#: [id number] Acct: [id number] Name: VENECIA HART Rep #: [id number] : 1990 32 From: Davey Goldman [employer] PCP: Care Physician,No Primary Status:REG ER Location: [...] Denies any back pain, fever or chills[facility] Medical History Depression Home Medications amoxicillin [...] Data Attest (more content not included)... Normal [facility] Hematocrit Auto (Bld) [Volum e fraction]Ordered By: Davey Goldman on 01-02-2023 Hematocrit (Bld) [Volume fraction] 46.2 % 37-47 [facility] Ketones Test strip Ql (U)Ord ered By: Davey Goldman on 01-02-2023 Ketones Ql (U) Negative Negative [facility] Laboratory - Chemistry and C hemistry - challengeOrdered By: Davey Goldman on 01-02-2023 CO2 [Moles/Vol] 23.0 mmol/L 21.0-32.0 [facility] Urea nitrogen/Creatinine [Mass ratio] 12.4 mg/mg 10- [facility] HCG ( test) Ql (U) Negative [facility] Comment on above: CRITICAL VALUE VERIF IED. CALLED TO TREY HOOPER RN ED01/02/232143 Luis Eduardo Elaine.RESULTS READ BACK BY SAME . TEST is *POSITIVE* Laboratory - Hematology and Cell countsOrdered By: Davey Goldman on 01-02-2023 Erythrocyte distribution width (RBC) [Entitic vol] 39.9 fL 35.1-43.9 [facility] Erythrocyte distribution width (RBC) [Ratio] 13.1 % 11.6-14.6 [facility] Immature granulocytes/100 WBC (Bld) 0.400 % 0.0-0.9 [facility] Comment on above: IG% - Immature Granu locytes (promyelocytes, myelocytes and metamyelocytes) > 1% indicates that a LEFT SHIFT is Present. MCH (RBC) [Entitic mass] 27.9 pg 27.0-32.0 [facility] Nucleated RBC/100 WBC (Bld) [Ratio] 0 % 0-5 [facility] MCHC Auto (RBC) [Mass/Vol]Or dered By: Davey Goldman on 01-02-2023 MCHC (RBC) [Mass/Vol] 33.3 g/dL 32-36 [facility] Mucus LM Ql (Urine sed)Order ed By: Davey Goldman on 01-02-2023 Mucus Ql (Urine sed) 0 SEEN /hpf [facility] Nitrite Test strip Ql (U)Ord ered By: Davey Goldman on 01-02-2023 Nitrite Ql (U) Negative Negative [facility] No Panel InformationOrdered By: Davey Goldman on 01-02-2023 Estimated Creatinine Clearance Calc 93.22 ml/min [facility] Estimated GFR (MDRD) Amer 121 mL/min >60 [facility] Comment on above: GFR Calc Estimated GFR (MDRD) Non-Af Amer 100 mL/min >60 [facility] Comment on above: Non- GFR Calc Platelets bldOrdered By: Cira Goldman on 01-02-2023 Platelets (Bld) [#/Vol] 321 10*3/uL 150-450 [facility] ,Urineon 01-02-2023 Beta HCG ( test) Ql (U) Positive Abnormal [facility] Comment on above: Order Comment: CLEAN CATCH Result Comment: CRIT ICAL VALUE VERIFIED. CALLED TO TREY HOOPER [employer]OF[employer]AL 01/02/232143 Luis Eduardo Elaine. RESULTS READ BACK BY SAME . TEST is *POSITIVE* Performed By: #### L 100.0100, L500.2500 #### [facility] [address] [place], [address] Protein Test strip Ql (U)Ord ered By: Davey Goldman on 01-02-2023 Protein Ql (U) Negative Negative [facility] Serum or plasma calcium ivana urement (mass/volume)Ordered By: Davey Goldman on 01-02-2023 Calcium [Mass/Vol] 9.1 mg/dL 8.5-10.1 [facility] Serum or plasma choriogonado tropin detectionOrdered By: Davey Goldman on 01-02-2023 HCG ( test) Ql 402 mIU/mL <4 [facility] Comment on above: hCG levels with Gest ational AgeGestational Age hCG mIU/mL (IU/L)0.2 - 1 week 5 - 501-2 weeks 50 - 5002-3 weeks 100 - 37158-4 weeks 500 - 446451-6 weeks 1000 - 443501-5 weeks 42485 - 100,0006-8 weeks 97456 - 200,0002-3 months 93869 - 100,000 Serum or plasma creatinine m easurement (mass/volume)Ordered By: Davey Goldman on 01-02-2023 Creatinine [Mass/Vol] 0.73 mg/dL 0.55-1.02 [facility] Comment on above: The validity of the calculated GFR & GFRAA in patients over 70 years has not been determined. Clinical correlation is essential. Serum or plasma urea nitroge n measurement (mass/volume)Ordered By: Davey Goldman on 01-02-2023 Urea nitrogen [Mass/Vol] 9 mg/dL 7-18 [facility] Squamous epithelial cells de tection in urine sediment by light microscopyOrdered By: Davey Goldman on 01-02-2023 Epithelial cells.squamous LM Ql (Urine sed) 0-5 SEEN /hpf 5-10 [facility] Thin prep Papanicolaou smear with manual screeningOrdered By: Davey Goldman on 01-02-2023 Thin prep Papanicolaou smear with manual screening 5 5-15 [facility] Transvaginal w/Preg USon Transvaginal w/Preg US [facility] Services [address] [place] [address] Transvaginal w/Preg US MR#: [id number] Acct: [id number] Name: VENECIA HART Rep #: [id number] : 1990 F 32 From: Mario Quintanilla MD PCP: Care Physician,No Primary Status: REG ER Study: Transvaginal w/Preg US Date of Exam: 01/02/23 Exam# [id number] Ordering Dr: Daniel De Los Santos MD [...] Los Santos MD; No Primary Care Physician Driver Sales: Signed Normal [facility] Urinalysis, Completeon 01-02 AMORPHOUS 1+ PHOS Normal [facility] Comment on above: Order Comment: CLEAN CATCH Performed By: #### L 100.0100, L500.2500 #### [facility] [address] [place], [address] EPI,SQUAMOUS 0-5 SEEN Normal 5-10 [facility] Comment on above: Order Comment: CLEAN CATCH Performed By: #### L 100.0100, L500.2500 #### [facility] [address] [place], [address] BACTERIA 0 SEEN Normal None Seen [facility] Comment on above: Order Comment: CLEAN CATCH Performed By: #### L 100.0100, L500.2500 #### [facility] [address] [place], [address] Mucus Ql (Urine sed) 0 SEEN Normal [facility] Comment on above: Order Comment: CLEAN CATCH Performed By: #### L 100.0100, L500.2500 #### [facility] [address] [place], [address] RBC 0 SEEN Normal 0-5 [facility] Comment on above: Order Comment: CLEAN CATCH Performed By: #### L 100.0100, L500.2500 #### [facility] [address] [place], [address] WBC 0 SEEN Normal 0-5 [facility] Comment on above: Order Comment: CLEAN CATCH Performed By: #### L 100.0100, L500.2500 #### [facility] [address] [place], [place], [address] Urine blood detectionOrdered By: Davey Goldman on 01-02-2023 RBC Ql (U) Negative Negative [facility] RBC Ql (U) 0 SEEN /hpf 0-5 [facility] Urine clarityOrdered By: Cira Goldman on 01-02-2023 Clarity (U) Sl. Cloudy Clear [facility] Urine color determinationOrd ered By: Davey Goldman on 01-02-2023 Color (U) Yellow Yellow [facility] Urine glucose detectionOrder ed By: Davey Goldman on 01-02-2023 Glucose Ql (U) Normal mg/dl Normal [facility] Urine leukocyte esterase det ection by dipstickOrdered By: Davey Goldman on 01-02-2023 Leukocyte esterase Test strip Ql (U) Negative Negative [facility] Urine pHOrdered By: Davey arroyo on 01-02-2023 pH (U) 7.0 [pH] 5.0 - 8.0 [facility] Urine sediment bacteria coun t by microscopy (number/high power field)Ordered By: Davey Goldman on 01-02-2023 Bacteria LM.HPF (Urine sed) [#/Area] 0 /[HPF] None Seen [facility] Urine specific gravity measu rementOrdered By: Davey Goldman on 01-02-2023 Specific gravity (U) [Rel density] 1.005 1.002-1.030 [facility] Urobilinogen Auto test strip Ql (U)Ordered By: Davey Goldman on 01-02-2023 Urobilinogen Ql (U) Normal mg/dl Normal [facility] .Urinalysis Microscopic (AO) on 10-08-2017 UA Squam Epithelial 0-5 Abnormal None Seen [facility] ([place]) Comment on above: Performed By: #### P REGU, UA, UAMICAO ####Umberto [id number] [place], [place] [address] UA WBC None Seen Normal None Seen [facility] ([place]) Comment on above: Performed By: #### P REGU, UA, UAMICAO ####Umberto [id number] [place], [place] [address] Urine, erythrocytes None Seen Normal None Seen [facility] ([place]) Comment on above: Performed By: #### P REGU, UA, UAMICAO ####Umberto [id number] [place], [place] [address] CT HEAD OR BRAIN W/O CONTRAS Ton [...] PM Sign Date: 10/07/2017 11:24:38 PM Normal [facility] ([place]) [facility] Note on 10-08-2017 [facility] Note Normal [facility] ([place] PREGUon 10-08-2017 HCG ( test) Ql (U) Negative Normal [facility] ([place] Comment on above: Performed By: #### P REGU, UA, UAMICAO ####Umberto [id number] [place], [place] [address] test (u) int HCG not detected. Invalid Interpretation Code [facility] ([place] Comment on above: Performed By: #### P REGU, UA, UAMICAO ####Umberto [address] [place] [address] Patient Summary Documentson 10-08-2017 Patient Summary Documents Normal [facility] ([place]) UAon 10-08-2017 UA Appear CLEAR [facility]) Comment on above: Performed By: #### P REGU, UA, UAMICAO ####Umberto [id number] [place] [address] UA Blood Negative [facility] ([place]) Comment on above: Performed By: #### P REGU, UA, UAMICAO ####Umberto [address] [place] [address] UA Leuk Est Negative [facility] ([place] Comment on above: Performed By: #### P REGU, UA, UAMICAO ####Umberto [address] [place] [address] UA Nitrite Negative [facility]) Comment on above: Performed By: #### P REGU, UA, UAMICAO ####Umberto [address] [place] [address] UA pH 6.5 [facility]) Comment on above: Performed By: #### P REGU, UA, UAMICAO ####Umberto [address] [place] [address] UA Protein Negative [facility] ([place]) Comment on above: Performed By: #### P REGU, UA, UAMICAO ####Umberto [address] [place] [address] UA Spec Grav 1.010 [facility] ([place]) Comment on above: Performed By: #### P REGU, UA, UAMICAO ####Umberto [address] [place] [address] UA Specimen Type Void [facility] ([place] Comment on above: Performed By: #### P REGU, UA, UAMICAO ####Umberto [address] [place] [address] UA Urobilinogen 0.2 E.U./dL Normal [facility] ([place]) Comment on above: Performed By: #### P REGU, UA, UAMICAO ####Umberto [id number] [place], [place] [address] Urine, color YELLOW Normal [facility] ([place] Comment on above: Performed By: #### P REGU, UA, UAMICAO ####Umberto [id number] [place], [place] [address] Urine, glucose Negative Normal [facility] ([place] Comment on above: Performed By: #### P REGU, UA, UAMICAO ####Umberto [id number] [place], [place] [address] Urine, ketones presence Negative Normal A [facility] ([place]) Comment on above: Performed By: #### P REGU, UA, UAMICAO ####Umberto [id number] [place], [place] [address] Urine, urobilinogen Negative Normal [facility] ([place]) Comment on above: Performed By: #### P REGU, UA, UAMICAO ####Umberto [id number] [place], [place] [address] XR RIBS 2 VIEWS LEFTon 10-08 XR [...] PM Sign Date: 10/07/2017 11:37:34 PM Normal [facility] ([place]) No Panel Information SARS-CoV-2 & FLU Antigen (Rapid) [facility] Work Phone: Vital Signs Date Time Vital Sign Value Performing Clinician Jordan gamboa 12-21-2023 10:49-0400 Diastolic blood pressure 76 mm[Hg] Suri Plotts LANDSCAPE SUPERVISOR.CNM Work Phone: [facility] 12-21-2023 10:49-0400 Systolic blood pressure 128 mm[Hg] Suri Plotts LANDSCAPE SUPERVISOR.CNM Work Phone: [facility] 11-18-2023 10:39-0400 Body weight 98.61 kg Suri Plotts LANDSCAPE SUPERVISOR.CNM Work Phone: [facility] 11-18-2023 10:39-0400 Diastolic blood pressure 80 mm[Hg] Suri Plotts LANDSCAPE SUPERVISOR.CNM Work Phone: [facility] 11-18-2023 10:39-0400 Systolic blood pressure 120 mm[Hg] Suri Plotts LANDSCAPE SUPERVISOR.CNM Work Phone: [facility] 11-09-2023 13:35-0500 Diastolic blood pressure 72 mm[Hg] Suri Plotts LANDSCAPE SUPERVISOR.CNM Work Phone: [facility] 11-09-2023 13:35-0500 Systolic blood pressure 120 mm[Hg] Suri Plotts LANDSCAPE SUPERVISOR.CNM Work Phone: [facility] 09-02-2023 14:50-0500 Body temperature 98.2 [degF] [facility] 09-02-2023 14:50-0500 Diastolic blood pressure 70 mm[Hg] [facility] 09-02-2023 14:50-0500 Heart rate 68 /min [facility] 09-02-2023 14:50-0500 Respiratory rate 16 /min [facility] 09-02-2023 14:50-0500 SaO2% (BldA) [Mass fraction] 100 % [facility] 09-02-2023 14:50-0500 Systolic blood pressure 139 mm[Hg] [facility] 08-31-2023 20:11-0500 Body height 160.02 cm [facility] 08-31-2023 20:11-0500 Body mass index (BMI) [Ratio] 39.8 kg/m2 [facility] 08-31-2023 20:11-0500 Body weight 102.05 kg [facility] 08-25-2023 12:39-0500 Diastolic blood pressure 68 mm[Hg] [facility] 08-25-2023 12:39-0500 Heart rate 85 /min [facility] 08-25-2023 12:39-0500 Systolic blood pressure 114 mm[Hg] [facility] 08-25-2023 11:49-0500 Body mass index (BMI) [Ratio] 39.7 kg/m2 [facility] 08-25-2023 11:49-0500 Body weight 101.83 kg [facility] 08-24-2023 10:25-0500 Body weight 102.24 kg Suri Plotts LANDSCAPE SUPERVISOR.CNM Work Phone: [facility] 08-24-2023 10:25-0500 Diastolic blood pressure 78 mm[Hg] Suri Plotts LANDSCAPE SUPERVISOR.CNM Work Phone: [facility] 08-24-2023 10:25-0500 Systolic blood pressure 131 mm[Hg] Suri Plotts LANDSCAPE SUPERVISOR.CNM Work Phone: [facility] 08-12-2023 15:05-0500 Diastolic blood pressure 66 mm[Hg] Ob Ultrasound Work Phone: [facility] 08-12-2023 15:05-0500 Systolic blood pressure 130 mm[Hg] Ob Ultrasound Work Phone: [facility] 08-11-2023 14:33-0500 Body weight 103.15 kg Suri Plotts LANDSCAPE SUPERVISOR.CNM Work Phone: [facility] 08-11-2023 14:33-0500 Diastolic blood pressure 64 mm[Hg] Suri Plotts LANDSCAPE SUPERVISOR.CNM Work Phone: [facility] 08-11-2023 14:33-0500 Systolic blood pressure 118 mm[Hg] Suri Plotts LANDSCAPE SUPERVISOR.CNM Work Phone: [facility] 07-20-2023 10:55-0500 Body weight 101.06 kg Suri Plotts LANDSCAPE SUPERVISOR.CNM Work Phone: [facility] 07-20-2023 10:55-0500 Diastolic blood pressure 70 mm[Hg] Suri Plotts LANDSCAPE SUPERVISOR.CNM Work Phone: [facility] 07-20-2023 10:55-0500 Systolic blood pressure 122 mm[Hg] Suri Plotts LANDSCAPE SUPERVISOR.CNM Work Phone: [facility] 07-06-2023 11:04-0400 Body weight 100.25 kg Suri Plotts LANDSCAPE SUPERVISOR.CNM Work Phone: [facility] 07-06-2023 11:04-0400 Diastolic blood pressure 64 mm[Hg] Suri Plotts LANDSCAPE SUPERVISOR.CNM Work Phone: [facility] 07-06-2023 11:04-0400 Systolic blood pressure 110 mm[Hg] Suri Plotts LANDSCAPE SUPERVISOR.CNM Work Phone: [facility] 06-22-2023 09:37-0400 Body weight 98.43 kg Suri Plotts LANDSCAPE SUPERVISOR.CNM Work Phone: [facility] 06-22-2023 09:37-0400 Diastolic blood pressure 74 mm[Hg] Suri Plotts LANDSCAPE SUPERVISOR.CNM Work Phone: [facility] 06-22-2023 09:37-0400 Systolic blood pressure 120 mm[Hg] Suri Plotts LANDSCAPE SUPERVISOR.CNM Work Phone: [facility] 06-06-2023 11:20-0400 Body weight 99.25 kg Suri Plotts LANDSCAPE SUPERVISOR.CNM Work Phone: [facility] 06-06-2023 11:20-0400 Diastolic blood pressure 66 mm[Hg] Suri Plotts LANDSCAPE SUPERVISOR.CNM Work Phone: [facility] 06-06-2023 11:20-0400 Systolic blood pressure 120 mm[Hg] Suri Plotts LANDSCAPE SUPERVISOR.CNM Work Phone: [facility] 04-29-2023 11:03-0400 Body weight 96.16 kg Suri Plotts LANDSCAPE SUPERVISOR.CNM Work Phone: [facility] 04-29-2023 11:03-0400 Diastolic blood pressure 70 mm[Hg] Suri Plotts LANDSCAPE SUPERVISOR.CNM Work Phone: [facility] 04-29-2023 11:03-0400 Systolic blood pressure 122 mm[Hg] Suri Plotts LANDSCAPE SUPERVISOR.CNM Work Phone: [facility] 04-06-2023 12:59-0400 Body weight 96.16 kg Suri Plotts LANDSCAPE SUPERVISOR.CNM Work Phone: [facility] 04-06-2023 12:59-0400 Diastolic blood pressure 72 mm[Hg] Suri Plotts LANDSCAPE SUPERVISOR.CNM Work Phone: [facility] 04-06-2023 12:59-0400 Systolic blood pressure 128 mm[Hg] Suri Plotts LANDSCAPE SUPERVISOR.CNM Work Phone: [facility] 03-02-2023 10:46-0400 Diastolic blood pressure 76 mm[Hg] Suri Plotts LANDSCAPE SUPERVISOR.CNM Work Phone: [facility] 03-02-2023 10:46-0400 Systolic blood pressure 120 mm[Hg] Suri Plotts LANDSCAPE SUPERVISOR.CNM Work Phone: [facility] 03-02-2023 10:07-0400 Body height 160 cm Delmis Ortiz MD Work Phone: [facility] 03-02-2023 10:07-0400 Body weight 93.89 kg Delmis Ortiz MD Work Phone: [facility] 02-02-2023 12:58-0400 Body height 160 cm Srui Plotts LANDSCAPE SUPERVISOR.CNM Work Phone: [facility] 02-02-2023 12:58-0400 Body weight 92.81 kg Suri Plotts LANDSCAPE SUPERVISOR.CNM Work Phone: [facility] 02-02-2023 12:58-0400 Diastolic blood pressure 78 mm[Hg] Suri Forrest LANDSCAPE SUPERVISOR.CNM Work Phone: [facility] 02-02-2023 12:58-0400 Systolic blood pressure 120 mm[Hg] Suri Forrest LANDSCAPE SUPERVISOR.CNM Work Phone: [facility] 01-03-2023 00:16-0400 Diastolic blood pressure 74 mm[Hg] [facility] 01-03-2023 00:16-0400 Heart rate 62 /min [facility] 01-03-2023 00:16-0400 Respiratory rate 15 /min [facility] 01-03-2023 00:16-0400 SaO2% (BldA) [Mass fraction] 98 % [facility] 01-03-2023 00:16-0400 Systolic blood pressure 128 mm[Hg] [facility] 01-02-2023 20:39-0400 Body height 160.02 cm [facility] 01-02-2023 20:39-0400 Body mass index (BMI) [Ratio] 36.6 kg/m2 [facility] 01-02-2023 20:39-0400 Body temperature 97.9 [degF] [facility] 01-02-2023 20:39-0400 Body weight 93.9 kg [facility] 07-31-2022 04:34-0500 Body height 160.02 cm [facility] Work Phone: 07-31-2022 04:34-0500 Body mass index (BMI) [Ratio] 36.1 kg/m2 [facility] Work Phone: 07-31-2022 04:34-0500 Body temperature 96.5 [degF] [facility] Work Phone: 07-31-2022 04:34-0500 Body weight 92.5 kg [facility] Work Phone: 07-31-2022 04:34-0500 Diastolic blood pressure 88 mm[Hg] [facility] Work Phone: 07-31-2022 04:34-0500 Heart rate 81 /min [facility] Work Phone: 07-31-2022 04:34-0500 Respiratory rate 16 /min [facility] Work Phone: 07-31-2022 04:34-0500 SaO2% (BldA) [Mass fraction] 98 % [facility] Work Phone: 07-31-2022 04:34-0500 Systolic blood pressure 136 mm[Hg] [facility] Work Phone: Encounters Encounter Date Encounter Type Care Provider Facility Start: 12-21-2023 End: 12-22-2023 ambulatory [facility] Facility:[facility] Start: 12-21-2023 End: 12-21-2023 Patient encounter procedure Suri Forrest LANDSCAPE SUPERVISOR.CNM Work Phone: OB/Gynecology Comment on above: Surveillance of prev iously prescribed intrauterine contraceptive device (Primary Dx) Start: 11-18-2023 End: 11-18-2023 ambulatory SURI TONIE Facility:[facility] Start: 11-18-2023 End: 11-18-2023 Patient encounter procedure Suri Forrest LANDSCAPE SUPERVISOR.CNM Work Phone: OB/Gynecology Comment on above: Encounter for IUD in sertion (Primary Dx) Start: 11-09-2023 End: 11-09-2023 ambulatory SURI TONIE Facility:[facility] Start: 11-09-2023 End: 11-09-2023 Patient encounter procedure Suri Forrest LANDSCAPE SUPERVISOR.CNM Work Phone: OB/Gynecology Comment on above: care and examination (Primary Dx); Encounter for IUD insertion; care and examination of lactating mother Start: 09-06-2023 End: 09-07-2023 ambulatory No Primary Care Physician Facility[facility] Start: 09-04-2023 End: 09-05-2023 ambulatory Gi Hopkins NP Facility:[facility] Start: 08-31-2023 End: 09-02-2023 Evaluation and management of inpatient Suri Plot Facility:[facility] Start: 08-31-2023 End: 09-02-2023 Evaluation and management of inpatient [facility] Work Phone: Start: 08-31-2023 End: 09-01-2023 ambulatory [facility] Facility:[facility] Start: 08-25-2023 End: 08-25-2023 [facility] Facility:[facility] Start: 08-25-2023 End: 08-25-2023 Patient encounter procedure [facility] Work Phone: Start: 08-24-2023 End: 08-24-2023 ambulatory [facility] Facility:[facility] Start: 08-24-2023 End: 08-24-2023 Patient encounter procedure Suri Miletty LANDSCAPE SUPERVISOR.CNM Work Phone: OB/Gynecology Comment on above: 37 weeks gestation o f (Primary Dx); Supervision of high risk in third trimester; Obesity during ; Uterine size-date discrepancy, third trimester Start: 08-17-2023 End: 08-17-2023 [facility] Facility:[facility] Start: 08-12-2023 End: 08-12-2023 [facility] Facility:[facility] Start: 08-12-2023 End: 08-12-2023 Patient encounter procedure [facility] Work Phone: OB/Gynecology Comment on above: Encounter for ultras ound to check growth (Primary Dx); Obesity during ; 35 weeks gestation of Start: 08-11-2023 End: 08-12-2023 ambulatory [facility] Facility:[facility] Start: 08-11-2023 End: 08-11-2023 Patient encounter procedure Suri Miletty LANDSCAPE SUPERVISOR.CNM Work Phone: OB/Gynecology Comment on above: Obesity affecting pr egnancy in third trimester, unspecified obesity type (Primary Dx); 35 weeks gestation of ; Tobacco smoking affecting , antepartum; Supervision of high risk , antepartum; Anemia complicating , third trimester Start: 08-03-2023 End: 08-04-2023 [facility] Facility:[facility] Start: 07-20-2023 End: 07-21-2023 ambulatory SURI FORREST Facility:[facility] Start: 07-20-2023 End: 07-20-2023 Patient encounter procedure Suri Tonie LANDSCAPE SUPERVISOR.CNM Work Phone: OB/Gynecology Comment on above: 32 weeks gestation o f (Primary Dx); Anemia complicating , third trimester Start: 07-06-2023 End: 07-06-2023 ambulatory SURI FORREST Facility:[facility] Start: 07-06-2023 End: 07-06-2023 Patient encounter procedure Suri Tonie LANDSCAPE SUPERVISOR.CNM Work Phone: OB/Gynecology Comment on above: Encounter for superv ision of normal first in third trimester (Primary Dx); 30 weeks gestation of ; Obesity during ; Tobacco smoking affecting , antepartum; Uterine size-date discrepancy, third trimester; Anemia complicating , third trimester Start: 06-28-2023 End: 06-29-2023 [facility] SURI FORREST Facility:[facility] Start: 06-22-2023 End: [facility] Start: 06-22-2023 End: 06-23-2023 [facility] Facility:[facility] Start: 06-22-2023 End: 06-22-2023 Patient encounter procedure Suri Forrest LANDSCAPE SUPERVISOR.CNM Work Phone: OB/Gynecology Comment on above: 28 weeks gestation o f (Primary Dx); Encounter for supervision of normal first in third trimester; Obesity during ; Tobacco smoking affecting , antepartum; Uterine size-date discrepancy, third trimester Uterine size-date di screpancy, third trimester (Primary Dx); 28 weeks gestation of Start: 06-06-2023 End: 06-06-2023 [facility] SURI FORREST Facility:[facility] Start: 06-06-2023 End: 06-06-2023 Patient encounter procedure Suri Tonie LANDSCAPE SUPERVISOR.CNM Work Phone: OB/Gynecology Comment on above: Encounter for superv ision of other normal in second trimester (Primary Dx); 26 weeks gestation of ; Uterine size-date discrepancy, third trimester; Obesity during ; Tobacco smoking affecting , antepartum Start: 04-29-2023 End: 04-30-2023 [facility] Start: 04-29-2023 End: 04-29-2023 Patient encounter procedure Suri Forrest APRN.CNM Work Phone: OB/Gynecology Comment on above: 20 weeks gestation o f (Primary Dx); Encounter for supervision of other normal in second trimester; Obesity during Encounter for anatomic survey (Primary Dx); Obesity affecting in second trimester, unspecified obesity type; 20 weeks gestation of Start: 04-26-2023 Telephone encounter Iza Mohan RN Obstetrics/Gynecology Comment on above: Special Educator - O ther (Praf) Start: 04-06-2023 End: 04-06-2023 [facility] Start: 04-06-2023 End: 04-06-2023 Patient encounter procedure Suri Forrest APRN.CNM Work Phone: OB/Gynecology Comment on above: 17 weeks gestation o f (Primary Dx); Encounter for supervision of other normal in second trimester; Obesity during Start: 03-02-2023 End: 03-03-2023 [facility] Start: 03-02-2023 End: 03-03-2023 [facility] Start: 03-02-2023 End: 03-02-2023 Patient encounter procedure [...] Work Phone: Maternal Medicine Comment on above: Special Educator - O ther (PRAF ) Start: 02-02-2023 End: 02-03-2023 [facility] Start: 02-02-2023 End: 02-02-2023 Patient encounter procedure Suri Forrest LANDSCAPE SUPERVISOR.CACHORRO Work Phone: OB/Gynecology Comment on above: Supervision of other normal , antepartum (Primary Dx); 8 weeks gestation of ; History of depression; Tobacco smoking affecting , antepartum; Obesity during ; Nausea and vomiting during with uncer tain dates in first trimester (Primary Dx) Start: 01-27-2023 End: 01-27-2023 ambulatory SURI FORREST Facility:[facility] Start: 01-02-2023 End: 01-03-2023 Emergency department patient visit Daniel Magali Facility:[facility] Start: 01-02-2023 End: 01-03-2023 Emergency department patient visit [facility] Start: 07-31-2022 End: 07-31-2022 Emergency department patient visit [facility] Start: 10-08-2017 End: 10-08-2017 Emergency department patient visit ANUPAM Patton NICOLEPIA Facility: Start: 04-19-2017 Ambulatory [facility] Procedures Date Procedure Procedure Detail Performing Clinician Start: 11-18-2023 UA DIP,URINE HCG (POC) Suri Forrest APRN.CNM Work Phone: Start: 08-24-2023 URINE OB DIP B/O Patrica Forrest LANDSCAPE SUPERVISOR.CNM Work Phone: Start: 08-12-2023 Us preg uterus after 1st trimest 09/05 gestation Suri Forrest LANDSCAPE SUPERVISOR.CNM Work Phone: Start: 08-11-2023 URINE OB DIP B/O Patrica Forrest LANDSCAPE SUPERVISOR.CNM Work Phone: Start: 07-20-2023 URINE OB DIP B/O Patrica Forrest LANDSCAPE SUPERVISOR.CNM Work Phone: Start: 07-06-2023 URINE OB DIP B/O Patrica Forrest LANDSCAPE SUPERVISOR.CNM Work Phone: Start: 10-18-2023 Us preg uterus after 1st trimest 1/1st gestation Suri Forrest LANDSCAPE SUPERVISOR.CNM Work Phone: Start: 06-22-2023 URINE OB DIP B/O Courtn mayank Forrest LANDSCAPE SUPERVISOR.CNM Work Phone: Start: 06-06-2023 URINE OB DIP B/O Courtn mayank Forrest LANDSCAPE SUPERVISOR.CNM Work Phone: Start: 04-29-2023 URINE OB DIP B/O Courtn ey Tonie LANDSCAPE SUPERVISOR.CNM Work Phone: Start: 04-29-2023 Us preg uterus after 1st trimest / gestation Suri Forrest LANDSCAPE SUPERVISOR.CNM Work Phone: Start: 04-06-2023 URINE OB DIP B/O Courtn mayank Forrest LANDSCAPE SUPERVISOR.CNM Work Phone: Start: 03-02-2023 Antibody screen IRIS FORREST Comment on above: Order Comment: Speci men Type: BLOOD SPECIMENOrdering Facility: [facility] Address: [address] [place] [address] Performed By: #### T SPN ####CC [facility] BLOOD BANKCLIA [id number] [address] [facility] Start: 03-02-2023 Us nuchal medrano slucency 1st gestation Suri Forrest LANDSCAPE SUPERVISOR.CNM Work Phone: Start: 01-02-2023 Transvaginal obstetr ic ultrasonography Start: 07-31-2022 CT of head without contrast SARS-CoV-2 & FLU Ant igen (Rapid) Plan of Treatment Date Care Activity Detail Author Start: 02-03-2028 HPV TESTING HPV TESTING [facility] Start: 02-03-2028 PAP TESTING PAP TESTING [facility] Start: 02-03-2028 Screening for malign ant neoplasm of cervix [facility] Start: 05-06-2024 Influenza vaccination Influenz a Vaccine (Season Ended) [facility] Start: 09-05-2023 Behavioral Health Screening Behavioral Health Screening [facility] Start: 09-05-2023 Depression Assessment Depression Ass essment [facility] Start: 09-02-2023 Patient discharge [facility] Start: 09-01-2023 Administration of medication [facility] Start: 09-01-2023 Application of ice collar, cap or bag [facility] Start: 09-01-2023 Catheterization of vein [facility] Start: 09-01-2023 Introduction of urin francheska catheter [facility] Start: 09-01-2023 Measuring intake and output [facility] Start: 09-01-2023 Notification of physician [facility] Start: 09-01-2023 Procedure discontinued [facility] Start: 09-01-2023 Provision of activit y privileges [facility] Start: 09-01-2023 Vital signs measurements [facility] Start: 09-01-2023 [facility] Start: 09-01-2023 Consultation [facility] Start: 08-31-2023 Admission procedure [facility] Start: 08-31-2023 Verification routine [facility] Start: 08-25-2023 Nonstress test [facility] Start: 08-25-2023 Obstetric monitoring [facility] Start: 08-25-2023 Vital signs measurements [facility] Start: 08-25-2023 [facility] Start: 08-25-2023 Patient discharge [facility] Start: 07-20-2023 End: 10-19-2023 CBC panel - Blood by Automated count CBC Lab Routine 32 weeks gestation of Anemia complicating , third trimester Expected: 07/20/2023, Expires: 10/19/2023 [facility] Work Phone: Comment on above: Expected: 07/20/2023 , Expires: 10/19/2023 Start: 07-20-2023 End: 10-19-2023 Ferritin [Mass/volume] in Serum or Plasma FERRITIN BLD Lab Routine 32 weeks gestation of Anemia complicating , third trimester Expected: 07/20/2023, Expires: 10/19/2023 [facility] Work Phone: Comment on above: Expected: 07/20/2023 , Expires: 10/19/2023 Start: 07-20-2023 End: 10-19-2023 Iron and Iron binding capacity panel - Serum or Plasma IRON + TIBC Lab Routine 32 weeks gestation of Anemia complicating , third trimester Expected: 07/20/2023, Expires: 10/19/2023 [facility] Work Phone: Comment on above: Expected: 07/20/2023 , Expires: 10/19/2023 Start: 07-06-2023 End: 10-05-2023 CBC panel - Blood by Automated count CBC Lab Routine Anemia complicating , third trimester Expected: 07/06/2023, Expires: 10/05/2023 [facility] Work Phone: Comment on above: Expected: 07/06/2023 , Expires: 10/05/2023 Start: 06-06-2023 End: 08-06-2023 CBC W Auto Differential panel - Blood CBC + DIFF Lab Routine Encounter for supervision of other normal in second trimester 26 weeks gestation of Expected: 06/06/2023, Expires: 08/06/2023 [facility] Work Phone: Comment on above: Expected: 06/06/2023 , Expires: 08/06/2023 Start: 06-06-2023 End: 08-06-2023 GEST GLUC SCREEN, 1-HR, 50 GM, NON-FASTING GEST GLUC SCREEN, 1-HR, 50 GM, NON-FASTING Lab Routine Encounter for supervision of other normal in second trimester 26 weeks gestation of Expected: 06/06/2023, Expires: 08/06/2023 [facility] Work Phone: Comment on above: Expected: 06/06/2023 , Expires: 08/06/2023 Start: 06-06-2023 End: 08-06-2023 SYPHILIS TOTAL W/REFLEX SYPHILIS TOTAL W/REFLEX Lab Routine Encounter for supervision of other normal in second trimester 26 weeks gestation of Expected: 06/06/2023, Expires: 08/06/2023 [facility] Work Phone: Comment on above: Expected: 06/06/2023 , Expires: 08/06/2023 Start: 05-06-2023 Covid-19 Vaccine () Covid-19 Vaccine () [facility] Start: 05-06-2023 Influenza vaccination [facility] Start: 04-06-2023 End: 04-06-2024 OBSTETRIC ULTRASOUND WHI OBSTETRIC ULTRASOUND WHI Anc Imaging Routine 17 weeks gestation of Expected: 04/06/2023, Expires: 04/06/2024 [facility] Work Phone: Comment on above: Expected: 04/06/2023 , Expires: 04/06/2024 Start: 03-16-2023 End: 05-11-2023 SEQUENTIAL SCRN SCND TRIMESTER SEQUENTIAL SCRN SCND TRIMESTER Lab Routine 12 weeks gestation of Expected: 03/16/2023 (Approximate), Expires: 05/11/2023 [facility] Work Phone: Comment on above: Expected: 03/16/2023 (Approximate), Expires: 05/11/2023 Start: 03-02-2023 End: 05-02-2023 SEQUENTIAL SCRN FRST TRIMESTER [facility] Work Phone: Comment on above: Expected: 03/02/2023 , Expires: 05/02/2023 Start: 02-02-2023 End: 04-04-2023 CBC panel - Blood by Automated count CBC Lab Routine Supervision of other normal , antepartum Expected: 02/02/2023, Expires: 04/04/2023 [facility] Work Phone: Comment on above: Expected: 02/02/2023 , Expires: 04/04/2023 Start: 02-02-2023 End: 04-04-2023 Hemoglobin A1c in Blood HGB A1C Lab Routine Supervision of other normal , antepartum Expected: 02/02/2023, Expires: 04/04/2023 [facility] Work Phone: Comment on above: Expected: 02/02/2023 , Expires: 04/04/2023 Start: 02-02-2023 End: 04-04-2023 Hepatitis B virus surface Ag [Presence] in Serum HEP B SURF AG SCRN Lab Routine Supervision of other normal , antepartum Expected: 02/02/2023, Expires: 04/04/2023 [facility] Work Phone: Comment on above: Expected: 02/02/2023 , Expires: 04/04/2023 Start: 02-02-2023 End: 04-04-2023 Hepatitis C virus Ab [Presence] in Serum HEP C AB IA W/CONF SCRN Lab Routine Supervision of other normal , antepartum Expected: 02/02/2023, Expires: 04/04/2023 [facility] Work Phone: Comment on above: Expected: 02/02/2023 , Expires: 04/04/2023 Start: 02-02-2023 End: 04-04-2023 HIV 1+2 Ab [Presence] in Serum or Plasma by Immunoassay HIV 1 2 COMBO(AG/AB),WITH REFLEX TO DIFFERENTIATION Lab Routine Supervision of other normal , antepartum Expected: 02/02/2023, Expires: 04/04/2023 [facility] Work Phone: Comment on above: Expected: 02/02/2023 , Expires: 04/04/2023 Start: 02-02-2023 End: 02-03-2024 NUCHAL TRANSLUCENCY WHI NUCHAL TRANSLUCENCY WHI Anc Imaging Routine Supervision of other normal , antepartum Expected: 02/02/2023, Expires: 02/03/2024 [facility] Work Phone: Comment on above: Expected: 02/02/2023 , Expires: 02/03/2024 Start: 02-02-2023 End: 02-03-2024 OBSTETRIC ULTRASOUND WHI OBSTETRIC ULTRASOUND WHI Anc Imaging Routine Supervision of other normal , antepartum Expected: 02/02/2023, Expires: 02/03/2024 [facility] Work Phone: Comment on above: Expected: 02/02/2023 , Expires: 02/03/2024 Start: 02-02-2023 End: 04-04-2023 RUBELLA IGG AB RUBELLA IGG AB Lab Routine Supervision of other normal , antepartum Expected: 02/02/2023, Expires: 04/04/2023 [facility] Work Phone: Comment on above: Expected: 02/02/2023 , Expires: 04/04/2023 Start: 02-02-2023 End: 04-04-2023 SYPHILIS TOTAL W/REFLEX SYPHILIS TOTAL W/REFLEX Lab Routine Supervision of other normal , antepartum Expected: 02/02/2023, Expires: 04/04/2023 [facility] Work Phone: Comment on above: Expected: 02/02/2023 , Expires: 04/04/2023 Start: 02-02-2023 End: 04-04-2023 TYPE + SCREEN TYPE + SCREEN Blood Bank Routine Supervision of other normal , antepartum Expected: 02/02/2023, Expires: 04/04/2023 [facility] Work Phone: Comment on above: Expected: 02/02/2023 , Expires: 04/04/2023 Start: 2022 HPV TESTING HPV TESTING [facility] Start: 09-05-2022 DEPRESSION ASSESSMENT DEPRESSION ASS ESSMENT [facility] Start: 2013 PAP TESTING PAP TESTING [facility] Start: 2011 Hepatitis B Vaccine (1 of 3 - 19+ 3-dose series) Hepatitis B Vaccine (1 of 3 - 19+ 3-dose series) [facility] Start: 2011 Urine microalbumin profile [facility] Start: 1998 PNEUMOCOCCAL (1 - PCV) PNEUMOCOCCAL (1 - PCV) [facility] Start: 1998 Pneumococcal vaccination [facility] Start: 04-29-1993 COVID-19 VACCINE (#1) COVID-19 VACCI NE (#1) [facility] Start: 1992 HEPATITIS B (1 of 3 - 3-dose series) HEPATITIS B (1 of 3 - 3-dose series) [facility] Start: 1992 Hepatitis B Vaccine (1 of 3 - 3-dose series) Hepatitis B Vaccine (1 of 3 - 3-dose series) [facility] Bacteria identified in Urine by Culture URINE CULTURE Microbiology Routine Supervision of other normal , antepartum 02/02/2023 1:52 PM EDT [facility] Work Phone: Chlamydia trachomatis+Neisseria gonorrhoeae DNA [Presence] in Unspecified specimen by GO with probe detection GC/CHLAMYDIA DNA DET Lab Routine Supervision of other normal , antepartum 02/02/2023 1:52 PM EDT [facility] Work Phone: Insertion intrauteri ne device iud INSERT INTRAUTERINE DEVICE Procedures Routine care and examination Encounter for IUD insertion Ordered: 11/09/2023 [facility] Work Phone: Comment on above: Ordered: 11/09/2023 Insertion intrauteri ne device iud INSERT INTRAUTERINE DEVICE Procedures Routine Encounter for IUD insertion Ordered: 11/18/2023 [facility] Work Phone: Comment on above: Ordered: 11/18/2023 End: 12-03-2023 OBSTETRIC ULTRASOUND WHI OBSTETRIC ULTRASOUND WHI Anc Imaging Routine Uterine size-date discrepancy, third trimester Once per month for 5 Occurrences starting 06/06/2023 until 12/03/2023 [facility] Work Phone: Comment on above: Once per month for 5 Occurrences starting 06/06/2023 until 12/03/2023 PAP TEST PAP TEST Lab Stormy mcdaniel Supervision of other normal , antepartum 02/02/2023 1:52 PM EDT [facility] Work Phone: Patient Education [facility] Work Phone: Patient referral [facility] Work Phone: POC MARINE ELECTRONICS TECHNICIAN ULTRASOUND POC MARINE ELECTRONICS TECHNICIAN ULTRASO UND Anc Imaging Routine Supervision of other normal , antepartum Ordered: 02/02/2023 [facility] Work Phone: Comment on above: Ordered: 02/02/2023 ROUTINE, GR OUP B STREP PCR ROUTINE, GROUP B STREP PCR Microbiology Routine Obesity affecting in third trimester, unspecified obesity type 35 weeks gestation of Ordered: 08/11/2023 [facility] Work Phone: Comment on above: Ordered: 08/11/2023 URINE OB DIP B/O URINE OB DIP B/ O Lab Routine 12 weeks gestation of Ordered: 03/02/2023 [facility] Work Phone: Comment on above: Ordered: 03/02/2023 [facility] Payers Date Payer Category Payer Self-pay [id number] 2022 Medicaid [place] [id number] 2022-Present [phone] [place] [id number] Medicaid [id number] 2014 Unknown [id number] Unknown Unknown [id number] Unknown [id number] Unknown [id number] Unknown [id number] Unknown [id number] Social History Date Type Detail Facility Start: 07-31-2022 End: 09-01-2023 Tobacco smoking status LAIS Unknown if ever smoked [facility] Start: 04-27-2020 Occasional [facility] Start: 04-27-2020 None [facility] Start: 04-27-2020 With Family [facility] Start: 1990 Sex Assigned At Female [facility] Start: 12-18-2022 [facility] Start: 03-02-2012 Tobacco smoking status NHIS Smokes tobacco daily [facility] Work Phone: Start: 03-02-2012 Tobacco use and exposure Smokeless tobacco non-user [facility] Work Phone: Start: 02-02-2023 End: 12-21-2023 Alcohol intake Current non-drinker of alcohol (finding) [facility] Start: 01-27-2023 Education 15 [facility] Start: 1990 Sex Assigned At Not on file [facility] Start: 03-02-2023 End: 04-06-2023 History of Social function [facility] Start: 03-02-2023 End: 04-06-2023 Tobacco use panel [facility] National Score (1-100), lower number is lower risk 56 [facility] NEGATED: Highlighted row [facility] Work Phone: Goals Date Patient Goal Desired Activity /State Personal health goal Mental Status Date Assessment Result Facility 07-31-2022 Cognitive function Level Of Cons ciousness Awake;Alert;Appropriate;Follow s Commands [facility] Work Phone: Clinical Notes 01-02-2023 to 12-21-2023 Suri Forrest APRN.CNM - 12/21/2023 10:47 AM EDTPatient InstructionsSuri Forrest APRN.CNM - 11/18/2023 10:26 AM EDTPSuri concepcion APRN.CNM - 11/09/2023 1:20 PM EST Note Date & Type Note Facility 12-21-2023 Note HNO ID: [id number] Author: SURI FORREST APRN.CNM Service: ? Author Type: Catering Attendant Type: Progress Notes Filed: 12/21/2023 11:34 Note Text: Venecia Hart presents today for IUD check. She had a Mirena placed on 11/18/2023. She has had heavy bleeding/ now spotting since placement. REVIEW OF SYSTEMS: PAIN ASSESSMENT: Negative for pain, history of chronic pain, or current treatment for a chronic pain condition. GENERAL: No weight loss, malaise or fevers SUPERVISOR REACTOR FUELING: Negative for abnormal vaginal bleeding, abnormal vaginal [...] or sooner if needed. Suri Forrest APRN.CNM [facility] 12-21-2023 History of Presen t illness Narrative Venecia Hart presents today for IUD check. She had a Mirena placed on 11/18/2023. She has had heavy bleeding/ now spotting since placement. REVIEW OF SYSTEMS: PAIN ASSESSMENT: Negative for pain, history of chronic pain, or current treatment for a chronic pain condition. GENERAL: No weight loss, malaise or fevers SUPERVISOR REACTOR FUELING: Negative for abnormal vaginal bleeding, abnormal vaginal [...] Suri Forrest APRN.CNM documented in this encounter [facility] 11-18-2023 Note HNO ID: [id number] Author: SURI FORREST APRN.CNM Service: ? Author Type: Catering Attendant Type: Progress Notes Filed: 11/18/2023 12:02 Note Text: Skiver Blockers offered: Patient declines. Venecia presents today for IUD insertion for contraception. Patient's last menstrual period was 11/07/2023 (approximate). GC/chlamydia: Negative on 02/02/2023 test: negative Side effects including irregular bleeding were discussed with the patient. The patient understands that it should be removed in 8 years or sooner if the patient desires a . IUD source: office provided IUD lot #: [id number] Exp date: 09/2025 [facility]: [id number] UNIVERSAL PROTOCOL / SAFETY CHECKLIST Procedure to [...] menses for string check. Suri Forrest APRN.CACHORRO [facility] 11-18-2023 Instructions Cynthia Banda MA - 11/18/2023 10:27 AM EDT [...] contact the office. documented in this encounter [facility] 11-18-2023 History of Presen t illness Narrative Skiver Blockers offered: Patient declines. Venecia presents today for IUD insertion for contraception. Patient's last menstrual period was 11/07/2023 (approximate). GC/chlamydia: Negative on 02/02/2023 test: negative Side effects including irregular bleeding were discussed with the patient. The patient understands that it should be removed in 8 years or sooner if the patient desires a . IUD source: office provided IUD lot #: [id number] Exp date: 09/2025 [facility]: [id number] UNIVERSAL PROTOCOL / SAFETY CHECKLIST Procedure to [...] Suri Forrest APRN.CNM documented in this encounter [facility] 11-09-2023 Note HNO ID: [id number] Author: SURI FORREST APRN.CNM Service: ? Author Type: Catering Attendant Type: Progress Notes Filed: 11/09/2023 14:33 Note Text: VISIT Venecia Hart is a 33 year old year old here for visit. Delivery Summary: by FABBY on 09/01/2023 ROS/ Recovery: Feeding: Breast feeding problems: None Menses since delivery: started period 11/07/2023 Menstrual pattern prior to : Irregular periods [place] since delivery: Not resumed Depression: denies symptoms [...] external genitalia normal, normal Bartholin's glands, urethra, Drasco's glands, no vulvar lesions, no cervical lesions, [...] Desires Mirena Order written Suri Forrest APRN.CNM [facility] 11-09-2023 History of Presen t illness Narrative VISIT Venecia Hart is a 33 year old year old here for visit. Delivery Summary: by CP on 09/01/2023 ROS/ Recovery: Feeding: Breast feeding problems: None Menses since delivery: started period 11/07/2023 Menstrual pattern prior to : Irregular periods [place] since delivery: Not resumed Depression: denies symptoms [...] external genitalia normal, normal Bartholin's glands, urethra, Drasco's glands, no vulvar lesions, no cervical lesions, [...] Suri Forrest APRN.CNM documented in this encounter [facility] 09-02-2023 Discharge summary Note Date/Time September 02, 2023 8:21am [facility] Medical Records Department [address] [place] [address] Instructions for Home/Discharge Instructions 09/02/23 0820 MR#: [id number] Acct: [id number] Name: VENECIA HART Rep #:[id number] : [...] CC: No Primary Care Physician ~ Signed [facility] Work Phone: 1(164) 550-170712-29-2023 Progress note Author Sabrina Coon [facility] September 02, 2023 7:24am Note Date/Time September 02, 2023 7:24am [facility] Medical Records Department [address] [place] [address] Progress Note - OBGYN 09/02/23721 MR#: [id number] Acct: [id number] Name: VENECIA HART Rep #:[id number] : 1990 32 From: Sabrina Coon DO PCP: Care Physician,No Primary Status :ADM IN Location: [id number] Subjective Subjective Patient doing well this morning. [...] Cosigner Signature (if applicable): CC: ~ Signed [facility] Work Phone: 1(143) 138-824212-28-2023 NoteHNO ID: [id number] Author: Mehnaz Yepez RN Service: ? Author Type: Registered Nurse Type: Progress Notes Filed: 09/01/2023 1:22 PM Note Text: Patient delivered via at [facility] on 09/01/23 per Suri Forrest CNM. See OB Outcome note. Mehnaz Yepez [facility]2023 Procedure [facility]12-28-2023 Progress note Author Suri Forrest [facility] September 01, 2023 7:09am Note Date/Time September 01, 2023 7:09am [facility] Medical Records Department [address] [place] [address] Progress Note - OBGYN 09/01/23704 MR#: [id number] Acct: [id number] Name: VENECIA HART Rep #:[id number] : 1990 32 From: Suri Forrest CNM PCP: Care Physician,No Primary Status :ADM IN Location: [place] [address] Subjective Subjective Patient seen at bedside. Comfortable [...] 74.1 H, Lymph % (Auto) 16.5 L, Ogle % (Auto) 7.7, Eos % (Auto) 0.3, [...] Cosigner Signature (if applicable): CC: ~ Signed [facility] Work Phone: 1(557) 423-872612-27-2023 Progress note Author Suri Forrest [facility] August 31, 2023 9:15pm Note Date/Time August 31, 2023 9:15pm [facility] Medical Records Department [address] [place], [place] [address] [place] [address] Progress Note - OBGYN 08/31/232111 MR#: [id number] Acct: [id number] Name: VENECIA HART Rep #:[id number] : 1990 32 From: Suri Plotts CNM PCP: Care Physician,No Primary Status :ADM IN Location: BG541-1 Subjective Subjective Patient seen at bedside. 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 Author Type: Catering Attendant Type: Progress Notes Filed: 08/24/2023 12:24 PM [...] Category I and Reactive SIGNATURE: [facility] History of Present illness Narrative* Suri Forrest [...] SIGNATURE: Suri Forrest APRN.CNM [facility] Miscellaneous Notes* Quick Notes - Suri [...] EFW. Suri Forrest APRN.CNM documented in this encounterProm[facility]12-20-2023 Instructions* Patient Instructions* Cynthia Banda MA - 08/24/2023 10:24 AM EST SEQUENTIAL SCREENINGS The [facility] offers sequential screenings for women who [...] testing. It will require an appointment withour career resource technician. This is not an ultrasound performed [...] the above symptoms, contact our office at [phone] and ask to speak with anurse. After hours, you can call doctors registry at [phone] OR call [facility] at [phone] ask to have the doctor chief solution architect paged. If you consider this an emergency, dial 9-1-6 or go to your nearest emergency department. NEED HELP? Are you dealing with a violent or abusive relationship? Are you a victim of rape or sexual assult? Call [facility] 24 hour Crisis Hotline: 879.375.7532 or 199-502-4925. MANUAL Your Guide to a Healthy manual is now on-line. Visit [email or web address] to download your free copy documented in this encounterProm[facility]12-13-2023 NoteHNO ID: [id number] Author: Shannan Cabrera APRN.CNP Service: ? Author Type: Nurse Practitioner Type: Procedures Filed: 08/17/2023 9:55 AM Note Text: NST SUMMARY PROVIDER ASSESSMENT AND INTERPRETATION Indications for NST: Obesity Baseline: 125 Variability: Moderate Accelerations: Present 15 X 15 Decelerations: None Interpretation: Reactive SIGNATURE: Shannan Cabrera APRN.LABORER CUTTING TOOL NST reviewed by [facility]12-07-2023 Miscellaneous Notes* Quick Notes - Suri [...] US Suri Forrest APRN.CNM documented in this encounterProm[facility]12-07-2023 Instructions* Patient Instructions* Jonas Andrews Cma - 08/11/2023 2:22 PM EST SEQUENTIAL SCREENINGS The [facility] offers sequential screenings for women who [...] testing. It will require an appointment withour career resource technician. This is not an ultrasound performed [...] the above symptoms, contact our office at [phone] and ask to speak with anurse. After hours, you can call doctors registry at [phone] OR call [facility] at [phone] ask to have the doctor chief solution architect paged. If you consider this an emergency, dial 9-1-1 or go to your nearest emergency department. NEED HELP? Are you dealing with a violent or abusive relationship? Are you a victim of rape or sexual assult? Call [facility] ([place] 24 hour Crisis Hotline: 526.630.2909 or 539-006-8298. MANUAL Your Guide to a Healthy manual is now on-line. Visit [email or web address] to download your free copy documented in this encounterProm[facility]11-15-2023 Miscellaneous Notes* Quick Notes - Suri [...] studies Suri Forrest APRN.CNM documented in this encounterProm[facility]ica [facility]11-15-2023 Instructions* Patient Instructions* Ita Cook RN - 07/20/2023 10:47 AM EST SEQUENTIAL SCREENINGS The [facility] offers sequential screenings for women who [...] testing. It will require an appointment withour career resource technician. This is not an ultrasound performed [...] the above symptoms, contact our office at [phone] and ask to speak with anurse. After hours, you can call doctors registry at [phone] OR call [facility] at [phone] ask to have the doctor chief solution architect paged. If you consider this an emergency, dial 9-1-1 or go to your nearest emergency department. NEED HELP? Are you dealing with a violent or abusive relationship? Are you a victim of rape or sexual assult? Call [facility] ([place]) 24 hour Crisis Hotline: 676.247.1209 or 417-941-1161. MANUAL Your Guide to a Healthy manual is now on-line. Visit [email or web address] to download your free copy documented in this encounterPromedica [facility]11-01-2023 Miscellaneous Notes* Quick Notes - Suri [...] weeks Suri Forrest APRN.CNM documented in this encounterPromedica [facility]11-01-2023 Instructions* Patient Instructions* Jonas Andrews Cma - 07/06/2023 10:58 AM EDT SEQUENTIAL SCREENINGS The [facility] offers sequential screenings for women who [...] testing. It will require an appointment withour career resource technician. This is not an ultrasound performed [...] the above symptoms, contact our office at [phone] and ask to speak with anurse. After hours, you can call doctors registry at [phone] OR call [facility] at [phone] ask to have the doctor chief solution architect paged. If you consider this an emergency, dial 9-1- or go to your nearest emergency department. NEED HELP? Are you dealing with a violent or abusive relationship? Are you a victim of rape or sexual assult? Call [facility] ([place]) 24 hour Crisis Hotline: 419.844.2377 or 998-202-0346. MANUAL Your Guide to a Healthy manual is now on-line. Visit [email or web address] to download your free copy documented in this encounterPromedica Defiance [facility]10-18-2023 Miscellaneous Notes* Quick Notes - Suri [...] weeks Suri Forrest APRN.CNM documented in this encounterPromedica Defiance Regional Hospital10-18-2023 Instructions* Patient Instructions* Jonas Andrews Cma - 06/22/2023 9:05 AM EDT SEQUENTIAL SCREENINGS The [facility] offers sequential screenings for women who [...] testing. It will require an appointment withour career resource technician. This is not an ultrasound performed [...] the above symptoms, contact our office at [phone] and ask to speak with anurse. After hours, you can call [facility] at [phone] OR call [facility] at [phone] ask to have the doctor chief solution architect paged. If you consider this an emergency, dial 9--6 or go to your nearest emergency department. NEED HELP? Are you dealing with a violent or abusive relationship? Are you a victim of rape or sexual assult? Call [facility] ([place]) 24 hour Crisis Hotline: 719.404.9047 or 205-839-4319. MANUAL Your Guide to a Healthy manual is now on-line. Visit [email or web address] to download your free copy documented in this encounterPromedica Defiance Regional Hospital10-02-2023 Miscellaneous Notes* Quick Notes - Suri [...] needed Suri Forrest APRN.CNM documented in this encounterPromedica Defiance Regional Hospital10-02-2023 Instructions* Patient Instructions* Jonas Andrews Cma - 06/06/2023 11:14 AM EDT SEQUENTIAL SCREENINGS The [facility] offers sequential screenings for women who [...] testing. It will require an appointment withour career resource technician. This is not an ultrasound performed [...] the above symptoms, contact our office at [phone] and ask to speak with anurse. After hours, you can call [facility] at [phone] OR call [facility] at [phone] ask to have the doctor chief solution architect paged. If you consider this an emergency, dial 9-3 or go to your nearest emergency department. NEED HELP? Are you dealing with a violent or abusive relationship? Are you a victim of rape or sexual assult? Call [facility] ([facility] 24 hour Crisis Hotline: 327.154.3294 or 722-695-6056. MANUAL Your Guide to a Healthy manual is now on-line. Visit [email or web address] to download your free copy documented in this encounterPromedica Defiance [facility] Hospital08-25-2023 Miscellaneous Notes* Quick Notes - Suri [...] needed Suri Forrest APRN.CNM documented in this encounterPromedica Defiance Regional Hospital08-25-2023 Instructions* Patient Instructions* Jonas Andrews Cma - 04/29/2023 10:29 AM EDT SEQUENTIAL SCREENINGS The [facility] offers sequential screenings for women who [...] testing. It will require an appointment withour career resource technician. This is not an ultrasound performed [...] the above symptoms, contact our office at [phone] and ask to speak with anurse. After hours, you can call [facility] at [phone] OR call [facility] at [phone] ask to have the doctor chief solution architect paged. If you consider this an emergency, dial 91-5 or go to your nearest emergency department. NEED HELP? Are you dealing with a violent or abusive relationship? Are you a victim of rape or sexual assult? Call [facility] ([place]) 24 hour Crisis Hotline: 634.442.8683 or 373-062-3427. MANUAL Your Guide to a Healthy manual is now on-line. Visit [email or web address] to download your free copy documented in this encounterPromedica Defiance [facility] Hospital08-22-2023 Miscellaneous Notes* Telephone Encounter - Iza Mohan RN - 04/26/2023 10:59 AM EDT 2nd risk assessment form submitted 04/26/23. 20w3d today documented in this encounterPromedica Defiance Regional Hospital08-02-2023 Miscellaneous Notes* Quick Notes - Suri [...] weeks Suri Forrest APRN.CNM documented in this encounterPromedica Defiance Regional Hospital08-02-2023 Instructions* Patient Instructions* Jonas Andrews Cma - 04/06/2023 1:03 PM EDT SEQUENTIAL SCREENINGS The [facility] offers sequential screenings for women who [...] testing. It will require an appointment withour career resource technician. This is not an ultrasound performed [...] the above symptoms, contact our office at [phone] and ask to speak with anurse. After hours, you can call [facility] [facility] at [phone] OR call [facility] at [phone] ask to have the doctor chief solution architect paged. If you consider this an emergency, dial 9--0 or go to your nearest emergency department. NEED HELP? Are you dealing with a violent or abusive relationship? Are you a victim of rape or sexual assult? Call [facility] ([place]) 24 hour Crisis Hotline: 266.645.5777 or 493-568-8375. MANUAL Your Guide to a Healthy manual is now on-line. Visit [email or web address] to download your free copy documented in this encounterPromedica Defiance [facility] Hospital06-28-2023 NoteHNO ID: [id number] Author: Leti Goins Ma Service: ? Author Type: ? Type: Progress Notes Filed: 03/02/2023 12:54 PM Note Text: Patient here for First Trimester Screening. See ultrasound report for details. Options for genetic screening and diagnosis discussed with the patient. Patient opts for first trimester screening and the sequential screening protocol. Limitations of screening tests discussed with the patient. Suri Forrest APRN.[facility]06-28-2023 Miscellaneous Notes* Quick Notes - Suri Forrest APRN.[facility] - 03/02/2023 11:13 AM EDT S: [...] weeks Suri Forrest APRN.CNM documented in this encounterPromedica Defiance Regional Hospital06-28-2023 History of Present illness Narrative* Leti Goins Ma - 03/02/2023 10:52 AM EDT Patient here for First Trimester Screening. See ultrasound report for details. Options for genetic screening and diagnosis discussed with the patient. Patient opts for first trimester screening and the sequential screening protocol. Limitations of screening tests discussed withthe patient. Suri Forrest APRN.CNM documented in this encounterPromedica Defiance Regional Hospital06-28-2023 Instructions* Patient Instructions* Leti Goins Ma - 03/02/2023 9:51 AM EDT SEQUENTIAL SCREENINGS The [facility] offers sequential screenings for women who [...] testing. It will require an appointment withour career resource technician. This is not an ultrasound performed [...] the above symptoms, contact our office at [phone] and ask to speak with anurse. After hours, you can call [facility] at [phone] OR call [facility] at [phone] ask to have the doctor chief solution architect paged. If you consider this an emergency, dial 9-1-4 or go to your nearest emergency department. NEED HELP? Are you dealing with a violent or abusive relationship? Are you a victim of rape or sexual assult? Call [facility] ([place]) 24 hour Crisis Hotline: 812.408.4587 or 586-473-6530. MANUAL Your Guide to a Healthy manual is now on-line. Visit [email or web address] to download your free copy SEQUENTIAL TESTING PROCESS Sequential Screen First Trimester Today you are currently: 12w4d weeks 03/02/2023: Ultrasound and blood test. Sequential Screen Second Trimester (16-17 Weeks Gestation) When you are called with your results, the nurse will give the optimal draw dates for the Sequential screen second trimester. Blood testing can be done at any [facility] lab. Please report to the any cleaner housekeeping office it help desk technician for the Sequential Part 2 requisition and [...] medicine office, for east side please call [phone] or for the West side call [phone] and ask for the the nurse. Thank you. documented in this encounterPromedica Defiance [facility] Hospital06-05-2023 Miscellaneous Notes* Telephone Encounter - Asad Barnard RN - 02/07/2023 3:02 PM EDT Initial risk assessment form submitted 02/07/2023 Asad Barnard RN documented in this encounterPromedica Defiance Regional Hospital05-31-2023 NoteHNO ID: [id number] Author: Suri Forrest APRN.CNM Service: ? Author Type: Catering Attendant Type: Progress Notes Filed: 02/02/2023 4:33 PM Note Text: OB point of care ultrasound was performed. See imaging tab for details. Suri Forrest APRN.CNMarymount Hospital05-31-2023 History of Present illness Narrative* Suri Forrest APRN.CNM - 02/02/2023 4:32 PM EDT OB point of care ultrasound was performed. See imaging tab for details. Suri Forrest APRN.CNM documented in this encounterPromedica Defiance Regional Hospital05-31-2023 NoteHNO ID: [id number] Author: Suri Forrest APRN.CNM Service: ? Author Type: Catering Attendant Type: Progress Notes Filed: 02/02/2023 2:45 PM Note Text: Skiver Blockers offered: Patient declines. 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 See progress note. Suri Forrest APRN.CNM documented in this encounterPromedica Defiance Regional Hospital05-31-2023 History of Present illness Narrative* Suri Forrest APRN.CNM - 02/02/2023 12:49 PM EDT Images from the original note were not included. Skiver Blockers offered: Patient declines. INITIAL OB ASSESSMENT OB [...] use: No Multivitamin with Folic acid: Yes Islam or heritage: No Would refuse blood transfusion [...] prn. Suri Forrest APRN.CNM documented in this encounterPromedica Defiance Regional Hospital05-31-2023 Instructions* Patient Instructions* Cynthia Banda MA - 02/02/2023 12:49 PM EDT Please select the following link to access the [facility] Your Guide to a Healthy . [email or web address] documented in this encounterPromedica Defiance Regional Hospital05-25-2023 NoteHNO ID: [id number] Author: Fabrizio Campoverde RN Service: ? Author [...] Apgar1: None, Apgar5: None, Living: None, Comments: None[facility] De Los Santos [facility] January 03, 2023 12:15am Note Date/Time January 02, 2023 9:5 5pm [facility] Medical Records Department [address] [place] [address] Emergency Department Summary 01/02/23 MR#: [id number] Acct: [id number] Name: VENECIA HART Rep #:[id number] : [...] <BISI Sesay - Last Filed: 01/02/23 22:10> [facility] Lab Data Attestation: I reviewed the [...] % (Auto) 57.3 Lymph % (Auto) 33.4 Ogle % (Auto) 7.7 Eos % (Auto) 0.7 [...] Sl. Cloudy Urine pH 7.0 Ur Specific [place] 1.005 Urine Protein Negative Urine Glucose (UA) [...] (Auto) Neut % (Auto) Lymph % (Auto) Ogle % (Auto) Eos % (Auto) Baso % (Auto) Absolute Neuts (auto) Absolute Lymphs (auto) Nucleated RBC % Differential Comment Sodium Potassium Chloride Carbon Dioxide Anion Gap BUN Creatinine Estim Creat Clear Calc Est GFR (MDRD) Af Amer Est GFR (MDRD) Non-Af BUN/Creatinine Ratio Glucose Calcium HCG, Quant 402 H Urine Color Urine Clarity Urine pH Ur Specific [place] Urine Protein Urine Glucose (UA) Urine Ketones [...] did have elevated white blood counts from 2329-8336. Patient's chemistries were unremarkable. Patient urinalysis negative for infection, and was positive for . We did attempt a bedside ultrasound however not much was seen. Patient's hCG quantitative was 402. The patient will still receivea transvaginal ultrasound to rule out any ectopic , other abnormality. <Dr. Daniel De Los Santos MD - Last Filed: 01/03/23 00:15> [facility] Lab Data Labs: Laboratory Results - last 24 hr 01/02/23 01/02/23 01/02/23 21:00 21:07 21:07 WBC 16.7 H RBC 5.52 H Hgb 15.4 H Hct 46.2 MCV 83.7 MCH 27.9 MCHC 33.3 RDW Std Deviation 39.9 RDW Coeff of Jatinder 13.1 Plt Count 321 MPV 9.5 Immature Gran % (Auto) 0.400 Neut % (Auto) 57.3 Lymph % (Auto) 33.4 Ogle % (Auto) 7.7 Eos % (Auto) 0.7 [...] Sl. Cloudy Urine pH 7.0 Ur Specific [place] 1.005 Urine Protein Negative Urine Glucose (UA) [...] (Auto) Neut % (Auto) Lymph % (Auto) Ogle % (Auto) Eos % (Auto) Baso % (Auto) Absolute Neuts (auto) Absolute Lymphs (auto) Nucleated RBC % Differential Comment Sodium Potassium Chloride Carbon Dioxide Anion Gap BUN Creatinine Estim Creat Clear Calc Est GFR (MDRD) Af Amer Est GFR (MDRD) Non-Af BUN/Creatinine Ratio Glucose Calcium HCG, Quant 402 H Urine Color Urine Clarity Urine pH Ur Specific [place] Urine Protein Urine Glucose (UA) Urine Ketones [...] . Close outpatient follow-up advised with the solution architect on-call since patient does not have 1. [...] your Primary Care Provider. Call [facility] ([phone]) or report to the closest Emergency Room. Call 911 if necessary. 01/02/23 2211 <Electronically signed by Davey GRIFFITHSC> Cosigner Signature (if applicable): 01/03/23 0015 <Electronically signed by Daniel De Los Santos MD> CC: Dr. Haven Cross MD; No Primary Care Physician ~ Signed [facility] Work Phone: [employer] noteNo assessment information available [facility] Work Phone: Evaluation note* Diagnosis Supervision of other normal , antepartum- Primary 8 weeks gestation of state, incidental History of depression Personal history of other mental disorder Tobacco smoking affecting , antepartum Obesity during Nausea and vomiting during [facility]* Diagnosis with uncertain dates in first trimester- Primary documented [facility]* Diagnosis 12 weeks gestation of - Primary state, incidental Tobacco smoking affecting , antepartum Nausea and vomiting during Obesity during documented in this encounter [facility]* Diagnosis Encounter for (NT) nuchal translucency scan- Primary Other specified screening Supervision of other normal , antepartum 12 weeks gestation of state, incidental documented in this encounter [facility]* Diagnosis 17 weeks gestation of - Primary state, incidental Encounter for supervision of other normal in second trimester Obesity during documented in this encounter [facility]* Diagnosis 20 weeks gestation of - Primary state, incidental Encounter for supervision of other normal in second trimester Obesity during [facility] Diagnosis Encounter for anatomic survey- Primary Obesity affecting in second trimester, unspecified obesity type 20 weeks gestation of state, incidental documented in this encounter [facility]* Diagnosis Encounter for supervision of other normal in second trimester- Primary 26 weeks gestation of state, incidental Uterine size-date discrepancy, third trimester Obesity during Tobacco smoking affecting , antepartum documented in this encounter [facility]* Diagnosis 28 weeks gestation of - Primary state, incidental Encounter for supervision of normal first in third trimester Supervision of normal first Obesity during Tobacco smoking affecting , antepartum Uterine size-date discrepancy, third trimester documented in this encounter [facility]* Diagnosis Uterine size-date discrepancy, third trimester- Primary 28 weeks gestation of state, incidental documented in this encounter [facility]* Diagnosis Encounter for supervision of normal first in third trimester- Primary Supervision of normal first 30 weeks gestation of state, incidental Obesity during Tobacco smoking affecting , antepartum Uterine size-date discrepancy, third trimester Anemia complicating , third trimester documented in this encounter [facility]* Diagnosis 32 weeks gestation of - Primary state, incidental Anemia complicating , third trimester documented in this encounter [facility]* Diagnosis Obesity affecting in third trimester, unspecified obesity type- Primary 35 weeks gestation of state, incidental Tobacco smoking affecting , antepartum Supervision of high risk , antepartum Anemia complicating , third trimester documented in this encounter [facility]* Diagnosis Encounter for ultrasound to check growth- Primary Encounter for routine screening for malformation using ultrasonics Obesity during 35 weeks gestation of state, incidental documented in this encounter [facility]* Diagnosis 37 weeks gestation of - Primary state, incidental Supervision of high risk in third trimester Unspecified high-risk Obesity during Uterine size-date discrepancy, third trimester documented in this encounter [facility]* Diagnosis Onset Date Resolution Status 37 [...] (spontaneous vaginal delivery) acute Vaginal delivery acute [facility] Work Phone: Evaluation note* Diagnosis care and examination- Primary Routine follow-up Encounter for IUD insertion Encounter for insertion of intrauterine contraceptive device care and examination of lactating mother documented in this encounter [facility]* Diagnosis Encounter for IUD insertion- Primary Encounter for insertion of intrauterine contraceptive device documented in this encounter [facility]* Diagnosis Surveillance of previously prescribed intrauterine contraceptive device- Primary [facility] Additional Instructions Your CT [...] the ER should you have any further concernsWMain [facility] Work Phone: Reason for referral (narrative)* Diagnostic Procedure Only (Routine) - Authorized Specialty Diagnoses / Procedures Referred By Nevin t Referred To Contact [facility] Diagnoses Supervision of other normal , antepartum Procedures NUCHAL TRANSLUCENCY WHI US NUCHAL TRANSLUCENCY 1ST GESTATION Suri Forrest APRN.CNM [address] [place] [address] [place] [id number] Referral ID Status Reason Start Date Expiration Date Visits Requested Visits Authorized [id number] Authorized Auto-Generat ed Referral 02/02/2023 02/02/2024 1 1 * Diagnostic Procedure Only (Routine) - Pending Review Specialty Diagnoses / Procedures Referred By Nevin t Referred To Contact [facility] Diagnoses Supervision of other normal , antepartum Procedures OBSTETRIC ULTRASOUND WHI US PREG UTERUS AFTER 1ST TRIMEST GESTATION Suri Forrest APRN.CNM [address] [place] [address] [address] Referral ID Status Reason Start Date Expiration Date Visits Requested Visits Authorized [id number] Pending Review Auto-Generat ed Referral 02/02/2023 02/02/2024 1 1 [facility] for referral (narrative)* Diagnostic Procedure Only (Routine) - Authorized Specialty Diagnoses / Procedures Referred By Contac t Referred To Contact [facility] Diagnoses 17 weeks gestation of Procedures OBSTETRIC ULTRASOUND WHI US PREG UTERUS AFTER 1ST TRIMEST GESTATION Suri Forrest APRN.CNM [address] [place] [address] [address] Referral ID Status Reason Start Date Expiration Date Visits Requested Visits Authorized [id number] Authorized Auto-Generat ed Referral 04/06/2023 04/05/2024 1 1 [facility] for referral (narrative)* Diagnostic Procedure Only (Routine) - Authorized Specialty Diagnoses / Procedures Referred By Contac t Referred To Contact [facility] Diagnoses Uterine size-date discrepancy, third trimester Procedures OBSTETRIC ULTRASOUND WHI US PREG UTERUS AFTER 1ST TRIMEST GESTATION Suri Forrest APRN.CNM [address] [place] [address] [address] Referral ID Status Reason Start Date Expiration Date Visits Requested Visits Authorized [id number] Authorized Auto-Generat ed Referral 06/06/2023 06/05/2024 5 1 [facility] for referral (narrative)* Outpatient Procedure (Routine) - Pending Review Specialty Diagnoses / Procedures Referred By Contac t Referred To Contact [facility] Diagnoses care and examination Encounter for IUD insertion Procedures INSERT INTRAUTERINE DEVICE INSERT INTRAUTERINE DEVICE Suri Forrest APRN.CNM [address] [place] [address] [address] Referral ID Status Reason Start Date Expiration Date Visits Requested Visits Authorized [id number] Pending Review Auto-Generat ed Referral 11/09/2023 11/08/2024 1 1 [facility] for referral (narrative)* Outpatient Procedure (Routine) - Pending Review Specialty Diagnoses / Procedures Referred By Contac t Referred To Contact [facility] Diagnoses Encounter for IUD insertion Procedures INSERT INTRAUTERINE DEVICE LEVONORGESTREL IU 52MG 5 YR INSERT INTRAUTERINE DEVICE Suri Forrest APRN.CNM [address] [place] [address] [facility] [address] [place] [address] Referral ID Status Reason Start Date Expiration Date Visits Requested Visits Authorized [id number] Pending Review Auto-Generat ed Referral 11/18/2023 11/17/2024 1 1 [facility] Summary Purpose Family History No Family History Records FoundNo Family History Records FoundNo Family History Records FoundNo Family History Records Found Advance Directives No Advanced Directives Records Found Advance Directive Response Recorded Date/ Time Living Will No July 31, 2 022 4:37am Power of Public Services Librarian No July 31, 2022 4:37am Advance Directive Response Recorded Date/ Time Living Will No January 03, 2023 12 :17am Power of Public Services Librarian No January 03, 2023 12:17am Advance Directive Response Recorded Date/ Time Living Will No August 31, 2 023 8:40pm Power of Public Services Librarian No August 31, 2023 8:40pm Chief Complaint [...] CC Education - COMMON 01/05 Education - [place] 02/02/2023 Problem Noted Date [facility] Education - [facility] 01/05 Education - [place] 02/02/2023 Problem Noted Date [facility] CC Education - COMMON 01/05 Education - [place] 02/02/2023 Problem Noted Date [facility] CC Education - [facility] 01/05 Education - [place] 02/02/2023 Problem Noted Date [facility] CC Education - [facility] 01/05 Education - [place] 02/02/2023 Problem Noted Date Diagnosed Date [facility] CC Education - [facility] 02/02/2023 Education - [place] 02/02/2023 Problem Noted Date Diagnosed Date [facility] CC Education - [facility] 02/02/2023 Education - [place] 02/02/2023 Problem Noted Date Diagnosed Date [facility] [place] [facility] [place] [facility] 02/02/2023 [place] - [place] 02/02/2023 Problem Noted Date Diagnosed Date [facility] 02/02/2023 [place] - [place] 02/02/2023 Problem Noted Date Diagnosed Date [facility] 02/02/2023 [place] - [place] 02/02/2023 Problem Noted Date Diagnosed Date [facility] 02/02/2023 [place] - [place] 02/02/2023 Problem Noted Date Diagnosed Date [facility] 02/02/2023 [place] - [place] 02/02/2023 Problem Noted Date Diagnosed Date [facility] 02/02/2023 [place] - [place] 02/02/2023 Problem Noted Date Diagnosed Date [facility] [place] 02/02/2023 [place] - [place] 02/02/2023 Problem Noted Date Diagnosed Date [facility] [place] 02/02/2023 [place] - [place] 02/02/2023 Problem Noted Date Diagnosed Date [facility] 02/02/2023 [place] - [place] 02/02/2023 Additional Source Comments INFORMATION SOURCE (unrecogn ized section and content) DATE CREATED AUTHOR 02/27/2018 [facility] DATE CREATED AUTHOR AUTHOR'S ORGANIZ ATION 03/01/2018 [facility] DATE CREATED AUTHOR AUTHOR'S ORGANIZ ATION 10/25/2023 [facility] DATE CREATED AUTHOR AUTHOR'S ORGANIZ ATION 12/25/2023 [facility] Goals (unrecognized section and content) Goals may [...] or prosecute any alcohol or drug abuse patient.[facility] the event this information is protected by the Federal Confidentiality of Alcohol and Drug Abuse Patient Records regulations: The Federal rules restrict any use of the information to criminally investigate or prosecute any alcohol or drug abuse patient.[facility] the event this information is protected by the Federal Confidentiality of Alcohol and Drug Abuse Patient Records regulations: The Federal rules restrict any use of the information to criminally investigate or prosecute any alcohol or drug abuse patient.[facility] the event this information is protected by the Federal Confidentiality of Alcohol and Drug Abuse Patient Records regulations: The Federal rules restrict any use of the information to criminally investigate or prosecute any alcohol or drug abuse patient.[facility] the event this information is protected by the Federal Confidentiality of Alcohol and Drug Abuse Patient Records regulations: The Federal rules restrict any use of the information to criminally investigate or prosecute any alcohol or drug abuse patient.[facility] the event this information is protected by the Federal Confidentiality of Alcohol and Drug Abuse Patient Records regulations: The Federal rules restrict any use of the information to criminally investigate or prosecute any alcohol or drug abuse patient.[facility] the event this information is protected by the Federal Confidentiality of Alcohol and Drug Abuse Patient Records regulations: The Federal rules restrict any use of the information to criminally investigate or prosecute any alcohol or drug abuse patient.[facility] the event this information is protected by the Federal Confidentiality of Alcohol and Drug Abuse Patient Records regulations: The Federal rules restrict any use of the information to criminally investigate or prosecute any alcohol or drug abuse patient.[facility] the event this information is protected by the Federal Confidentiality of Alcohol and Drug Abuse Patient Records regulations: The Federal rules restrict any use of the information to criminally investigate or prosecute any alcohol or drug abuse patient.[facility] the event this information is protected by the Federal Confidentiality of Alcohol and Drug Abuse Patient Records regulations: The Federal rules restrict any use of the information to criminally investigate or prosecute any alcohol or drug abuse patient.[facility] the event this information is protected by the Federal Confidentiality of Alcohol and Drug Abuse Patient Records regulations: The Federal rules restrict any use of the information to criminally investigate or prosecute any alcohol or drug abuse patient.[facility] Hospital[facility] the event this information is protected by the Federal Confidentiality of Alcohol and Drug Abuse Patient Records regulations: The Federal rules restrict any use of the information to criminally investigate or prosecute any alcohol or drug abuse patient.[facility] HospitalIn the event this information is protected by the Federal Confidentiality of Alcohol and Drug Abuse Patient Records regulations: The Federal rules restrict any use of the information to criminally investigate or prosecute any alcohol or drug abuse patient.[facility] the event this information is protected by the Federal Confidentiality of Alcohol and Drug Abuse Patient Records regulations: The Federal rules restrict any use of the information to criminally investigate or prosecute any alcohol or drug abuse patient.[facility] HospitalIn the event this information is protected by the Federal Confidentiality of Alcohol and Drug Abuse Patient Records regulations: The Federal rules restrict any use of the information to criminally investigate or prosecute any alcohol or drug abuse patient.[facility] HospitalIn the event this information is protected by the Federal Confidentiality of Alcohol and Drug Abuse Patient Records regulations: The Federal rules restrict any use of the information to criminally investigate or prosecute any alcohol or drug abuse patient.[facility] HospitalIn the event this information is protected by the Federal Confidentiality of Alcohol and Drug Abuse Patient Records regulations: The Federal rules restrict any use of the information to criminally investigate or prosecute any alcohol or drug abuse patient.[facility] HospitalIn the event this information is protected by the Federal Confidentiality of Alcohol and Drug Abuse Patient Records regulations: The Federal rules restrict any use of the information to criminally investigate or prosecute any alcohol or drug abuse patient.[facility] HospitalIn the event this information is protected by the Federal Confidentiality of Alcohol and Drug Abuse Patient Records regulations: The Federal rules restrict any use of the information to criminally investigate or prosecute any alcohol or drug abuse patient.[facility] HospitalIn the event this information is protected by the Federal Confidentiality of Alcohol and Drug Abuse Patient Records regulations: The Federal rules restrict any use of the information to criminally investigate or prosecute any alcohol or drug abuse patient.[facility] Reason for Visit (unrecogniz ed section and content) Reason Comments Care Reason Comments 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 Reason Onset Date Comments Care 03/02/2023 Reason Comments US Specialty Diagnoses / Procedures Referred By Contac t Referred To Contact [facility] Diagnoses Supervision of other normal , antepartum Procedures NUCHAL TRANSLUCENCY WHI US NUCHAL TRANSLUCENCY 1ST GESTATION Suri Forrets APRN.CNM [address] [place] [address] [facility] [address] [place] [address] Referral ID Status Reason Start Date Expiration Date V isits Requested Visits Authorized [id number] Closed Auto-Generate d Referral 02/02/2023 02/02/2024 1 1 Reason Onset Date Comments Care 04/06/2023 Reason Comments Special Educator - Other Praf Reason Onset Date Comments Care 04/29/2023 Specialty Diagnoses / Procedures Referred By Contac t Referred To Contact [facility] Diagnoses 17 weeks gestation of Procedures OBSTETRIC ULTRASOUND WHI US PREG UTERUS AFTER 1ST TRIMEST GESTATION Suri Forrest APRN.CNM [address] [place] [address] [facility] [address] [place] [address] Referral ID Status Reason Start Date Expiration Date V isits Requested Visits Authorized [id number] Closed Auto-Generate d Referral 04/06/2023 04/05/2024 1 1 Reason Onset Date Comments Care 06/06/2023 Reason Onset Date Comments Care 06/22/2023 Specialty Diagnoses / Procedures Referred By Contac t Referred To Contact [facility] Diagnoses Uterine size-date discrepancy, third trimester Procedures OBSTETRIC ULTRASOUND WHI US PREG UTERUS AFTER 1ST TRIMEST GESTATION Suri Forrest APRN.CNM [address] [place] [address] [address] Referral ID Status Reason Start Date Expiration Date V isits Requested Visits Authorized [id number] Closed Auto-Generate d Referral 06/06/2023 06/05/2024 5 1 Reason Onset Date Comments Care 07/06/2023 Reason Onset Date Comments Care 07/20/2023 Reason Onset Date Comments Care 08/11/2023 Specialty Diagnoses / Procedures Referred By Contac t Referred To Contact [facility] Diagnoses 17 weeks gestation of Encounter for supervision of other normal in second trimester Obesity during Procedures OBSTETRIC ULTRASOUND WHI US PREG UTERUS AFTER 1ST TRIMEST GESTATION Suri Forrest APRN.CNM [address] [place] [address] [facility] [address] [place] [id number] Referral ID Status Reason Start Date Expiration Date V isits Requested Visits Authorized [id number] Closed Auto-Generate d Referral 04/29/2023 04/28/2024 1 1 Reason Onset Date Comments Care 08/24/2023 Reason Comments Routine Reason Onset Date Comments Insertion Of IUD 11/18/2023 Specialty Diagnoses / Procedures Referred By Contac t Referred To Contact [facility] Diagnoses care and examination Encounter for IUD insertion Procedures INSERT INTRAUTERINE DEVICE INSERT INTRAUTERINE DEVICE LEVONORGESTREL IU 52MG 5 YR REMOVE INTRAUTERINE DEVICE Suri Forrest APRN.CNM [address] [place] [address] [facility] [address] [place] [address] Referral ID Status Reason Start Date Expiration Date Visits Requested Visits Authorized [id number] Authorized Auto-Generat ed Referral 11/10/2023 09/04/2024 2 [...] BE BASED ON THE PRIMARY CLINICAL RECORDS. [email or web address] provides no warranty or guarantee of the accuracy or completeness of information in this document.
--- NOTE | 2025-08-25 13:31 | CM.ED ---
Social Work Date of referral: 08/25/25 Reason for referral: No Primary Care Physician (PCP) on file. Referred by: Social Work Identification. Patient provided consent to social work visit. Patient confirmed lack of PCP. Transit Operations Supervisor offered a written handout to the [facility] which patient accepted and expressed appreciation for. Transit Operations Supervisor provided education about the importance of being established with a PCP which patient verbalized an understanding for. Mehnaz Grossman, DIRECTOR PUBLIC, SALES REPRESENTATIVE HEALTH INSURANCE
--- NOTE | 2025-08-25 14:15 | HERN_PTH ---
PATIENT: ARTUR OWEN LOC: [facility]3 U#:[id number] AGE/SX: 34/F ROOM: MS319 RE08/25/[address]: Dr. Linh Ness MD : 1990 BED: 1 DIS: 08/25/2025 SPEC #: [id number] RECD: 08/26/25 07:11 STATUS: SHANE ANDRES #: [id number] ELMER: 08/25/25 14:[address]: Linh Ness DEPT: SURGICAL PATHOLOGY RECD BY: Jonas Jeffery ENTERED: 08/26/25 10:33 SP TYPE: Hernia OTHR DR: Darlin Primary Care Phys Tissues: A - HERNIA Procedures: Surgery Specimen Level II HEADER OPERATION: Hernia, umbilical repair with mesh PRE-OP DIAGNOSIS: Incarcerated umbilical hernia TISSUE SUBMITTED: A. Hernia MICROSCOPIC DIAGNOSIS A. Soft tissue, umbilical area, hernia sac, excision: - Fibroadipose tissue with fat necrosis covered by mesothelium, consistent with hernia sac. MICROSCOPIC DESCRIPTION Slides are reviewed. GROSS DESCRIPTION A. Received in formalin labeled with the patient's name and date of . Designated as hernia sac is a 3.4 x 2.6 x 0.8 cm cavazos-yellow lobulated soft tissue fragment with attached, pink-red semimembranous tissue. Thing reveals a 0.5 x 0.5 cm cavazos-white, well-circumscribed apparent cyst (vs. lymph node). Milk Processing Worker sections are submitted in 1 cassette. ID 08/26/2025 CPT:[id number]
--- NOTE | 2025-08-25 15:18 | ED.RN ---
Report given to nurse in OR.
--- NOTE | 2025-08-25 15:32 | PCM.PRE.AN2 ---
ASA Classification* ASA Classification ASA Classification: 2 and E Assessment & Plan Anesthesia* Anesthesia Assessment Anesthesia Assessment: Discussed sedation and/or anesthesia options, risks, benefits, and alternatives with patient/parents/legal guardian/POA. Questions invited. The patient/parents/legal guardian/POA seems to understand and agrees to proceed with anesthesia plan. Reviewed the physical assessment, medical history, allergy history and patient home medications list prior to surgery/procedure/anesthetic and documented any changes. Performed airway and anesthesia risk assessments. Anesthesia Type Anesthesia Type: General History Source History Obtained from:: Patient and Chart Anesthesia Focused Assessment* Temperature: 98.1 F Pulse Rate: 77 Blood Pressure: 122/69 Respiratory Rate: 18 Pulse Ox: 100 Oxygen Delivery Method: Room Air Airway Assessment Mouth opens: >3 cm Mallampati Score: II Teeth Condition: Caps/Crowns (Patient has a left upper molar crown. It is tight.) Neck Range of motion (ROM): Limited ROM (Slight Decrease) Labs Anesthesia Preop lab: CBC WBC, (4.4-11.0) 13.0 K/mm3 H Today, 08:50 RBC, (4.2-5.4) 5.67 M/mm3 H Today, 08:50 Hgb, (12.0-15.0) 15.5 g/dL H Today, 08:50 Hct, (37-47) 46.5 % Today, 08:50 Plt Count, (150-450) 292 K/mm3 Today, 08:50 CHEMISTRY Potassium, (3.3-5.1) 4.1 mmol/L Today, 08:50 Sodium, (133-145) 140 mmol/L Today, 08:50 BUN, (4-19) 13 mg/dL Today, 08:50 Creatinine, (0.70-1.20) 0.77 mg/dL Today, 08:50 Glucose, (70-99) 127 mg/dL H Today, 08:50 TSH, (0.358-3.74) 0.90 uIU/mL 12/19/14, 13:56 COAG HCG, Quant, (1-3) 402 mIU/mL H 01/02/23, 21:07 Urine Test Negative Negative Today, 08:30 Pre-Assessment Diagnosis/Proposed Procedure Planned Operative Procedure(s): Reduction of the umbilical hernia. 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 When Was Last Pacemaker Check QUESTION #4 FULL TEXT: You/Your Family Experience fever (hyperthermia) with Anesthesia Last Oral Intake Last Oral intake: Last Oral Intake NPO since 0000 Meds taken in AM with sips of water? Meds patient instructed to take am of surgery PONV PONV - security engineer: PONV - security engineer Female HX of Motion Sickness HX of N/V After Surgery Non-Smoker Duration of Surgery greater than 60 minutes Number of Risk Factors PONV Score Height & Weight Height & Weight: Anesthesia: Height & Weight Height 5 ft 3 in 08/25/25 11:32 Weight: 94.801 kg 08/25/25 11:32 Body Mass Index (BMI) 37.0 08/25/25 11:32 Respiratory Assessment Respiratory Assessment - security engineer: Respiratory Tract Infection Hx - security engineer Hx Respiratory Tract Infection No 08/25/25 11:32 STOP Sleep Apnea STOP Sleep Apnea - security engineer: STOP Sleep Apnea - security engineer Hx Hypertension No 08/25/25 11:32 Hx Sleep Apnea No 08/25/25 11:32 CPAP BIPAP Do you snore loudly (louder No 08/25/25 11:32 than talking or can be heard Do you often feel tired/ No 08/25/25 11:32 fatigued/ sleepy during daytime? Has anyone observed you stop No 08/25/25 11:32 breathing during sleep? STOP Results Negative 08/25/25 11:32 QUESTION #5 FULL TEXT : Do you snore loudly (louder than talking or can be heard through closed doors)? 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 Specify any problems Hx of Preganancy in last 3 Months Nurse Filling Out Transfusion & Questions: Date: Time: Patient unable to answer at this time (ie. confused, unrespo /Reproduction History /Reproductive History - security engineer: /Reproductive Hx- security engineer Hx Now No 08/25/25 11:32 Gestational Age (in weeks): EDC: Hx Hx Para Hx Section SAB No 08/25/25 11:32 Does the father of the baby or his family experience fever w Father of the baby Malignant Hypertension history comment [facility] Medical History Former smoker Hypertension (spontaneous vaginal delivery) Obesity Smoker Bicornate uterus Anemia Rubella non-immune status, antepartum LGA (large for gestational age) fetus Gestational hypertension Obesity affecting Depression Allergy/AdvReac Type Severity Reaction Status Date / Time bee venom protein (honey bee) Allergy Swelling Verified 08/25/25 08:24 chocolate flavor Allergy Hives Verified 08/25/25 08:24 Social History Smoking Status: Light Smoker (<10/day) Review of Systems (Anesthesia) ROS Narrative System reviewed and no additional complaints, except as documented.
[2025-08-25] MEDS: Cefazolin 1 GM/5 ML Vial 2 GM IV (15:51)
[2025-08-25] MEDS: Lidocaine 1% (5 ml sdv) 5 ML Vial 3 ML IV (15:56)
--- NOTE | 2025-08-25 16:23 | PCM.OPRPT ---
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: Yes [employer] Law Clerk: Dominguez Jurado Tasks completed by machinist first class: Opening & closing and Retracting Type of Anesthesia: General/Supplemental RN Documented Start/Stop Times: Operation Date: 08/25/25 14:15 Case Time Anesthesia Start 08/25/25 15:41 Into Room 08/25/25 15:41 Procedure Start 08/25/25 16:05 Procedure End 08/25/25 16:34 Anesthesia End 08/25/25 16:45 Out of Room 08/25/25 16:45 Into Recovery 08/25/25 16:50 Out of Recovery 08/25/25 17:11 Procedure Start Time: 16:05 Procedure Stop Time: 16:45 Select all DRAINS/GRAFTS/IMPLANTS that apply: None Special Medications: Ancef 2 g IV x 1 Estimated Blood Loss: < 5 cc Specimen collected: Yes Description of specimen(s) removed: Umbilical hernia sac Description of surgery: Patient was brought into the room placed supine on the operating table. Correct patient, procedure, site, positioning, special, was verified prior to procedure. General anesthesia was induced. The abdomen was prepped draped in usual sterile fashion. A curvilinear incision was made above the umbilicus with a 15 blade scalpel. This was deepened with electrocautery. The fascia around the hernia defect was cleared and the hernia defect measured 1 x 1 cm. The hernia defect was closed with a urihlf-ic-ecate 0 Nurolon. The wound was irrigated with saline. Hemostasis was assured. The incision was closed with 3-0 Vicryl subdermal interrupted sutures and the skin was closed with interrupted 4-0 Monocryl sutures. Steri-Strips and Tegaderm and OpSite were placed over the incision once sterile cotton balls were placed in the umbilicus. Patient was extubated. Patient tolerated procedure well and was taken to the postanesthesia care unit in stable condition. Surgical Findings: See operative report Complications Complications: No
--- NOTE | 2025-08-25 16:26 | EX.PCM.DISCH ---
Discharge Instructions Diet Discharge Diet: Light diet - advance as tolerated Activity May shower in (days): 5 (Keep umbilical dressing clean dry and intact for 5 days. Okay to tape off with a Ziploc bag to shower. Or lower shower and upper sponge bath.) Lifting Restrictions: no lifting >20 lbs x 2 wks, no strenuous exercise for 4 wks Additional Activity Instructions:: - Dressing / Incision Call your doctor if your incision/area has: Continuous Slow Oozing, Sudden Increased Bleeding, Increased Pain/ Swelling, Increased Redness, Foul Smelling Discharge and Swelling at the incision site Call your doctor if you observe: Fever of 101 or Higher Remove Dressing in: 5 days (After 5 days okay to remove surgical dressing. Place cotton ball or rolled up gauze in bellybutton and retape daily for 2 more days.) Cleanse incision/area with: Do not get Incision Wet (for 5 days) Additional Dressing/Incision Instructions:: Steri-Strips will fall off in 7 to 10 days, if they do not fall off okay to remove after 10 days. Follow Up Care Please Follow Up With: Linh Ness MD When: Call the office for a follow-up appointment 2 weeks; after 5 PM and on the weekends call [phone] with any concerns. Test Results: Test results from this visit will be discussed in further detail at your follow-up appointment, if applicable. Discharge Plan Admission Attending Provider: Linh Ness Primary Care Provider: Brett Physician,Darlin Primary Instructions Print Language: Kinyarwanda Discharge Orders/Prescriptions Prescriptions: New oxycodone 5 mg capsule 5 mg PO Q6H PRN (Reason: pain) 3 Days Qty: 10 0RF Referrals / Follow Up: Care Physician,No Primary [Primary Care Provider, Medical] Disposition Disposition (needs filled in before D/C Order can be placed): Home, Self Care
[2025-08-25] MEDS: fentaNYL 100 MCG/2 ML Ampul IV (16:44)
--- NOTE | 2025-08-25 16:50 | PCM.POST.ANE ---
Anesthesia: Postop Eval I Current Vital Signs Temperature: 97.8 F Pulse Rate: 86 Blood Pressure: 116/70 Respiratory Rate: 16 Pulse Ox: 94 Oxygen Delivery Method: Room Air Assessment Airway patent: Yes Spontaneous unlabored respirations: Yes Mental status: Awake and Calm nausea: Yes Vomiting: No Anesthesia Complication: No Fluid Hydration Crystalloid volume administer (ml): 400 Total IV fluid infused: 400 Progress Note Anesthesia document: Postop Eval 1 completed: Yes
--- NOTE | 2025-08-25 17:11 | PCM.POSTANE2 ---
Anesthesia Postop Eval I Sum Postop Eval Completion status Anesthesia document: Postop Eval 1 completed: Yes Anesthesia Postop Eval I Summary Anesthesia Postop Eval I Summary: Anesthesia Postop Eval I: Assessment Summary Airway patent Yes 08/25/25 16:53 Spontaneous unlabored Yes 08/25/25 16:53 respirations Mental status Awake,Calm 08/25/25 16:53 nausea Yes 08/25/25 16:53 Vomiting No 08/25/25 16:53 Anesthesia Postop Eval I: Fluid Summary Crystalloid volume administer 400 08/25/25 16:53 (ml) Colloids volume administered ( ml) Blood Product volume administered (ml) Total IV fluid infused 400 08/25/25 16:53 Anesthesia Postop Eval I: Summary Notes Anesthesia Complication No 08/25/25 16:53 Anesthesia Complication Comment: Post-operative progress note Anesthesia: Postop Eval II Evaluation Mental status: Awake and Calm Pain Level: 1 nausea: No Vomiting: No Complications Anesthesia Complication: No
--- OUTSIDE RECORDS SUMMARY | 2025-08-25 17:26 | XMS RPT_ITS | CCD ---
Author Organization [facility] Care Team Providers Care Science Teacher Name Role Phone RIDER, ANUPAM Patton Unavailable [...] Physician, No Primary Referring Unava ilable Fortune TOOL DESIGN ENGINEER, Gi Attending Unavailable Fortune TOOL DESIGN ENGINEER, Gi Attending Unavailable Care Physician, No Primary [...] [chocolate flavor] Allergy to substance 2 Hives [facility] (3 sources) bee venom protein (honey bee) Allergy to substance 2 Swelling [facility] (20 sources) Bees; Translations: [BEES] Allergy to substance 2 Swelling [facility] Work Phone: (17 sources) white chocolate [Other] Propensity to adverse reactions 2 Shortness of Breath [facility] Work Phone: (1 source) bee venom protein (honey bee) Drug allergy (disorder) 3 [facility] Repository (4 sources) Chocolate; Translations: [CHOCOLATE] Food Allergy 3 Shortness of Breath [facility] (1 source) OTHER; Translations: [OTHER] Propensity to adverse reactions (disorder) 2 [facility] Repository Medications Current Medications Medication Drug Class(es) Dates Sig (Normalized) Sig (Original) levonorgestrel 0.768637 mg/hr intrauterine system (3 sources) Progestin, Progestin-containi [...] or equivalent generic PNV Start: 01-03-2023 ,Calc. 42-Enbu-Pgtmdz 1 (Pnv-Select) 27-1 mg tablet Active 1 [...] Take by mouth. 168 hr ethinyl estradiol 0.31094 mg/hr / norelgestromin 0.80830 mg/hr transdermal system (1 source) Progestin, Estrogen [...] 31, 2022 12:00am August 25, 2023 11:51am Vit,Edln74-Mthx-Cziu c (Prenatabs Fa ) 1 TABLET tablet (3 sources) Start: 06-15-2014 End: 08-05-2014 take 1 tablet by mouth once daily Vit,Bakg35-Gkwv-Xf lic (Prenatabs Fa ) 1 TABLET tablet Discontinued 1 TABLET PO DAILY June 15, 2014 12:00am August 05, 2014 3:34am Start: 06-15-2014 End: 08-05-2014 take 1 tablet by mouth once daily Vit,Cxhh67-Bspi-Ozehj (Prenatab s Fa ) 1 TABLET tablet [...] Office Visit (OBGYWM) ---- VENECIA HART I ([id number]) 1990 F [place] Date Time Provider Department [...] GENERAL: No weight loss, malaise or fevers MANAGER BUSINESS MANAGEMENT: Negative for abnormal vaginal bleeding, abnormal vaginal [...] exam or sooner if needed. Suri Plotts, SHIRRING MACHINE OPERATOR.CNM Allergies As of Date: 12/21/2023 Noted Allergy [...] for Encounter Date Provider Department Center 12/21/2023 [id number] FORREST Encounter Status:Closed by SURI FORREST on 12/21/23 Normal [facility] CNOVon 11-18-2023 CN Office Visit (OBGYWM) ---- VENECIA HART I ([id number]) 1990 F [place] Date Time Provider Department 11/18/23 10:30 AM SURI FORREST During your visit today, we recorded the following information about you: Blood pressure Weight 120/80 98.6 kg Suri Forrest APRN.CN 11/18/2023 12:02 PM Signed Utility Technician offered: Patient declines. Cuadra presents today for IUD insertion for contraception. Patient's last menstrual period was 11/07/2023 (approximate). GC/chlamydia: Negative on 02/02/2023 test: negative Side effects including irregular bleeding were discussed with the patient. The patient understands that it should be removed in 8 years or sooner if the patient desires a . IUD source: office provided IUD lot #: [id number] Exp date: 09/2025 [facility]: [id number] UNIVERSAL PROTOCOL / SAFETY CHECKLIST Procedure to [...] contact the office. Referring Provider: SURI FORREST [[id number]] Allergies As of Date: 11/18/2023 Noted Allergy Reaction BEES 03/02/2012 7 - Swelling CHOCOLATE 08/31/2023 12 - Shortness of Breath Comments: White chocolate Date Reviewed: 11/18/2023 Reviewed by: Isabella Baird, Student - Fully Assessed Reason for Visit: Insertion Of IUD [291] Primary Visit Diagnosis:Encounter for IUD insertion [Z30.430] Order(s):INSERT INTRAUTERINE DEVICE [3732237] Order #: [id number] [] levonorgestrel 21 mcg/24 hours (8 yrs) 52 mg 1 Each intrauterine device (MIRENA)Disp: Rfl: levonorgestrel (MIRENA) 21 mcg/24 hours (8 yrs) 52 mg IUD1 Each by INTRAUTERINE route as directed.Disp: 1 EachRfl: 0 UA DIP,URINE HCG (POC) [9464266] Order #: [id number]. #:[id number] Prescriptions as of 11/18/2023 - levonorgestrel (MIRENA) [...] POST IU (more content not included)... Normal [facility] UA DIP,URINE HCG (POC)on Beta HCG ( test) Ql (U) Negative Negative [facility] Lead Advisor (POCT) Internal QC OK [facility] MR/BMS.BBJameson 09-08-2023 [facility] [address] [facility] [place] [address] OFFICE VISIT Date of Service: 09/06/23 MR#: [id number] Acct: [id number] Name: VENECIA HART Rep #: [id number] : 1990 Provider: Gi Hopkins NP Age/Sex: 32/F Location[place] [facility] Status: Signed Intake Vital Signs 09/05/23 08:57 [...] Z39.1 09/08/23 1253 Date Gi Hopkins NP TOOL DESIGN ENGINEER-Mary Cosigner Signature: Date (if applicable) CC: Normal [facility] MR/LISETTE.Nabila 09-05-2023 MR/LISETTE.LAURIE [facility] [address] [place] [address] OFFICE VISIT Date of Service: 09/04/23 MR#: [id number] Acct: [id number] Name: VENECIA HART Rep #: [id number] : 1990 Provider: Gi Hopkins NP Age/Sex: 32/F Location: [facility] Status: Signed Intake Vital Signs 08/31/23 20:11 [...] Z39.1 09/05/23 0859 Date Gi Hopkins NP TOOL DESIGN ENGINEER-Mary Whittingtonigner Signature: Date (if applicable) CC: Normal [facility] Discharge Instructionon 08-06 Discharge Instruction [facility] Medical Records Department [address] [place] [address] Instructions for Home/Discharge Instructions 09/02/23 0820 MR#: [id number] Acct: [id number] Name: VENECIA HART Rep #: [id number] : 1990 32 From: Sabrina Coon DO [...] No Primary Care Physician * Signed Normal [facility] Operative Reporton 3 Operative Report [facility] Medical Records Department [address] [place] [address] Operative Report 09/01/23 1244 MR#: [id number] Acct: [id number] Name: VENECIA HART Rep #: [id number] : 1990 32 From: Suri Forrest CNM PCP: Care Physician,No Primary Status:ADM IN Location: [place] [address] Assessment Plan (1) (spontaneous vaginal delivery): (2) [...] Forrest; No Primary Care Physician Signed Normal [facility] AST(SGOT)on 08-31-2023 AST [Catalytic activity/Vol] 14 U/L Low 15-37 [facility] Comment on above: Performed By: #### L 100.0500, L501.1105, L501.1400, L501.4100, L501.4405, L501.0900 #### [facility] Laboratory [address] [place], [address] Absolute lymphocyte countOrd ered By: Suri Forrest on 08-31-2023 Lymphocytes Auto (Unsp spec) [#/Vol] 3.16 10*3/uL 0.83-4.51 [facility] Alanine Aminotransferas (SGP T)Ordered By: Suri Forrest on 08-31-2023 ALT [Catalytic activity/Vol] 15 U/L Normal 13-56 [facility] Comment on above: Performed By: #### L 100.0500, L501.1105, L501.1400, L501.4100, L501.4405, L501.0900 #### [facility] Laboratory [address] [place], [address] Automated blood hematocrit ( percentage)Ordered By: Suri Forrest on 08-31-2023 Hematocrit (Bld) [Volume fraction] 32.2 % Low 37-47 [facility] Comment on above: Performed By: #### L 100.0100, L500.2500 #### [facility] Laboratory [address] [place], [address] Basophil percentageOrdered B y: Suri Forrest on 08-31-2023 Basophils/100 WBC (Bld) 0.3 % Normal 0-1 [facility] Comment on above: Performed By: #### L 100.0100, L500.2500 #### [facility] Laboratory [address] [place], [address] Eosinophils/100 WBC (Bld) 0.3 % Normal 0-5 [facility] Comment on above: Performed By: #### L 100.0100, L500.2500 #### [facility] Laboratory [address] [place], [address] Neutrophils/100 WBC (Bld) 74.1 % High 47-70 [facility] Comment on above: Performed By: #### L 100.0100, L500.2500 #### [facility] Laboratory [address] [place], [address] WBC (Bld) [#/Vol] 19.2 10*3/uL High 4.4-11.0 [facility] Comment on above: Performed By: #### L 100.0100, L500.2500 #### [facility] Laboratory [address] [place], [address] Neutrophils (Bld) [#/Vol] 14.2 10*3/uL 2.0-7.7 [facility] Blood erythrocytes count (nu mber/volume)Ordered By: Suri Forrest on 08-31-2023 RBC (Bld) [#/Vol] 3.84 10*6/uL Low 4.2-5.4 [facility] Comment on above: Performed By: #### L 100.0100, L500.2500 #### [facility] Laboratory [address] [place], [address] Blood hemoglobin measurement (mass/volume)Ordered By: Suri Forrest on 08-31-2023 Hemoglobin (Bld) [Mass/Vol] 11.2 g/dL Low 12.0-15.0 [facility] Comment on above: Performed By: #### L 100.0100, L500.2500 #### [facility] Laboratory [address] [place], [address] Blood lymphocytes/100 leukoc ytesOrdered By: Suri Forrest on 08-31-2023 Lymphocytes/100 WBC (Bld) 16.5 % Low 19-41 [facility] Comment on above: Performed By: #### L 100.0100, L500.2500 #### [facility] Laboratory [address] [place], [address] Blood monocytes/100 leukocyt esOrdered By: Suri Forrest on 08-31-2023 Monocytes/100 WBC (Bld) 7.7 % Normal 0-10 [facility] Comment on above: Performed By: #### L 100.0100, L500.2500 #### [facility] Laboratory [address] [place], [address] Blood platelet mean volumeOr dered By: Suri Forrest on 08-31-2023 Platelet mean volume (Bld) [Entitic vol] 10.7 fL Normal 6.2-12.0 [facility] Comment on above: Performed By: #### L 100.0100, L500.2500 #### [facility] Laboratory [address] [place], [address] CBC W/Diff, Automatedon 12-2 Absolute Lymph 3.16 X10 3/uL Normal 0.83-4.51 [facility] Comment on above: Performed By: #### L 100.0100, L500.2500 #### [facility] Laboratory [address] [place], [address] Absolute Neut 14.2 X10 3/uL High 2.0-7.7 [facility] Comment on above: Performed By: #### L 100.0100, L500.2500 #### [facility] Laboratory [address] [place], [address] IG% 1.100 High 0.0-0.9 [facility] Comment on above: Result Comment: IG% - Immature Granulocytes (promyelocytes, myelocytes and metamyelocytes) > 1% indicates that a LEFT SHIFT is Present. Performed By: #### L 100.0100, L500.2500 #### [facility] Laboratory [address] [place], [address] Nucleated RBC (Bld) [#/Vol] 0 10*3/uL Normal 0-5 [facility] Comment on above: Performed By: #### L 100.0100, L500.2500 #### [facility] Laboratory [address] [place], [address] RDW SD 44.6 fl High 35.1-43.9 [facility] Comment on above: Performed By: #### L 100.0100, L500.2500 #### [facility] Laboratory [address] [place], [address] CBC W/Diff, AutomatedOrdered By: Suri Forrest on 08-31-2023 Erythrocyte distribution width (RBC) [Ratio] 14.6 % Normal 11.6-14.6 [facility] Comment on above: Performed By: #### L 100.0100, L500.2500 #### [facility] Laboratory [address] [place], [address] MCH (RBC) [Entitic mass] 29.2 pg Normal 27.0-32.0 [facility] Comment on above: Performed By: #### L 100.0100, L500.2500 #### [facility] Laboratory [address] [place], [address] CBC-Complete Blood Cnt No Di ffon 08-31-2023 Erythrocyte distribution width (RBC) [Ratio] 14.8 % High 11.6-14.6 [facility] Comment on above: Result Comment: CBCD ORDERED INSTEAD Performed By: #### L 100.0500, L501.1105, L501.1400, L501.4100, L501.4405, L501.0900 #### [facility] Laboratory [address] [place], [address] Hematocrit (Bld) [Volume fraction] 32.7 % Low 37-47 [facility] Comment on above: Result Comment: CBCD ORDERED INSTEAD Performed By: #### L 100.0500, L501.1105, L501.1400, L501.4100, L501.4405, L501.0900 #### [facility] Laboratory [address] [place], [address] Hemoglobin (Bld) [Mass/Vol] 11.0 g/dL Low 12.0-15.0 [facility] Comment on above: Result Comment: CBCD ORDERED INSTEAD Performed By: #### L 100.0500, L501.1105, L501.1400, L501.4100, L501.4405, L501.0900 #### [facility] Laboratory [address] [place], [address] MCH (RBC) [Entitic mass] 28.4 pg Normal 27.0-32.0 [facility] Comment on above: Result Comment: CBCD ORDERED INSTEAD Performed By: #### L 100.0500, L501.1105, L501.1400, L501.4100, L501.4405, L501.0900 #### [facility] Laboratory [address] [place], [address] MCHC (RBC) [Mass/Vol] 33.6 g/dL Normal 32-36 [facility] Comment on above: Result Comment: CBCD ORDERED INSTEAD Performed By: #### L 100.0500, L501.1105, L501.1400, L501.4100, L501.4405, L501.0900 #### [facility] Laboratory [address] [place], [address] MCV (RBC) [Entitic vol] 84.3 fL Normal 81-99 [facility] Comment on above: Result Comment: CBCD ORDERED INSTEAD Performed By: #### L 100.0500, L501.1105, L501.1400, L501.4100, L501.4405, L501.0900 #### [facility] Laboratory [address] [place], [address] Platelet mean volume (Bld) [Entitic vol] 10.1 fL Normal 6.2-12.0 [facility] Comment on above: Result Comment: CBCD ORDERED INSTEAD Performed By: #### L 100.0500, L501.1105, L501.1400, L501.4100, L501.4405, L501.0900 #### [facility] Laboratory [address] [place], [address] Platelets (Bld) [#/Vol] 337 10*3/uL Normal 150-450 [facility] Comment on above: Result Comment: CBCD ORDERED INSTEAD Performed By: #### L 100.0500, L501.1105, L501.1400, L501.4100, L501.4405, L501.0900 #### [facility] Laboratory [address] [place], [address] RBC (Bld) [#/Vol] 3.88 10*6/uL Low 4.2-5.4 [facility] Comment on above: Result Comment: CBCD ORDERED INSTEAD Performed By: #### L 100.0500, L501.1105, L501.1400, L501.4100, L501.4405, L501.0900 #### [facility] Laboratory [address] [place], [address] RDW SD 45.1 fl High 35.1-43.9 [facility] Comment on above: Result Comment: CBCD ORDERED INSTEAD Performed By: #### L 100.0500, L501.1105, L501.1400, L501.4100, L501.4405, L501.0900 #### [facility] Laboratory [address] [place], [address] WBC (Bld) [#/Vol] 19.1 10*3/uL High 4.4-11.0 [facility] Comment on above: Result Comment: CBCD ORDERED INSTEAD Performed By: #### L 100.0500, L501.1105, L501.1400, L501.4100, L501.4405, L501.0900 #### [facility] Laboratory [address] [place], [address] Determination of erythrocyte mean corpuscular volume (MCV)Ordered By: Suri Forrest on 08-31-2023 MCV (RBC) [Entitic vol] 83.9 fL Normal 81-99 [facility] Comment on above: Performed By: #### L 100.0100, L500.2500 #### [facility] Laboratory [address] [place], [address] H AND P Exam - OB/GYNon 08-06 H&P Exam - AIR SUPPORT OPERATIONS OPERATOR [facility] Medical Records Department [address] [place] [address] H P Exam - AIR SUPPORT OPERATIONS OPERATOR 08/31/23 1832 MR#: [id number] Acct: [id number] Name: VENECIA HART Rep #: [id number] : 1990 32 From: Suri Forrest CNM PCP: Care Physician,No Primary Status:ADM IN Location: [place] [id number] HPI - General General Date of Admission: [...] IgG Ant (more content not included)... Normal [facility] L509.8000on 08-31-2023 Syphilis Abs Non-Reactive Normal [facility] Comment on above: Performed By: #### L 100.0100, L500.2500 #### [facility] Laboratory [address] [place], [address] Laboratory - Hematology and Cell countsOrdered By: Suri Forrest on 08-31-2023 Erythrocyte distribution width (RBC) [Entitic vol] 44.6 fL 35.1-43.9 [facility] Immature granulocytes/100 WBC (Bld) 1.100 % 0.0-0.9 [facility] Comment on above: IG% - Immature Granu locytes (promyelocytes, myelocytes and metamyelocytes) > 1% indicates that a LEFT SHIFT is Present. Nucleated RBC/100 WBC (Bld) [Ratio] 0 % 0-5 [facility] MCHC [Mass/volume] by Automa danyelle countOrdered By: Suri Forrest on 08-31-2023 MCHC (RBC) [Mass/Vol] 34.8 g/dL Normal 32-36 [facility] Comment on above: Performed By: #### L 100.0100, L500.2500 #### [facility] Laboratory [address] [place], [address] No Panel InformationOrdered By: Suri Forrest on 08-31-2023 Estimated GFR (MDRD) Amer 127 mL/min >60 [facility] Comment on above: GFR Calc Estimated GFR (MDRD) Non-Af Amer 105 mL/min >60 [facility] Comment on above: Non- GFR Calc Platelets bldOrdered By: Jl Forrest on 08-31-2023 Platelets (Bld) [#/Vol] 342 10*3/uL Normal 150-450 [facility] Comment on above: Performed By: #### L 100.0100, L500.2500 #### [facility] Laboratory [address] [place], [address] Protein+Creatinine Ratio,Uri neon 08-31-2023 PROT:CRE RATIO 266 mg/g CRE High 0-200 [facility] Comment on above: Performed By: #### L 100.0500, L501.1105, L501.1400, L501.4100, L501.4405, L501.0900 #### [facility] Laboratory [address] [place], [address] UR CREAT 110.00 mg/dL Normal NO RANGE EST. [facility] Comment on above: Performed By: #### L 100.0500, L501.1105, L501.1400, L501.4100, L501.4405, L501.0900 #### [facility] Laboratory [address] [place], [address] Serum Creatinine AND GFRon 1 11-01-2022 EST GFR - AA 127 mL/min Normal >60 [facility] Comment on above: Result Comment: Afri can Guinean GFR Calc Performed By: #### L 100.0500, L501.1105, L501.1400, L501.4100, L501.4405, L501.0900 #### [facility] Laboratory [address] [place], [place], [address] (139) GFR/1.73 sq M.predicted among non-blacks MDRD (S/P/Bld) [Vol rate/Area] 105 mL/min/{1.73_m2} Normal >60 [facility] Comment on above: Result Comment: Non- GFR Calc Performed By: #### L 100.0500, L501.1105, L501.1400, L501.4100, L501.4405, L501.0900 #### [facility] Laboratory [address] [place], [address] (533) Serum Treponema species anti body detectionOrdered By: Suri Forrest on 08-31-2023 Treponema sp Ab Ql (S) Non-Reactive [facility] Serum or plasma creatinine m easurement (mass/volume)Ordered By: Suri Forrest on 08-31-2023 Creatinine [Mass/Vol] 0.70 mg/dL Normal 0.55-1.02 [facility] Comment on above: The validity of the calculated GFR & GFRAA in patients over 70 years has not been determined. Clinical correlation is essential. Result Comment: The validity of the calculated GFR GFRAA in patients over 70 years has not been determined. Clinical correlation is essential. Performed By: #### L 100.0500, L501.1105, L501.1400, L501.4100, L501.4405, L501.0900 #### [facility] Laboratory [address] [place], [address] (810) Serum or plasma uric acid me asurement (mass/volume)Ordered By: Suri Forrest on 08-31-2023 Urate [Mass/Vol] 4.8 mg/dL 2.6-6.0 [facility] Comment on above: The drugs N-Acetylcy steine and Metamizole may falsely depress this assay. Thin prep Papanicolaou smear with manual screeningOrdered By: Suri Forrest on 08-31-2023 Thin prep Papanicolaou smear with manual screening 14 U/L 15-37 [facility] Type AND Screenon 08-31-2023 ABO and Rh group Nom (Bld) Blood group B Rh(D) positive Normal [facility] Comment on above: Order Comment: Labor Performed By: #### L 100.0100, L500.2500 #### [facility] Laboratory [address] [place], [address] Uric Acidon 08-31-2023 URIC 4.8 mg/dL Normal 2.6-6.0 [facility] Comment on above: Result Comment: The drugs N-Acetylcysteine and Metamizole may falsely depress this assay. Performed By: #### L 100.0500, L501.1105, L501.1400, L501.4100, L501.4405, L501.0900 #### [facility] Laboratory [address] [place], [address] Urine creatinine measurement (mass/volume)Ordered By: Suri Forrest on 08-31-2023 Creatinine (U) [Mass/Vol] 110.00 mg/dL NO RANGE EST. [facility] Urine protein measurement (m ass/volume)Ordered By: Suri Forrest on 08-31-2023 Protein (U) [Mass/Vol] 29.3 mg/dL High <11.9 [facility] Comment on above: Performed By: #### L 100.0500, L501.1105, L501.1400, L501.4100, L501.4405, L501.0900 #### [facility] Laboratory [address] [place], [address] Urine protein/creatinine mas s ratioOrdered By: Suri Forrest on 08-31-2023 Protein/Creatinine (U) [Mass ratio] 266 mg/g CRE 0-200 [facility] OB Triage Physician Noteon 1 10-26-2022 OB Triage Physician Note [facility] Medical Records Department [address] [place] [address] OB Triage Physician Note 08/25/232023 MR#: [id number] Acct: [id number] Name: VENECIA HART Rep #: [id number] : 1990 32 From: Suri Forrest CNM PCP: Care Physician,No Primary Status:DEP CLI Y Location: [facility] HPI - General HPI Narrative VENECIA [...] Forrest; No Primary Care Physician Signed Normal [facility] URINE OB DIP B/Oon Glucose Ql (U) Negative Neg mg/dL [facility] Protein.monoclonal (U) [Mass/Vol] Negative Neg mg/dL [facility] OBSTETRIC ULTRASOUND WHIon 1 10-13-2022 [facility] ROUTINE, GROUP B ST REP PCRon 08-11-2023 ROUTINE, GROUP B STREP PCR GROUP B STREP PCR: Negative for Group B Streptococcus by PCR. Normal [facility] Comment on above: Performed By: #### G BPCR ####[facility] LABCLIA [id number] [place] [address] [place] URINE OB DIP B/Oon 3 Glucose Ql (U) Negative Neg mg/dL [facility] Protein.monoclonal (U) [Mass/Vol] Negative Neg mg/dL [facility] CBC W Auto Differential pane l (Bld)on 08-03-2023 Basophils (Bld) [#/Vol] 0.00 10*3/uL Normal <0.11 [facility] [facility] Comment on above: Order Comment: Speci men Type: BLOOD SPECIMEN Ordering Facility: [facility] Address: [address] [place] [address] Performed By: #### 2 276-4, 01554-3 #### [facility] CLIA [id number] [address] [place] [address] [place] Basophils/100 WBC (Bld) 0.0 % Normal C [facility] Comment on above: Order Comment: Speci men Type: BLOOD SPECIMEN Ordering Facility: [facility] Address: [address] [place] [address] Performed By: #### 2 276-4, 78004-8 #### [facility] CLIA [id number] [address] [place] [address] [place] Differential cell count method Nom (Bld) Manual Normal [facility] Comment on above: Order Comment: Speci men Type: BLOOD SPECIMEN Ordering Facility: [facility] Address: [address] [place] [address] Performed By: #### 2 276-4, 80157-8 #### [facility] CLIA [id number] [address] [place] [address] [place] Eosinophils (Bld) [#/Vol] 0.20 10*3/uL Normal <0.46 [facility] Comment on above: Order Comment: Speci men Type: BLOOD SPECIMEN Ordering Facility: [facility] Address: [address] [place] [address] Performed By: #### 2 276-4, 38241-1 #### [facility] CLIA [id number] [address] [id number] [address] [place] Eosinophils/100 WBC (Bld) 1.0 % Normal [facility] Comment on above: Order Comment: Speci men Type: BLOOD SPECIMEN Ordering Facility: [facility] Address: [address] [place] [address] Performed By: #### 2 276-4, 68032-2 #### [facility] CLIA [id number] [address] [place] [address] [place] Lymphocytes (Bld) [#/Vol] 1.59 10*3/uL Normal 1.00-4.00 [facility] Comment on above: Order Comment: Speci men Type: BLOOD SPECIMEN Ordering Facility: [facility] Address: [address] [place] [address] Performed By: #### 2 276-4, 49792-6 #### [facility] CLIA [id number] [address] [place] [address] [place] Lymphocytes/100 WBC (Bld) 8.0 % Normal [facility] Comment on above: Order Comment: Speci men Type: BLOOD SPECIMEN Ordering Facility: [facility] Address: [address] [place] [address] Performed By: #### 2 276-4, 48111-1 #### [facility] CLIA [id number] [address] [place] [address] [place] Monocytes (Bld) [#/Vol] 1.39 10*3/uL High <0.87 [facility] Comment on above: Order Comment: Speci men Type: BLOOD SPECIMEN Ordering Facility: [facility] Address: [address] [place] [address] Performed By: #### 2 276-4, 05852-7 #### [facility] CLIA [id number] [address] [place] [address] [place] Monocytes/100 WBC (Bld) 7.0 % Normal [facility] Comment on above: Order Comment: Speci men Type: BLOOD SPECIMEN Ordering Facility: [facility] Address: [address] [place] [address] Performed By: #### 2 276-4, 11411-4 #### [facility] CLIA [id number] [address] [place] [address] [place] MYELO% 2.0 % Normal [facility] Comment on above: Order Comment: Speci men Type: BLOOD SPECIMEN Ordering Facility: [facility] Address: [address] [place] [address] Performed By: #### 2 276-4, 98580-2 #### [facility] CLIA [id number] [address] [place] [address] [place] Neutrophils (Bld) [#/Vol] 16.29 10*3/uL High 1.45-7.50 [facility] Comment on above: Order Comment: Speci men Type: BLOOD SPECIMEN Ordering Facility: [facility] Address: [address] [place] [address] Performed By: #### 2 276-4, 91296-5 #### [facility] CLIA [id number] [address] [place] [address] [place] Neutrophils/100 WBC (Bld) 82.0 % Normal [facility] Comment on above: Order Comment: Speci men Type: BLOOD SPECIMEN Ordering Facility: [facility] Address: [address] [place] [address] Performed By: #### 2 276-4, 98409-7 #### [facility] CLIA [id number] [address] [place] [address] [place] Nucleated RBC (Bld) [#/Vol] 10*3/uL Normal <0.01 [facility] Comment on above: Order Comment: Speci men Type: BLOOD SPECIMEN Ordering Facility: [facility] Address: [address] [place] [address] Performed By: #### 2 276-4, 71367-9 #### [facility] CLIA [id number] [address] [place] [address] [place] Nucleated RBC/100 WBC (Bld) [Ratio] 0.0 /100 WBC Normal [facility] Comment on above: Order Comment: Speci men Type: BLOOD SPECIMEN Ordering Facility: [facility] Address: [address] [place] [address] Performed By: #### 2 276-4, 45265-5 #### [facility] CLIA [id number] [address] [place] [address] [place] Platelets Estimate (Bld) [#/Vol] Adequate Normal [facility] Comment on above: Order Comment: Speci men Type: BLOOD SPECIMEN Ordering Facility: [facility] Address: [address] [place] [address] Performed By: #### 2 276-4, 12034-4 #### [facility] CLIA [id number] [address] [place] [address] [place] RED CELL MORPH Reviewed: unremarkable Normal [facility] Comment on above: Order Comment: Speci men Type: BLOOD SPECIMEN Ordering Facility: [facility] Address: [address] [place] [address] Performed By: #### 2 276-4, 03924-7 #### [facility] CLIA [id number] [facility] [place] [address] [place] WBC Left Shift Ql (Bld) Present [facility] Comment on above: Order Comment: Speci men Type: BLOOD SPECIMEN Ordering Facility: [facility] Address: [address] [place] [address] Performed By: #### 2 276-4, 67122-4 #### [facility] CLIA [id number] [address] [place] [address] [place] CBC panel Auto (Bld)on 08-03 Erythrocyte distribution width (RBC) [Ratio] 14.2 % Normal 11.5-15.0 [facility] Comment on above: Order Comment: Speci men Type: BLOOD SPECIMEN Ordering Facility: [facility] Address: [address] [place] [address] Performed By: #### 2 276-4, 53169-9 #### [facility] CLIA [id number] [address] [place] [address] [place] Hematocrit (Bld) [Volume fraction] 33.6 % Low 36.0-46.0 [facility] Comment on above: Order Comment: Speci men Type: BLOOD SPECIMEN Ordering Facility: [facility] Address: [address] [place] [address] Performed By: #### 2 276-4, 18507-9 #### [facility] CLIA [id number] [address] [place] [address] [place] Hemoglobin (Bld) [Mass/Vol] 11.3 g/dL Low 11.5-15.5 [facility] Comment on above: Order Comment: Speci men Type: BLOOD SPECIMEN Ordering Facility: [facility] Address: [address] [place] [address] Performed By: #### 2 276-4, 42731-2 #### [facility] CLIA [id number] [address] [place] [address] [place] MCH (RBC) [Entitic mass] 27.8 pg Normal 26.0-34.0 [facility] Comment on above: Order Comment: Speci men Type: BLOOD SPECIMEN Ordering Facility: [facility] Address: [address] [place] [address] Performed By: #### 2 276-4, 35886-0 #### [facility] CLIA [id number] [address] [place] [address] [place] MCHC (RBC) [Mass/Vol] 33.6 g/dL Normal 30.5-36.0 [facility] Comment on above: Order Comment: Speci men Type: BLOOD SPECIMEN Ordering Facility: [facility] Address: [address] [place] [address] Performed By: #### 2 276-4, 00662-7 #### [facility] CLIA [id number] [address] [place] [address] [place] MCV (RBC) [Entitic vol] 82.8 fL Normal 80.0-100.0 C [facility] Comment on above: Order Comment: Speci men Type: BLOOD SPECIMEN Ordering Facility: [facility] Address: [address] [place] [address] Performed By: #### 2 276-4, 53112-2 #### [facility] CLIA [id number] [address] [place] [address] [place] Platelet mean volume (Bld) [Entitic vol] 9.9 fL Normal 9.0-12.7 [facility] Comment on above: Order Comment: Speci men Type: BLOOD SPECIMEN Ordering Facility: [facility] Address: [address] [place] [address] Performed By: #### 2 276-4, 81862-5 #### [facility] CLIA [id number] [address] [place] [address] [place] Platelets (Bld) [#/Vol] 304 10*3/uL Normal 150-400 [facility] Comment on above: Order Comment: Speci men Type: BLOOD SPECIMEN Ordering Facility: [facility] Address: [address] [place] [address] Performed By: #### 2 276-4, 54788-9 #### [facility] CLIA [id number] [address] [place] [address] [place] RBC (Bld) [#/Vol] 4.06 10*6/uL Normal 3.90-5.20 [facility] Comment on above: Order Comment: Speci men Type: BLOOD SPECIMEN Ordering [facility] Address: [address] [place] [address] Performed By: #### 2 276-4, 29929-4 #### [facility] CLIA [id number] [address] [address] [place] WBC (Bld) [#/Vol] 19.87 10*3/uL High 3.70-11.00 [facility] Comment on above: Order Comment: Speci men Type: BLOOD SPECIMEN Ordering [facility] Address: [address] [place] [address] Performed By: #### 2 276-4, 18103-9 #### [facility] CLIA [id number] [address] [place] [address] [place] [facility]22 Ferritin [Mass/Vol] 49.9 ng/mL Normal 14.7-205.1 [facility] Comment on above: Order Comment: Speci men Type: BLOOD SPECIMEN Ordering [facility] Address: [address] [place] [address] Performed By: #### 2 276-4, 95941-7 #### [facility] CLIA [id number] [address] [place] [address] [place] Iron and Iron binding capaci panel 08-03-2023 Iron [Mass/Vol] 74 ug/dL Normal 41-186 [facility] Comment on above: Order Comment: Speci men Type: BLOOD SPECIMEN Ordering Facility[facility] Address: [address] [place] [address] Performed By: #### 2 276-4, 84622-0 #### [facility] CLIA [id number] [address] [place] [address] [place] Iron binding capacity [Mass/Vol] 469 ug/dL High 232-386 [facility] Comment on above: Order Comment: Speci men Type: BLOOD SPECIMEN Ordering Facility[facility] Address: [address] [place] [address] Performed By: #### 2 276-4, 90735-4 #### [facility] CLIA [id number] [address] [place] [address] [place] Iron/TIBC [Molar ratio] 15.8 % Normal 15.0-57.0 [facility] Comment on above: Order Comment: Speci men Type: BLOOD SPECIMEN Order[facility] Address: [address] [place] [address] Performed By: #### 2 276-4, 91899-6 #### [facility] CLIA [id number] [address] [place] [address] [place] CBC W Auto Differential pane l (Bld)on 07-20-2023 Basophils (Bld) [#/Vol] 0.00 10*3/uL Normal <0.11 [facility] Comment on above: Order Comment: Speci men Type: BLOOD SPECIMEN Order[facility] Address: [address] [place] [address] Performed By: #### 5 7021-8 #### [facility] CLIA [id number] [address] [place] [address] [place] [facility] CLIA [id number] [address] [place] [address] [place] Basophils/100 WBC (Bld) 0.0 % Normal C [facility] Comment on above: Order Comment: Speci men Type: BLOOD SPECIMEN Order[facility] Address: [address] [place] [address] Performed By: #### 5 7021-8 #### [facility] CLIA [id number] [address] [place] [address] [place] [facility] CLIA [id number] [facility] [place] Differential cell count method Nom (Bld) Manual Normal [facility] Comment on above: Order Comment: Speci men Type: BLOOD SPECIMEN Order[facility] Address: [address] [place] [address] Performed By: #### 5 7021-8 #### [facility] CLIA [id number] [address] [place], [place] [address] [place] [address] LABORATORY CLIA [id number] [address] [place] [address] [place] Eosinophils (Bld) [#/Vol] 0.23 10*3/uL Normal <0.46 [facility] Comment on above: Order Comment: Speci men Type: BLOOD SPECIMEN Ordering Facility[facility] Address: [address] [place] [address] Performed By: #### 5 7021-8 #### [facility] CLIA [id number] [address] [facility] CLIA [id number] [address] [place] [address] [place] Eosinophils/100 WBC (Bld) 1.0 % Normal [facility] Comment on above: Order Comment: Speci men Type: BLOOD SPECIMEN Ordering Facility[facility] Address: [address] [place] [address] Performed By: #### 5 7021-8 #### [facility] CLIA [id number] [address] [facility] CLIA [id number] [address] [place] [address] [place] Lymphocytes (Bld) [#/Vol] 3.22 10*3/uL Normal 1.00-4.00 [facility] Comment on above: Order Comment: Speci men Type: BLOOD SPECIMEN Order[facility] Address: [address] [place] [address] Performed By: #### 5 7021-8 #### [facility] CLIA [id number] [address] OF [facility] CLIA [id number] [address] [place] [address] [place] Lymphocytes/100 WBC (Bld) 14.0 % Normal [facility] Comment on above: Order Comment: Speci men Type: BLOOD SPECIMEN Order[facility] Address: [address] [place] [address] Performed By: #### 5 7021-8 #### [facility] CLIA [id number] [address] [facility] CLIA [id number] [facility] [place] [address] [place] Monocytes (Bld) [#/Vol] 1.38 10*3/uL High <0.87 [facility] Comment on above: Order Comment: Speci men Type: BLOOD SPECIMEN Order[facility] Address: [address] [place] [address] Performed By: #### 5 7021-8 #### [facility] CLIA [id number] [address] [place] [address] LABORATORY CLIA [id number] [address] [place] [address] [place] Monocytes/100 WBC (Bld) 6.0 % Normal [facility] Comment on above: Order Comment: Speci men Type: BLOOD SPECIMEN Order[facility] Address: [address] [place] [address] Performed By: #### 5 7021-8 #### [facility] CLIA [id number] [address] [place] [address] LABORATORY CLIA [id number] [address] [place] [address] [place] MYELO% 1.0 % Normal [facility] Comment on above: Order Comment: Speci men Type: BLOOD SPECIMEN Ordering Facility[facility] Address: [address] [place] [address] Performed By: #### 5 7021-8 #### [facility] CLIA [id number] [address] [facility] CLIA [id number] [address] [place] [address] [place] Neutrophils (Bld) [#/Vol] 17.92 10*3/uL High 1.45-7.50 [facility] Comment on above: Order Comment: Speci men Type: BLOOD SPECIMEN Order[facility] Facility[facility] Address: [address] [place] [address] Performed By: #### 5 7021-8 #### [facility] CLIA [id number] [address] [facility] CLIA [id number] [address] [place] [address] [place] Neutrophils/100 WBC (Bld) 78.0 % Normal [facility] Comment on above: Order Comment: Speci men Type: BLOOD SPECIMEN Order[facility] Address: [address] [place] [address] Performed By: #### 5 7021-8 #### [facility] CLIA [id number] [address] [place] [address] OF [facility] CLIA [id number] [address] [place] [address] [place] Nucleated RBC (Bld) [#/Vol] 10*3/uL Normal <0.01 [facility] Comment on above: Order Comment: Speci men Type: BLOOD SPECIMEN Order[facility] Address: [address] [place] [address] Performed By: #### 5 7021-8 #### [facility] CLIA [id number] [address] [place] [address] LABORATORY CLIA [id number] [address] [place] [address] [place] Nucleated RBC/100 WBC (Bld) [Ratio] 0.0 /100 WBC Normal [facility] Comment on above: Order Comment: Speci men Type: BLOOD SPECIMEN Ordering Facility[facility] Address: [address] [place] [address] Performed By: #### 5 7021-8 #### [facility] CLIA [id number] [address] LAB[facility] CLIA [id number] [address] [place] [address] [place] Platelets Estimate (Bld) [#/Vol] Adequate Normal [facility] Comment on above: Order Comment: Speci men Type: BLOOD SPECIMEN Ordering Facility[facility] Address: [address] [place] [id number] Performed By: #### 5 7021-8 #### [facility] CLIA [id number] [address] [place] [address] LABORATORY CLIA [id number] [address] [place] [address] STATES [facility] RED CELL MORPH Reviewed: unremarkable Normal [facility] Comment on above: Order Comment: Speci men Type: BLOOD SPECIMEN Order[facility] Address: [address] [place] [id number] Performed By: #### 5 7021-8 #### [facility] CLIA [id number] [address] [facility]ORY CLIA [id number] [address] [place] [address] [place] WBC Left Shift Ql (Bld) Present [facility] Comment on above: Order Comment: Speci men Type: BLOOD SPECIMEN Ordering [facility] Address: [address] [place] [address] Performed By: #### 5 7021-8 #### [facility] CLIA [id number] [address] [place] [address] [place] [facility] CLIA [id number] [address] [place] [address] [place] CBC panel Auto (Bld)on 07-20 Erythrocyte distribution width (RBC) [Ratio] 14.2 % Normal 11.5-15.0 [facility] Comment on above: Order Comment: Speci men Type: BLOOD SPECIMEN Ordering Facility[facility] Address: [address] [place] [address] Performed By: #### 2 276-4, 30971-3 #### [facility] CLIA [id number] [address] [place] [address] [place] Hematocrit (Bld) [Volume fraction] 31.2 % Low 36.0-46.0 [facility] Comment on above: Order Comment: Speci men Type: BLOOD SPECIMEN Ordering Facility[facility] Address: [address] [place] [address] Performed By: #### 2 276-4, 69031-9 #### [facility] CLIA [id number] [address] [place] [address] [place] Hemoglobin (Bld) [Mass/Vol] 10.5 g/dL Low 11.5-15.5 [facility] Comment on above: Order Comment: Speci men Type: BLOOD SPECIMEN Ordering Facility[facility] Address: [address] [place] [address] Performed By: #### 2 276-4, 68585-5 #### [facility] CLIA [id number] [address] [place] [address] [place] MCH (RBC) [Entitic mass] 28.1 pg Normal 26.0-34.0 [facility] Comment on above: Order Comment: Speci men Type: BLOOD SPECIMEN Ordering Facility[facility] Address: [address] [place] [address] Performed By: #### 2 276-4, 71885-8 #### [facility] CLIA [id number] [address] [place] [address] [place] MCHC (RBC) [Mass/Vol] 33.7 g/dL Normal 30.5-36.0 [facility] Comment on above: Order Comment: Speci men Type: BLOOD SPECIMEN Ordering Facility[facility] Address: [address] [place] [address] Performed By: #### 2 276-4, 21703-7 #### [facility] CLIA [id number] [address] [place] [address] [place] MCV (RBC) [Entitic vol] 83.4 fL Normal 80.0-100.0 C [facility] Comment on above: Order Comment: Speci men Type: BLOOD SPECIMEN Ordering [facility] Address: [address] [place] [address] Performed By: #### 2 276-4, 58755-6 #### [facility] CLIA [id number] [address] [place] [address] [place] Platelet mean volume (Bld) [Entitic vol] 9.4 fL Normal 9.0-12.7 [facility] Comment on above: Order Comment: Speci men Type: BLOOD SPECIMEN Ordering Facility[facility] Address: [address] [place] [address] Performed By: #### 2 276-4, 88107-0 #### [facility] CLIA [id number] [address] [place] [address] [place] Platelets (Bld) [#/Vol] 294 10*3/uL Normal 150-400 [facility] Comment on above: Order Comment: Speci men Type: BLOOD SPECIMEN Ordering [facility] Address: [address] [place] [address] Performed By: #### 2 276-4, 51968-0 #### [facility] CLIA [id number] [address] [place] [address] [place] RBC (Bld) [#/Vol] 3.74 10*6/uL Low 3.90-5.20 [facility] Comment on above: Order Comment: Speci men Type: BLOOD SPECIMEN Order[facility] Address: [address] [place] [address] Performed By: #### 2 276-4, 43551-2 #### [facility] CLIA [id number] [address] [place] [address] [place] WBC (Bld) [#/Vol] 22.97 10*3/uL High 3.70-11.00 [facility] Comment on above: Order Comment: Speci men Type: BLOOD SPECIMEN Ordering Facility: [facility] Address: [address] [place] [address] Performed By: #### 2 276-4, 59202-5 #### 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 Mehnaz Murguia RN Allergies As of Date: 06/28/2023 Noted Allergy Reaction BEES 03/02/2012 7 - Swelling white chocolate [Other] 03/02/2012 12 - Shortness of Breath Date Reviewed: 06/22/2023 Reviewed by: Jonas Andrews Cma - Fully Assessed Reason for Visit: 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 [3602] Cmt: PRAF Prescriptions as [...] Status:Closed by MEHNAZ MURGUIA on 06/28/23 Normal [facility] GLUCOSE GEST, 1 HOURon 06-28 Glucose 1 Hr post Unsp challenge [Mass/Vol] 173 mg/dL Normal 74-179 [facility] Comment on above: Order Comment: Speci men Type: BLOOD SPECIMEN Ordering Facility: [facility] Address: [address], [place] [address] Result Comment: [facility] Congress of Obstetricians and Gynecologists (Ramon/Dianne) guidelines state gestational diabetes mellitus is present when 2 or more of the plasma glucose concentrations meet or exceed the following levels: fastin mg/dl, 1 hr: 180 mg/dl, 2 hr: 155 mg/dl, and 3 hr: 140 mg/dl. Performed By: Jaylyn### 2 276-4, 02400-8 #### [facility] CLIA [id number] [address] [facility] [id number] [address] [place] GLUCOSE GEST, 2 HOURon 06-28 Glucose 2 Hr post Unsp challenge [Mass/Vol] 164 mg/dL High 74-154 [facility] Comment on above: Order Comment: Guero guido Type: BLOOD SPECIMENOrdering Facility: [facility] Address: [address] [place] [address] Result Comment: [facility] Congress of Obstetricians and Gynecologists (Ramon/Dianne) guidelines state gestational diabetes mellitus is present when 2 or more of the plasma glucose concentrations meet or exceed the following levels: fastin mg/dl, 1 hr: 180 mg/dl, 2 hr: 155 mg/dl, and 3 hr: 140 mg/dl. Performed By: #### G TGST2 ####[facility] [id number] [place] [address] [place] GLUCOSE GEST, 3 HOURon 06-28 Glucose 3 Hr post Unsp challenge [Mass/Vol] 103 mg/dL Normal 74-139 [facility] Comment on above: Order Comment: Guero guido Type: BLOOD SPECIMEN Ordering Facility: [facility] Address: [address] [place] [address] Result Comment: [facility] Congress of Obstetricians and Gynecologists (Navarro/Axelan) guidelines state gestational diabetes mellitus is present when 2 or more of the plasma glucose concentrations meet or exceed the following levels: fastin mg/dl, 1 hr: 180 mg/dl, 2 hr: 155 mg/dl, and 3 hr: 140 mg/dl. Performed By: #### 5 7021-8 #### [facility] CLIA [id number] [address] [place] [address] [place] [facility] CLIA [id number] [address] [place] [address] [place] GLUCOSE GEST, FASTINGon 06-06 Glucose post fast [Mass/Vol] 85 mg/dL Normal 74-94 [facility] Comment on above: Order Comment: Speci men Type: BLOOD SPECIMEN Ordering Facility: [facility] Address: [place] [address] Result Comment: [facility] Congress of Obstetricians and Gynecologists (Ramon/Dianne) guidelines state gestational diabetes mellitus is present when 2 or more of the plasma glucose concentrations meet or exceed the following levels: fastin mg/dl, 1 hr: 180 mg/dl, 2 hr: 155 mg/dl, and 3 hr: 140 mg/dl. Performed By: #### 5 7021-8 #### [facility] CLIA [id number] [address] [place] [address] LABORATORY CLIA [id number] [address] [place] [address] CBC W Auto Differential pane l (Bld)on 06-22-2023 Basophils (Bld) [#/Vol] 0.00 10*3/uL Normal <0.11 [facility] Comment on above: Order Comment: Speci men Type: BLOOD SPECIMEN Ordering Facility: [facility] Address: [place] [address] Performed By: #### 5 7021-8 #### [facility] CLIA [id number] [address] [place] [address] LABORATORY CLIA [id number] [address] [place] [address] Basophils/100 WBC (Bld) 0.0 % Normal C [facility] Comment on above: Order Comment: Speci men Type: BLOOD SPECIMEN Ordering Facility: [facility] Address: [place] [address] Performed By: #### 5 7021-8 #### [facility] CLIA [id number] [address] [place] [address] LABORATORY CLIA [id number] [address] OF [place] Differential cell count method Nom (Bld) Manual Normal [facility] Comment on above: Order Comment: Speci men Type: BLOOD SPECIMEN Ordering Facility: [facility] Address: [address] [place] [address] Performed By: #### 5 7021-8 #### [facility] CLIA [id number] [address] LABORATORY CLIA [id number] [facility] [place] [address] [place] Eosinophils (Bld) [#/Vol] 0.00 10*3/uL Normal <0.46 [facility] Comment on above: Order Comment: Speci men Type: BLOOD SPECIMEN Ordering Facility: [facility] Address: [address] [place] [address] Performed By: #### 5 7021-8 #### [facility] CLIA [id number] [address] [place] [address] LABORATORY CLIA [id number] [address] [place] [address] [place] Eosinophils/100 WBC (Bld) 0.0 % Normal [facility] Comment on above: Order Comment: Speci men Type: BLOOD SPECIMEN Ordering Facility: [facility] Address: [address] [place] [address] Performed By: #### 5 7021-8 #### [facility] CLIA [id number] [address] [place] [address] LABORATORY CLIA [id number] [address] [place] [address] [place] Erythrocyte distribution width (RBC) [Ratio] 13.6 % Normal 11.5-15.0 [facility] Comment on above: Order Comment: Speci men Type: BLOOD SPECIMEN Ordering Facility[facility] Address: [address] [place] [address] Performed By: #### 5 7021-8 #### [facility] CLIA [id number] [address] LABORATORY CLIA [id number] [address] [place] [address] [place] Hematocrit (Bld) [Volume fraction] 30.2 % Low 36.0-46.0 [facility] Comment on above: Order Comment: Speci men Type: BLOOD SPECIMEN Ordering Facility: [facility] Address: [address] [place] [address] Performed By: #### 5 7021-8 #### [facility] CLIA [id number] [address] [place] [address] LABORATORY CLIA [id number] [address] [place] [address] [place] Hemoglobin (Bld) [Mass/Vol] 10.4 g/dL Low 11.5-15.5 [facility] Comment on above: Order Comment: Speci men Type: BLOOD SPECIMEN Ordering Facility: [facility] Address: [address] [place] [address] Performed By: #### 5 7021-8 #### [facility] CLIA [id number] [address] [place] [address] LABORATORY CLIA [id number] [address] [place] [address] [place] Lymphocytes (Bld) [#/Vol] 4.30 10*3/uL High 1.00-4.00 [facility] Comment on above: Order Comment: Speci men Type: BLOOD SPECIMEN Ordering Facility[facility] Address: [address] [place] [address] Performed By: #### 5 7021-8 #### [facility] CLIA [id number] [address] [place] [address] LABORATORY CLIA [id number] [address] [place] [address] [place] Lymphocytes/100 WBC (Bld) 21.0 % Normal [facility] Comment on above: Order Comment: Speci men Type: BLOOD SPECIMEN Ordering Facility: [facility] Address: [place] [address] Performed By: #### 5 7021-8 #### [facility] CLIA [id number] [address] LABORATORY CLIA [id number] [address] [place] [address] MCH (RBC) [Entitic mass] 28.3 pg Normal 26.0-34.0 [facility] Comment on above: Order Comment: Speci men Type: BLOOD SPECIMEN Ordering Facility: [facility] Address: [address] [place] [address] Performed By: #### 5 7021-8 #### [facility] CLIA [id number] [address] [place] [address] LABORATORY CLIA [id number] [address] [place] [address] MCHC (RBC) [Mass/Vol] 34.4 g/dL Normal 30.5-36.0 [facility] Comment on above: Order Comment: Speci men Type: BLOOD SPECIMEN Ordering Facility: [facility] Address: [place] [address] Performed By: #### 5 7021-8 #### [facility] CLIA [id number] [address] [place] [address] LABORATORY CLIA [id number] [address] [place] [address] MCV (RBC) [Entitic vol] 82.1 fL Normal 80.0-100.0 C [facility] Comment on above: Order Comment: Speci men Type: BLOOD SPECIMEN Ordering Facility: [facility] Address: [address] [place] [address] Performed By: #### 5 7021-8 #### [facility] CLIA [id number] [address] LABORATORY CLIA [id number] [address] [place] [address] [place] Metamyelocytes/100 WBC (Bld) 1.0 % Normal [facility] Comment on above: Order Comment: Speci men Type: BLOOD SPECIMEN Ordering Facility: [facility] Address: [address] [place] [address] Performed By: #### 5 7021-8 #### [facility] CLIA [id number] [address] LABORATORY CLIA [id number] [address] [place] [address] [place] Monocytes (Bld) [#/Vol] 0.82 10*3/uL Normal <0.87 [facility] Comment on above: Order Comment: Speci men Type: BLOOD SPECIMEN Ordering Facility[facility] Address: [address] [place] [address] Performed By: #### 5 7021-8 #### [facility] CLIA [id number] [address] LABORATORY CLIA [id number] [address] [place] [address] [facility] OF [place] Monocytes/100 WBC (Bld) 4.0 % Normal [facility] Comment on above: Order Comment: Speci men Type: BLOOD SPECIMEN Ordering [facility] Address: [address] [place] [address] Performed By: #### 5 7021-8 #### [facility] CLIA [id number] [address] OF [facility] CLIA [id number] [address] [place] [address] [place] Neutrophils (Bld) [#/Vol] 15.14 10*3/uL High 1.45-7.50 [facility] Comment on above: Order Comment: Speci men Type: BLOOD SPECIMEN Ordering Facility[facility] Address: [address] [place] [address] Performed By: #### 5 7021-8 #### [facility] CLIA [id number] [address] LABORATORY CLIA [id number] [address] [place] [address] [place] [facility] OF [place] Neutrophils/100 WBC (Bld) 74.0 % Normal [facility] Comment on above: Order Comment: Speci men Type: BLOOD SPECIMEN Ordering Facility[facility] Address: [address] [place] [address] Performed By: #### 5 7021-8 #### [facility] CLIA [id number] [address] [place] [address] LABORATORY CLIA [id number] [address] [place] [address] [place] Nucleated RBC (Bld) [#/Vol] 10*3/uL Normal <0.01 [facility] Comment on above: Order Comment: Speci men Type: BLOOD SPECIMEN Order[facility] Address: [address] [place] [address] Performed By: #### 5 7021-8 #### [facility] CLIA [id number] [address] [place] [address] LABORATORY CLIA [id number] [address] [place] [address] OF [place] Nucleated RBC/100 WBC (Bld) [Ratio] 0.0 /100 WBC Normal [facility] Comment on above: Order Comment: Speci men Type: BLOOD SPECIMEN Order[facility] Facility[facility] Address: [address] [place] [address] Performed By: #### 5 7021-8 #### [facility] CLIA [id number] [address] [place] [address] [place] [facility] CLIA [id number] [address] [place] [address] [place] Platelet mean volume (Bld) [Entitic vol] 9.5 fL Normal 9.0-12.7 [facility] Comment on above: Order Comment: Speci men Type: BLOOD SPECIMEN Order[facility] Facility[facility] Address: [address] [place] [address] Performed By: #### 5 7021-8 #### [facility] CLIA [id number] [address] OF [facility] CLIA [id number] [address] [place] [address] [place] Platelets (Bld) [#/Vol] 245 10*3/uL Normal 150-400 [facility] Comment on above: Order Comment: Speci men Type: BLOOD SPECIMEN Order[facility] Address: [address] [place] [address] Performed By: #### 5 7021-8 #### [facility] CLIA [id number] [address] [place] [address] OF [facility] CLIA [id number] [address] [place] [address] [place] Platelets Estimate (Bld) [#/Vol] Adequate Normal [facility] Comment on above: Order Comment: Speci men Type: BLOOD SPECIMEN Order[facility] Address: [address] [place] [address] Performed By: #### 5 7021-8 #### [facility] CLIA [id number] [address] [place] [address] [place] [facility] CLIA [id number] [address] [place] [address] [place] RBC (Bld) [#/Vol] 3.68 10*6/uL Low 3.90-5.20 [facility] Comment on above: Order Comment: Speci men Type: BLOOD SPECIMEN Order[facility] Address: [address] [place] [address] Performed By: #### 5 7021-8 #### [facility] CLIA [id number] [address] LABORATORY CLIA [id number] [address] [place] [address] RED CELL MORPH Reviewed: unremarkable Normal [facility] Comment on above: Order Comment: Speci men Type: BLOOD SPECIMEN Order[facility] Address: [address] [place] [address] Performed By: #### 5 7021-8 #### [facility] CLIA [id number] [address] [place] [address] LABORATORY CLIA [id number] [address] [place] [address] [place] WBC (Bld) [#/Vol] 20.46 10*3/uL High 3.70-11.00 [facility] Comment on above: Order Comment: Speci men Type: BLOOD SPECIMEN [facility] Address: [address] [place] [address] Performed By: #### 5 7021-8 #### [facility] CLIA [id number] [address] [place] [address] LABORATORY CLIA [id number] [address] [place] [address] OF [facility] GEST GLUC SCREEN, 1-HR, 50 G M, NON-FASTINGon 06-22-2023 Glucose [Mass/Vol] 159 mg/dL High 74-134 [facility] Comment on above: Order Comment: Speci men Type: BLOOD SPECIMEN Order[facility] Address: [address] [place] [address] Result Comment: [facility] Congress of Obstetricians and Gynecologists (Ramon/Dianne) guidelines state a gestational diabetes mellitus positive screen is made, in women not previously diagnosed with overt diabetes, when the 1 hr plasma glucose level is equal to or above 140 mg/dL. The [facility] Family Health Nurse Practitioner and Women's [facility] [employer] recommends a 135 mg/dL cutoff. Performed By: #### 5 7021-8 #### [facility] CLIA [id number] [address] LABORATORY CLIA [id number] [facility] STATES OF [facility] OBSTETRIC ULTRASOUND WHIon 1 [facility] Reagin and Treponema pallidu m IgG and IgM [Interp]on 06-22-2023 T. pallidum IgG+IgM IA Ql (S) Non-Reactive Normal Nonreactive [facility] Comment on above: Order Comment: Speci men Type: BLOOD SPECIMEN Order[facility] Address: [address] [place] [address] Performed By: #### 5 7021-8 #### [facility] CLIA [id number] [address] [place] [address] LABORATORY CLIA [id number] [address] [place] [address] Reagin+T pallidum IgG+IgM Se rPl-Impon 06-22-2023 Reagin and Treponema pallidum IgG and IgM [Interp] Cannot exclude recent Treponemal infection if specimen collected within 7-10 days after appearance of suspect lesions or 2-3 weeks after an exposure. Clinical correlation is required. Normal [facility] Comment on above: Order Comment: Speci men Type: BLOOD SPECIMEN Order[facility] Facility[facility] Address: [address] [place] [address] Performed By: #### 5 7021-8 #### [facility] CLIA [id number] [address] [place] [id number] [place] [address] LABORATORY CLIA [id number] [address] [place] [address] [place] URINE OB DIP B/Oon 3 Glucose Ql (U) Negative Neg mg/dL [facility] Protein.monoclonal (U) [Mass/Vol] Negative Neg mg/dL [facility] URINE OB DIP B/Oon 3 Glucose Ql (U) Negative Neg mg/dL [facility] Protein.monoclonal (U) [Mass/Vol] Negative Neg mg/dL [facility] OBSTETRIC ULTRASOUND WHIon 0 04-29-2023 [facility] SEQUENTIAL SCRN SCND TRIMEST Alex 04-29-2023 AFP [MoM] 1.08 MoM Normal [facility] Comment on above: Order Comment: Speci men Type: BLOOD SPECIMEN Order[facility] Address: [address] [place] [address] Result Comment: 72.0 3 ng/mL Performed By: #### 5 7021-8 #### [facility] CLIA [id number] [address] LABORATORY CLIA [id number] [address] [place] [address] COMMENT, SEQ SCREEN SECOND TRIMESTER See comments below Normal [facility] Comment on above: Order Comment: Speci lata Type: BLOOD SPECIMEN Order[facility] Address: [address] [place] [address] Result Comment: INTE RPRETATION Screening result : [...] alone is 1 in 690 COMMENT FROM [facility] SHARON-A (RUO) is used per the rehab aide's instructions. Its performance characteristics were determined by [facility]'s lab per CLIA requirements. This test has not been approved by FDA Please check patient information and call for any corrections and risk recalculations A screen negative result does not exclude the possibility of Down syndrome, trisomy 18, trisomy 13 or a neural tube defect because screening does not detect all affected pregnancies Performed By: #### 5 7021-8 #### [facility] CLIA [id number] [address] LABORATORY CLIA [id number] [facility] DATE 2ND SAMPLE RECEIVED 05/02/23 Normal [facility] Comment on above: Order Comment: Speci men Type: BLOOD SPECIMEN [facility] Address: [address] [place] [address] Performed By: #### 5 7021-8 #### [facility] CLIA [id number] [address] [place] [address] LABORATORY CLIA [id number] [address] [place] [address] DATE OF COLLECTION #1 03/02/23 Normal [facility] Comment on above: Order Comment: Speci men Type: BLOOD SPECIMEN [facility] Address: [address] [place] [address] Performed By: #### 5 7021-8 #### [facility] CLIA [id number] [address] [place] [address] LABORATORY CLIA [id number] [address] [place] [address] DATE OF COLLECTION #2 04/29/23 Normal [facility] Comment on above: Order Comment: Speci men Type: BLOOD SPECIMEN [facility] Address: [address] [place] [address] Performed By: #### 5 7021-8 #### [facility] CLIA [id number] [address] LABORATORY CLIA [id number] [address] OF [place] DATE RECEIVED 03/03/23 Normal [facility] Comment on above: Order Comment: Speci men Type: BLOOD SPECIMEN Order[facility] Address: [address] [place] [id number] Performed By: #### 5 7021-8 #### [facility] CLIA [id number] [address] LABORATORY CLIA [id number] [address] OF [facility] E3.unconjugated [MoM] 0.73 MoM Normal [facility] Comment on above: Order Comment: Speci men Type: BLOOD SPECIMEN Order[facility] Facility[facility] Address: [address] [place] [address] Result Comment: 1.94 ng/mL Performed By: #### 5 7021-8 #### [facility] CLIA [id number] [address] LABORATORY CLIA [id number] [address] [place] [address] SERA 09/05/23 Normal [facility] Comment on above: Order Comment: Speci men Type: BLOOD SPECIMEN Order[facility] Address: [address] [place] [id number] Performed By: #### 5 7021-8 #### [facility] CLIA [id number] [address] LABORATORY CLIA [id number] [address] [place] [address] GESTATION AT DATE OF 1ST SAMPLE 13 weeks 2 days (by CRL scan) Normal [facility] Comment on above: Order Comment: Speci men Type: BLOOD SPECIMEN Order[facility] Facility[facility] Address: [address] [place] [address] Performed By: #### 5 7021-8 #### [facility] CLIA [id number] [address] LABORATORY CLIA [id number] [address] [place] [address] GESTATION AT DATE OF 2ND SAMPLE 21 weeks 4 days (by CRL scan) Normal [facility] Comment on above: Order Comment: Speci men Type: BLOOD SPECIMEN Order[facility] Address: [address] [place] [address] Performed By: #### 5 7021-8 #### [facility] CLIA [id number] [address] [place] [address] LABORATORY CLIA [id number] [address] [place] [address] HCG [MoM] 0.64 MoM Normal [facility] Comment on above: Order Comment: Speci men Type: BLOOD SPECIMEN Order[facility] Address: [address] [place] [address] Result Comment: 47.6 0 IU/mL Performed By: #### 5 7021-8 #### [facility] CLIA [id number] [address] [place] [address] LABORATORY CLIA [id number] [address] [place] [address] [place] Inhibin A [MoM] 1.79 {M.o.M} Normal [facility] Comment on above: Order Comment: Speci men Type: BLOOD SPECIMEN Order[facility] Address: [address] [place] [address] Result Comment: 314. 5 pg/mL Performed By: #### 5 7021-8 #### [facility] CLIA [id number] [address] LABORATORY CLIA [id number] [address] [place] [address] [place] INSULIN DEPENDENT DIABETES None Normal [facility] Comment on above: Order Comment: Speci men Type: BLOOD SPECIMEN Order[facility] Facility[facility] Address: [address] [id number] Performed By: #### 5 7021-8 #### [facility] CLIA [id number] [address] LABORATORY CLIA [id number] IVF No Normal [facility] Comment on above: Order Comment: Speci men Type: BLOOD SPECIMEN Ordering Facility: [facility] Address: [place] [address] Performed By: #### 5 7021-8 #### [facility] CLIA [id number] [address] [facility] CLIA [id number] [address] [place] [address] MATERNAL AGE AT SERA 32 years Normal [facility] Comment on above: Order Comment: Speci men Type: BLOOD SPECIMEN Ordering Facility: [facility] Address: [place] [address] Performed By: #### 5 7021-8 #### [facility] CLIA [id number] [address] [facility] CLIA [id number] [address] [place] [address] NUCHAL MEASUREMENT 2.00 mm Normal [facility] Comment on above: Order Comment: Speci men Type: BLOOD SPECIMEN Ordering Facility: [facility] Address: [place] [address] Performed By: #### 5 7021-8 #### [facility] CLIA [id number] [address] [facility] CLIA [id number] [address] NUCHAL MEASUREMENT MOM 1.16 MoM Normal [facility] Comment on above: Order Comment: Speci men Type: BLOOD SPECIMEN Ordering Facility: [facility] Address: [address] [place] [address] Performed By: #### 5 7021-8 #### [facility] CLIA [id number] [address] [facility] CLIA [id number] [address] PATIENT'S WEIGHT DAY OF COLLECTION 212 lb. Normal [facility] Comment on above: Order Comment: Speci men Type: BLOOD SPECIMEN Ordering Facility: [facility] Address: [address] [place] [address] Performed By: #### 5 7021-8 #### [facility] CLIA [id number] [address] [facility] CLIA [id number] [address] [place] [address] [place] associated plasma protein A [MoM] 1.34 MoM Normal [facility] Comment on above: Order Comment: Speci men Type: BLOOD SPECIMEN Ordering Facility: [facility] Address: [address] [place] [address] Result Comment: 1018 .9 ng/mL Performed By: #### 5 7021-8 #### [facility] CLIA [id number] [address] [facility] CLIA [id number] [address] [place] [address] [place] PREVIOUS DOWN None Normal [facility] Comment on above: Order Comment: Speci men Type: BLOOD SPECIMEN Ordering Facility: [facility] Address: [address] [place] [address] Performed By: #### 5 7021-8 #### [facility] CLIA [id number] [address] [place] [id number] [facility] CLIA [id number] [address] [place] [address] [place] PREVIOUS NTD None Normal [facility] Comment on above: Order Comment: Speci men Type: BLOOD SPECIMEN [facility] Facility: [facility] Address: [address] [place] [address] Performed By: #### 5 7021-8 #### [facility] CLIA [id number] [address] OF [facility] CLIA [id number] [facility] [place] [address] [place] SAMPLE #1 [id number] Normal [facility] Comment on above: Order Comment: Speci men Type: BLOOD SPECIMEN Ordering Facility: [facility] Address: [address] [place] [address] Performed By: #### 5 7021-8 #### [facility] CLIA [id number] [address] [place] [address] [place] [facility] CLIA [id number] [address] [place] [address] [place] SAMPLE #2 [id number] Normal [facility] Comment on above: Order Comment: Speci men Type: BLOOD SPECIMEN Ordering Facility: [facility] Address: [address] [id number] Performed By: #### 5 7021-8 #### [facility] CLIA [id number] [address] [place] [address] [place] [facility] CLIA [id number] [address] [place] [address] [place] SCAN MEASURE 70.5 mm on 03/02/23 Normal [facility] Comment on above: Order Comment: Speci men Type: BLOOD SPECIMEN Ordering Facility: [facility] Address: [address] [place] [address] Performed By: #### 5 7021-8 #### [facility] CLIA [id number] [address] [facility] CLIA [id number] [address] [place] [address] SEQ2 SCR RISK NTD 1 Normal [facility] Comment on above: Order Comment: Speci men Type: BLOOD SPECIMEN Ordering Facility: [facility] Address: [address] [place] [address] Performed By: #### 5 7021-8 #### [facility] CLIA [id number] [address] [facility] CLIA [id number] [address] [place] [address] SEQ2 SCRN RISK TRISOMY 13 1 Normal [facility] Comment on above: Order Comment: Speci men Type: BLOOD SPECIMEN Ordering [facility]: [facility] Address: [address] [place] [address] Performed By: #### 5 7021-8 #### [facility] CLIA [id number] [address] [place] [address] LABORATORY CLIA [id number] [address] [place] [address] SEQUENTIAL 2 INTERPRETATION Negative Normal Screen Negative [facility] Comment on above: Order Comment: Speci men Type: BLOOD SPECIMEN Ordering Facility: [facility] Address: [address] [place] [address] Performed By: #### 5 7021-8 #### [facility] CLIA [id number] [address] [place] [address] LABORATORY CLIA [id number] [address] [place] [address] STAFF REVIEW (MATERNAL SCREENS) Reviewed by Brent Srivastava MD, Ph.D ([id number]) Normal [facility] Comment on above: Order Comment: Speci men Type: BLOOD SPECIMEN Ordering Facility: [facility] Address: [address] [place] [address] Performed By: #### 5 7021-8 #### [facility] CLIA [id number] [address] [facility] CLIA [id number] [address] Trisomy 18 risk Based on maternal age Qn (fetus) Normal [facility] Comment on above: Order Comment: Speci men Type: BLOOD SPECIMEN Ordering Facility: [facility] Address: [address] [place] [address] Result Comment: Not Reported Performed By: #### 5 7021-8 #### [facility] CLIA [id number] [address] [facility] CLIA [id number] [address] [place] [address] Trisomy 18 risk Qn (fetus) <1 Normal [facility] Comment on above: Order Comment: Speci men Type: BLOOD SPECIMEN Ordering Facility: [facility] Address: [address] [place] [address] Performed By: #### 5 7021-8 #### [facility] CLIA [id number] [address] [facility] CLIA [id number] [address] [place] [address] Trisomy 21 risk Based on maternal age Qn (fetus) 1 Normal [facility] Comment on above: Order Comment: Speci men Type: BLOOD SPECIMEN Ordering Facility: [facility] Address: [address] [place] [address] Performed By: #### 5 7021-8 #### [facility] CLIA [id number] [address] [facility] CLIA [id number] [address] Trisomy 21 risk Qn (fetus) 1 Normal [facility] Comment on above: Order Comment: Speci men Type: BLOOD SPECIMEN Ordering Facility: [facility] Address: [place] [address] Performed By: #### 5 7021-8 #### [facility] CLIA [id number] [address] [facility] CLIA [id number] [address] URINE OB DIP B/Oon 3 Glucose Ql (U) Negative Neg mg/dL [facility] Protein.monoclonal (U) [Mass/Vol] Negative Neg mg/dL [facility] CNPNon 04-26-2023 CNPN Telephone (SPMOBA) ---- VENECIA HART I ([id number]) 1990 F UPA Date Time Provider Department [...] APRN.CNM - Fully Assessed Reason for Visit: 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 [3602] Cmt: Praf Prescriptions as [...] Status:Closed by IZA MOHAN on 04/26/23 Normal [facility] URINE OB DIP B/Oon 3 Glucose Ql (U) Negative Neg mg/dL [facility] Protein.monoclonal (U) [Mass/Vol] Negative Neg mg/dL [facility] CBC panel Auto (Bld)on 03-02 Erythrocyte distribution width (RBC) [Ratio] 13.4 % Normal 11.5-15.0 [facility] Comment on above: Order Comment: Speci men Type: BLOOD SPECIMEN Ordering Facility: [facility] Address: [address] [place] [address] Performed By: #### 5 7021-8 #### [facility] CLIA [id number] [address] [facility] CLIA [id number] [facility] Hematocrit (Bld) [Volume fraction] 40.8 % Normal 36.0-46.0 [facility] Comment on above: Order Comment: Speci men Type: BLOOD SPECIMEN Ordering Facility[facility] Address: [address] [place] [address] Performed By: #### 5 7021-8 #### [facility] CLIA [id number] [address] [facility] CLIA [id number] [facility] [place] Hemoglobin (Bld) [Mass/Vol] 14.1 g/dL Normal 11.5-15.5 [facility] Comment on above: Order Comment: Speci men Type: BLOOD SPECIMEN Ordering Facility[facility] Address: [address] [place] [address] Performed By: #### 5 7021-8 #### [facility] CLIA [id number] [address] [place] [address] LABORATORY CLIA [id number] [address] [place] [address] [place] MCH (RBC) [Entitic mass] 27.8 pg Normal 26.0-34.0 [facility] Comment on above: Order Comment: Speci men Type: BLOOD SPECIMEN Ordering [facility] Address: [address] [place] [address] Performed By: #### 5 7021-8 #### [facility] CLIA [id number] [address] [place] [address] LABORATORY CLIA [id number] [address] [place] [address] [place] MCHC (RBC) [Mass/Vol] 34.6 g/dL Normal 30.5-36.0 [facility] Comment on above: Order Comment: Speci men Type: BLOOD SPECIMEN Ordering [facility] Address: [address] [place] [address] Performed By: #### 5 7021-8 #### [facility] CLIA [id number] [address] [place] [address] LABORATORY CLIA [id number] [address] OF [place] MCV (RBC) [Entitic vol] 80.5 fL Normal 80.0-100.0 C [facility] Comment on above: Order Comment: Speci men Type: BLOOD SPECIMEN Ordering Facility[facility] Address: [address] [place] [address] Performed By: #### 5 7021-8 #### [facility] CLIA [id number] [address] [facility] CLIA [id number] [address] OF [place] Nucleated RBC (Bld) [#/Vol] 10*3/uL Normal <0.01 [facility] Comment on above: Order Comment: Speci men Type: BLOOD SPECIMEN Order[facility] Facility[facility] Address: [place] [address] Performed By: #### 5 7021-8 #### [facility] CLIA [id number] [address] [facility] CLIA [id number] [address] [place] [address] [place] Platelet mean volume (Bld) [Entitic vol] 9.4 fL Normal 9.0-12.7 [facility] Comment on above: Order Comment: Speci men Type: BLOOD SPECIMEN Ordering Facility: [facility] Address: [place] [address] Performed By: #### 5 7021-8 #### [facility] CLIA [id number] [address] [facility] CLIA [id number] [address] [place] [address] [place] Platelets (Bld) [#/Vol] 253 10*3/uL Normal 150-400 [facility] Comment on above: Order Comment: Speci men Type: BLOOD SPECIMEN [facility] Address: [address] [place] [address] Performed By: #### 5 7021-8 #### [facility] CLIA [id number] [address] [facility] CLIA [id number] [address] [place] [address] [place] RBC (Bld) [#/Vol] 5.07 10*6/uL Normal 3.90-5.20 [facility] Comment on above: Order Comment: Speci men Type: BLOOD SPECIMEN Order[facility] Address: [address] [place] [address] Performed By: #### 5 7021-8 #### [facility] CLIA [id number] [address] [place] [address] LABORATORY CLIA [id number] [address] [place] [address] [place] WBC (Bld) [#/Vol] 15.42 10*3/uL High 3.70-11.00 [facility] Comment on above: Order Comment: Speci men Type: BLOOD SPECIMEN [facility] Address: [address] [place] [address] Performed By: #### 5 7021-8 #### [facility] CLIA [id number] [address] [place] [address] LABORATORY CLIA [id number] [address] [place] [address] [place] [facility] OF [place] HBV surface Ag Ser Qlon - HBV surface Ag Ql (S) Negative Normal Negative [facility] Comment on above: Order Comment: Speci men Type: BLOOD SPECIMENOrdering Facility: [facility] Address: [address] [place] [id number] Performed By: #### 7 3752-8, 96528-4, 5195-3 ####[facility] LABCLIA [id number] [address] [place] HCV Ab Ser Qlon 03-02-2023 HCV Ab Ql (S) Negative Normal Negative [facility] Comment on above: Order Comment: Speci men Type: BLOOD SPECIMEN [facility] Address: [address] [place] [address] Result Comment: The result suggests no evidence of active infection with Hepatitis C virus. Should recent infection be suspected, repeat testing may be considered 4-6 weeks after this draw. Performed By: #### 2 276-4, 25831-5 #### [facility] CLIA [id number] [address] [place] [address] [place] HIV 1+2 Ab IA Qlon 3 HIV 1 and 2 Ab IA.rapid Nom Normal [facility] Comment on above: Order Comment: Speci men Type: BLOOD SPECIMENOrdering Facility: [facility] Address: [address] [place] [address] Result Comment: Test not indicated. Performed By: #### 7 3752-8, 66516-5, 5195-3 ####[facility] LABCLIA [id number] [place] [address] [place] HIV 1+2 Ab+HIV1 p24 Ag IA Ql Non-Reactive Normal Nonreactive [facility] Comment on above: Order Comment: Speci men Type: BLOOD SPECIMENOrdering Facility: [facility] Address: [address] [place] [address] Performed By: #### 7 3752-8, 70612-5, 5195-3 ####[facility] LABCLIA [id number] [place] [address] [place] HIVINT Normal [facility] Comment on above: Order Comment: Speci men Type: BLOOD SPECIMENOrdering Facility: [facility] Address: [address] [place] [address] Result Comment: No e vidence of HIV-1 or HIV-2 infection. Should recent infection be suspected, repeat testing may be considered 2-3 weeks after this draw. [place] Rev. Code 3701.243(E): This information has been [...] or diagnoses. Performed By: #### 7 3752-8, 10770-9, 5195-3 ####[facility] LABCLIA [id number] [address] OF [facility] HbA1c (Bld)on 03-02-2023 Average glucose Estimated from glycated hemoglobin (Bld) [Mass/Vol] 108 mg/dL Normal [facility] Comment on above: Order Comment: Guero guido Type: BLOOD SPECIMEN Order[facility] Address: [address] [place] [address] Result Comment: eAG: (Estimated average glucose) is a calculated value from HgbA1c and is account maintenance representative of the average blood glucose level in the last 2-3 month period. Performed By: #### 5 7021-8 #### [facility] CLIA [id number] [address] [place] [address] LABORATORY CLIA [id number] [address] [place] [address] HbA1c (Bld) [Mass fraction] 5.4 % Normal 4.3-5.6 [facility] Comment on above: Order Comment: Guero guido Type: BLOOD SPECIMEN [facility] Address: [address] [place] [address] Result Comment: Amer [place] Diabetes Association guidelines indicate that patients with HgbA1c in the range 5.7-6.4% are at increased risk for development of diabetes, and intervention by lifestyle modification may be beneficial. HgbA1c greater or equal to 6.5% is considered diagnostic of diabetes. Performed By: #### 5 7021-8 #### [facility] CLIA [id number] [address] LABORATORY CLIA [id number] [facility] NUCHAL TRANSLUCENCY WHIon [facility] RUBELLA IGG ABon 03-02-2023 RUBELLA IGG AB, QUAL Equivocal Abnormal Positive [facility] Comment on above: Order Comment: Speci men Type: BLOOD SPECIMEN [facility] Address: [address] [place] [address] Result Comment: Mandeep ot exclude non-specific reactivity or recent or past exposure to Rubella virus including vaccination. Equivocal result may also be seen due to waning immunity to Rubella virus or presence of passively-transferred antibodies. Please correlate with patient's history. Performed By: #### 5 7021-8 #### [facility] CLIA [id number] [address] LABORATORY CLIA [id number] [address] [place] [address] [place] Reagin and Treponema pallidu m IgG and IgM [Interp]on 03-02-2023 SYPHILIS INTERPRETATION Cannot exclude recent Treponemal infection if specimen collected within 7-10 days after appearance of suspect lesions or 2-3 weeks after an exposure. Clinical correlation is required. Normal [facility] Comment on above: Order Comment: [facility] Type: BLOOD SPECIMENOrdering Facility: [facility] Address: [address] [place] [address] Performed By: #### 7 3752-8, 58555-2, 5194-3 ####[facility] LABCLIA [id number] [address] OF [facility] T. pallidum IgG+IgM IA Ql (S) Non-Reactive Normal Nonreactive [facility] Comment on above: Order Comment: Speci men Type: BLOOD SPECIMENOrdering Facility: [facility] Address: [address] [place] [address] Performed By: #### 7 3752-8, 96027-6, 5194-3 ####[facility] LABCLIA [id number] [place] [address] [place] SEQUENTIAL SCRN WILY Johnson 03-02-2023 DATE OF COLLECTION #1 03/02/23 Normal [facility] Comment on above: Order Comment: Speci men Type: BLOOD SPECIMENOrdering Facility: [facility] Address: [address] [place] [address] Performed By: #### S EQL1 ####[facility] LABCLIA [id number] [place] [address] [place] DATE RECEIVED 03/03/23 Normal [facility] Comment on above: Order Comment: Speci men Type: BLOOD SPECIMENOrdering Facility: [facility] Address: [address] [place] [address] Performed By: #### S EQL1 ####[facility] LABCLIA [id number] [address] [place] SERA 09/05/23 Normal [facility] Comment on above: Order Comment: Speci men Type: BLOOD SPECIMENOrdering Facility: [facility] Address: [address] [place], [place] [address] Performed By: #### S EQL1 ####[facility] LABCLIA [id number] [place] [address] [place] GESTATION AT DATE OF SAMPLE 13 weeks 2 days (by CRL scan) Normal [facility] Comment on above: Order Comment: Speci men Type: BLOOD SPECIMENOrdering Facility: [facility] Address: [address] Performed By: #### S EQL1 ####[facility] LABIA [id number] [address] [place] HCG [MoM] 0.63 MoM Normal [facility] Comment on above: Order Comment: Speci men Type: BLOOD SPECIMENOrdering Facility: [facility] Address: [address] Result Comment: 47.6 0 IU/mL Performed By: #### S EQL1 ####[facility] LABCLIA [id number] [place] [address] [place] INSULIN DEPENDENT DIABETES None Normal [facility] Comment on above: Order Comment: Speci men Type: BLOOD SPECIMENOrdering Facility: [facility] Address: [address] [place] [place] [address] Performed By: #### S EQL1 ####[facility] LABCLIA [id number] [place] [address] [place] IVF No Normal [facility] Comment on above: Order Comment: Speci men Type: BLOOD SPECIMENOrdering Facility: [facility] Address: [address] [place] [address] Performed By: #### S EQL1 ####[facility] LABCLIA [id number] [place] [address] [place] MATERNAL AGE AT SERA 32.8 [age] Normal [facility] Comment on above: Order Comment: Speci men Type: BLOOD SPECIMENOrdering Facility: [facility] Address: [address] [place] [address] Performed By: #### S EQL1 ####[facility] LABCLIA [id number] [place] [address] [place] NUCHAL MEASUREMENT 2.00 mm Normal [facility] Comment on above: Order Comment: Speci men Type: BLOOD SPECIMENOrdering Facility: [facility] Address: [address] [address] Performed By: #### S EQL1 ####[facility] LABCLIA [id number] [place] [address] [place] NUCHAL MEASUREMENT MOM 1.16 MoM Normal [facility] Comment on above: Order Comment: Speci men Type: BLOOD SPECIMENOrdering Facility: [facility] Address: [address] [place] [address] Performed By: #### S EQL1 ####[facility] [id number] [address] [place] OPTIMAL DRAW DATES FOR SAMPLE 2 03/21/2023 to 04/04/2023 Normal [facility] Comment on above: Order Comment: Speci men Type: BLOOD SPECIMENOrdering Facility: [facility] Address: [address] [place] [address] Performed By: #### S EQL1 ####[facility] [id number] [address] OF [place] PATIENT'S WEIGHT DAY OF COLLECTION 207 lb. Normal [facility] Comment on above: Order Comment: Speci men Type: BLOOD SPECIMENOrdering Facility: [facility] Address: [address] [place] [address] Performed By: #### S EQL1 ####[facility] [id number] [address] [place] associated plasma protein A [MoM] 1.31 MoM Normal [facility] Comment on above: Order Comment: Speci men Type: BLOOD SPECIMENOrdering Facility: [facility] Address: [address] [place] [address] Result Comment: 1018 .9 ng/mL This test uses a reagent or kit labeled by the rehab aide as research use only. Its performance characteristics were determined by [facility] in a manner consistent with CLIA requirements. This test has not been cleared or approved by the U.S. Food and Drug Administration. Performed By: #### S EQL1 ####[facility] LABIA [id number] [place] [address] [place] PREVIOUS DOWN None Normal [facility] Comment on above: Order Comment: Speci men Type: BLOOD SPECIMENOrdering Facility: [facility] Address: [address] [place] [address] Performed By: #### S EQL1 ####[facility] LABCLIA [id number] [place] [address] [place] PREVIOUS NTD None Normal [facility] Comment on above: Order Comment: Speci men Type: BLOOD SPECIMENOrdering Facility: [facility] Address: [address] [place] [address] Performed By: #### S EQL1 ####[facility] LABCLIA [id number] [address] [place] SAMPLE #1 [id number] Normal [facility] Comment on above: Order Comment: Speci men Type: BLOOD SPECIMENOrdering Facility: [facility] Address: [address] [place] [address] Performed By: #### S EQL1 ####[facility] LABCLIA [id number] [address] OF [place] SCAN MEASURE 70.5 mm on 03/02/23 Normal [facility] Comment on above: Order Comment: Speci men Type: BLOOD SPECIMENOrdering Facility: [facility] Address: [address] [place] [address] Performed By: #### S EQL1 ####[facility] LABCLIA [id number] [address] [place] SEQ1 SCR RSK TRSMY 13 Normal [facility] Comment on above: Order Comment: Speci men Type: BLOOD SPECIMENOrdering Facility: [facility] Address: [address] [place] [address] Result Comment: Not Reported Performed By: #### S EQL1 ####[facility] LABCLIA [id number] [address] [place] SEQUENTIAL 1 INTERPRETATION Final result pending second trimester sample Normal Screen Negative, Final result pending second trimester sample [facility] Comment on above: Order Comment: Speci men Type: BLOOD SPECIMENOrdering Facility: [facility] Address: [address] Performed By: #### S EQL1 ####[facility] LABCLIA [id number] [address] OF [facility] STAFF REVIEW (MATERNAL SCREENS) Reviewed by Lou Morin PhD Normal [facility] Comment on above: Order Comment: Speci men Type: BLOOD SPECIMENOrdering Facility: [facility] Address: [address] Performed By: #### S EQL1 ####[facility] LABCLIA [id number] [address] Trisomy 18 risk Based on maternal age Qn (fetus) 1 Normal [facility] Comment on above: Order Comment: Speci men Type: BLOOD SPECIMENOrdering Facility: [facility] Address: [address] [place], [place] [address] Performed By: #### S EQL1 ####[facility] LABCLIA [id number] [address] Trisomy 18 risk Qn (fetus) <1 Normal [facility] Comment on above: Order Comment: Speci men Type: BLOOD SPECIMENOrdering Facility: [facility] Address: [address] [place], [place] [address] Performed By: #### S EQL1 ####[facility] LABCLIA [id number] [address] Trisomy 21 risk Based on maternal age Qn (fetus) 1 Normal [facility] Comment on above: Order Comment: Speci men Type: BLOOD SPECIMENOrdering Facility: [facility] Address: [address] [place], [place] [address] Performed By: #### S EQL1 ####[facility] LABCLIA [id number] [address] OF [place] Trisomy 21 risk Qn (fetus) <1 Normal [facility] Comment on above: Order Comment: Speci men Type: BLOOD SPECIMENOrdering Facility: [facility] Address: [address] [place] [address] Performed By: #### S EQL1 ####[facility] LABCLIA [id number] [address] TYPE + SCREEN PRENATALon HISTORICAL AB SCR STATUS Negative Normal [facility] Comment on above: Order Comment: Speci men Type: BLOOD SPECIMENOrdering Facility: [facility] Address: [address] [place] [address] Performed By: #### T SPN ####[facility] BLOOD BANKIA [id number] [address] TYPE AND SCREEN EXPIRATION 03/05/2023 23:59 Normal [facility] Comment on above: Order Comment: Speci men Type: BLOOD SPECIMENOrdering Facility: [facility] Address: [address] [place] [address] Performed By: #### T SPN ####[facility] BLOOD BANKCLIA [id number] [address] CNPNon 02-07-2023 CNPN Telephone (OBGYF2) ---- VENECIA HART I ([id number]) 1990 F UPA Date Time Provider Department [...] MA - Fully Assessed Reason for Visit: 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 [3602] Cmt: PRAF Prescriptions as [...] Status:Closed by ASAD BARNARD on 02/07/23 Normal [facility] Bacteria Ur Culton 3 Bacteria identified Cx Nom (U) ORGANISM ID: 1 50,000-<100,000 CFU/ml Normal urogenital edgar Normal [facility] Comment on above: Performed By: #### 6 30-4 ####[facility] LABCLIA [id number] [place] [address] [place] C. trachomatis+N. gonorrhoea e DNA GO+probe Ql (Unsp spec)on 02-02-2023 C. trachomatis DNA GO+probe Ql (Unsp spec) Negative Normal Negative for Chlamydia trachomatis by amplificaton [facility] Comment on above: Order Comment: Speci men Type: BLOOD SPECIMEN [facility] Address: [address] [place] [address] Performed By: #### 2 276-4, 95467-5 #### [facility] LAB CLIA [id number] [address] [place] [address] [place] N. gonorrhoeae DNA GO+probe Ql (Unsp spec) Negative Normal Negative for Neisseria gonorrhoeae by amplification [facility] Comment on above: Order Comment: Speci men Type: BLOOD SPECIMEN [facility] Address: [address] [place] [address] Performed By: #### 2 276-4, 33790-0 #### [facility] LAB CLIA [id number] [address] [place] [address] [place] HPV W/GENOTYPE THIN PREPon 0 02-02-2023 HPV 16 Ag Ql (Unsp spec) Negative Normal Negative for HPV DNA high risk type 16 by PCR [facility] Comment on above: Order Comment: Speci men Type: BLOOD SPECIMEN [facility] Address: [address] [place] [address] Performed By: #### 2 276-4, 22769-8 #### [facility] LAB CLIA [id number] [address] [place] [address] [place] HPV 18 Ag Ql (Unsp spec) Negative Normal Negative for HPV DNA high risk type 18 by PCR [facility] Comment on above: Order Comment: Speci men Type: BLOOD SPECIMEN [facility] Address: [address] [place] [address] Performed By: #### 2 276-4, 00489-4 #### [facility] LAB CLIA [id number] [address] [place] [address] [place] HPV 31+33+35+39+45+51+52+56 +58+59+66+68 DNA GO+probe Ql (Cvx) Negative for HPV DNA high risk types: 31,33,35,39,45,51,5 2,56,58,59,66,68 by PCR. Normal Negative for HPV DNA high risk types: 31,33,35,39,45, 51,52,56,58,59, 66,68 by PCR. [facility] Comment on above: Order Comment: Speci men Type: BLOOD SPECIMEN [facility] Address: [address] [place] [address] Performed By: #### 2 276-4, 19175-9 #### [facility] LAB CLIA [id number] [facility] DESK [id number] [id number] [place] PAP TESTon 02-02-2023 CASE REPORT Normal [facility] Comment on above: Order Comment: Speci men Type: BLOOD SPECIMEN [facility] Address: [address] [place] [address] Result Comment: Gyne cologic Cytology Report Case: [id number] Authorizing Provider: Suri Forrest APRN.CNM Collected: 02/02/2023 01:52 PM Ordering Location: OB/Gynecology Received: 02/02/2023 04:54 PM First Screen: Donna Johns, CT, ASCP Rescreen: Lidia Garcia, ILIA, ASCP Specimen: Pap Test, ThinPrep, Cervix Performed By: #### 5 7021-8 #### [facility] CLIA [id number] [address] [place] [address] STATES OF [facility] LABORATORY CLIA [id number] [address] [place] [address] STATES OF [facility] CLINICAL HISTORY, CYTOLOGY, MANAGER BUSINESS MANAGEMENT (Indicate Weeks) Normal [facility] Comment on above: Order Comment: Speci men Type: BLOOD SPECIMEN [facility] Address: [address] [place] [address] Result Comment: Abno rmal pap w/ LEEP per [facility] notes Performed By: #### 5 7021-8 #### [facility] CLIA [id number] [address] [place] [address] [place] [facility]ATORY CLIA [id number] [facility] [place] CYTOLOGY INTERPRETATION PAP Normal [facility] Comment on above: Order Comment: Speci men Type: BLOOD SPECIMEN [facility] Address: [address] [place] [address] Result Comment: Nega tive for Intraepithelial lesion or malignancy. Performed By: #### 5 7021-8 #### [facility] CLIA [id number] [address] LABORATORY CLIA [id number] [facility] FINAL DIAGNOSIS A - Cervix Normal [facility] Comment on above: Order Comment: Speci men Type: BLOOD SPECIMEN [facility] Address: [address] [place] [address] Result Comment: Sati sfactory for interpretation Negative for Intraepithelial lesion or malignancy. Fungal organisms morphologically consistent with Lisa species Performed By: #### 5 7021-8 #### [facility] CLIA [id number] [address] [place] [address] LABORATORY CLIA [id number] [address] [place] [address] FINAL PERFORMING LAB Normal [facility] Comment on above: Order Comment: Speci men Type: BLOOD SPECIMEN [facility] Address: [address] [place] [address] Result Comment: Tech nical component, respite care provider screening performed at [facility], [address] [id number] CLIA# [id number] Diagnostic interpretation performed at [facility], [address] [id number] CLIA# [id number] Chief Design Branch: Yvon Kern M.D. Performed By: #### 5 7021-8 #### [facility] CLIA [id number] [address] [facility] LABORATORY CLIA [id number] [facility] [place] [address] [place] HPV REFLEX Auto HPV Normal [facility] Comment on above: Order Comment: Speci men Type: BLOOD SPECIMEN [facility] Address: [address] [place] [address] Performed By: #### 5 7021-8 #### [facility] CLIA [id number] [address] [place] [address] [place] [facility] LAB[facility]ATORY CLIA [id number] [facility] [place] LMP 09/29/2022 Normal [facility] Comment on above: Order Comment: Speci men Type: BLOOD SPECIMEN [facility] Address: [address] [place] [address] Performed By: #### 5 7021-8 #### [facility] CLIA [id number] [address] [place] [address] LABORATORY CLIA [id number] [address] [place] [address] [place] PAP DISCLAIMER COMMENT The Pap Smear is a screening test for cervical cancer. False negative results occur with all screening tests, emphasizing the need for rescreening at recommended intervals, and clinical correlation. Normal [facility] Comment on above: Order Comment: Speci men Type: BLOOD SPECIMEN [facility] Address: [address] [place] [address] Performed By: #### 5 7021-8 #### [facility] CLIA [id number] [address] [place] [address] LABORATORY CLIA [id number] [address] [place] [address] [place] PAP PAINT SPECIALIST COMMENT This specimen has been analyzed by the ThinPrep Imaging System, an automated imaging and review system, which assists the laboratory in evaluating cells on ThinPrep Pap tests. Following automated imaging, selected brice from every slide are reviewed by a respite care provider. Normal [facility] Comment on above: Order Comment: Speci men Type: BLOOD SPECIMEN [facility] Address: [place] [address] Performed By: #### 5 7021-8 #### [facility] CLIA [id number] [id number] [place] [address] LABORATORY CLIA [id number] [address] CNNURSEon 01-27-2023 CNNURSE Nurse Visit (OBGYWM) ---- VENECIA HART I ([id number]) 1990 F UPA Date Time Provider Department 01/27/23 9:00 AM NURSE [facility] OBGYWM During your visit today, we [...] of this visit. Patient was seen at [facility] ER on January 02, 2023 for pelvic [...] . Advised pt to quit. Information on [place] tobacco quit line and [facility] smoking cessation program given to patient. Patient [...] for Encounter Date Provider Department Center 01/27/2023 [id number] [facility] OLIVIA Marcial [facility] Encounter Status:Closed by FABRIZIO CAMPOVERDE RN on 01/27/23 Normal [facility] hCG Titer Quant., Serumon HCG QUANT. 402 mIU/mL High 1-3 [facility] Comment on above: Result Comment: hCG levels with Gestational Age Gestational Age hCG mIU/mL (IU/L) 0.2 - 1 week 5 - 50 1-2 weeks 50 - 500 2-3 weeks 100 - 5000 3-4 weeks 500 - 73227 4-5 weeks 1000 - 14134 5-6 weeks 94636 - 100,000 6-8 weeks 45694 - 200,000 2-3 months 77751 - 100,000 Performed By: #### L 700.8000 #### [facility] Laboratory [facility] [place] [address], [address] Absolute lymphocyte countOrd ered By: Davey Goldman on 01-02-2023 Lymphocytes Auto (Unsp spec) [#/Vol] 5.58 10*3/uL 0.83-4.51 [facility] Amorphous sediment detection in urine sediment by light microscopyOrdered By: Davey Goldman on 01-02-2023 Amorphous sediment LM Ql (Urine sed) 1+ PHOS [facility] Basic Metabolic Profile (BMP )on 01-02-2023 BUN/CRE 12.4 RATIO Normal 10-20 [facility] Comment on above: Performed By: #### L 100.0100, L500.2500 #### [facility] Laboratory [address] [place], [address] CA,Total 9.1 mg/dL Normal 8.5-10.1 [facility] Comment on above: Performed By: #### L 100.0100, L500.2500 #### [facility] Laboratory [address] [place], [address] Chloride [Moles/Vol] 109 mmol/L High 98-107 [facility] Comment on above: Performed By: #### L 100.0100, L500.2500 #### [facility] Laboratory [address] [place], [address] CO2 [Moles/Vol] 23.0 mmol/L Normal 21.0-32.0 [facility] Comment on above: Performed By: #### L 100.0100, L500.2500 #### [facility] Laboratory [address] [place], [address] Creatinine [Mass/Vol] 0.73 mg/dL Normal 0.55-1.02 [facility] Comment on above: Result Comment: The validity of the calculated GFR GFRAA in patients over 70 years has not been determined. Clinical correlation is essential. Performed By: #### L 100.0100, L500.2500 #### [facility] Laboratory [address] [place], [address] ECRCL 93.22 ml/min Normal [facility] Comment on above: Performed By: #### L 100.0100, L500.2500 #### [facility] Laboratory [address] [place], [address] EST GFR - AA 121 mL/min Normal >60 [facility] Comment on above: Result Comment: Afri can Guine[place] GFR Calc Performed By: #### L 100.0100, L500.2500 #### [facility] Laboratory [address] [place], [address] GAP 5 Normal 5-15 [facility] Comment on above: Performed By: #### L 100.0100, L500.2500 #### [facility] Laboratory [address] [place], [address] GFR/1.73 sq M.predicted among non-blacks MDRD (S/P/Bld) [Vol rate/Area] 100 mL/min/{1.73_m2} Normal >60 [facility] Comment on above: Result Comment: Non- GFR Calc Performed By: #### L 100.0100, L500.2500 #### [facility] Laboratory [address] [place], [address] Glucose [Mass/Vol] 97 mg/dL Normal 74-106 [facility] Comment on above: Performed By: #### L 100.0100, L500.2500 #### [facility] Laboratory [address] [place], [address] Potassium [Moles/Vol] 3.6 mmol/L Normal 3.5-5.1 [facility] Comment on above: Performed By: #### L 100.0100, L500.2500 #### [facility] Laboratory [address] [place], [address] Sodium [Moles/Vol] 137 mmol/L Normal 136-145 [facility] Comment on above: Performed By: #### L 100.0100, L500.2500 #### [facility] Laboratory [address] [place], [address] Urea nitrogen [Mass/Vol] 9 mg/dL Normal 7-18 [facility] Comment on above: Performed By: #### L 100.0100, L500.2500 #### [facility] Laboratory [address] [place], [address] Basophil percentageOrdered B y: Davey Goldman on 01-02-2023 Basophils/100 WBC (Bld) 0.5 % 0-1 [facility] Chloride [Moles/Vol] 109 mmol/L 98-107 [facility] Eosinophils/100 WBC (Bld) 0.7 % 0-5 [facility] Glucose [Mass/Vol] 97 mg/dL 74-106 [facility] Neutrophils (Bld) [#/Vol] 9.6 10*3/uL 2.0-7.7 [facility] Neutrophils/100 WBC (Bld) 57.3 % 47-70 [facility] Potassium [Moles/Vol] 3.6 mmol/L 3.5-5.1 [facility] Sodium [Moles/Vol] 137 mmol/L 136-145 [facility] WBC (Bld) [#/Vol] 16.7 10*3/uL 4.4-11.0 [facility] Basophil percentage 0 SEEN /hpf 0-5 [facility] Bilirubin Test strip Ql (U)O rdered By: Davey Goldman on 01-02-2023 Bilirubin Ql (U) Negative Negative [facility] Blood erythrocytes count (nu mber/volume)Ordered By: Davey Goldman on 01-02-2023 RBC (Bld) [#/Vol] 5.52 10*6/uL 4.2-5.4 [facility] Blood hemoglobin measurement (mass/volume)Ordered By: Davey Goldman on 01-02-2023 Hemoglobin (Bld) [Mass/Vol] 15.4 g/dL 12.0-15.0 [facility] Blood lymphocytes/100 leukoc ytesOrdered By: Davey Goldman on 01-02-2023 Lymphocytes/100 WBC (Bld) 33.4 % 19-41 [facility] Blood manual differential co mment interpretation (narrative result)Ordered By: Davey Goldman on 01-02-2023 Manual differential comment Max (Bld) [Interp] SCANNED [facility] Blood monocytes/100 leukocyt esOrdered By: Davey Goldman on 01-02-2023 Monocytes/100 WBC (Bld) 7.7 % 0-10 [facility] Blood platelet mean volumeOr dered By: Davey Goldman on 01-02-2023 Platelet mean volume (Bld) [Entitic vol] 9.5 fL 6.2-12.0 [facility] CBC W/Diff, Automatedon 12-06 SMEAR COMMENT SCANNED Normal [facility] Comment on above: Performed By: #### L 100.0100, L500.2500 #### [facility] Laboratory [address] [place], [address] Determination of erythrocyte mean corpuscular volume (MCV)Ordered By: Davey Goldman on 01-02-2023 MCV (RBC) [Entitic vol] 83.7 fL 81-99 [facility] Emergency Department Summary on 01-02-2023 Emergency Department Summary [facility] Medical Records Department [address] [place] [address] Emergency Department Summary 01/02/23 MR#: [id number] Acct: [id number] Name: VENECIA HART Rep #: [id number] : 1990 32 From: Davey Goldman TOOL DESIGN ENGINEER-C PCP: Care Physician,No Primary Status:REG ER Location: [...] Denies any back pain, fever or chills. [facility] Medical History Depression Home Medications amoxicillin 875 [...] Data Attest (more content not included)... Normal [facility] Hematocrit Auto (Bld) [Volum e fraction]Ordered By: Davey Goldman on 01-02-2023 Hematocrit (Bld) [Volume fraction] 46.2 % 37-47 [facility] Ketones Test strip Ql (U)Ord ered By: Davey Goldman on 01-02-2023 Ketones Ql (U) Negative Negative [facility] Laboratory - Chemistry and C hemistry - challengeOrdered By: Davey Goldman on 01-02-2023 CO2 [Moles/Vol] 23.0 mmol/L 21.0-32.0 [facility] Urea nitrogen/Creatinine [Mass ratio] 12.4 mg/mg 10- [facility] HCG ( test) Ql (U) Negative [facility] Comment on above: CRITICAL VALUE VERIF IED. CALLED TO TREY HOOPER RN ED01/02/232143 Luis Eduardo Elaine.RESULTS READ BACK BY SAME . TEST is *POSITIVE* Laboratory - Hematology and Cell countsOrdered By: Davey Goldman on 01-02-2023 Erythrocyte distribution width (RBC) [Entitic vol] 39.9 fL 35.1-43.9 [facility] Erythrocyte distribution width (RBC) [Ratio] 13.1 % 11.6-14.6 [facility] Immature granulocytes/100 WBC (Bld) 0.400 % 0.0-0.9 [facility] Comment on above: IG% - Immature Granu locytes (promyelocytes, myelocytes and metamyelocytes) > 1% indicates that a LEFT SHIFT is Present. MCH (RBC) [Entitic mass] 27.9 pg 27.0-32.0 [facility] Nucleated RBC/100 WBC (Bld) [Ratio] 0 % 0-5 [facility] MCHC Auto (RBC) [Mass/Vol]Or dered By: Davey Goldman on 01-02-2023 MCHC (RBC) [Mass/Vol] 33.3 g/dL 32-36 [facility] Mucus LM Ql (Urine sed)Order ed By: Davey Goldman on 01-02-2023 Mucus Ql (Urine sed) 0 SEEN /hpf [facility] Nitrite Test strip Ql (U)Ord ered By: Davey Goldman on 01-02-2023 Nitrite Ql (U) Negative Negative [facility] No Panel InformationOrdered By: Davey Goldman on 01-02-2023 Estimated Creatinine Clearance Calc 93.22 ml/min [facility] Estimated GFR (MDRD) Amer 121 mL/min >60 [facility] Comment on above: GFR Calc Estimated GFR (MDRD) Non-Af Amer 100 mL/min >60 [facility] Comment on above: Non- GFR Calc Platelets bldOrdered By: Cira Goldman on 01-02-2023 Platelets (Bld) [#/Vol] 321 10*3/uL 150-450 [facility] ,Urineon 01-02-2023 Beta HCG ( test) Ql (U) Positive Abnormal [facility] Comment on above: Order Comment: CLEAN CATCH Result Comment: CRIT ICAL VALUE VERIFIED. CALLED TO TREY HOOPER GRINDER SET UP OPERATOR THREAD 01/02/232143 Luis Eduardo Elaine. RESULTS READ BACK BY SAME . TEST is *POSITIVE* Performed By: #### L 100.0100, L500.2500 #### [facility] Laboratory [address] [place], [address] Protein Test strip Ql (U)Ord ered By: Davey Goldman on 01-02-2023 Protein Ql (U) Negative Negative [facility] Serum or plasma calcium ivana urement (mass/volume)Ordered By: Davey Goldman on 01-02-2023 Calcium [Mass/Vol] 9.1 mg/dL 8.5-10.1 [facility] Serum or plasma choriogonado tropin detectionOrdered By: Davey Goldman on 01-02-2023 HCG ( test) Ql 402 mIU/mL <4 [facility] [facility] Comment on above: hCG levels with Gest ational AgeGestational Age hCG mIU/mL (IU/L)0.2 - 1 week 5 - 501-2 weeks 50 - 5002-3 weeks 100 - 43764-2 weeks 500 - 014684-3 weeks 1000 - 933869-8 weeks 43718 - 100,0006-8 weeks 66362 - 200,0002-3 months 02816 - 100,000 Serum or plasma creatinine m easurement (mass/volume)Ordered By: Davey Goldman on 01-02-2023 Creatinine [Mass/Vol] 0.73 mg/dL 0.55-1.02 [facility] Comment on above: The validity of the calculated GFR & GFRAA in patients over 70 years has not been determined. Clinical correlation is essential. Serum or plasma urea nitroge n measurement (mass/volume)Ordered By: Davey Goldman on 01-02-2023 Urea nitrogen [Mass/Vol] 9 mg/dL 7-18 [facility] Squamous epithelial cells de tection in urine sediment by light microscopyOrdered By: Davey Goldman on 01-02-2023 Epithelial cells.squamous LM Ql (Urine sed) 0-5 SEEN /hpf 5-10 [facility] Thin prep Papanicolaou smear with manual screeningOrdered By: Davey Goldman on 01-02-2023 Thin prep Papanicolaou smear with manual screening 5 5-15 [facility] Transvaginal w/Preg USon Transvaginal w/Preg US [facility] [address] [place] [address] Transvaginal w/Preg US MR#: [id number] Acct: [id number] Name: VENECIA HART Rep #: [id number] : 1990 F 32 From: Mario Quintanilla MD PCP: Care Physician,No Primary Status: REG ER Study: Transvaginal w/Preg US Date of Exam: 01/02/23 Exam# [id number] Ordering Dr: Daniel De Los Santos MD [...] Los Santos MD; No Primary Care Physician Pharmacy Technology Instructor: Signed Normal [facility] Urinalysis, Completeon 01-02 AMORPHOUS 1+ PHOS Normal [facility] Comment on above: Order Comment: CLEAN CATCH Performed By: #### L 100.0100, L500.2500 #### [facility] Laboratory [address] [place], [address] EPI,SQUAMOUS 0-5 SEEN Normal 5-10 [facility] Comment on above: Order Comment: CLEAN CATCH Performed By: #### L 100.0100, L500.2500 #### [facility] Laboratory [address] [place], [address] BACTERIA 0 SEEN Normal None Seen [facility] Comment on above: Order Comment: CLEAN CATCH Performed By: #### L 100.0100, L500.2500 #### [facility] Laboratory [address] [place], [address] Mucus Ql (Urine sed) 0 SEEN Normal [facility] Comment on above: Order Comment: CLEAN CATCH Performed By: #### L 100.0100, L500.2500 #### [facility] Laboratory [address] [place], [address] RBC 0 SEEN Normal 0-5 [facility] Comment on above: Order Comment: CLEAN CATCH Performed By: #### L 100.0100, L500.2500 #### [facility] Laboratory [address] [place], [address] WBC 0 SEEN Normal 0-5 [facility] Comment on above: Order Comment: CLEAN CATCH Performed By: #### L 100.0100, L500.2500 #### [facility] Laboratory [address] [place], [place], [id number] Urine blood detectionOrdered By: Davey Goldman on 01-02-2023 RBC Ql (U) Negative Negative [facility] RBC Ql (U) 0 SEEN /hpf 0-5 [facility] Urine clarityOrdered By: Cira Goldman on 01-02-2023 Clarity (U) Sl. Cloudy Clear [facility] Urine color determinationOrd ered By: Davey Goldman on 01-02-2023 Color (U) Yellow Yellow [facility] Urine glucose detectionOrder ed By: Davey Goldman on 01-02-2023 Glucose Ql (U) Normal mg/dl Normal [facility] Urine leukocyte esterase det ection by dipstickOrdered By: Davey Goldman on 01-02-2023 Leukocyte esterase Test strip Ql (U) Negative Negative [facility] Urine pHOrdered By: Davey arroyo on 01-02-2023 pH (U) 7.0 [pH] 5.0 - 8.0 [facility] Urine sediment bacteria coun t by microscopy (number/high power field)Ordered By: Davey Goldman on 01-02-2023 Bacteria LM.HPF (Urine sed) [#/Area] 0 /[HPF] None Seen [facility] Urine specific gravity measu rementOrdered By: Davey Goldman on 01-02-2023 Specific gravity (U) [Rel density] 1.005 1.002-1.030 [facility] Urobilinogen Auto test strip Ql (U)Ordered By: Davey Goldman on 01-02-2023 Urobilinogen Ql (U) Normal mg/dl Normal [facility] .Urinalysis Microscopic (AO) on 10-08-2017 UA Squam Epithelial 0-5 Abnormal None Seen [facility] ([place]) Comment on above: Performed By: #### P REGU, UA, UAMICAO ####[id number] [place], [place] [address] UA WBC None Seen Normal None Seen Counts Include [facility] ([place]) Comment on above: Performed By: #### P REGU, UA, UAMICAO ####[address] [place], [place] [address] Urine, erythrocytes None Seen Normal None Seen [facility] ([place]) Comment on above: Performed By: #### P REGU, UA, UAMICAO ####[address] [place], [place] [address] CT HEAD OR BRAIN W/O CONTRAS Ton [...] PM Sign Date: 10/07/2017 11:24:38 PM Normal Counts Include [facility] ([place]) [facility] Note on 10-08-2017 [facility] Note Normal Counts Include [address] [facility] ([place]) PREGUon 10-08-2017 HCG ( test) Ql (U) Negative Normal Counts Include [address] [facility] ([place] Comment on above: Performed By: #### P REGU, UA, UAMICAO ####[id number] [place], [place] [address] test (u) int HCG not detected. Invalid Interpretation Code Counts Include [address] [facility] ([place]) Comment on above: Performed By: #### P REGU, UA, UAMICAO ####[address] [place] [address] Patient Summary Documentson 10-08-2017 Patient Summary Documents Normal Counts Include [address] [facility] ([place]) UAon 10-08-2017 UA Appear CLEAR [facility]) Comment on above: Performed By: #### P REGU, UA, UAMICAO ####[address] [place] [address] UA Blood Negative [facility] ([place]) Comment on above: Performed By: #### P REGU, UA, UAMICAO ####[address] [place] [address] UA Leuk Est Negative [facility] ([place]) Comment on above: Performed By: #### P REGU, UA, UAMICAO ####[address] [place] [address] UA Nitrite Negative [facility]) Comment on above: Performed By: #### P REGU, UA, UAMICAO ####[address] [place] [address] UA pH 6.5 [facility]) Comment on above: Performed By: #### P REGU, UA, UAMICAO ####[address] [place] [address] UA Protein Negative [facility] ([place]) Comment on above: Performed By: #### P REGU, UA, UAMICAO ####[address] [place] [address] UA Spec Grav 1.010 [facility] ([place]) Comment on above: Performed By: #### P REGU, UA, UAMICAO ####[address] [place] [address] UA Specimen Type Void [facility] ([place]) Comment on above: Performed By: #### P REGU, UA, UAMICAO ####[address] [place] [address] UA Urobilinogen 0.2 E.U./dL Normal Counts Include [address] [facility] ([place]) Comment on above: Performed By: #### P REGU, UA, UAMICAO ####[id number] [place], [place] [address] Urine, color YELLOW Normal Counts Include [address] [facility] ([place]) Comment on above: Performed By: #### P REGU, UA, UAMICAO ####[id number] [place], [place] [address] Urine, glucose Negative Normal Counts Include [address] [facility] ([place]) Comment on above: Performed By: #### P REGU, UA, UAMICAO ####[id number] [place], [place] [address] Urine, ketones presence Negative Normal A [facility] ([place]) Comment on above: Performed By: #### P REGU, UA, UAMICAO ####[id number] [place], [place] [address] Urine, urobilinogen Negative Normal [facility] ([place]) Comment on above: Performed By: #### P REGU, UA, UAMICAO ####[id number] [place], [place] [address] XR RIBS 2 VIEWS LEFTon 10-08 XR [...] PM Sign Date: 10/07/2017 11:37:34 PM Normal Counts Include [address] [facility] ([place]) No Panel Information SARS-CoV-2 & FLU Antigen (Rapid) [facility] Work Phone: Vital Signs Date Time Vital Sign Value Performing Clinician Jordan gamboa 12-21-2023 10:49-0400 Diastolic blood pressure 76 mm[Hg] Suri Plotts SHIRRING MACHINE OPERATOR.CNM Work Phone: [facility] 12-21-2023 10:49-0400 Systolic blood pressure 128 mm[Hg] Suri Plotts SHIRRING MACHINE OPERATOR.CNM Work Phone: [facility] 11-18-2023 10:39-0400 Body weight 98.61 kg Suri Plotts SHIRRING MACHINE OPERATOR.CNM Work Phone: [facility] 11-18-2023 10:39-0400 Diastolic blood pressure 80 mm[Hg] Suri Plotts SHIRRING MACHINE OPERATOR.CNM Work Phone: [facility] 11-18-2023 10:39-0400 Systolic blood pressure 120 mm[Hg] Suri Plotts SHIRRING MACHINE OPERATOR.CNM Work Phone: [facility] 11-09-2023 13:35-0500 Diastolic blood pressure 72 mm[Hg] Suri Plotts SHIRRING MACHINE OPERATOR.CNM Work Phone: [facility] 11-09-2023 13:35-0500 Systolic blood pressure 120 mm[Hg] Suri Plotts SHIRRING MACHINE OPERATOR.CNM Work Phone: [facility] 09-02-2023 14:50-0500 Body temperature 98.2 [degF] [facility] 09-02-2023 14:50-0500 Diastolic blood pressure 70 mm[Hg] [facility] 09-02-2023 14:50-0500 Heart rate 68 /min [facility] 09-02-2023 14:50-0500 Respiratory rate 16 /min [facility] 09-02-2023 14:50-0500 SaO2% (BldA) [Mass fraction] 100 % [facility] 09-02-2023 14:50-0500 Systolic blood pressure 139 mm[Hg] [facility] 08-31-2023 20:11-0500 Body height 160.02 cm [facility] 08-31-2023 20:11-0500 Body mass index (BMI) [Ratio] 39.8 kg/m2 [facility] 08-31-2023 20:11-0500 Body weight 102.05 kg [facility] 08-25-2023 12:39-0500 Diastolic blood pressure 68 mm[Hg] [facility] 08-25-2023 12:39-0500 Heart rate 85 /min [facility] 08-25-2023 12:39-0500 Systolic blood pressure 114 mm[Hg] [facility] 08-25-2023 11:49-0500 Body mass index (BMI) [Ratio] 39.7 kg/m2 [facility] 08-25-2023 11:49-0500 Body weight 101.83 kg [facility] 08-24-2023 10:25-0500 Body weight 102.24 kg Suri Plotts SHIRRING MACHINE OPERATOR.CNM Work Phone: [facility] 08-24-2023 10:25-0500 Diastolic blood pressure 78 mm[Hg] Suri Plotts SHIRRING MACHINE OPERATOR.CNM Work Phone: [facility] 08-24-2023 10:25-0500 Systolic blood pressure 131 mm[Hg] Suri Plotts SHIRRING MACHINE OPERATOR.CNM Work Phone: [facility] 08-12-2023 15:05-0500 Diastolic blood pressure 66 mm[Hg] [facility]ound Work Phone: [facility] 08-12-2023 15:05-0500 Systolic blood pressure 130 mm[Hg] [facility]trasound Work Phone: [facility] 08-11-2023 14:33-0500 Body weight 103.15 kg Suri Plotts SHIRRING MACHINE OPERATOR.CNM Work Phone: [facility] 08-11-2023 14:33-0500 Diastolic blood pressure 64 mm[Hg] Suri Plotts SHIRRING MACHINE OPERATOR.CNM Work Phone: [facility] 08-11-2023 14:33-0500 Systolic blood pressure 118 mm[Hg] Suri Plotts SHIRRING MACHINE OPERATOR.CNM Work Phone: [facility] 07-20-2023 10:55-0500 Body weight 101.06 kg Suri Plotts SHIRRING MACHINE OPERATOR.CNM Work Phone: [facility] 07-20-2023 10:55-0500 Diastolic blood pressure 70 mm[Hg] Suri Plotts SHIRRING MACHINE OPERATOR.CNM Work Phone: [facility] 07-20-2023 10:55-0500 Systolic blood pressure 122 mm[Hg] Suri Plotts SHIRRING MACHINE OPERATOR.CNM Work Phone: [facility] 07-06-2023 11:04-0400 Body weight 100.25 kg Suri Plotts SHIRRING MACHINE OPERATOR.CNM Work Phone: [facility] 07-06-2023 11:04-0400 Diastolic blood pressure 64 mm[Hg] Suri Plotts SHIRRING MACHINE OPERATOR.CNM Work Phone: [facility] 07-06-2023 11:04-0400 Systolic blood pressure 110 mm[Hg] Suri Plotts SHIRRING MACHINE OPERATOR.CNM Work Phone: [facility] 06-22-2023 09:37-0400 Body weight 98.43 kg Suri Plotts SHIRRING MACHINE OPERATOR.CNM Work Phone: [facility] 06-22-2023 09:37-0400 Diastolic blood pressure 74 mm[Hg] Suri Plotts SHIRRING MACHINE OPERATOR.CNM Work Phone: [facility] 06-22-2023 09:37-0400 Systolic blood pressure 120 mm[Hg] Suri Plotts SHIRRING MACHINE OPERATOR.CNM Work Phone: [facility] 06-06-2023 11:20-0400 Body weight 99.25 kg Suri Plotts SHIRRING MACHINE OPERATOR.CNM Work Phone: [facility] 06-06-2023 11:20-0400 Diastolic blood pressure 66 mm[Hg] Suri Plotts SHIRRING MACHINE OPERATOR.CNM Work Phone: [facility] 06-06-2023 11:20-0400 Systolic blood pressure 120 mm[Hg] Suri Plotts SHIRRING MACHINE OPERATOR.CNM Work Phone: [facility] 04-29-2023 11:03-0400 Body weight 96.16 kg Suri Plotts SHIRRING MACHINE OPERATOR.CNM Work Phone: [facility] 04-29-2023 11:03-0400 Diastolic blood pressure 70 mm[Hg] Suri Plotts SHIRRING MACHINE OPERATOR.CNM Work Phone: [facility] 04-29-2023 11:03-0400 Systolic blood pressure 122 mm[Hg] Suri Plotts SHIRRING MACHINE OPERATOR.CNM Work Phone: [facility] 04-06-2023 12:59-0400 Body weight 96.16 kg Suri Plotts SHIRRING MACHINE OPERATOR.CNM Work Phone: [facility] 04-06-2023 12:59-0400 Diastolic blood pressure 72 mm[Hg] Suri Plotts SHIRRING MACHINE OPERATOR.CNM Work Phone: [facility] 04-06-2023 12:59-0400 Systolic blood pressure 128 mm[Hg] Suri Plotts SHIRRING MACHINE OPERATOR.CNM Work Phone: [facility] 03-02-2023 10:46-0400 Diastolic blood pressure 76 mm[Hg] Suri Plotts SHIRRING MACHINE OPERATOR.CNM Work Phone: [facility] 03-02-2023 10:46-0400 Systolic blood pressure 120 mm[Hg] Suri Plotts SHIRRING MACHINE OPERATOR.CNM Work Phone: [facility] 03-02-2023 10:07-0400 Body height 160 cm Delmis Ortiz MD Work Phone: [facility] 03-02-2023 10:07-0400 Body weight 93.89 kg Delmis Ortiz MD Work Phone: [facility] 02-02-2023 12:58-0400 Body height 160 cm Suri Plotts SHIRRING MACHINE OPERATOR.CNM Work Phone: [facility] 02-02-2023 12:58-0400 Body weight 92.81 kg Suri Plotts SHIRRING MACHINE OPERATOR.CNM Work Phone: [facility] 02-02-2023 12:58-0400 Diastolic blood pressure 78 mm[Hg] Suri Forrest SHIRRING MACHINE OPERATOR.CNM Work Phone: [facility] 02-02-2023 12:58-0400 Systolic blood pressure 120 mm[Hg] Suri Forrest SHIRRING MACHINE OPERATOR.CNM Work Phone: [facility] 01-03-2023 00:16-0400 Diastolic blood pressure 74 mm[Hg] [facility] 01-03-2023 00:16-0400 Heart rate 62 /min [facility] 01-03-2023 00:16-0400 Respiratory rate 15 /min [facility] 01-03-2023 00:16-0400 SaO2% (BldA) [Mass fraction] 98 % [facility] 01-03-2023 00:16-0400 Systolic blood pressure 128 mm[Hg] [facility] 01-02-2023 20:39-0400 Body height 160.02 cm [facility] 01-02-2023 20:39-0400 Body mass index (BMI) [Ratio] 36.6 kg/m2 [facility] 01-02-2023 20:39-0400 Body temperature 97.9 [degF] [facility] 01-02-2023 20:39-0400 Body weight 93.9 kg [facility] 07-31-2022 04:34-0500 Body height 160.02 cm [facility] Work Phone: 07-31-2022 04:34-0500 Body mass index (BMI) [Ratio] 36.1 kg/m2 [facility] Work Phone: 07-31-2022 04:34-0500 Body temperature 96.5 [degF] [facility] Work Phone: 07-31-2022 04:34-0500 Body weight 92.5 kg [facility] Work Phone: 07-31-2022 04:34-0500 Diastolic blood pressure 88 mm[Hg] [facility] Work Phone: 07-31-2022 04:34-0500 Heart rate 81 /min [facility] Work Phone: 07-31-2022 04:34-0500 Respiratory rate 16 /min [facility] Work Phone: 07-31-2022 04:34-0500 SaO2% (BldA) [Mass fraction] 98 % [facility] Work Phone: 07-31-2022 04:34-0500 Systolic blood pressure 136 mm[Hg] [facility] Work Phone: Encounters Encounter Date Encounter Type Care Provider Facility Start: 12-21-2023 End: 12-22-2023 ambulatory [facility] Facility:[facility] Start: 12-21-2023 End: 12-21-2023 Patient encounter procedure Suri Forrest SHIRRING MACHINE OPERATOR.CNM Work Phone: OB/Gynecology Comment on above: Surveillance of prev iously prescribed intrauterine contraceptive device (Primary Dx) Start: 11-18-2023 End: 11-18-2023 ambulatory SURI TONIE Facility:[facility] Start: 11-18-2023 End: 11-18-2023 Patient encounter procedure Suri Forrest SHIRRING MACHINE OPERATOR.CNM Work Phone: OB/Gynecology Comment on above: Encounter for IUD in sertion (Primary Dx) Start: 11-09-2023 End: 11-09-2023 ambulatory SURI TONIE Facility:[facility] Start: 11-09-2023 End: 11-09-2023 Patient encounter procedure Suri Forrest SHIRRING MACHINE OPERATOR.CNM Work Phone: OB/Gynecology Comment on above: care and examination (Primary Dx); Encounter for IUD insertion; care and examination of lactating mother Start: 09-06-2023 End: 09-07-2023 ambulatory No Primary Care Physician Facility:[facility] Start: 09-04-2023 End: 09-05-2023 ambulatory Gi Hopkins NP Facility:[facility] Start: 08-31-2023 End: 09-02-2023 Evaluation and management of inpatient Suri Plot Facility:[facility] Start: 08-31-2023 End: 09-02-2023 Evaluation and management of inpatient [facility] Work Phone: Start: 08-31-2023 End: 09-01-2023 ambulatory [facility] Facility:[facility] Start: 08-25-2023 End: 08-25-2023 [facility] Facility:[facility] Start: 08-25-2023 End: 08-25-2023 Patient encounter procedure [facility] Work Phone: Start: 08-24-2023 End: 08-24-2023 ambulatory [facility] Facility:[facility] Start: 08-24-2023 End: 08-24-2023 Patient encounter procedure Suri Miletty SHIRRING MACHINE OPERATOR.CNM Work Phone: OB/Gynecology Comment on above: 37 weeks gestation o f (Primary Dx); Supervision of high risk in third trimester; Obesity during ; Uterine size-date discrepancy, third trimester Start: 08-17-2023 End: 08-17-2023 [facility] Facility:[facility] Start: 08-12-2023 End: 08-12-2023 [facility] Facility:[facility] Start: 08-12-2023 End: 08-12-2023 Patient encounter procedure Senior Application Security Consultant [facility] Work Phone: OB/Gynecology Comment on above: Encounter for ultras ound to check growth (Primary Dx); Obesity during ; 35 weeks gestation of Start: 08-11-2023 End: 08-12-2023 ambulatory [facility] Facility:[facility] Start: 08-11-2023 End: 08-11-2023 Patient encounter procedure Suri Miletty SHIRRING MACHINE OPERATOR.CNM Work Phone: OB/Gynecology Comment on above: Obesity affecting pr egnancy in third trimester, unspecified obesity type (Primary Dx); 35 weeks gestation of ; Tobacco smoking affecting , antepartum; Supervision of high risk , antepartum; Anemia complicating , third trimester Start: 08-03-2023 End: 08-04-2023 [facility] Facility:[facility] Start: 07-20-2023 End: 07-21-2023 ambulatory SURI FORREST Facility:[facility] Start: 07-20-2023 End: 07-20-2023 Patient encounter procedure Suri Tonie SHIRRING MACHINE OPERATOR.CNM Work Phone: OB/Gynecology Comment on above: 32 weeks gestation o f (Primary Dx); Anemia complicating , third trimester Start: 07-06-2023 End: 07-06-2023 ambulatory SURI FORREST Facility:[facility] Start: 07-06-2023 End: 07-06-2023 Patient encounter procedure Suri Tonie SHIRRING MACHINE OPERATOR.CNM Work Phone: OB/Gynecology Comment on above: Encounter for superv ision of normal first in third trimester (Primary Dx); 30 weeks gestation of ; Obesity during ; Tobacco smoking affecting , antepartum; Uterine size-date discrepancy, third trimester; Anemia complicating , third trimester Start: 06-28-2023 End: 06-29-2023 [facility] SURI FORREST Facility:[facility] Start: 06-22-2023 End: [facility] Start: 06-22-2023 End: 06-23-2023 [facility] Facility:[facility] Start: 06-22-2023 End: 06-22-2023 Patient encounter procedure Suri Forrest SHIRRING MACHINE OPERATOR.CNM Work Phone: OB/Gynecology Comment on above: 28 weeks gestation o f (Primary Dx); Encounter for supervision of normal first in third trimester; Obesity during ; Tobacco smoking affecting , antepartum; Uterine size-date discrepancy, third trimester Uterine size-date di screpancy, third trimester (Primary Dx); 28 weeks gestation of Start: 06-06-2023 End: 06-06-2023 [facility] SURI FORREST Facility:[facility] Start: 06-06-2023 End: 06-06-2023 Patient encounter procedure Suri Tonie SHIRRING MACHINE OPERATOR.CNM Work Phone: OB/Gynecology Comment on above: Encounter for superv ision of other normal in second trimester (Primary Dx); 26 weeks gestation of ; Uterine size-date discrepancy, third trimester; Obesity during ; Tobacco smoking affecting , antepartum Start: 04-29-2023 End: [facility]-30-2023 [facility] Start: 04-29-2023 End: 04-29-2023 Patient encounter procedure Suri Forrest APRN.CNM Work Phone: OB/Gynecology Comment on above: 20 weeks gestation o f (Primary Dx); Encounter for supervision of other normal in second trimester; Obesity during Encounter for anatomic survey (Primary Dx); Obesity affecting in second trimester, unspecified obesity type; 20 weeks gestation of Start: 04-26-2023 Telephone encounter Iza Mohan RN Obstetrics/Gynecology 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: 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) Start: 04-06-2023 End: 04-06-2023 [facility] Start: 04-06-2023 End: 04-06-2023 Patient encounter procedure Suri Forrest APRN.CNM Work Phone: OB/Gynecology Comment on above: 17 weeks gestation o f (Primary Dx); Encounter for supervision of other normal in second trimester; Obesity during Start: 03-02-2023 End: 03-03-2023 [facility] Start: 03-02-2023 End: 03-03-2023 [facility] Start: 03-02-2023 End: 03-02-2023 Patient encounter procedure [...] Work Phone: Maternal Medicine Comment on above: 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[employer] ) Start: 02-02-2023 End: 02-03-2023 [facility] Start: 02-02-2023 End: 02-02-2023 Patient encounter procedure Suri Forrest SHIRRING MACHINE OPERATOR.CACHORRO Work Phone: OB/Gynecology Comment on above: Supervision of other normal , antepartum (Primary Dx); 8 weeks gestation of ; History of depression; Tobacco smoking affecting , antepartum; Obesity during ; Nausea and vomiting during with uncer tain dates in first trimester (Primary Dx) Start: 01-27-2023 End: 01-27-2023 ambulatory SURI FORREST Facility:[facility] Start: 01-02-2023 End: 01-03-2023 Emergency department patient visit Daniel Magali Facility:[facility] Start: 01-02-2023 End: 01-03-2023 Emergency department patient visit [facility] Start: 07-31-2022 End: 07-31-2022 Emergency department patient visit [facility] Start: 10-08-2017 End: 10-08-2017 Emergency department patient visit ANUPAM Patton [place] Facility: Start: 04-19-[address] [facility] Procedures Date Procedure Procedure Detail Performing Clinician Start: 11-18-2023 UA DIP,URINE HCG (POC) Suri Forrest APRN.CNM Work Phone: Start: 08-24-2023 URINE OB DIP B/O Patrica Forrest SHIRRING MACHINE OPERATOR.CNM Work Phone: Start: 08-12-2023 Us preg uterus after 1st trimest 09/05 gestation Suri Forrest SHIRRING MACHINE OPERATOR.CNM Work Phone: Start: 08-11-2023 URINE OB DIP B/O Patrica Forrest SHIRRING MACHINE OPERATOR.CNM Work Phone: Start: 07-20-2023 URINE OB DIP B/O Patrica Forrest SHIRRING MACHINE OPERATOR.CNM Work Phone: Start: 07-06-2023 URINE OB DIP B/O Patrica Forrest SHIRRING MACHINE OPERATOR.CNM Work Phone: Start: 10-18-2023 Us preg uterus after 1st trimest 1/1st gestation Suri Forrest SHIRRING MACHINE OPERATOR.CNM Work Phone: Start: 06-22-2023 URINE OB DIP B/O Courtn mayank Forrest SHIRRING MACHINE OPERATOR.CNM Work Phone: Start: 06-06-2023 URINE OB DIP B/O Courtn mayank Forrest SHIRRING MACHINE OPERATOR.CNM Work Phone: Start: 04-29-2023 URINE OB DIP B/O Courtn ey Tonie SHIRRING MACHINE OPERATOR.CNM Work Phone: Start: 04-29-2023 Us preg uterus after 1st trimest / gestation Suri Forrest SHIRRING MACHINE OPERATOR.CNM Work Phone: Start: 04-06-2023 URINE OB DIP B/O Courtn mayank Forrest SHIRRING MACHINE OPERATOR.CNM Work Phone: Start: 03-02-2023 Antibody screen IRIS FORREST Comment on above: Order Comment: Speci men Type: BLOOD SPECIMENOrdering Facility: [facility] Address: [address] [place] [address] Performed By: #### T SPN ####CC [facility] BLOOD BANKCLIA [id number] [address] OF [facility] Start: 03-02-2023 Us nuchal medrano slucency 1st gestation Suri Forrest SHIRRING MACHINE OPERATOR.CNM Work Phone: Start: 01-02-2023 Transvaginal obstetr ic ultrasonography Start: 07-31-2022 CT of head without contrast SARS-CoV-2 & FLU Ant igen (Rapid) Plan of Treatment Date Care Activity Detail Author Start: 02-03-2028 HPV TESTING HPV TESTING [facility] Start: 02-03-2028 PAP TESTING PAP TESTING [facility] Start: 02-03-2028 Screening for malign ant neoplasm of cervix [facility] Start: 05-06-2024 Influenza vaccination Influenz a Vaccine (Season Ended) [facility] Start: 09-05-2023 Behavioral Health Screening Behavioral Health Screening [facility] Start: 09-05-2023 Depression Assessment Depression Ass essment [facility] Start: 09-02-2023 Patient discharge [facility] Start: 09-01-2023 Administration of medication [facility] Start: 09-01-2023 Application of ice collar, cap or bag [facility] Start: 09-01-2023 Catheterization of vein [facility] Start: 09-01-2023 Introduction of urin francheska catheter [facility] Start: 09-01-2023 Measuring intake and output [facility] Start: 09-01-2023 Notification of physician [facility] Start: 09-01-2023 Procedure discontinued [facility] Start: 09-01-2023 Provision of activit y privileges [facility] Start: 09-01-2023 Vital signs measurements [facility] Start: 09-01-2023 [facility] Start: 09-01-2023 Consultation [facility] Start: 08-31-2023 Admission procedure [facility] Start: 08-31-2023 Verification routine [facility] Start: 08-25-2023 Nonstress test [facility] Start: 08-25-2023 Obstetric monitoring [facility] Start: 08-25-2023 Vital signs measurements [facility] Start: 08-25-2023 [facility] Start: 08-25-2023 Patient discharge [facility] Start: 07-20-2023 End: 10-19-2023 CBC panel - Blood by Automated count CBC Lab Routine 32 weeks gestation of Anemia complicating , third trimester Expected: 07/20/2023, Expires: 10/19/2023 [facility] Work Phone: Comment on above: Expected: 07/20/2023 , Expires: 10/19/2023 Start: 07-20-2023 End: 10-19-2023 Ferritin [Mass/volume] in Serum or Plasma FERRITIN BLD Lab Routine 32 weeks gestation of Anemia complicating , third trimester Expected: 07/20/2023, Expires: 10/19/2023 [facility] Work Phone: Comment on above: Expected: 07/20/2023 , Expires: 10/19/2023 Start: 07-20-2023 End: 10-19-2023 Iron and Iron binding capacity panel - Serum or Plasma IRON + TIBC Lab Routine 32 weeks gestation of Anemia complicating , third trimester Expected: 07/20/2023, Expires: 10/19/2023 [facility] Work Phone: Comment on above: Expected: 07/20/2023 , Expires: 10/19/2023 Start: 07-06-2023 End: 10-05-2023 CBC panel - Blood by Automated count CBC Lab Routine Anemia complicating , third trimester Expected: 07/06/2023, Expires: 10/05/2023 [facility] Work Phone: Comment on above: Expected: 07/06/2023 , Expires: 10/05/2023 Start: 06-06-2023 End: 08-06-2023 CBC W Auto Differential panel - Blood CBC + DIFF Lab Routine Encounter for supervision of other normal in second trimester 26 weeks gestation of Expected: 06/06/2023, Expires: 08/06/2023 [facility] Work Phone: Comment on above: Expected: 06/06/2023 , Expires: 08/06/2023 Start: 06-06-2023 End: 08-06-2023 GEST GLUC SCREEN, 1-HR, 50 GM, NON-FASTING GEST GLUC SCREEN, 1-HR, 50 GM, NON-FASTING Lab Routine Encounter for supervision of other normal in second trimester 26 weeks gestation of Expected: 06/06/2023, Expires: 08/06/2023 [facility] Work Phone: Comment on above: Expected: 06/06/2023 , Expires: 08/06/2023 Start: 06-06-2023 End: 08-06-2023 SYPHILIS TOTAL W/REFLEX SYPHILIS TOTAL W/REFLEX Lab Routine Encounter for supervision of other normal in second trimester 26 weeks gestation of Expected: 06/06/2023, Expires: 08/06/2023 [facility] Work Phone: Comment on above: Expected: 06/06/2023 , Expires: 08/06/2023 Start: 05-06-2023 Covid-19 Vaccine () Covid-19 Vaccine () [facility] Start: 05-06-2023 Influenza vaccination [facility] Start: 04-06-2023 End: 04-06-2024 OBSTETRIC ULTRASOUND WHI OBSTETRIC ULTRASOUND WHI Anc Imaging Routine 17 weeks gestation of Expected: 04/06/2023, Expires: 04/06/2024 [facility] Work Phone: Comment on above: Expected: 04/06/2023 , Expires: 04/06/2024 Start: 03-16-2023 End: 05-11-2023 SEQUENTIAL SCRN SCND TRIMESTER SEQUENTIAL SCRN SCND TRIMESTER Lab Routine 12 weeks gestation of Expected: 03/16/2023 (Approximate), Expires: 05/11/2023 [facility] Work Phone: Comment on above: Expected: 03/16/2023 (Approximate), Expires: 05/11/2023 Start: 03-02-2023 End: 05-02-2023 SEQUENTIAL SCRN FRST TRIMESTER [facility] Work Phone: Comment on above: Expected: 03/02/2023 , Expires: 05/02/2023 Start: 02-02-2023 End: 04-04-2023 CBC panel - Blood by Automated count CBC Lab Routine Supervision of other normal , antepartum Expected: 02/02/2023, Expires: 04/04/2023 [facility] Work Phone: Comment on above: Expected: 02/02/2023 , Expires: 04/04/2023 Start: 02-02-2023 End: 04-04-2023 Hemoglobin A1c in Blood HGB A1C Lab Routine Supervision of other normal , antepartum Expected: 02/02/2023, Expires: 04/04/2023 [facility] Work Phone: Comment on above: Expected: 02/02/2023 , Expires: 04/04/2023 Start: 02-02-2023 End: 04-04-2023 Hepatitis B virus surface Ag [Presence] in Serum HEP B SURF AG SCRN Lab Routine Supervision of other normal , antepartum Expected: 02/02/2023, Expires: 04/04/2023 [facility] Work Phone: Comment on above: Expected: 02/02/2023 , Expires: 04/04/2023 Start: 02-02-2023 End: 04-04-2023 Hepatitis C virus Ab [Presence] in Serum HEP C AB IA W/CONF SCRN Lab Routine Supervision of other normal , antepartum Expected: 02/02/2023, Expires: 04/04/2023 [facility] Work Phone: Comment on above: Expected: 02/02/2023 , Expires: 04/04/2023 Start: 02-02-2023 End: 04-04-2023 HIV 1+2 Ab [Presence] in Serum or Plasma by Immunoassay HIV 1 2 COMBO(AG/AB),WITH REFLEX TO DIFFERENTIATION Lab Routine Supervision of other normal , antepartum Expected: 02/02/2023, Expires: 04/04/2023 [facility] Work Phone: Comment on above: Expected: 02/02/2023 , Expires: 04/04/2023 Start: 02-02-2023 End: 02-03-2024 NUCHAL TRANSLUCENCY WHI NUCHAL TRANSLUCENCY WHI Anc Imaging Routine Supervision of other normal , antepartum Expected: 02/02/2023, Expires: 02/03/2024 [facility] Work Phone: Comment on above: Expected: 02/02/2023 , Expires: 02/03/2024 Start: 02-02-2023 End: 02-03-2024 OBSTETRIC ULTRASOUND WHI OBSTETRIC ULTRASOUND WHI Anc Imaging Routine Supervision of other normal , antepartum Expected: 02/02/2023, Expires: 02/03/2024 [facility] Work Phone: Comment on above: Expected: 02/02/2023 , Expires: 02/03/2024 Start: 02-02-2023 End: 04-04-2023 RUBELLA IGG AB RUBELLA IGG AB Lab Routine Supervision of other normal , antepartum Expected: 02/02/2023, Expires: 04/04/2023 [facility] Work Phone: Comment on above: Expected: 02/02/2023 , Expires: 04/04/2023 Start: 02-02-2023 End: 04-04-2023 SYPHILIS TOTAL W/REFLEX SYPHILIS TOTAL W/REFLEX Lab Routine Supervision of other normal , antepartum Expected: 02/02/2023, Expires: 04/04/2023 [facility] Work Phone: Comment on above: Expected: 02/02/2023 , Expires: 04/04/2023 Start: 02-02-2023 End: 04-04-2023 TYPE + SCREEN TYPE + SCREEN Blood Bank Routine Supervision of other normal , antepartum Expected: 02/02/2023, Expires: 04/04/2023 [facility] Work Phone: Comment on above: Expected: 02/02/2023 , Expires: 04/04/2023 Start: 2022 HPV TESTING HPV TESTING [facility] Start: 09-05-2022 DEPRESSION ASSESSMENT DEPRESSION ASS ESSMENT [facility] Start: 2013 PAP TESTING PAP TESTING [facility] Start: 2011 Hepatitis B Vaccine (1 of 3 - 19+ 3-dose series) Hepatitis B Vaccine (1 of 3 - 19+ 3-dose series) [facility] Start: 2011 Urine microalbumin profile [facility] Start: 1998 PNEUMOCOCCAL (1 - PCV) PNEUMOCOCCAL (1 - PCV) [facility] Start: 1998 Pneumococcal vaccination [facility] Start: 04-29-1993 COVID-19 VACCINE (#1) COVID-19 VACCI NE (#1) [facility] Start: 1992 HEPATITIS B (1 of 3 - 3-dose series) HEPATITIS B (1 of 3 - 3-dose series) [facility] Start: 1992 Hepatitis B Vaccine (1 of 3 - 3-dose series) Hepatitis B Vaccine (1 of 3 - 3-dose series) [facility] Bacteria identified in Urine by Culture URINE CULTURE Microbiology Routine Supervision of other normal , antepartum 02/02/2023 1:52 PM EDT [facility] Work Phone: Chlamydia trachomatis+Neisseria gonorrhoeae DNA [Presence] in Unspecified specimen by GO with probe detection GC/CHLAMYDIA DNA DET Lab Routine Supervision of other normal , antepartum 02/02/2023 1:52 PM EDT [facility] Work Phone: Insertion intrauteri ne device iud INSERT INTRAUTERINE DEVICE Procedures Routine care and examination Encounter for IUD insertion Ordered: 11/09/2023 [facility] Work Phone: Comment on above: Ordered: 11/09/2023 Insertion intrauteri ne device iud INSERT INTRAUTERINE DEVICE Procedures Routine Encounter for IUD insertion Ordered: 11/18/2023 [facility] Work Phone: Comment on above: Ordered: 11/18/2023 End: 12-03-2023 OBSTETRIC ULTRASOUND WHI OBSTETRIC ULTRASOUND WHI Anc Imaging Routine Uterine size-date discrepancy, third trimester Once per month for 5 Occurrences starting 06/06/2023 until 12/03/2023 [facility] Work Phone: Comment on above: Once per month for 5 Occurrences starting 06/06/2023 until 12/03/2023 PAP TEST PAP TEST Lab Stormy mcdaniel Supervision of other normal , antepartum 02/02/2023 1:52 PM EDT [facility] Work Phone: Patient Education [facility] Work Phone: Patient referral [facility] Work Phone: POC BLENDING PLANT OPERATOR ULTRASOUND POC BLENDING PLANT OPERATOR ULTRASO UND Anc Imaging Routine Supervision of other normal , antepartum Ordered: 02/02/2023 [facility] Work Phone: Comment on above: Ordered: 02/02/2023 ROUTINE, GR OUP B STREP PCR ROUTINE, GROUP B STREP PCR Microbiology Routine Obesity affecting in third trimester, unspecified obesity type 35 weeks gestation of Ordered: 08/11/2023 [facility] Work Phone: Comment on above: Ordered: 08/11/2023 URINE OB DIP B/O URINE OB DIP B/ O Lab Routine 12 weeks gestation of Ordered: 03/02/2023 [facility] Work Phone: Comment on above: Ordered: 03/02/2023 [facility] Payers Date Payer Category Payer Self-pay [id number] 2022 Medicaid [place] [employer] [place] [employer] [id number] 2022-Present [phone] [place] [id number] Medicaid [id number] 2014 Unknown [id number] Unknown Unknown [id number] Unknown [id number] Unknown [id number] Unknown [id number] Unknown [id number] Social History Date Type Detail Facility Start: 07-31-2022 End: 09-01-2023 Tobacco smoking status MEIS Unknown if ever smoked [facility] Start: 04-27-2020 Occasional [place] [facility] [place] [place] Start: 04-27-2020 None [place] [facility] [place] [place] Start: 04-27-2020 With Family [place] [facility] [place] [place] Start: 1990 Sex Assigned At Female [facility] Start: 12-18-2022 [facility] Start: 03-02-2012 Tobacco smoking status NHIS Smokes tobacco daily [facility] Work Phone: Start: 03-02-2012 Tobacco use and exposure Smokeless tobacco non-user [facility] Work Phone: Start: 02-02-2023 End: 12-21-2023 Alcohol intake Current non-drinker of alcohol (finding) [facility] Start: 01-27-2023 Education 15 [facility] Start: 1990 Sex Assigned At Not on file [facility] Start: 03-02-2023 End: 04-06-2023 History of Social function [facility] Start: 03-02-2023 End: 04-06-2023 Tobacco use panel [facility] National Score (1-100), lower number is lower risk 56 [facility] NEGATED: Highlighted row [facility] Work Phone: Goals Date Patient Goal Desired Activity /State Personal health goal Mental Status Date Assessment Result Facility 07-31-2022 Cognitive function Level Of Cons ciousness Awake;Alert;Appropriate;Follow s Commands [facility] Work Phone: Clinical Notes 01-02-2023 to 12-21-2023 Suri Forrest APRN.CNM - 12/21/2023 10:47 AM EDTPatient InstructionsSuri Forrest APRN.CNM - 11/18/2023 10:26 AM EDTPSuri concepcion APRN.CNM - 11/09/2023 1:20 PM EST Note Date & Type Note Facility 12-21-2023 Note HNO ID: [id number] Author: SURI FORREST APRN.CNM Service: ? Author Type: Tempering Kiln Tender Type: Progress Notes Filed: 12/21/2023 11:34 Note Text: Venecia Hart presents today for IUD check. She had a Mirena placed on 11/18/2023. She has had heavy bleeding/ now spotting since placement. REVIEW OF SYSTEMS: PAIN ASSESSMENT: Negative for pain, history of chronic pain, or current treatment for a chronic pain condition. GENERAL: No weight loss, malaise or fevers MANAGER BUSINESS MANAGEMENT: Negative for abnormal vaginal bleeding, abnormal vaginal [...] or sooner if needed. Suri Forrest APRN.CNM [facility] 12-21-2023 History of Presen t illness Narrative Venecia Hart presents today for IUD check. She had a Mirena placed on 11/18/2023. She has had heavy bleeding/ now spotting since placement. REVIEW OF SYSTEMS: PAIN ASSESSMENT: Negative for pain, history of chronic pain, or current treatment for a chronic pain condition. GENERAL: No weight loss, malaise or fevers MANAGER BUSINESS MANAGEMENT: Negative for abnormal vaginal bleeding, abnormal vaginal [...] Suri Forrest APRN.CNM documented in this encounter [facility] 11-18-2023 Note HNO ID: [id number] Author: SURI FORREST APRN.CNM Service: ? Author Type: Tempering Kiln Tender Type: Progress Notes Filed: 11/18/2023 12:02 Note Text: Utility Technician offered: Patient declines. Venecia presents today for IUD insertion for contraception. Patient's last menstrual period was 11/07/2023 (approximate). GC/chlamydia: Negative on 02/02/2023 test: negative Side effects including irregular bleeding were discussed with the patient. The patient understands that it should be removed in 8 years or sooner if the patient desires a . IUD source: office provided IUD lot #: [id number] Exp date: 09/2025 [facility]: [id number] UNIVERSAL PROTOCOL / SAFETY CHECKLIST Procedure to [...] menses for string check. Suri Forrest APRN.CACHORRO [facility] 11-18-2023 Instructions Cynthia Banda MA - 11/18/2023 [...] contact the office. documented in this encounter [facility] 11-18-2023 History of Presen t illness Narrative Utility Technician offered: Patient declines. Venecia presents today for IUD insertion for contraception. Patient's last menstrual period was 11/07/2023 (approximate). GC/chlamydia: Negative on 02/02/2023 test: negative Side effects including irregular bleeding were discussed with the patient. The patient understands that it should be removed in 8 years or sooner if the patient desires a . IUD source: office provided IUD lot #: [id number] Exp date: 09/2025 [facility]: [id number] UNIVERSAL PROTOCOL / SAFETY CHECKLIST Procedure to [...] Suri Forrest APRN.CNM documented in this encounter [facility] 11-09-2023 Note HNO ID: [id number] Author: SURI FORREST APRN.CNM Service: ? Author Type: Tempering Kiln Tender Type: Progress Notes Filed: 11/09/2023 14:33 Note Text: VISIT Venecia Hart is a 33 year old year old here for visit. Delivery Summary: by FABBY on 09/01/2023 ROS/ Recovery: Feeding: Breast feeding problems: None Menses since delivery: started period 11/07/2023 Menstrual pattern prior to : Irregular periods [place] since delivery: Not resumed Depression: denies symptoms [...] external genitalia normal, normal Bartholin's glands, urethra, Gustavus's glands, no vulvar lesions, no cervical lesions, [...] Desires Mirena Order written Suri Forrest APRN.CNM [facility] 11-09-2023 History of Presen t illness Narrative VISIT Venecia Hart is a 33 year old year old here for visit. Delivery Summary: by CP on 09/01/2023 ROS/ Recovery: Feeding: Breast feeding problems: None Menses since delivery: started period 11/07/2023 Menstrual pattern prior to : Irregular periods [place] since delivery: Not resumed Depression: denies symptoms [...] external genitalia normal, normal Bartholin's glands, urethra, Gustavus's glands, no vulvar lesions, no cervical lesions, [...] Suri Forrest APRN.CNM documented in this encounter [facility] 09-02-2023 Discharge summary Note Date/Time September 02, 2023 8:21am [facility] Medical Records Department [address] [place] [id number] Instructions for Home/Discharge Instructions 09/02/23 0820 MR#: [id number] Acct: [id number] Name: VENECIA HART Rep #:[id number] : [...] CC: No Primary Care Physician ~ Signed [facility] Work Phone: 1(890) 929-545112-29-2023 Progress note Author Sabrina Coon [facility] September 02, 2023 7:24am Note Date/Time September 02, 2023 7:24am [facility] Medical Records Department [address] [place] [address] Progress Note - OBGYN 09/02/23721 MR#: [id number] Acct: [id number] Name: VENECIA HART Rep #:[id number] : 1990 32 From: Sabrina Coon DO PCP: Care Physician,No Primary Status :ADM IN Location: [id number] Subjective Subjective Patient doing well this morning. [...] Cosigner Signature (if applicable): CC: ~ Signed [facility] Work Phone: 1(788) 254-175812-28-2023 NoteHNO ID: [id number] Author: Mehnaz Yepez RN Service: ? Author Type: Registered Nurse Type: Progress Notes Filed: 09/01/2023 1:22 PM Note Text: Patient delivered via at [facility] on 09/01/23 per Suri Forrest CNM. See OB Outcome note. [facility] Procedure [facility]12-28-2023 Progress note Author Suri Forrest [facility] September 01, 2023 7:09am Note Date/Time September 01, 2023 7:09am [facility] Medical Records Department [address] [place] [address] Progress Note - OBGYN 09/01/23704 MR#: [id number] Acct: [id number] Name: VENECIA HART Rep #:[id number] : 1990 32 From: Suri Forrest CNM PCP: Care Physician,No Primary Status :ADM IN Location: [place] [address] Subjective Subjective Patient seen at bedside. Comfortable [...] 74.1 H, Lymph % (Auto) 16.5 L, [place] % (Auto) 7.7, Eos % (Auto) 0.3, [...] Cosigner Signature (if applicable): CC: ~ Signed [facility] Work Phone: 1(759) 184-657012-27-2023 Progress note Author Suri Forrest [facility] August 31, 2023 9:15pm Note Date/Time August 31, 2023 9:15pm [facility] Medical Records Department [address] [place], [place] [address] [address] Progress Note - OBGYN 08/31/232111 MR#: [id number] Acct: [id number] Name: VENECIA HART Rep #:[id number] : 1990 32 From: Suri Plotts CNM PCP: Care Physician,No Primary Status :ADM IN Location: [id number] Subjective Subjective Patient seen at bedside. 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 Author Type: Tempering Kiln Tender Type: Progress Notes Filed: 08/24/2023 12:24 PM [...] Category I and Reactive SIGNATURE: Suri Forrest APRN.CNK[facility]12-20-2023 History of Present illness Narrative* Suri Forrest [...] SIGNATURE: Suri Forrest APRN.CNM documented in this encounterOhiohealth [facility]ady [facility] Hospital12-20-2023 Miscellaneous Notes* Quick Notes - Suri Forrest APRN.CNM - 08/24/2023 12:05 PM EST eVnecia Hart is a 32 year old female [...] EFW. Suri Forrest APRN.CNM documented in this encounterOhiohealth Grady [facility] Hospital12-20-2023 Instructions* Patient Instructions* Cynthia Banda MA - 08/24/2023 10:24 AM EST SEQUENTIAL SCREENINGS [facility] offers sequential screenings for women who [...] testing. It will require an appointment withour registered dietetic technician. This is not an ultrasound performed [...] the above symptoms, contact our office at [phone] and ask to speak with anurse. After hours, you can call doctors registry at [phone] OR call [facility] at [phone] ask to have the doctor unit receptionist paged. If you consider this an emergency, dial 9-1-2 or go to your nearest emergency department. NEED HELP? Are you dealing with a violent or abusive relationship? Are you a victim of rape or sexual assult? Call [facility] ([place]) 24 hour Crisis Hotline: 578.293.2241 or 052-892-2145. MANUAL Your Guide to a Healthy manual is now on-line. Visit [email or web address] to download your free copy documented in this encounterOhiohealth Grady Memorial Hospital12-13-2023 NoteHNO ID: [id number] Author: Shannan Cabrera APRN.CNP Service: ? Author Type: Nurse Practitioner Type: Procedures Filed: 08/17/2023 9:55 AM Note Text: NST SUMMARY PROVIDER ASSESSMENT AND INTERPRETATION Indications for NST: Obesity Baseline: 125 Variability: Moderate Accelerations: Present 15 X 15 Decelerations: None Interpretation: Reactive SIGNATURE: Shannan Cabrera APRN.GENERAL EDUCATION INSTRUCTOR NST reviewed by Demarcus Forrest [facility]12-07-2023 Miscellaneous Notes* Quick Notes - Suri Forrest [...] US Suri Forrest APRN.CNM documented in this encounterOhiohealth Grady Memorial Hospital12-07-2023 Instructions* Patient Instructions* Jonas Andrews Cma - 08/11/2023 2:22 PM EST SEQUENTIAL SCREENINGS [facility] offers sequential screenings for women who [...] testing. It will require an appointment withour registered dietetic technician. This is not an ultrasound performed [...] the above symptoms, contact our office at [phone] and ask to speak with anurse. After hours, you can call doctors registry at [phone] OR call [facility] at [phone] ask to have the doctor unit receptionist paged. If you consider this an emergency, dial 9-1-1 or go to your nearest emergency department. NEED HELP? Are you dealing with a violent or abusive relationship? Are you a victim of rape or sexual assult? Call [facility] ([place]) 24 hour Crisis Hotline: 399.934.1260 or 221-262-1130. MANUAL Your Guide to a Healthy manual is now on-line. Visit [email or web address] to download your free copy documented in this encounterOhiohealth Grady Memorial Hospital11-15-2023 Miscellaneous Notes* Quick Notes - Suri [...] studies Suri Forrest APRN.CNM documented in this encounterOhiohealth Grady Memorial Hospital11-15-2023 Instructions* Patient Instructions* Ita Cook RN - 07/20/2023 10:47 AM EST SEQUENTIAL SCREENINGS [facility] offers sequential screenings for women who [...] testing. It will require an appointment withour registered dietetic technician. This is not an ultrasound performed [...] the above symptoms, contact our office at [phone] and ask to speak with anurse. After hours, you can call doctors registry at [phone] OR call [facility] at [phone] ask to have the doctor unit receptionist paged. If you consider this an emergency, dial 9-1-1 or go to your nearest emergency department. NEED HELP? Are you dealing with a violent or abusive relationship? Are you a victim of rape or sexual assult? Call [facility] ([place]) 24 hour Crisis Hotline: 122.209.2577 or 036-739-1722. MANUAL Your Guide to a Healthy manual is now on-line. Visit [email or web address] to download your free copy documented in this encounterOhiohealth Grady Memorial Hospital11-01-2023 Miscellaneous Notes* Quick Notes - Suri [...] weeks Suri Forrest APRN.CNM documented in this encounterOhiohealth Grady Memorial Hospital11-01-2023 Instructions* Patient Instructions* Jonas Andrews Cma - 07/06/2023 10:58 AM EDT SEQUENTIAL SCREENINGS [facility] offers sequential screenings for women who [...] testing. It will require an appointment withour registered dietetic technician. This is not an ultrasound performed [...] the above symptoms, contact our office at [phone] and ask to speak with anurse. After hours, you can call doctors registry at [phone] OR call [facility] at [phone] ask to have the doctor unit receptionist paged. If you consider this an emergency, dial 9-1-8 or go to your nearest emergency department. NEED HELP? Are you dealing with a violent or abusive relationship? Are you a victim of rape or sexual assult? Call [facility] ([place]) 24 hour Crisis Hotline: 217.990.3980 or 374-216-7761. MANUAL Your Guide to a Healthy manual is now on-line. Visit [email or web address] to download your free copy documented in this encounterOhiohealth Grady Memorial Hospital10-18-2023 Miscellaneous Notes* Quick Notes - Suri [...] weeks Suri Forrest APRN.CNM documented in this encounterOhiohealth Grady Memorial Hospital10-18-2023 Instructions* Patient Instructions* Jonas Andrews Cma - 06/22/2023 9:05 AM EDT SEQUENTIAL SCREENINGS [facility] offers sequential screenings for women who [...] testing. It will require an appointment withour registered dietetic technician. This is not an ultrasound performed [...] the above symptoms, contact our office at [phone] and ask to speak with anurse. After hours, you can call [email or web address] at [phone] OR call [facility] at [phone] ask to have the doctor unit receptionist paged. If you consider this an emergency, dial 9--6 or go to your nearest emergency department. NEED HELP? Are you dealing with a violent or abusive relationship? Are you a victim of rape or sexual assult? Call [facility] ([place]) 24 hour Crisis Hotline: 523.256.9493 or 717-227-3320. MANUAL Your Guide to a Healthy manual is now on-line. Visit [email or web address] to download your free copy documented in this encounterOhiohealth Grady Memorial Hospital10-02-2023 Miscellaneous Notes* Quick Notes - Suri [...] needed Suri Forrest APRN.CNM documented in this encounterOhiohealth Grady Memorial Hospital10-02-2023 Instructions* Patient Instructions* Jonas Andrews Cma - 06/06/2023 11:14 AM EDT SEQUENTIAL SCREENINGS [facility] offers sequential screenings for women who [...] testing. It will require an appointment withour registered dietetic technician. This is not an ultrasound performed [...] the above symptoms, contact our office at [phone] and ask to speak with anurse. After hours, you can call doctors registry at [phone] OR call [facility] at [phone] ask to have the doctor unit receptionist paged. If you consider this an emergency, dial 9-6 or go to your nearest emergency department. NEED HELP? Are you dealing with a violent or abusive relationship? Are you a victim of rape or sexual assult? Call [facility] ([facility] 24 hour Crisis Hotline: 559.656.3586 or 789-684-5101. MANUAL Your Guide to a Healthy manual is now on-line. Visit [email or web address] to download your free copy documented in this encounterOhiohealth Grady Memorial Hospital08-25-2023 Miscellaneous Notes* Quick Notes - Suri [...] needed Suri Forrest APRN.CNM documented in this encounterOhiohealth Grady Memorial Hospital08-25-2023 Instructions* Patient Instructions* Jonas Andrews Cma - 04/29/2023 10:29 AM EDT SEQUENTIAL SCREENINGS The [facility] offers sequential screenings for women who [...] testing. It will require an appointment withour registered dietetic technician. This is not an ultrasound performed [...] the above symptoms, contact our office at [phone] and ask to speak with anurse. After hours, you can call doctors registry at [phone] OR call [facility] at [phone] ask to have the doctor unit receptionist paged. If you consider this an emergency, dial 91-3 or go to your nearest emergency department. NEED HELP? Are you dealing with a violent or abusive relationship? Are you a victim of rape or sexual assult? Call [facility] ([place]) 24 hour Crisis Hotline: 260.998.9425 or 167-748-8085. MANUAL Your Guide to a Healthy manual is now on-line. Visit [email or web address] to download your free copy documented in this encounterOhiohealth Grady Memorial Hospital08-22-2023 Miscellaneous Notes* Telephone Encounter - Iza Mohan RN - 04/26/2023 10:59 AM EDT 2nd risk assessment form submitted 04/26/23. 20w3d today documented in this encounterOhiohealth Grady Memorial Hospital08-02-2023 Miscellaneous Notes* Quick Notes - Suri [...] weeks Suri Forrest APRN.CNM documented in this encounterOhiohealth Grady Memorial Hospital08-02-2023 Instructions* Patient Instructions* Jonas Andrews Cma - 04/06/2023 1:03 PM EDT SEQUENTIAL SCREENINGS [facility] offers sequential screenings for women who [...] testing. It will require an appointment withour registered dietetic technician. This is not an ultrasound performed [...] the above symptoms, contact our office at [phone] and ask to speak with anurse. After hours, you can call [email or web address] at [phone] OR call [facility] at [phone] ask to have the doctor unit receptionist paged. If you consider this an emergency, dial 9--7 or go to your nearest emergency department. NEED HELP? Are you dealing with a violent or abusive relationship? Are you a victim of rape or sexual assult? Call [facility] ([place]) 24 hour Crisis Hotline: 258.473.3732 or 443-095-7274. MANUAL Your Guide to a Healthy manual is now on-line. Visit [email or web address] to download your free copy documented in this encounterOhiohealth Grady Memorial Hospital06-28-2023 NoteHNO ID: [id number] Author: Leti Goins Ma Service: ? Author Type: ? Type: Progress Notes Filed: 03/02/2023 12:54 PM Note Text: Patient here for First Trimester Screening. See ultrasound report for details. Options for genetic screening and diagnosis discussed with the patient. Patient opts for first trimester screening and the sequential screening protocol. Limitations of screening tests discussed with the patient. Suri Forrest APRN.[facility]06-28-2023 Miscellaneous Notes* Quick Notes - Suri Forrest APRN.[facility] - 03/02/2023 11:13 AM EDT S: [...] weeks Suri Forrest APRN.CNM documented in this encounterOhiohealth Grady Memorial Hospital06-28-2023 History of Present illness Narrative* Leti Goins Ma - 03/02/2023 10:52 AM EDT Patient here for First Trimester Screening. See ultrasound report for details. Options for genetic screening and diagnosis discussed with the patient. Patient opts for first trimester screening and the sequential screening protocol. Limitations of screening tests discussed withthe patient. Suri Forrest APRN.CNM documented in this encounterOhiohealth Grady Memorial Hospital06-28-2023 Instructions* Patient Instructions* Leti Goins Ma - 03/02/2023 9:51 AM EDT SEQUENTIAL SCREENINGS [facility] offers sequential screenings for women who [...] testing. It will require an appointment withour registered dietetic technician. This is not an ultrasound performed [...] the above symptoms, contact our office at [phone] and ask to speak with anurse. After hours, you can call doctors registry at [phone] OR call [facility] at [phone] ask to have the doctor unit receptionist paged. If you consider this an emergency, dial 9-1-0 or go to your nearest emergency department. NEED HELP? Are you dealing with a violent or abusive relationship? Are you a victim of rape or sexual assult? Call [facility] ([place]) 24 hour Crisis Hotline: 458.939.1649 or 238-240-5365. MANUAL Your Guide to a Healthy manual is now on-line. Visit [email or web address] to download your free copy SEQUENTIAL TESTING PROCESS Sequential Screen First Trimester Today you are currently: 12w4d weeks 03/02/2023: Ultrasound and blood test. Sequential Screen Second Trimester (16-17 Weeks Gestation) When you are called with your results, the nurse will give the optimal draw dates for the Sequential screen second trimester. Blood testing can be done at any [facility] lab. Please report to the any inventory audit clerk office help desk intern for the Sequential Part 2 requisition and [...] medicine office, for east side please call [phone] or for the West side call [phone] and ask for the the nurse. Thank you. documented in this encounterOhiohealth Grady Memorial Hospital06-05-2023 Miscellaneous Notes* Telephone Encounter - Asad Barnard RN - 02/07/2023 3:02 PM EDT Initial risk assessment form submitted 02/07/2023 Asad Barnard RN documented in this encounterOhiohealth Grady Memorial Hospital05-31-2023 NoteHNO ID: [id number] Author: Suri Forrest APRN.CNM Service: ? Author Type: Tempering Kiln Tender Type: Progress Notes Filed: 02/02/2023 4:33 PM Note Text: OB point of care ultrasound was performed. See imaging tab for details. Suri Forrest APRN.CNKettering Health [facility]burg05-31-2023 History of Present illness Narrative* Suri Forrest APRN.CNM - 02/02/2023 4:32 PM EDT OB point of care ultrasound was performed. See imaging tab for details. Suri Forrest APRN.CNM documented in this encounterOhiohealth Grady Memorial Hospital05-31-2023 NoteHNO ID: [id number] Author: Suri Forrest APRN.CNM Service: ? Author Type: Tempering Kiln Tender Type: Progress Notes Filed: 02/02/2023 2:45 PM Note Text: Utility Technician offered: Patient declines. 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 See progress note. Suri Forrest APRN.CNM documented in this encounterOhiohealth Grady Memorial Hospital05-31-2023 History of Present illness Narrative* Suri Forrest APRN.CNM - 02/02/2023 12:49 PM EDT Images from the original note were not included. Utility Technician offered: Patient declines. INITIAL OB ASSESSMENT OB [...] use: No Multivitamin with Folic acid: Yes Anglican or heritage: No Would refuse blood transfusion [...] prn. Suri Forrest APRN.CNM documented in this encounterOhiohealth Grady Memorial Hospital05-31-2023 Instructions* Patient Instructions* Cynthia Banda MA - 02/02/2023 12:49 PM EDT Please select the following link to access the [facility] Your Guide to a Healthy . [email or web address] documented in this encounterOhiohealth Grady Memorial Hospital05-25-2023 NoteHNO ID: [id number] Author: Fabrizio Campoverde RN Service: ? Author [...] Apgar1: None, Apgar5: None, Living: None, Comments: NoneTrihealth [facility]04-30-[address] De Los Santos [facility] January 03, 2023 12:15am Note Date/Time January 02, 2023 9:5 5pm [facility] Medical Records Department [address] [place] [address] Emergency Department Summary 01/02/23 MR#: [id number] Acct: [id number] Name: VENECIA HART Rep #:[id number] : [...] <BISI Sesay - Last Filed: 01/02/23 22:10> [facility] Lab Data Attestation: I reviewed the patient's [...] % (Auto) 57.3 Lymph % (Auto) 33.4 [place] % (Auto) 7.7 Eos % (Auto) 0.7 [...] Sl. Cloudy Urine pH 7.0 Ur Specific [place] 1.005 Urine Protein Negative Urine Glucose (UA) [...] (Auto) Neut % (Auto) Lymph % (Auto) [place] % (Auto) Eos % (Auto) Baso % (Auto) Absolute Neuts (auto) Absolute Lymphs (auto) Nucleated RBC % Differential Comment Sodium Potassium Chloride Carbon Dioxide Anion Gap BUN Creatinine Estim Creat Clear Calc Est GFR (MDRD) Af Amer Est GFR (MDRD) Non-Af BUN/Creatinine Ratio Glucose Calcium HCG, Quant 402 H Urine Color Urine Clarity Urine pH Ur Specific [place] Urine Protein Urine Glucose (UA) Urine Ketones [...] did have elevated white blood counts from 2839-3727. Patient's chemistries were unremarkable. Patient urinalysis negative for infection, and was positive for . We did attempt a bedside ultrasound however not much was seen. Patient's hCG quantitative was 402. The patient will still receivea transvaginal ultrasound to rule out any ectopic , other abnormality. <Dr. Daniel De Los Santos MD - Last Filed: 01/03/23 00:15> [facility] Lab Data Labs: Laboratory Results - last 24 hr 01/02/23 01/02/23 01/02/23 21:00 21:07 21:07 WBC 16.7 H RBC 5.52 H Hgb 15.4 H Hct 46.2 MCV 83.7 MCH 27.9 MCHC 33.3 RDW Std Deviation 39.9 RDW Coeff of Jatinder 13.1 Plt Count 321 MPV 9.5 Immature Gran % (Auto) 0.400 Neut % (Auto) 57.3 Lymph % (Auto) 33.4 [place] % (Auto) 7.7 Eos % (Auto) 0.7 [...] Sl. Cloudy Urine pH 7.0 Ur Specific [place] 1.005 Urine Protein Negative Urine Glucose (UA) [...] (Auto) Neut % (Auto) Lymph % (Auto) [place] % (Auto) Eos % (Auto) Baso % (Auto) Absolute Neuts (auto) Absolute Lymphs (auto) Nucleated RBC % Differential Comment Sodium Potassium Chloride Carbon Dioxide Anion Gap BUN Creatinine Estim Creat Clear Calc Est GFR (MDRD) Af Amer Est GFR (MDRD) Non-Af BUN/Creatinine Ratio Glucose Calcium HCG, Quant 402 H Urine Color Urine Clarity Urine pH Ur Specific [place] Urine Protein Urine Glucose (UA) Urine Ketones [...] . Close outpatient follow-up advised with the senior planner on-call since patient does not have 1. [...] your Primary Care Provider. Call Doctors [facility] ([phone]) or report to the closest Emergency Room. Call 911 if necessary. 01/02/23 2211 <Electronically signed by Davey GRIFFITHSC> Cosigner Signature (if applicable): 01/03/23 0015 <Electronically signed by Daniel De Los Santos MD> CC: Dr. Haven Cross MD; No Primary Care Physician ~ Signed [facility] Work Phone: Evdough noteNo assessment information available [facility] Work Phone: Evaluation note* Diagnosis Supervision of other normal , antepartum- Primary 8 weeks gestation of state, incidental History of depression Personal history of other mental disorder Tobacco smoking affecting , antepartum Obesity during Nausea and vomiting during documented in this encounter [facility] [place] [facility]* Diagnosis with uncertain dates in first trimester- Primary documented in this encounter [facility] [place] [facility]* Diagnosis 12 weeks gestation of - Primary state, incidental Tobacco smoking affecting , antepartum Nausea and vomiting during Obesity during documented in this encounter [facility] [place] [facility]* Diagnosis Encounter for (NT) nuchal translucency scan- Primary Other specified screening Supervision of other normal , antepartum 12 weeks gestation of state, incidental documented in this encounter [facility] [place] [facility]* Diagnosis 17 weeks gestation of - Primary state, incidental Encounter for supervision of other normal in second trimester Obesity during documented in this encounter [facility] [place] [facility]* Diagnosis 20 weeks gestation of - Primary state, incidental Encounter for supervision of other normal in second trimester Obesity during [facility] [place] [facility]* Diagnosis Encounter for anatomic survey- Primary Obesity affecting in second trimester, unspecified obesity type 20 weeks gestation of state, incidental documented in this encounter [facility] [place] [facility]* Diagnosis Encounter for supervision of other normal in second trimester- Primary 26 weeks gestation of state, incidental Uterine size-date discrepancy, third trimester Obesity during Tobacco smoking affecting , antepartum documented in this encounter [facility] [place] [facility]* Diagnosis 28 weeks gestation of - Primary state, incidental Encounter for supervision of normal first in third trimester Supervision of normal first Obesity during Tobacco smoking affecting , antepartum Uterine size-date discrepancy, third trimester documented in this encounter [facility] [place] [facility]* Diagnosis Uterine size-date discrepancy, third trimester- Primary 28 weeks gestation of state, incidental documented in this encounter [facility] [place] [facility]* Diagnosis Encounter for supervision of normal first in third trimester- Primary Supervision of normal first 30 weeks gestation of state, incidental Obesity during Tobacco smoking affecting , antepartum Uterine size-date discrepancy, third trimester Anemia complicating , third trimester documented in this encounter [facility]* Diagnosis 32 weeks gestation of - Primary state, incidental Anemia complicating , third trimester documented in this encounter [facility] [place] [facility]* Diagnosis Obesity affecting in third trimester, unspecified obesity type- Primary 35 weeks gestation of state, incidental Tobacco smoking affecting , antepartum Supervision of high risk , antepartum Anemia complicating , third trimester [facility] [facility] Encounter for ultrasound to check growth- Primary Encounter for routine screening for malformation using ultrasonics Obesity during 35 weeks gestation of state, incidental [facility] [place] [facility] Diagnosis 37 weeks gestation of - Primary state, incidental Supervision of high risk in third trimester Unspecified high-risk Obesity during Uterine size-date discrepancy, third trimester documented [facility] [place] [facility]* Diagnosis Onset Date Resolution Status 37 [...] (spontaneous vaginal delivery) acute Vaginal delivery acute [facility] Work Phone: Evaluation note* Diagnosis care and examination- Primary Routine follow-up Encounter for IUD insertion Encounter for insertion of intrauterine contraceptive device care and examination of lactating mother documented [facility] Diagnosis Encounter for IUD insertion- Primary Encounter for insertion of intrauterine contraceptive device documented in this encounter [facility] [place] [facility]* Diagnosis Surveillance of previously prescribed intrauterine contraceptive device- Primary [facility] Additional Instructions Your CT [...] the ER should you have any further [facility] Work Phone: Reason for referral (narrative)* Diagnostic Procedure Only (Routine) - Authorized Specialty Diagnoses / Procedures Referred By Nevin t Referred To Contact [facility] Diagnoses Supervision of other normal , antepartum Procedures NUCHAL TRANSLUCENCY WHI US NUCHAL TRANSLUCENCY 1ST GESTATION Suri Forrest APRN.CNM [address] [place] [address] [place] [id number] Referral ID Status Reason Start Date Expiration Date Visits Requested Visits Authorized [id number] Authorized Auto-Generat ed Referral 02/02/2023 02/02/2024 1 1 * Diagnostic Procedure Only (Routine) - Pending Review Specialty Diagnoses / Procedures Referred By Nevin t Referred To Contact [facility] Diagnoses Supervision of other normal , antepartum Procedures OBSTETRIC ULTRASOUND WHI US PREG UTERUS AFTER 1ST TRIMEST GESTATION Suri Forrest APRN.CNM [address] [place] [address] [address] Referral ID Status Reason Start Date Expiration Date Visits Requested Visits Authorized [id number] Pending Review Auto-Generat ed Referral 02/02/2023 02/02/2024 1 1 [facility] for referral (narrative)* Diagnostic Procedure Only (Routine) - Authorized Specialty Diagnoses / Procedures Referred By Contac t Referred To Contact [facility] Diagnoses 17 weeks gestation of Procedures OBSTETRIC ULTRASOUND WHI US PREG UTERUS AFTER 1ST TRIMEST GESTATION Suri Forrest APRN.CNM [address] [place] [address] [address] Referral ID Status Reason Start Date Expiration Date Visits Requested Visits Authorized [id number] Authorized Auto-Generat ed Referral 04/06/2023 04/05/2024 1 1 [facility] for referral (narrative)* Diagnostic Procedure Only (Routine) - Authorized Specialty Diagnoses / Procedures Referred By Contac t Referred To Contact [facility] Diagnoses Uterine size-date discrepancy, third trimester Procedures OBSTETRIC ULTRASOUND WHI US PREG UTERUS AFTER 1ST TRIMEST GESTATION Suri Forrest APRN.CNM [address] [place] [address] [address] Referral ID Status Reason Start Date Expiration Date Visits Requested Visits Authorized [id number] Authorized Auto-Generat ed Referral 06/06/2023 06/05/2024 5 1 [facility] for referral (narrative)* Outpatient Procedure (Routine) - Pending Review Specialty Diagnoses / Procedures Referred By Contac t Referred To Contact [facility] Diagnoses care and examination Encounter for IUD insertion Procedures INSERT INTRAUTERINE DEVICE INSERT INTRAUTERINE DEVICE Suri Forrest APRN.CNM [address] [place] [address] [address] Referral ID Status Reason Start Date Expiration Date Visits Requested Visits Authorized [id number] Pending Review Auto-Generat ed Referral 11/09/2023 11/08/2024 1 1 [facility] for referral (narrative)* Outpatient Procedure (Routine) - Pending Review Specialty Diagnoses / Procedures Referred By Contac t Referred To Contact [facility] Diagnoses Encounter for IUD insertion Procedures INSERT INTRAUTERINE DEVICE LEVONORGESTREL IU 52MG 5 YR INSERT INTRAUTERINE DEVICE Suri Forrest APRN.CNM [address] [place] [address] [facility] [address] [place] [address] Referral ID Status Reason Start Date Expiration Date Visits Requested Visits Authorized [id number] Pending Review Auto-Generat ed Referral 11/18/2023 11/17/2024 1 1 [facility] Summary Purpose Family History No Family History Records FoundNo Family History Records FoundNo Family History Records FoundNo Family History Records Found Advance Directives No Advanced Directives Records Found Advance Directive Response Recorded Date/ Time Living Will No July 31, 2 022 4:37am Power of Net Sql Developer No July 31, 2022 4:37am Advance Directive Response Recorded Date/ Time Living Will No January 03, 2023 12 :17am Power of Net Sql Developer No January 03, 2023 12:17am Advance Directive Response Recorded Date/ Time Living Will No August 31, 2 023 8:40pm Power of Net Sql Developer No August 31, 2023 8:40pm Chief Complaint [...] CC Education - COMMON 01/05 Education - [place] 02/02/2023 Problem Noted Date [facility] Education - [facility] 01/05 [place] - [place] 02/02/2023 Problem Noted Date [facility] Education - [place] 01/05 Education - [place] 02/02/2023 Problem Noted Date [facility] Education - [facility] 01/05 Education - [place] 02/02/2023 Problem Noted Date [facility] Education - [facility] 01/05 Education - [place] 02/02/2023 Problem Noted Date Diagnosed Date [facility] Education - [facility] 02/02/2023 Education - [place] 02/02/2023 Problem Noted Date Diagnosed Date [facility] Education - [facility] 02/02/2023 Education - [place] 02/02/2023 Problem Noted Date Diagnosed Date [facility] Education - [facility] 02/02/2023 Education - [place] 02/02/2023 Problem Noted Date Diagnosed Date [facility] Education - [facility] 02/02/2023 Education - [place] 02/02/2023 Problem Noted Date Diagnosed Date [facility] Education - [facility] 02/02/2023 Education - [place] 02/02/2023 Problem Noted Date Diagnosed Date [facility] Education - [facility] 02/02/2023 Education - [place] 02/02/2023 Problem Noted Date Diagnosed Date [facility] Education - [facility] 02/02/2023 Education - [place] 02/02/2023 Problem Noted Date Diagnosed Date [facility] CC Education - [facility] 02/02/2023 Education - [place] 02/02/2023 Problem Noted Date Diagnosed Date [facility] CC Education - [facility] 02/02/2023 Education - [place] 02/02/2023 Problem Noted Date Diagnosed Date [facility] CC Education - [facility] 02/02/2023 Education - [place] 02/02/2023 Problem Noted Date Diagnosed Date [facility] CC Education - [facility] 02/02/2023 Education - [place] 02/02/2023 Additional Source Comments INFORMATION SOURCE (unrecogn ized section and content) DATE CREATED AUTHOR 02/27/2018 [facility] [place] [facility] DATE CREATED AUTHOR AUTHOR'S ORGANIZ ATION 03/01/2018 [facility] DATE CREATED AUTHOR AUTHOR'S ORGANIZ ATION 10/25/2023 [facility] DATE CREATED AUTHOR AUTHOR'S ORGANIZ ATION 12/25/2023 [facility] Goals (unrecognized section and content) Goals may [...] or prosecute any alcohol or drug abuse patient.[facility] HospitalIn the event this information is protected by the Federal Confidentiality of Alcohol and Drug Abuse Patient Records regulations: The Federal rules restrict any use of the information to criminally investigate or prosecute any alcohol or drug abuse patient.[facility] Hospital[facility] the event this information is protected by the Federal Confidentiality of Alcohol and Drug Abuse Patient Records regulations: The Federal rules restrict any use of the information to criminally investigate or prosecute any alcohol or drug abuse patient.[facility] Hospital[facility] the event this information is protected by the Federal Confidentiality of Alcohol and Drug Abuse Patient Records regulations: The Federal rules restrict any use of the information to criminally investigate or prosecute any alcohol or drug abuse patient.[facility] HospitalIn the event this information is protected by the Federal Confidentiality of Alcohol and Drug Abuse Patient Records regulations: The Federal rules restrict any use of the information to criminally investigate or prosecute any alcohol or drug abuse patient.[facility] Hospital[facility] the event this information is protected by the Federal Confidentiality of Alcohol and Drug Abuse Patient Records regulations: The Federal rules restrict any use of the information to criminally investigate or prosecute any alcohol or drug abuse patient.[facility] HospitalIn the event this information is protected by the Federal Confidentiality of Alcohol and Drug Abuse Patient Records regulations: The Federal rules restrict any use of the information to criminally investigate or prosecute any alcohol or drug abuse patient.[facility] HospitalIn the event this information is protected by the Federal Confidentiality of Alcohol and Drug Abuse Patient Records regulations: The Federal rules restrict any use of the information to criminally investigate or prosecute any alcohol or drug abuse patient.[facility] HospitalIn the event this information is protected by the Federal Confidentiality of Alcohol and Drug Abuse Patient Records regulations: The Federal rules restrict any use of the information to criminally investigate or prosecute any alcohol or drug abuse patient.[facility] HospitalIn the event this information is protected by the Federal Confidentiality of Alcohol and Drug Abuse Patient Records regulations: The Federal rules restrict any use of the information to criminally investigate or prosecute any alcohol or drug abuse patient.[facility] HospitalIn the event this information is protected by the Federal Confidentiality of Alcohol and Drug Abuse Patient Records regulations: The Federal rules restrict any use of the information to criminally investigate or prosecute any alcohol or drug abuse patient.[facility] HospitalIn the event this information is protected by the Federal Confidentiality of Alcohol and Drug Abuse Patient Records regulations: The Federal rules restrict any use of the information to criminally investigate or prosecute any alcohol or drug abuse patient.[facility] HospitalIn the event this information is protected by the Federal Confidentiality of Alcohol and Drug Abuse Patient Records regulations: The Federal rules restrict any use of the information to criminally investigate or prosecute any alcohol or drug abuse patient.[facility] HospitalIn the event this information is protected by the Federal Confidentiality of Alcohol and Drug Abuse Patient Records regulations: The Federal rules restrict any use of the information to criminally investigate or prosecute any alcohol or drug abuse patient.[facility] HospitalIn the event this information is protected by the Federal Confidentiality of Alcohol and Drug Abuse Patient Records regulations: The Federal rules restrict any use of the information to criminally investigate or prosecute any alcohol or drug abuse patient.[facility] HospitalIn the event this information is protected by the Federal Confidentiality of Alcohol and Drug Abuse Patient Records regulations: The Federal rules restrict any use of the information to criminally investigate or prosecute any alcohol or drug abuse patient.[facility] HospitalIn the event this information is protected by the Federal Confidentiality of Alcohol and Drug Abuse Patient Records regulations: The Federal rules restrict any use of the information to criminally investigate or prosecute any alcohol or drug abuse patient.[facility] HospitalIn the event this information is protected by the Federal Confidentiality of Alcohol and Drug Abuse Patient Records regulations: The Federal rules restrict any use of the information to criminally investigate or prosecute any alcohol or drug abuse patient.[facility] HospitalIn the event this information is protected by the Federal Confidentiality of Alcohol and Drug Abuse Patient Records regulations: The Federal rules restrict any use of the information to criminally investigate or prosecute any alcohol or drug abuse patient.[facility] HospitalIn the event this information is protected by the Federal Confidentiality of Alcohol and Drug Abuse Patient Records regulations: The Federal rules restrict any use of the information to criminally investigate or prosecute any alcohol or drug abuse patient.[facility] Reason for Visit (unrecogniz ed section and content) Reason Comments Care Reason Comments 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 [employer] Reason Onset Date Comments Care 03/02/2023 Reason Comments US Specialty Diagnoses / Procedures Referred By Contac t Referred To Contact [facility] Diagnoses Supervision of other normal , antepartum Procedures NUCHAL TRANSLUCENCY WHI US NUCHAL TRANSLUCENCY 1ST GESTATION Suri Forrest APRN.CNM [address] [place] [address] [facility] [address] [place] [address] Referral ID Status Reason Start Date Expiration Date V isits Requested Visits Authorized [id number] Closed Auto-Generate d Referral 02/02/2023 02/02/2024 1 1 Reason Onset Date Comments Care 04/06/2023 Reason Comments 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 Praf Reason Onset Date Comments Care 04/29/2023 Specialty Diagnoses / Procedures Referred By Contac t Referred To Contact [facility] Diagnoses 17 weeks gestation of Procedures OBSTETRIC ULTRASOUND WHI US PREG UTERUS AFTER 1ST TRIMEST GESTATION Suri Forrest APRN.CNM [address] [place] [address] [facility] [address] [place] [address] Referral ID Status Reason Start Date Expiration Date V isits Requested Visits Authorized [id number] Closed Auto-Generate d Referral 04/06/2023 04/05/2024 1 1 Reason Onset Date Comments Care 06/06/2023 Reason Onset Date Comments Care 06/22/2023 Specialty Diagnoses / Procedures Referred By Contac t Referred To Contact [facility] Diagnoses Uterine size-date discrepancy, third trimester Procedures OBSTETRIC ULTRASOUND WHI US PREG UTERUS AFTER 1ST TRIMEST GESTATION Suri Forrest APRN.CNM [address] [place] [address] [address] Referral ID Status Reason Start Date Expiration Date V isits Requested Visits Authorized [id number] Closed Auto-Generate d Referral 06/06/2023 06/05/2024 5 1 Reason Onset Date Comments Care 07/06/2023 Reason Onset Date Comments Care 07/20/2023 Reason Onset Date Comments Care 08/11/2023 Specialty Diagnoses / Procedures Referred By Contac t Referred To Contact [facility] Diagnoses 17 weeks gestation of Encounter for supervision of other normal in second trimester Obesity during Procedures OBSTETRIC ULTRASOUND WHI US PREG UTERUS AFTER 1ST TRIMEST GESTATION Suri Forrest APRN.CNM [address] [place] [address] [facility] [address] [place] [id number] Referral ID Status Reason Start Date Expiration Date V isits Requested Visits Authorized [id number] Closed Auto-Generate d Referral 04/29/2023 04/28/2024 1 1 Reason Onset Date Comments Care 08/24/2023 Reason Comments Routine Reason Onset Date Comments Insertion Of IUD 11/18/2023 Specialty Diagnoses / Procedures Referred By Contac t Referred To Contact [facility] Diagnoses care and examination Encounter for IUD insertion Procedures INSERT INTRAUTERINE DEVICE INSERT INTRAUTERINE DEVICE LEVONORGESTREL IU 52MG 5 YR REMOVE INTRAUTERINE DEVICE Suri Forrest APRN.CNM [address] [place] [address] [facility] [employer] [address] [place] [address] Referral ID Status Reason Start Date Expiration Date Visits Requested Visits Authorized [id number] Authorized Auto-Generat ed Referral 11/10/2023 09/04/2024 2 [...] BE BASED ON THE PRIMARY CLINICAL RECORDS. [employer] provides no warranty or guarantee of the accuracy or completeness of information in this document.
[2025-08-25] MEDS: Lactated Ringers 1,000 ML 120 ML IV (18:01)
== END 2025-08-25 19:55 | disposition home or self-care (01) ==
LOC: ED 11:29 → SDC 11:31 → ACINP 11:32 → SDC 17:23 → MS3 17:23
PROVIDERS: Admitting Provider Surgery; Emergency Provider Surgery; Visit Provider Surgery
PROC: (CPT 49592; principal; 2025-08-25 14:00)
DX: K42.0 Umbilical hernia with obstruction, without gangrene (principal); F41.9 Anxiety disorder, unspecified; K76.0 Fatty (change of) liver, not elsewhere classified; I10 Essential (primary) hypertension; F17.200 Nicotine dependence, unspecified, uncomplicated
CPT/HCPCS: 49592; 00752; 74177; 80053; 81001; 81025; 83605; 83690; 85025; 88302; 96361; 96374; 96375; 96376; 99284; Q9967; A4216; J2405